=== PATIENT | male | born 1950 | race African-American/Black ===

== ENCOUNTER 2019-07-17 06:42 | Outpatient (CLI) | payer MEDICARE, SELFPAY ==
[2019-07-17 07:48] LABS: Basophils Percent Auto 0.4 % (0.2-1.2); Eosinophils Absolute Auto 0.2 K/mm3 (0-0.3); Eosinophils Percent Auto 3.1 % (0-4.4); Hematocrit 42.3 % (42.0-52.0); Lymphocytes Absolute Auto 1.85 K/mm3 (0.9-3.2); Lymphocytes Percent Auto 35.4 % (18.3-44.2); Mean Corpuscular HGB Conc 33.1 g/dl (32-36); Mean Corpuscular Hemoglobin 30.1 pg (26-34); Mean Platelet Volume 10.6 fl (7.4-10.4); Monocytes Absolute Auto 0.4 K/mm3 (0.1-0.6); Monocytes Percent Auto 6.7 % (2.6-8.5); Neutrophils Absolute Auto 2.8 K/mm3 (1.3-6.7); Neutrophils Percent Auto 54.4 % (45.5-73.1); Platelet Count Result 160 k/mm3 (150-375); Red Blood Count 4.65 M/mm3 (4.6-6.20); Red Cell Distribution Width 13.2 % (11.5-14.5); White Blood Count 5.2 K/mm3 (4.5-10.0)
[2019-07-17 08:01] LABS: Alanine Aminotransferase 22 U/L (4-50); Albumin Level 3.9 g/dL (3.5-5.1); Alkaline Phosphatase 79 U/L (38-126); Aspartate Amino Transferase 27 U/L (17-59); Bilirubin,Total 0.6 mg/dL (0.2-1.3); Blood Urea Nitrogen 16 mg/dL (9-20); Calcium 8.7 mg/dL (8.4-10.2); Carbon Dioxide 26 mmol/L (22-30); Chloride 104 mmol/L (98-107); Cholesterol 141 mg/dL (0-200); Estimated Glomerular Filt Rate > 60; Glucose 132 mg/dL (75-110); HDL Direct 36 mg/dL; Potassium 3.8 mmol/L (3.4-5.0); Sodium 137 mmol/L (137-145); Triglycerides 157 mg/dL (<150)
[2019-07-17 08:12] LABS: LDL Cholesterol Direct 74 mg/dL
[2019-07-17 08:16] LABS: Hemoglobin A1C 6.2 % (<5.7)
== END 2019-07-17 06:43 | disposition home or self-care (01) ==
PROVIDERS: PCP Internal Medicine; Visit Provider Internal Medicine
DX: I10 Essential (primary) hypertension (principal); R73.03 Prediabetes; E78.2 Mixed hyperlipidemia; Z79.899 Other long term (current) drug therapy
CPT/HCPCS: 36415; 80053; 80061; 83036; 84443; 85025

== ENCOUNTER 2019-07-18 07:02 | Outpatient (CLI) | payer MEDICARE, SELFPAY ==
[2019-07-18 09:25] LABS: Free T4 Free Thyroxine 0.95 ng/mL (0.78-2.19)
== END 2019-07-18 07:03 | disposition home or self-care (01) ==
PROVIDERS: PCP Internal Medicine; Visit Provider Internal Medicine
DX: Z79.899 Other long term (current) drug therapy (principal)
CPT/HCPCS: 36415; 84439

== ENCOUNTER 2019-09-01 20:29 | Outpatient (CLI) | payer MEDICARE, SELFPAY ==
--- NOTE | ~2019-09-01 | MR_ITS ---
EXAMINATION: MR knee RT wo con DATE: 09/01/2019 21:09 INDICATION: Right knee pain and swelling. TECHNIQUE: Magnetic resonance imaging (MRI) of the right knee was performed without intravenous contr ast. Sequences included coronal PD-weighted FSE, coronal PD-weighted FS FSE, sagittal T2-weighted FS E, sagittal PD-weighted FS FSE and axial PD weighted fat saturated FSE. COMPARISON: None. FINDINGS: Medial compartment: Complex tear at the body of the medial meniscus with longitudinal oblique tear plane contacting intra -articular surface in the posterior horn. Small region of shallow chondral ulceration/fissuring along the lateral side of the central weightbearing medial femoral condyle. Partial thickness cartilage lo ss along the medial tibial plateau with smooth chondral surface. Lateral compartment: Lateral meniscus is normal. Articular cartilage is normal. Patellofemoral compartment: Partial-thickness cartilage loss with scattered deep chondral fissuring at the patellar apical ridge and lateral patellar facet. Small focus of underlying subarticular edema at the lateral side of the l ateral patellar facet. There is juxtaposed trochlear chondral ulceration and deep fissuring centered along the trochlear groove and along the inferior aspect of the medial trochlea without degenerative subchondral changes. Ligaments and tendons: Anterior and posterior cruciate ligaments are normal. The medial collateral ligament and fibular elroy ateral ligament complex are normal. Mild patellar and distal quadriceps tendinopathy without discrete tear. The visualized medial and lateral hamstring tendons as well as the iliotibial band are normal. Fluid: Small glenohumeral joint effusion. No loose osteochondral bodies identified. Is an additional small l oculated fluid collection which partially surrounds the distal semimembranosus tendon and extends dis tally along the anterior branch of the tendon deep to the pes anserinus. Osseous/other: Bone alignment is normal. No fracture or pathologic marrow replacing process. IMPRESSION: 1. Complex medial meniscal tear. 2. Mild osteoarthritis with moderate grade chondromalacia in the medial compartment and with moderate to high-grade chondromalacia in the patellar compartment. 3. Likely reactive small knee joint effusion. 4. Loculated fluid collection at the posterior medial aspect of the knee which could represent either a Raymundo's cyst, semimembranosus tenosynovitis or pes anserinus bursitis. 5. Patellar and distal quadriceps tendinopathy. Reviewed, dictated and finalized at location A. IMPRESSION: 1. Complex medial meniscal tear. 2. Mild osteoarthritis with moderate grade chondromalacia in the medial compart ment and with moderate to high-grade chondromalacia in the patellar compartment . 3. Likely reactive small knee joint effusion. 4. Loculated fluid collection at the posterior medial aspect of the knee which could represent either a Raymundo's cyst, semimembranosus tenosynovitis or pes ans erinus bursitis. 5. Patellar and distal quadriceps tendinopathy.
== END 2019-09-01 20:30 | disposition home or self-care (01) ==
LOC: ANHIMG 20:30
PROVIDERS: PCP Internal Medicine; Visit Provider Internal Medicine
DX: M23.203 Derangement of unspecified medial meniscus due to old tear or injury, right knee (principal); M17.11 Unilateral primary osteoarthritis, right knee
CPT/HCPCS: 73721

== ENCOUNTER 2019-10-04 10:09 | Outpatient (CLI) | payer MEDICARE, SELFPAY ==
[2019-10-04 11:16] LABS: CRP < 0.5 mg/dL (<1.0); Erythrocyte Sedimentation Rate 16 mm/hr (0-20); Uric Acid 6.6 mg/dL (3.5-8.5)
== END 2019-10-04 10:10 | disposition home or self-care (01) ==
PROVIDERS: PCP Internal Medicine; Visit Provider Internal Medicine
DX: M10.9 Gout, unspecified (principal)
CPT/HCPCS: 36415; 84550; 85652; 86140

== ENCOUNTER 2019-11-08 07:03 | Outpatient (CLI) | payer MEDICARE, SELFPAY ==
[2019-11-08 07:28] LABS: Uric Acid 5.1 mg/dL (3.5-8.5)
== END 2019-11-08 07:04 | disposition home or self-care (01) ==
PROVIDERS: PCP Internal Medicine; Visit Provider Internal Medicine
DX: M10.9 Gout, unspecified (principal)
CPT/HCPCS: 36415; 84550

== ENCOUNTER 2020-02-13 11:29 | Outpatient (CLI) | payer MEDICARE, SELFPAY ==
[2020-02-13 12:04] LABS: Uric Acid 4.8 mg/dL (3.5-8.5)
[2020-02-13 13:56] LABS: Erythrocyte Sedimentation Rate 17 mm/hr (0-20)
== END 2020-02-13 11:30 | disposition home or self-care (01) ==
PROVIDERS: PCP Internal Medicine; Visit Provider Internal Medicine
DX: M10.9 Gout, unspecified (principal)
CPT/HCPCS: 36415; 84550; 85652

== ENCOUNTER → 2020-08-06 01:42 | Outpatient (CLI) | payer MEDICARE, SELFPAY ==
[2020-08-06 18:55] LABS: SARS-CoV-2 RNA PCR Negative
== END ==
PROVIDERS: PCP Internal Medicine; Visit Provider Internal Medicine Gastroenterology
DX: Z01.812 Encounter for preprocedural laboratory examination (principal); Z20.822 Contact with and (suspected) exposure to COVID-19
CPT/HCPCS: C9803; U0003; U0005

== ENCOUNTER 2020-08-06 09:12 | Outpatient (CLI) | payer MEDICARE, SELFPAY ==
[2020-08-06 09:52] LABS: Basophils Percent Auto 0.5 % (0.2-1.2); Eosinophils Absolute Auto 0.2 K/mm3 (0-0.3); Eosinophils Percent Auto 4.7 % (0-4.4); Hematocrit 42.5 % (42.0-52.0); Hemoglobin 14.6 g/dL (14.0-18.0); Immature Granulocyte Absolute 0.01 K/mm3 (0.00-0.031); Immature Granulocyte Percent A 0.2 % (0-0.5); Lymphocytes Absolute Auto 1.68 K/mm3 (0.9-3.2); Lymphocytes Percent Auto 39.4 % (18.3-44.2); Mean Corpuscular HGB Conc 34.4 g/dl (32-36); Mean Corpuscular Hemoglobin 30.1 pg (26-34); Mean Corpuscular Volume 87.6 fl (80-100); Mean Platelet Volume 9.7 fl (7.4-10.4); Monocytes Absolute Auto 0.4 K/mm3 (0.1-0.6); Monocytes Percent Auto 9.6 % (2.6-8.5); Neutrophils Absolute Auto 1.9 K/mm3 (1.3-6.7); Neutrophils Percent Auto 45.6 % (45.5-73.1); Platelet Count Result 190 k/mm3 (150-375); Red Blood Count 4.85 M/mm3 (4.6-6.20); Red Cell Distribution Width 14.1 % (11.5-14.5); White Blood Count 4.3 K/mm3 (4.5-10.0)
[2020-08-06 10:05] LABS: Anion Gap 6 mmol/L (8-16); Blood Urea Nitrogen 17 mg/dL (9-20); Calcium 9.3 mg/dL (8.4-10.2); Carbon Dioxide 28 mmol/L (22-30); Chloride 104 mmol/L (98-107); Cholesterol 131 mg/dL (0-200); Estimated Glomerular Filt Rate > 60; Glucose 110 mg/dL (75-110); HDL Direct 40 mg/dL; Hemoglobin A1C 5.8 % (<5.7); Potassium 3.5 mmol/L (3.4-5.0); Sodium 138 mmol/L (137-145); Triglycerides 165 mg/dL (<150)
[2020-08-06 10:16] LABS: LDL Cholesterol Direct 68 mg/dL
[2020-08-06 10:32] LABS: Prostate Specific Antigen 0.8 ng/mL (< OR = 4.0)
[2020-08-06 11:52] LABS: Add Urine Microscopic? YES; Appearance Urine Clear (Clear); Bilirubin Urine Negative (Negative); Blood Urine Negative (Negative); Color Urine Yellow (Yellow); Glucose Urine UA Negative (Negative); Ketones Urine Negative (Negative); Leukocyte Esterase Ur Negative LEU/UL (NEGATIVE); Nitrate Urine Negative (Negative); Protein Urine Negative (Negative); RBC Urine 0-2 /hpf (0-2); Specific Grav Ur 1.019 (1.001-1.035); WBC Urine 0-3 /hpf (0-3)
[2020-08-08 19:43] LABS: Homocysteine 11.4 umol/L (<11.4)
[2020-08-09 16:08] LABS: Vitamin D 1,25 (OH)2 Total 29 pg/mL (18-72); Vitamin D2 1,25 (OH)2 <8 pg/mL; Vitamin D3 1,25 (OH)2 29 pg/mL
== END 2020-08-06 09:13 | disposition home or self-care (01) ==
PROVIDERS: PCP Internal Medicine; Visit Provider Internal Medicine
DX: Z12.5 Encounter for screening for malignant neoplasm of prostate (principal); E55.9 Vitamin D deficiency, unspecified; R79.89 Other specified abnormal findings of blood chemistry; E78.2 Mixed hyperlipidemia; I10 Essential (primary) hypertension; Z51.81 Encounter for therapeutic drug level monitoring; Z79.899 Other long term (current) drug therapy
CPT/HCPCS: 36415; 80048; 80061; 81001; 82652; 83036; 83090; 84153; 85025; C9803; G0103; U0003; U0005

== ENCOUNTER → 2020-11-01 01:01 | Outpatient (CLI) | payer MEDICARE, SELFPAY ==
[2020-11-02 02:30] LABS: SARS-CoV-2 RNA PCR Negative
== END ==
PROVIDERS: PCP Internal Medicine; Visit Provider Internal Medicine
DX: R68.89 Other general symptoms and signs (principal); Z20.822 Contact with and (suspected) exposure to COVID-19
CPT/HCPCS: C9803; U0003; U0005

== ENCOUNTER → 2021-03-18 02:04 | Outpatient (CLI) | payer MEDICARE, SELFPAY ==
[2021-03-19 02:05] LABS: SARS-CoV-2 RNA PCR Negative
== END ==
PROVIDERS: PCP Internal Medicine; Visit Provider Internal Medicine
DX: R05.9 Cough, unspecified (principal); Z20.822 Contact with and (suspected) exposure to COVID-19
CPT/HCPCS: C9803; U0003; U0005

== ENCOUNTER 2021-04-16 08:10 | Outpatient (CLI) | payer MEDICARE, SELFPAY ==
[2021-04-16 08:41] LABS: Eosinophils Absolute Auto 0.2 K/mm3 (0-0.3); Eosinophils Percent Auto 3.6 % (0-4.4); Hematocrit 44.5 % (42.0-52.0); Hemoglobin 14.9 g/dL (14.0-18.0); Immature Granulocyte Absolute 0.01 K/mm3 (0.00-0.031); Immature Granulocyte Percent A 0.2 % (0-0.5); Lymphocytes Absolute Auto 1.87 K/mm3 (0.9-3.2); Lymphocytes Percent Auto 45.5 % (18.3-44.2); Mean Corpuscular HGB Conc 33.5 g/dl (32-36); Mean Corpuscular Hemoglobin 30.9 pg (26-34); Mean Corpuscular Volume 92.3 fl (80-100); Mean Platelet Volume 9.4 fl (7.4-10.4); Monocytes Absolute Auto 0.4 K/mm3 (0.1-0.6); Monocytes Percent Auto 10.5 % (2.6-8.5); Neutrophils Absolute Auto 1.6 K/mm3 (1.3-6.7); Neutrophils Percent Auto 39.2 % (45.5-73.1); Platelet Count Result 149 k/mm3 (150-375); Red Blood Count 4.82 M/mm3 (4.6-6.20); Red Cell Distribution Width 13.7 % (11.5-14.5); White Blood Count 4.1 K/mm3 (4.5-10.0)
[2021-04-16 08:56] LABS: Hemoglobin A1C 5.9 % (<5.7)
[2021-04-16 08:57] LABS: Alanine Aminotransferase 38 U/L (4-50); Alkaline Phosphatase 59 U/L (38-126); Anion Gap 6 mmol/L (8-16); Aspartate Amino Transferase 40 U/L (17-59); Blood Urea Nitrogen 17 mg/dL (9-20); Calcium 9.1 mg/dL (8.4-10.2); Carbon Dioxide 31 mmol/L (22-30); Chloride 100 mmol/L (98-107); Estimated Glomerular Filt Rate > 60; Glucose 123 mg/dL (65-110); Potassium 3.7 mmol/L (3.4-5.0); Sodium 137 mmol/L (137-145); Uric Acid 4.9 mg/dL (3.5-8.5)
[2021-04-16 09:23] LABS: Cholesterol 161 mg/dL (0-200); HDL Direct 58 mg/dL; Triglycerides 118 mg/dL (<150)
[2021-04-16 09:29] LABS: Free T4 Free Thyroxine 0.96 ng/mL (0.78-2.19); Vitamin D 25 Hydroxy 43.5 ng/mL
[2021-04-16 09:31] LABS: LDL Cholesterol Direct 76 mg/dL
[2021-04-19 05:24] LABS: Insulin Level Total 8.5 uIU/mL (<=19.6)
[2021-04-19 05:51] LABS: C-Peptide 1.47 ng/mL (0.80-3.85)
== END 2021-04-16 08:11 | disposition home or self-care (01) ==
PROVIDERS: PCP Internal Medicine; Visit Provider Internal Medicine
DX: E16.2 Hypoglycemia, unspecified (principal); R73.03 Prediabetes; M10.9 Gout, unspecified; E55.9 Vitamin D deficiency, unspecified; R94.6 Abnormal results of thyroid function studies; I10 Essential (primary) hypertension
CPT/HCPCS: 36415; 80053; 80061; 82306; 83036; 83525; 84439; 84443; 84550; 84681; 85025

== ENCOUNTER 2021-04-17 06:36 | Outpatient (CLI) | payer MEDICARE, SELFPAY ==
[2021-04-17 07:32] LABS: Glucose Fasting 120 mg/dL
[2021-04-17 09:11] LABS: Glucose 1 Hour 226 mg/dL
[2021-04-17 10:20] LABS: Glucose 2 Hour 155 mg/dL
[2021-04-17 11:25] LABS: Glucose 3 Hour 84 mg/dL
[2021-04-17 12:07] LABS: Glucose 4 Hour 92 mg/dL
[2021-04-17 13:16] LABS: Glucose 5 Hour 93 mg/dL
== END 2021-04-17 06:37 | disposition home or self-care (01) ==
PROVIDERS: PCP Internal Medicine; Visit Provider Internal Medicine
DX: R73.03 Prediabetes (principal)
CPT/HCPCS: 36415; 82951; 82952

== ENCOUNTER 2021-05-09 02:11 | Day surgery (SDC) | payer MEDICARE, SELFPAY ==
[2021-05-08 15:02] VITALS: BMI 29.2
[2021-05-09] VITALS (14 sets, daily range): BP systolic 113–151; BP diastolic 71–94; PULSE 67–94; RESP 10–20; TEMP 36.3–36.4; O2SAT 96–100; BMI 29.0
--- NOTE | ~2021-05-09 | XR_ITS ---
EXAMINATION: XR chest 1V portable DATE: 05/09/2021 10:58 INDICATION: Pacemaker insertion TECHNIQUE: frontal view of the chest was obtained. COMPARISON: None FINDINGS: The lungs are clear with no focal airspace opacities, pulmonary edema, pleural effusion or pneumothor ax. The cardiomediastinal silhouette is normal. Dual lead pacemaker seen with leads projecting over t he expected locations of the right atrium and right ventricle. IMPRESSION: 1. Dual-lead cardiac pacemaker in expected position. No acute cardiopulmonary disease. Reviewed, dictated and finalized at location A. DULING SPECIALIST IMPRESSION: 1. Dual-lead cardiac pacemaker in expected position. No acute cardiopulmonary d isease.
--- NOTE | 2021-05-09 07:00 | ECG_ITS ---
Measurements Intervals [place] Rate: 94 P: 57 NE: 164 QRS: 42 QRSD: 86 T: 67 QT: 298 QTc: 374 Interpretive Statements SINUS RHYTHM MINIMAL Q WAVES- INFERIOR LEADS NONSPECIFIC T-WAVE ABNORMALITY- HIGH LATERAL LEADS BORDERLINE ECG Electronically Signed On 05-09-2021 7:40:39 INDUSTRIAL SEWER by Sai Zamora D.O.
[2021-05-09] MEDS: SODIUM CHLORIDE 0.9% IV 500 ML 100 ML IV CONT (07:53)
[2021-05-09 07:54] LABS: Basophils Percent Auto 0.4 % (0.2-1.2); Eosinophils Absolute Auto 0.1 K/mm3 (0-0.3); Eosinophils Percent Auto 2.6 % (0-4.4); Hematocrit 41.9 % (42.0-52.0); Hemoglobin 14.3 g/dL (14.0-18.0); Immature Granulocyte Absolute 0.01 K/mm3 (0.00-0.031); Immature Granulocyte Percent A 0.2 % (0-0.5); Lymphocytes Absolute Auto 1.77 K/mm3 (0.9-3.2); Lymphocytes Percent Auto 38.1 % (18.3-44.2); Mean Corpuscular HGB Conc 34.1 g/dl (32-36); Mean Corpuscular Hemoglobin 31.2 pg (26-34); Mean Corpuscular Volume 91.3 fl (80-100); Mean Platelet Volume 10.1 fl (7.4-10.4); Monocytes Absolute Auto 0.4 K/mm3 (0.1-0.6); Monocytes Percent Auto 9.3 % (2.6-8.5); Neutrophils Absolute Auto 2.3 K/mm3 (1.3-6.7); Neutrophils Percent Auto 49.4 % (45.5-73.1); Platelet Count Result 153 k/mm3 (150-375); Red Blood Count 4.59 M/mm3 (4.6-6.20); Red Cell Distribution Width 13.8 % (11.5-14.5); White Blood Count 4.6 K/mm3 (4.5-10.0)
[2021-05-09 07:57] LABS: Anion Gap 5 mmol/L (8-16); Blood Urea Nitrogen 16 mg/dL (9-20); Calcium 9.2 mg/dL (8.4-10.2); Carbon Dioxide 26 mmol/L (22-30); Chloride 106 mmol/L (98-107); Estimated CRCL calculation 83 ml/min; Estimated Glomerular Filt Rate > 60; Glucose 132 mg/dL (65-110); Potassium 3.4 mmol/L (3.4-5.0); Sodium 137 mmol/L (137-145)
[2021-05-09 08:02] LABS: Prothrombin Time 12.6 Seconds (11.1-14.7)
--- NOTE | 2021-05-09 08:05 | SUR.PREOP ---
dr cueto in to see patient. questions encouraged and answered. v/u.
--- NOTE | 2021-05-09 08:26 | WPDHPUPDATE1 ---
History and Physical Update Update Date/Time: 05/09/21 08:26 Patient with a history syncope, with no prodrome, found to have high-degree AV block with 2-1 heart block and briefly complete heart block on a recent monitor. He is here for permanent dual-chamber Biotronik pacemaker. He has a history of elevated calcium score but no symptomatic coronary disease, hypertension, hyperlipidemia, and diabetes. He is feeling well today. History and Physical has been reviewed, including an updated exam of the patient. There are NO changes in the patient's condition. Risks, benefits, and alternatives have been discussed and questions answered. Patient agrees to proceed with procedure.
--- NOTE | 2021-05-09 08:27 | WPDMODSED ---
Moderate Sedation Note-Pt Data Patient Data Diagnosis: Syncope, with intermittent high-degree AV block and brief complete heart block. Present Complaint: Mr. Cosme Bah is a 70-year-old male who has had intermittent syncope for the last 4 years. Monitor showed intermittent high-degree AV block with 2-1 block and brief complete heart block. He is here for implantation of a permanent dual-chamber pacemaker. Patient has a history of hypertension, diabetes, hyperlipidemia, and he has a severely elevated coronary calcium score. Stress test in 2019 showed no ischemia and he has had no anginal pain. Procedure to be performed/Plan: Conscious sedation venogram Implantation of a permanent dual-chamber pacemaker Allergies Allergy/AdvReac Type Severity Reaction Status Date / Time No Known Allergies Allergy Verified 05/08/21 16:58 Home Medications Medication Instructions Recorded Confirmed Type aspirin 81 mg tablet,delayed 81 mg PO DAILY 04/17/19 05/08/21 History release indomethacin 50 mg capsule 50 mg PO TID PRN #20 cap 01/09/20 05/08/21 Rx ascorbic acid (vitamin C) 2,000 mg PO BID 08/01/20 05/08/21 History [Chewable Vitamin C] ezetimibe 10 mg PO DAILY 08/01/20 05/08/21 History metformin 500 mg PO BID 08/01/20 05/08/21 History valsartan-hydrochlorothiazide 0.5 tablet PO DAILY 08/01/20 05/08/21 History tamsulosin 0.4 mg capsule See Rx Instructions .ROUTE 11/25/20 05/08/21 Rx .COMPLEX #90 cap cholecalciferol (vitamin D3) 50 50 mcg PO DAILY 11/26/20 05/08/21 History mcg (2,000 unit) capsule allopurinol 300 mg tablet See Rx Instructions .ROUTE 04/02/21 05/08/21 Rx .COMPLEX #90 tablet atorvastatin 80 mg tablet See Rx Instructions .ROUTE 04/21/21 05/08/21 Rx .COMPLEX #90 tablet Current Medications: Active Medications Cefazolin Sodium (Ancef 1 Gm/D5w 50 Ml Pm) 1 gm in 50 mls @ 100 mls/hr IVPB ONCE ONE Stop: 05/09/21 08:29 Sodium Chloride (Normal Saline Iv) 500 mls @ 100 mls/hr IV CONT .Q5H ONE Stop: 05/09/21 12:50 Last Admin: 05/09/21 07:53 Dose: 100 mls/hr Documented by: Sedation/Anesthesia: No previous sedation/anesthesia problems (including family history). [facility] Past Medical History Medical History (Updated 05/09/21 @ 08:30 by Eden Hilliard MD) Abnormal finding of blood chemistry Benign essential hypertension BMI 28.0-28.9,adult BMI 29.0-29.9,adult Borderline abnormal TFTs BPH (benign prostatic hyperplasia) Chronic pain of right knee Colon cancer screening Cough Encounter for Medicare annual wellness exam Encounter for routine adult health examination with abnormal findings Encounter for routine adult health examination without abnormal findings Encounter for special screening examination for neoplasm of prostate Encounter for special screening examination for neoplasm of prostate Follow up Golfers elbow of left upper extremity Gout Hearing loss Hyperlipidemia 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 which has been evaluated by [facility], 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, benign On alf drug therapy Pre-diabetes Prostate cancer screening Syncopal episodes Vitamin D deficiency Family History Family History Sibling Family history of diabetes mellitus in first degree relative Mother Family history of malignant neoplasm Other Family history of cardiovascular disease Social History Social History Smoking packs per day: 1 Smoking cigarettes per day: 20.0 Smoking status: Former smoker Tobacco type: cigarettes Second hand tobacco smoke exposure: No Smoking end date: 05/14/95 Alcohol intake: current Alcohol use details: DRINKS AFTER GOLF 3X WEEK Substance use: never Substance use type: does not use Living arrangements: with family Spiritual care concerns: No Mod Sed Physical Exam Physical Exam Pre Proc
--- NOTE | 2021-05-09 10:26 | ECG_ITS ---
Measurements Intervals [place] Rate: 72 P: 62 [place]: 178 QRS: 39 QRSD: 95 T: 59 QT: 410 QTc: 450 Interpretive Statements SINUS RHYTHM WITH MARKED SINUS ARRHYTHMIA MINIMAL Q WAVES- INFERIOR LEADS NONSPECIFIC ST ELEVATION IN ANTEROLAT/INF LEADS BORDERLINE ECG Electronically Signed On 05-09-2021 10:45:07 RADIOLOGIST DIAGNOSTIC by Sai Zamora D.O.
--- NOTE | 2021-05-09 10:29 | PM.OP ---
Procedure Note - Brief Procedure Note - Brief Date of procedure: 05/09/21 Pre-op diagnosis: heart block Syncope, high-degree heart block Post-op diagnosis: same Procedure performed: venogram Conscious sedation Implantation of a permanent dual-chamber Biotronik pacemaker Description of procedure: uneventful pacemaker implant Anesthesia: local ( with local anesthesia) Surgeon: Eden Hilliard MD Complications: No immediate complications Condition: stable Disposition: observation
--- NOTE | 2021-05-09 10:30 | W.PM.PROC2 ---
Procedure Note - Detailed Date of Procedure 05/09/21 Pre-op Diagnosis heart block Post-op Diagnosis same Procedure Performed conscious sedation Venogram Implantation of a permanent Biotronik dual-chamber pacemaker Surgeon Eden Hilliard MD Description of Procedure HISTORY: Mr. Viveros is a 70-year-old male who has had intermittent syncope for the last 4 years. Monitoring showed intermittent high-degree AV block with 2-1 block and brief complete heart block. He is here for implantation of a permanent dual-chamber pacemaker. Patient has a history of hypertension, diabetes, hyperlipidemia, and he has a severely elevated coronary calcium score. Stress test in 2019 showed no ischemia and he has had no anginal pain. PROCEDURE PERFORMED: Conscious sedation Venogram Placement of a permanent dual-chamber pacemaker SITE: Left prepectoral area MEDICATIONS GIVEN IN ACTIVITY DIRECTOR: Ancef 1 gram IV piggyback CONSCIOUS SEDATION: Assessment: The patient has no history of anesthesia problems. The patient's oropharynx is clear. The patient was deemed to be a good candidate for conscious sedation. The patient had continuous hemodynamic monitoring during the procedure. Start time: 8:53 a.m. Completion time: 10:19 a.m. Total conscious sedation time: 86 minutes Medications: Versed 6 mg, fentanyl 150 mcg IV push Trained observer: Devendra Franco RN, Sheryl Person RN Outcome: The patient tolerated the procedure well with no complications. PROCEDURE: After informed consent , the patient was brought to the home performance laborer and the left prepectoral area was prepped and draped in usual fashion . The patient received preop antibiotic and conscious sedation . The left prepectoral area was anesthetized with lidocaine . A venogram was performed showing the course of the left subclavian vein,which was patent thoug tortuous. Next a skin incision was made and carried down to the prepectoral fascia. Hemostasis was obtained using electrocautery . The patient has a lot of lipoma-like tumors around his neck, supraclavicular area and a little in the infraclavicular area. One was involved in the incision site and was more vascular than a lipoma normally is. The pacer pocket was formed. The left subclavian vein was easily accessed with the micropuncture technique, and a J-tipped guide wire was passed into the inferior vena cava under fluoroscopic guidance. The needle was withdrawn. A 2nd wire was introduced in an identical fashion. A 6 [place] safety sheath was passed over the lateral wire, the wire withdrawn, and the right ventricular lead was passed into the inferior vena cava under fluoroscopic guidance . The lead was then prolapsed through the tricuspid valve and advanced into the right ventricular apex. When suitable sensing and pacing thresholds were obtained, it was screwed into place. No extra cardiac stimulation was obtained using 10 volts. The sheath was withdrawn. Next, another 6 [place] safety sheath was passed over the more medial wire, the wire withdrawn, and the right atrial lead was passed into the inferior vena cava under fluoroscopic guidance. Right atrial lead was then pulled back to the level of the right atrium and manipulated into the right atrial appendage . When suitable sensing and pacing thresholds were obtained , it was screwed into place . No extra cardiac stimulation was obtained using 10 volts. The sheath was withdrawn. Both leads were secured to the prepectoral fascia using 2-0 silk over their respective sleeves. The pocket was cleansed with antibiotic containing solution . The pulse generator was introduced into the operative field, and both leads were secured into the generator . Topical thrombin was applied due to some ongoing oozing. A gentle tug showed the leads were securely fastened. The device was introduced into the pocket. The subcutaneous tissues were closed in a double layer fashion with interrupted sutures,
[2021-05-09] MEDS: HYDROcodone/acetaminophen (*CRX) 5-325 MG TABLET 1 TAB PO ×2 (14:30→16:48)
[2021-05-09] MEDS: ceFAZolin 2 GM/D5W 50 ML 2 GM/50 ML BAG IVPB (14:30)
== END 2021-05-09 17:30 | disposition home or self-care (01) ==
PROVIDERS: PCP Internal Medicine; Visit Provider Internal Medicine Cardiovascular Disease
PROC: 0JH606Z Insertion of Pacemaker, Dual Chamber into Chest Subcutaneous Tissue and Fascia, Open Approach (ICD-10-PCS; CPT 33208; principal; 2021-05-09 08:00)
DX: I44.1 Atrioventricular block, second degree (principal); I45.9 Conduction disorder, unspecified; R42 Dizziness and giddiness; E78.5 Hyperlipidemia, unspecified; I10 Essential (primary) hypertension; Z87.891 Personal history of nicotine dependence; M10.9 Gout, unspecified; Z79.82 Long term (current) use of aspirin; Z79.84 Long term (current) use of oral hypoglycemic drugs; E11.9 Type 2 diabetes mellitus without complications; E78.2 Mixed hyperlipidemia; Z82.49 Family history of ischemic heart disease and other diseases of the circulatory system; R93.1 Abnormal findings on diagnostic imaging of heart and coronary circulation; Z79.899 Other long term (current) drug therapy; N40.0 Benign prostatic hyperplasia without lower urinary tract symptoms; E55.9 Vitamin D deficiency, unspecified
CPT/HCPCS: 33208; 36415; 71045; 80048; 85025; 85610; 93005; A9270; C1779; C1785; J0690; J2250; J3010; J7030; J7040

== ENCOUNTER 2021-07-03 01:35 | Day surgery (SDC) | payer MEDICARE, SELFPAY ==
[2021-06-23 13:11] VITALS: BMI 29.5
[2021-07-03 07:35] VITALS: BP 120/67; PULSE 91; RESP 16; TEMP 37.1; O2SAT 98; BMI 29.0
[2021-07-03 07:55] LABS: Glucose Point of Care 128 mg/dl (65-105)
[2021-07-03] MEDS: LACTATED RINGERS 1,000 ML 150 ML IV CONT (08:05)
--- NOTE | 2021-07-03 08:18 | WPDGICN ---
Assessment and Plan Assessment and plan (1) Colon cancer screening: Code(s): Z12.11 - Encounter for screening for malignant neoplasm of colon Status: Acute Assessment and Plan: Patient presents for screening colonoscopy. Appears to be at average risk for colon polyps. Further recommendations will be given after endoscopy. GI Consult Note Consult date/time: 07/03/21 08:18 HPI: Gokul Viveros is a 70 year old male Presents for screening colonoscopy. Patient's current weight appetite and bowel movements are normal. He denies abdominal pain. He has had no bleeding. Last colonoscopy more than 10 years ago was unremarkable. Family history is significant his grandmother had colon cancer. Patient does report prior history of cardiac pacemaker. He presents today for neoplasia screening. Review of Systems Review of Systems: All systems reviewed & are unremarkable except as noted in HPI and below PMFSH Past Medical History Medical History (Updated 05/09/21 @ 08:30 by Eden Hilliard MD) Abnormal finding of blood chemistry Benign essential hypertension BMI 28.0-28.9,adult BMI 29.0-29.9,adult Borderline abnormal TFTs BPH (benign prostatic hyperplasia) Chronic pain of right knee Colon cancer screening Cough Encounter for Medicare annual wellness exam Encounter for routine adult health examination with abnormal findings Encounter for routine adult health examination without abnormal findings Encounter for special screening examination for neoplasm of prostate Encounter for special screening examination for neoplasm of prostate Follow up Golfers elbow of left upper extremity Gout Hearing loss Hyperlipidemia 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 which has been evaluated by [facility], 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, benign On filler leaf cutter long drug therapy Pre-diabetes Prostate cancer screening Syncopal episodes Vitamin D deficiency Surgical History Surgical History (Updated 05/09/21 @ 11:13 by Eden Hilliard MD) S/P cardiac pacemaker procedure 05/09/2021 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 Family History Family History Sibling Family history of diabetes mellitus in first degree relative Mother Family history of malignant neoplasm Other Family history of cardiovascular disease Social History Social History Smoking packs per day: 1 Smoking cigarettes per day: 20.0 Smoking status: Never smoker Tobacco type: cigarettes Second hand tobacco smoke exposure: No Smoking end date: 05/14/95 Alcohol intake: current Drinks per week: 4 Alcohol use details: DRINKS AFTER GOLF 3X WEEK Substance use: former Substance use type: marijuana Living arrangements: with family Spiritual care concerns: No Meds Home Medications and Allergies Home Medications Medication Instructions Recorded Confirmed Type aspirin 81 mg tablet,delayed 81 mg PO DAILY 04/17/19 07/03/21 History release indomethacin 50 mg capsule 50 mg PO TID PRN #20 cap 01/09/20 07/03/21 Rx ascorbic acid (vitamin C) 2,000 mg PO DAILY 08/01/20 07/03/21 History ezetimibe 10 mg PO DAILY 08/01/20 07/03/21 History tamsulosin 0.4 mg capsule See Rx Instructions .ROUTE 11/25/20 07/03/21 Rx .COMPLEX #90 cap cholecalciferol (vitamin D3) 50 50 mcg PO DAILY 11/26/20 07/03/21 History mcg (2,000 unit) capsule allopurinol 300 mg tablet See Rx Instructions .ROUTE 04/02/21 07/03/21 Rx .COMPLEX #90 tablet atorvastatin 80 mg tablet See Rx Instructions .ROUTE 04/21/21 07/03/21 Rx .COMPLEX #90 tablet metformin 500 mg tablet See Rx Instructions .ROUTE 06/26/21 07/03/21 Rx .COMPLEX #180 tablet valsartan 320 See Rx Instructions .ROUTE 06/26/21 07/03/21 Rx mg-hydrochlorothiazide 25 mg tablet .COMPLEX #90 tablet Allergies Allergy/AdvReac Ty
--- NOTE | 2021-07-03 08:23 | WPDANESEPPF ---
Anes - Initial Pre Proc Eval Procedure: Operation Date: 07/03/21 08:30 Proposed Procedures p Screening Colonoscopy - Prieto Parson MD Date/Time: 07/03/21 08:23 Surgeon: Prieto Parson MD Pre Op Diagnosis: neoplasm screening Patient Data Age: 70 Gender: M Height: 1.93 m Weight: 108.3 kg Last Vital Signs Temp 98.7 F 07/03/21 07:35 Pulse 91 07/03/21 07:35 Resp 16 07/03/21 07:35 BP 120/67 07/03/21 07:35 Pulse Ox 98 07/03/21 07:35 Allergies Allergy/AdvReac Type Severity Reaction Status Date / Time No Known Allergies Allergy Verified 07/03/21 07:44 Home Medications Medication Instructions Recorded Confirmed Type aspirin 81 mg tablet,delayed 81 mg PO DAILY 04/17/19 07/03/21 History release indomethacin 50 mg capsule 50 mg PO TID PRN #20 cap 01/09/20 07/03/21 Rx ascorbic acid (vitamin C) 2,000 mg PO DAILY 08/01/20 07/03/21 History ezetimibe 10 mg PO DAILY 08/01/20 07/03/21 History tamsulosin 0.4 mg capsule See Rx Instructions .ROUTE 11/25/20 07/03/21 Rx .COMPLEX #90 cap cholecalciferol (vitamin D3) 50 50 mcg PO DAILY 11/26/20 07/03/21 History mcg (2,000 unit) capsule allopurinol 300 mg tablet See Rx Instructions .ROUTE 04/02/21 07/03/21 Rx .COMPLEX #90 tablet atorvastatin 80 mg tablet See Rx Instructions .ROUTE 04/21/21 07/03/21 Rx .COMPLEX #90 tablet metformin 500 mg tablet See Rx Instructions .ROUTE 06/26/21 07/03/21 Rx .COMPLEX #180 tablet valsartan 320 See Rx Instructions .ROUTE 06/26/21 07/03/21 Rx mg-hydrochlorothiazide 25 mg tablet .COMPLEX #90 tablet Laboratory Tests 07/03/21 07:50 POC Capillary Glucose 128 mg/dl H mg/dl (65-105) Patient hx anesthesia problems: none Family hx anesthesia problems: none Results Review: All pre-operative results and documents have been reviewed as part of the pre-operative evaluation. [facility] Past Medical History Medical History (Updated 05/09/21 @ 08:30 by Eden Hilliard MD) Abnormal finding of blood chemistry Benign essential hypertension BMI 28.0-28.9,adult BMI 29.0-29.9,adult Borderline abnormal TFTs BPH (benign prostatic hyperplasia) Chronic pain of right knee Colon cancer screening Cough Encounter for Medicare annual wellness exam Encounter for routine adult health examination with abnormal findings Encounter for routine adult health examination without abnormal findings Encounter for special screening examination for neoplasm of prostate Encounter for special screening examination for neoplasm of prostate Follow up Golfers elbow of left upper extremity Gout Hearing loss Hyperlipidemia 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 which has been evaluated by [facility], 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, benign On termite inspector drug therapy Pre-diabetes Prostate cancer screening Syncopal episodes Vitamin D deficiency Surgical History Surgical History (Updated 05/09/21 @ 11:13 by Eden Hilliard MD) S/P cardiac pacemaker procedure 05/09/2021 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 Family History Family History Sibling Family history of diabetes mellitus in first degree relative Mother Family history of malignant neoplasm Other Family history of cardiovascular disease Social History Social History Smoking packs per day: 1 Smoking cigarettes per day: 20.0 Smoking status: Never smoker Tobacco type: cigarettes Second hand tobacco smoke exposure: No Smoking end date: 05/14/95 Alcohol intake: current Drinks per week: 4 Alcohol use details: DRINKS AFTER GOLF 3X WEEK Substance use: former Substance use type: marijuana Living arrangements: with family Spiritual care concerns: No Anes - Eval Final PreProcedure Day of Procedure 07/03/21 08:23 Patient weight: overweight Heart: regular rat
[2021-07-03 08:46] VITALS: BP 106/62; PULSE 88; RESP 24; O2SAT 97
[2021-07-03 08:56] VITALS: BP 109/61; PULSE 76; RESP 22; O2SAT 98
[2021-07-03 09:06] VITALS: BP 123/77; PULSE 78; RESP 18; O2SAT 100
== END 2021-07-03 09:15 | disposition home or self-care (01) ==
PROVIDERS: PCP Internal Medicine; Visit Provider Internal Medicine Gastroenterology
PROC: 0DJD8ZZ Inspection of Lower Intestinal Tract, Via Natural or Artificial Opening Endoscopic (ICD-10-PCS; CPT 45378; principal; 2021-07-03 08:30)
DX: Z12.11 Encounter for screening for malignant neoplasm of colon (principal); K64.8 Other hemorrhoids; Z79.82 Long term (current) use of aspirin; Z79.84 Long term (current) use of oral hypoglycemic drugs; I10 Essential (primary) hypertension; N40.0 Benign prostatic hyperplasia without lower urinary tract symptoms; E78.5 Hyperlipidemia, unspecified; R73.03 Prediabetes; E55.9 Vitamin D deficiency, unspecified; F12.90 Cannabis use, unspecified, uncomplicated; Z87.891 Personal history of nicotine dependence; Z95.0 Presence of cardiac pacemaker
CPT/HCPCS: G0121; 82948; J2704; J7120

== ENCOUNTER 2021-09-01 08:57 | Outpatient (CLI) | payer MEDICARE, SELFPAY ==
[2021-09-01 09:35] LABS: Hemoglobin A1C 5.8 % (<5.7)
[2021-09-01 09:39] LABS: Alanine Aminotransferase 23 U/L (6-50); Albumin Level 4.1 g/dL (3.5-5.1); Alkaline Phosphatase 62 U/L (38-126); Anion Gap 6 mmol/L (8-16); Aspartate Amino Transferase 24 U/L (17-59); Bilirubin,Total 0.8 mg/dL (0.2-1.3); Blood Urea Nitrogen 19 mg/dL (9-20); Calcium 8.9 mg/dL (8.4-10.2); Carbon Dioxide 28 mmol/L (22-30); Chloride 103 mmol/L (98-107); Cholesterol 133 mg/dL (0-200); Estimated Glomerular Filt Rate > 60; Glucose 120 mg/dL (65-110); HDL Direct 45 mg/dL; Potassium 3.6 mmol/L (3.4-5.0); Sodium 137 mmol/L (137-145); Triglycerides 129 mg/dL (<150)
[2021-09-01 09:50] LABS: LDL Cholesterol Direct 61 mg/dL
[2021-09-01 10:08] LABS: Prostate Specific Antigen 1.2 ng/mL (< OR = 4.0)
== END 2021-09-01 08:58 | disposition home or self-care (01) ==
PROVIDERS: PCP Internal Medicine; Visit Provider Internal Medicine
DX: I10 Essential (primary) hypertension (principal); R73.03 Prediabetes; Z79.899 Other long term (current) drug therapy; Z12.5 Encounter for screening for malignant neoplasm of prostate; E78.2 Mixed hyperlipidemia
CPT/HCPCS: 36415; 80053; 80061; 83036; 84153; G0103

== ENCOUNTER 2021-11-24 07:01 | Outpatient (CLI) | payer MEDICARE, SELFPAY ==
[2021-11-24 07:17] LABS: Basophils Percent Auto 0.3 % (0.2-1.2); Eosinophils Absolute Auto 0.2 K/mm3 (0-0.3); Eosinophils Percent Auto 2.8 % (0-4.4); Hematocrit 44.2 % (42.0-52.0); Hemoglobin 15.1 g/dL (14.0-18.0); Immature Granulocyte Absolute 0.02 K/mm3 (0.00-0.031); Immature Granulocyte Percent A 0.3 % (0-0.5); Lymphocytes Absolute Auto 2.04 K/mm3 (0.9-3.2); Lymphocytes Percent Auto 34.1 % (18.3-44.2); Mean Corpuscular HGB Conc 34.2 g/dl (32-36); Mean Corpuscular Hemoglobin 30.9 pg (26-34); Mean Corpuscular Volume 90.6 fl (80-100); Mean Platelet Volume 9.4 fl (7.4-10.4); Monocytes Absolute Auto 0.7 K/mm3 (0.1-0.6); Neutrophils Absolute Auto 3.1 K/mm3 (1.3-6.7); Neutrophils Percent Auto 51.5 % (45.5-73.1); Platelet Count Result 164 k/mm3 (150-375); Red Blood Count 4.88 M/mm3 (4.6-6.20); Red Cell Distribution Width 13.6 % (11.5-14.5)
[2021-11-24 07:29] LABS: Alanine Aminotransferase 22 U/L (6-50); Albumin Level 4.4 g/dL (3.5-5.1); Alkaline Phosphatase 59 U/L (38-126); Anion Gap 12 mmol/L (8-16); Aspartate Amino Transferase 30 U/L (17-59); Bilirubin,Total 1.2 mg/dL (0.2-1.3); Blood Urea Nitrogen 27 mg/dL (9-20); Calcium 9.9 mg/dL (8.4-10.2); Carbon Dioxide 28 mmol/L (22-30); Chloride 97 mmol/L (98-107); Cholesterol 143 mg/dL (0-200); Estimated Glomerular Filt Rate > 60; Glucose 106 mg/dL (65-110); HDL Direct 44 mg/dL; Potassium 3.4 mmol/L (3.4-5.0); Sodium 137 mmol/L (137-145); Triglycerides 154 mg/dL (<150)
[2021-11-24 07:30] LABS: Hemoglobin A1C 5.8 % (<5.7)
[2021-11-24 07:41] LABS: LDL Cholesterol Direct 63 mg/dL
[2021-11-24 08:26] LABS: Free T4 Free Thyroxine 1.17 ng/mL (0.78-2.19); Vitamin D 25 Hydroxy 41.1 ng/mL
== END 2021-11-24 07:02 | disposition home or self-care (01) ==
PROVIDERS: PCP Internal Medicine; Visit Provider Internal Medicine
DX: E55.9 Vitamin D deficiency, unspecified (principal); Z13.29 Encounter for screening for other suspected endocrine disorder; E78.2 Mixed hyperlipidemia; R73.03 Prediabetes; I10 Essential (primary) hypertension; Z79.899 Other long term (current) drug therapy
CPT/HCPCS: 36415; 80053; 80061; 82306; 83036; 84439; 84443; 85025

== ENCOUNTER 2022-08-13 07:06 | Outpatient (CLI) | payer MEDICARE, SELFPAY ==
[2022-08-13 08:07] LABS: Alanine Aminotransferase 27 U/L (6-50); Alkaline Phosphatase 56 U/L (38-126); Anion Gap 7 mmol/L (8-16); Aspartate Amino Transferase 38 U/L (17-59); Bilirubin,Total 0.8 mg/dL (0.2-1.3); Blood Urea Nitrogen 14 mg/dL (9-20); Calcium 8.7 mg/dL (8.4-10.2); Carbon Dioxide 28 mmol/L (22-30); Chloride 101 mmol/L (98-107); Cholesterol 142 mg/dL (0-200); Estimated Glomerular Filt Rate > 60; Glucose 131 mg/dL (65-110); HDL Direct 51 mg/dL; Sodium 136 mmol/L (137-145); Triglycerides 142 mg/dL (<150); Uric Acid 9.1 mg/dL (3.5-8.5)
[2022-08-13 08:10] LABS: Hemoglobin A1C 5.9 % (<5.7)
[2022-08-13 08:18] LABS: LDL Cholesterol Direct 63 mg/dL
== END 2022-08-13 07:07 | disposition home or self-care (01) ==
PROVIDERS: PCP Internal Medicine; Visit Provider Internal Medicine
DX: E55.9 Vitamin D deficiency, unspecified (principal); M10.9 Gout, unspecified; I10 Essential (primary) hypertension; E78.2 Mixed hyperlipidemia; R73.03 Prediabetes
CPT/HCPCS: 36415; 80053; 80061; 82306; 83036; 84550

== ENCOUNTER 2022-12-29 08:05 | Outpatient (CLI) | payer MEDICARE, SELFPAY ==
[2022-12-29 08:48] LABS: Cholesterol 138 mg/dL (0-200); HDL Direct 64 mg/dL; Triglycerides 119 mg/dL (<150); Uric Acid 4.5 mg/dL (3.5-8.5)
[2022-12-29 09:00] LABS: LDL Cholesterol Direct 60 mg/dL
[2022-12-29 16:20] LABS: Prostate Specific Antigen 1.2 ng/mL (< OR = 4.0)
== END 2022-12-29 08:06 | disposition home or self-care (01) ==
PROVIDERS: PCP Internal Medicine; Visit Provider Internal Medicine
DX: Z12.5 Encounter for screening for malignant neoplasm of prostate (principal); E78.2 Mixed hyperlipidemia; M10.9 Gout, unspecified
CPT/HCPCS: 36415; 80061; 84153; 84550; G0103

== ENCOUNTER 2023-01-14 15:46 | Outpatient (CLI) | payer MEDICARE, SELFPAY ==
--- NOTE | ~2023-01-14 | XR_ITS ---
EXAMINATION: XR chest 2V 01/14/2023 16:14 INDICATION: Chest pain PROCEDURE: 2 view chest COMPARISON: 05/09/2021 FINDINGS: The lungs are clear. The cardiomediastinal silhouette is within normal limits. There are no pleural effusions. There is no pneumothorax suspected. Pacemaker leads in expected position. IMPRESSION: 1: NO ACUTE CARDIOPULMONARY DISEASE. Reviewed, dictated and finalized at location A.
--- NOTE | ~2023-01-14 | XR_ITS ---
XR thoracic spine 3V DATE: 01/14/2023 16:14 INDICATION: Right shoulder pain TECHNIQUE: AP, lateral, swimmer views COMPARISON: None FINDINGS: There is prominent degenerative disc disease in the lower cervical spine. There is mild levoscoliosis of the thoracic spine. No fracture or dislocation or bone destruction of the thoracic spine. The thoracic pedicles are intact. There are prominent degenerative spurring is no lesa on the right at T11-12, moderately prominent spurring on the right at T12-L1. No paraspinal soft tissue thickening. Dual-lead pacemaker, leads overlying right atrium and right ventricle. IMPRESSION: Mild levoscoliosis Degenerative spurring, primarily at the lower aspect of the thoracic spine Prominent degenerative disc disease of the cervical spine Reviewed, dictated and finalized at location L.
== END 2023-01-14 15:47 | disposition home or self-care (01) ==
PROVIDERS: PCP Internal Medicine; Visit Provider Internal Medicine
DX: M25.511 Pain in right shoulder (principal); M54.9 Dorsalgia, unspecified; M89.8X1 Other specified disorders of bone, shoulder; R07.9 Chest pain, unspecified; M41.84 Other forms of scoliosis, thoracic region; M50.30 Other cervical disc degeneration, unspecified cervical region
CPT/HCPCS: 71046; 72072

== ENCOUNTER 2023-02-08 07:58 | Outpatient (CLI) | payer MEDICARE, SELFPAY ==
--- NOTE | ~2023-02-08 | CT_ITS ---
Noncontrast CT scan of the right shoulder CLINICAL HISTORY: Pain TECHNIQUE: Axial noncontrast imaging of the right shoulder was performed. Sagittal and coronal reform atted images were constructed. Dose reduction technique was used on this scan by utilizing automated exposure control and iterative reconstruction technique. The dose-length product (DLP) was 470.74 mGy -cm. Findings: No acute fracture or dislocation seen. There is moderate AC joint degenerative change. Ther e is minimal glenohumeral joint degenerative change. There are probable screw tracks in the humeral h ead, presumably related to prior rotator cuff repair surgery. No gross soft tissue abnormality seen. No definite muscle atrophy. No soft tissue mass or fluid colle ction seen. No joint effusion evident. IMPRESSION: Degenerative changes, as above. Screw tracks in the humeral head, presumably due to prior rotator cuff repair surgery. Reviewed, dictated and finalized at [facility]. E NURSE IMPRESSION: Degenerative changes, as above. Screw tracks in the humeral head, presumably due to prior rotator cuff repair s urgery.
== END 2023-02-08 07:59 | disposition home or self-care (01) ==
PROVIDERS: PCP Internal Medicine; Visit Provider Internal Medicine
DX: M25.511 Pain in right shoulder (principal); Z98.890 Other specified postprocedural states
CPT/HCPCS: 73200

== ENCOUNTER 2023-03-23 12:48 | Outpatient (CLI) | payer MEDICARE, SELFPAY ==
--- NOTE | ~2023-03-23 | CT_ITS ---
EXAMINATION: CT cervical spine wo con DATE: 03/23/2023 13:14 INDICATION: Radiculopathy, cervical region. TECHNIQUE: Computed tomography (CT) of the cervical spine was performed without intravenous contrast. Automated exposure control and iterative reconstruction technique were employed. The dose-length pro duct was 547.60 mGy-cm. COMPARISON: None FINDINGS: There is 2 mm retrolisthesis of C5 on C6 and C6 on C7. Vertebral body heights are normal. T here is moderately decreased disc height at C3-C4, mildly decreased disc height at C4-C5, and severel y decreased disc height from C5-C6 through C7-T1. The following disc levels are specifically discusse d: C2-C3: There is mild bilateral uncovertebral joint osteoarthritis. There is mild right and severe lef t facet joint osteoarthritis. There is mild left neural foraminal stenosis. There is no central canal stenosis. C3-C4: There is severe right and moderate left uncovertebral joint osteoarthritis. There is moderate bilateral facet joint osteoarthritis. There is mild bilateral neural foraminal stenosis. There is mil d central canal stenosis. C4-C5: There is mild bilateral uncovertebral joint osteoarthritis. There is mild bilateral facet join t osteoarthritis. There is mild left neural foraminal stenosis. There is no central canal stenosis. C5-C6: There is severe bilateral uncovertebral joint osteoarthritis. There is moderate bilateral face t joint osteoarthritis. There is moderate right and mild left neural foraminal stenosis. There is mil d central canal stenosis. C6-C7: There is severe bilateral uncovertebral joint osteoarthritis. There is severe right and modera te left facet joint osteoarthritis. There is mild bilateral neural foraminal stenosis. There is mild central canal stenosis. C7-T1: There is severe bilateral uncovertebral joint osteoarthritis. There is severe bilateral facet joint osteoarthritis. There is mild right and moderate left neural foraminal stenosis. There is mild central canal stenosis. IMPRESSION: 1. Severe cervical spondylosis. Reviewed, dictated and finalized at location E. ICAL CARE MANAGER
== END 2023-03-23 12:49 | disposition home or self-care (01) ==
LOC: ANHIMG 12:49
PROVIDERS: PCP Internal Medicine; Visit Provider Orthopaedic Surgery
DX: M47.22 Other spondylosis with radiculopathy, cervical region (principal)
CPT/HCPCS: 72125

== ENCOUNTER 2023-04-21 10:00 | Outpatient (CLI) | payer MEDICARE, SELFPAY ==
--- NOTE | 2023-04-21 10:45 | NEURO_ITS ---
Impression: # Complains of pain in upper extremities. # Bilateral, sensory more than motor, Carpal Tunnel Syndrome. # No ulnar neuropathy. # Needle/EMG exam abnormal with chronic changes suggestive of cervical involvement. # Clinical correlation recommended. Nerve Conduction Studies Anti Sensory Summary Table Stim Site NR Peak (ms) P-T Amp (?V) Site1 Site2 Delta-P (ms) Dist (cm) [place] (m/s) Left Median Anti Sensory (2-3nd Digit) Wrist 4.4 4.6 Wrist 2-3nd Digit 4.4 14.0 32 Wrist 4.6 5.7 Wrist 2-3nd Digit 4.4 14.0 32 Right Median Anti Sensory (2-3nd Digit) Wrist 4.0 16.7 Wrist 2-3nd Digit 4.0 14.0 35 Wrist 3.8 9.7 Wrist 2-3nd Digit 4.0 14.0 35 Left Radial Anti Sensory (Base 1st Digit) Wrist 2.6 34.7 Wrist Base 1st Digit 2.6 0.0 Right Radial Anti Sensory (Base 1st Digit) Wrist 3.1 5.8 Wrist Base 1st Digit 3.1 0.0 Left Ulnar Anti Sensory (5th Digit) Wrist 2.9 30.5 Wrist 5th Digit 2.9 14.0 48 Right Ulnar Anti Sensory (5th Digit) Wrist 3.0 28.3 Wrist 5th Digit 3.0 14.0 47 Motor Summary Table Stim Site NR Onset (ms) O-P Amp (mV) Site1 Site2 Delta-0 (ms) Dist (cm) [place] (m/s) Left Median Motor (Abd Poll Brev) Wrist 4.0 3.8 Elbow Wrist 7.1 36.0 51 Elbow 11.1 1.7 Right Median Motor (Abd Poll Brev) Wrist 3.8 4.5 Elbow Wrist 6.5 34.0 52 Elbow 10.3 1.6 Left Ulnar Motor (Abd Dig Minimi) Wrist 2.7 5.2 A Elbow Wrist 6.5 36.0 55 A Elbow 9.2 4.5 Right Ulnar Motor (Abd Dig Minimi) Wrist 2.5 5.6 A Elbow Wrist 6.5 35.0 54 A Elbow 9.0 4.1 F Wave Studies NR F-Lat (ms) L-R F-Lat (ms) Left Median (Mrkrs) (Abd Poll Brev) 32.32 1.05 Right Median (Mrkrs) (Abd Poll Brev) 33.37 1.05 Left Ulnar (Mrkrs) (Abd Dig Min) 34.08 0.33 Right Ulnar (Mrkrs) (Abd Dig Min) 33.74 0.33 EMG Side Muscle Nerve Root Ins Act Fibs Amp Dur Recrt Comment Right 1stDorInt Ulnar C8-T1 Nml Nml Nml >12ms Reduced Right Ext Indicis Radial (Post Int) C7-8 Nml Nml Nml Nml Nml Right Ext Digitorum Radial (Post Int) C7-8 Nml Nml Nml Nml Nml Right BrachioRad Radial C5-6 Nml Nml Nml Nml Nml Right PronatorTeres Median C6-7 Nml Nml Nml Nml Reduced Right Abd Poll Brev Median C8-T1 Nml Nml Nml >12ms Reduced Left 1stDorInt Ulnar C8-T1 Nml Nml Nml >12ms Reduced Left Ext Indicis Radial (Post Int) C7-8 Nml Nml Nml Nml Nml Left Ext Digitorum Radial (Post Int) C7-8 Nml Nml Nml Nml Nml Left BrachioRad Radial C5-6 Nml Nml Nml Nml Nml Left PronatorTeres Median C6-7 Nml Nml Nml Nml Reduced Left Abd Poll Brev Median C8-T1 Nml Nml Nml >12ms Reduced Right ABD Dig Min Ulnar C8-T1 Nml Nml Nml Nml Nml Right Biceps Musculocut C5-6 Nml Nml Nml Nml Nml Right Triceps Radial C6-7-8 Nml Nml Nml Nml Reduced Right Deltoid Axillary C5-6 Nml Nml Nml Nml Nml Left ABD Dig Min Ulnar C8-T1 Nml Nml Nml Nml Nml Left Biceps Musculocut C5-6 Nml Nml Nml Nml Nml Left Triceps Radial C6-7-8 Nml Nml Nml Nml Reduced Left Deltoid Axillary C5-6 Nml Nml Nml Nml Nml MTDD
== END 2023-04-21 10:01 | disposition home or self-care (01) ==
LOC: ANHNEURO 10:01
PROVIDERS: PCP Internal Medicine; Visit Provider Orthopaedic Surgery
DX: G56.03 Carpal tunnel syndrome, bilateral upper limbs (principal)
CPT/HCPCS: 95886; 95911

== ENCOUNTER 2023-05-19 15:59 | Outpatient (CLI) | payer MEDICARE, SELFPAY ==
[2023-05-19 17:23] LABS: Anion Gap 6 mmol/L (8-16); Blood Urea Nitrogen 18 mg/dL (9-20); Calcium 9.2 mg/dL (8.4-10.2); Carbon Dioxide 26 mmol/L (22-30); Chloride 105 mmol/L (98-107); Cholesterol 149 mg/dL (0-200); Estimated Glomerular Filt Rate > 60; Glucose 122 mg/dL (65-110); HDL Direct 57 mg/dL; Potassium 3.1 mmol/L (3.4-5.0); Sodium 137 mmol/L (137-145); Triglycerides 221 mg/dL (<150)
[2023-05-19 17:26] LABS: Hemoglobin A1C 6.2 % (<5.7)
[2023-05-19 17:34] LABS: LDL Cholesterol Direct 75 mg/dL
== END 2023-05-19 16:00 | disposition home or self-care (01) ==
LOC: ANHLAB 16:01
PROVIDERS: PCP Internal Medicine; Visit Provider Internal Medicine
DX: E78.2 Mixed hyperlipidemia (principal); R73.03 Prediabetes; I10 Essential (primary) hypertension
CPT/HCPCS: 36415; 80048; 80061; 83036

== ENCOUNTER 2023-06-04 07:27 | Outpatient (CLI) | payer MEDICARE, SELFPAY ==
[2023-06-04 08:00] LABS: Anion Gap 5 mmol/L (8-16); Blood Urea Nitrogen 13 mg/dL (9-20); Calcium 9.1 mg/dL (8.4-10.2); Carbon Dioxide 27 mmol/L (22-30); Chloride 105 mmol/L (98-107); Estimated Glomerular Filt Rate > 60; Glucose 103 mg/dL (65-110); Sodium 137 mmol/L (137-145)
== END 2023-06-04 07:28 | disposition home or self-care (01) ==
LOC: ANHLAB 07:29
PROVIDERS: PCP Internal Medicine; Visit Provider Internal Medicine
DX: E87.6 Hypokalemia (principal)
CPT/HCPCS: 36415; 80048

== ENCOUNTER 2023-10-01 06:56 | Outpatient (CLI) | payer MEDICARE, SELFPAY ==
[2023-10-01 07:51] LABS: Alanine Aminotransferase 63 U/L (6-50); Albumin Level 4.1 g/dL (3.5-5.1); Alkaline Phosphatase 75 U/L (38-126); Anion Gap 6 mmol/L (4-12); Aspartate Amino Transferase 42 U/L (17-59); Bilirubin,Total 0.8 mg/dL (0.2-1.3); Blood Urea Nitrogen 18 mg/dL (9-20); Calcium 9.5 mg/dL (8.4-10.2); Carbon Dioxide 26 mmol/L (22-30); Chloride 106 mmol/L (98-107); Cholesterol 140 mg/dL (0-200); Estimated Glomerular Filt Rate > 60; Glucose 91 mg/dL (65-110); HDL Direct 62 mg/dL; Potassium 3.6 mmol/L (3.4-5.0); Sodium 138 mmol/L (137-145); Triglycerides 135 mg/dL (<150)
[2023-10-01 08:02] LABS: LDL Cholesterol Direct 72 mg/dL
[2023-10-01 08:04] LABS: Basophils Percent Auto 0.3 % (0.2-1.2); Eosinophils Absolute Auto 0.2 K/mm3 (0-0.3); Eosinophils Percent Auto 3.3 % (0-4.4); Hematocrit 38.6 % (42.0-52.0); Hemoglobin 12.9 g/dL (14.0-18.0); Immature Granulocyte Absolute 0.02 K/mm3 (0.00-0.031); Immature Granulocyte Percent A 0.3 % (0-0.5); Lymphocytes Absolute Auto 1.89 K/mm3 (0.9-3.2); Lymphocytes Percent Auto 32.9 % (18.3-44.2); Mean Corpuscular HGB Conc 33.4 g/dl (32-36); Mean Corpuscular Hemoglobin 31.1 pg (26-34); Mean Platelet Volume 9.8 fl (7.4-10.4); Monocytes Absolute Auto 0.5 K/mm3 (0.1-0.6); Monocytes Percent Auto 8.9 % (2.6-8.5); Neutrophils Absolute Auto 3.1 K/mm3 (1.3-6.7); Neutrophils Percent Auto 54.3 % (45.5-73.1); Platelet Count Result 193 k/mm3 (150-375); Red Blood Count 4.15 M/mm3 (4.6-6.20); Red Cell Distribution Width 13.8 % (11.5-14.5); White Blood Count 5.8 K/mm3 (4.5-10.0)
[2023-10-01 08:31] LABS: Free T4 Free Thyroxine 1.26 ng/mL (0.78-2.19)
[2023-10-01 08:43] LABS: Hemoglobin A1C 5.8 % (<5.7)
[2023-10-01 10:32] LABS: Iron 67 ug/dL (49-181)
[2023-10-01 10:43] LABS: Percent Iron Saturation 22 % (20-50)
== END 2023-10-01 06:57 | disposition home or self-care (01) ==
LOC: ANHLAB 07:02
PROVIDERS: PCP Internal Medicine; Visit Provider Internal Medicine
DX: E78.2 Mixed hyperlipidemia (principal); R94.6 Abnormal results of thyroid function studies; I10 Essential (primary) hypertension; R73.03 Prediabetes; D64.9 Anemia, unspecified; Z79.899 Other long term (current) drug therapy
CPT/HCPCS: 36415; 80053; 80061; 82728; 83036; 83540; 83550; 84439; 84443; 85025

== ENCOUNTER 2023-12-07 07:47 | Day surgery (SDC) | payer MEDICARE, SELFPAY ==
[2023-11-22 08:57] VITALS: BMI 28.0
--- NOTE | ~2023-12-07 | XR_ITS ---
EXAMINATION: XR fluoroscopy no charge DATE: 12/07/2023 9:15 CDT INDICATION: RIGHTWARD C6-7 INTERLAMINAR EPI STEROID INJ . TECHNIQUE: 6 fluoroscopic images and one cine clip of the cervical spine were obtained during right C 6-7 interlaminar epidural steroid injection, performed by Valentín Gee MD. I was not present duri ng the procedure. Fluoroscopy exposure time was 15.0 seconds. Air Kerma 3.34 mGy. COMPARISON: None FINDINGS/IMPRESSION: Fluoroscopic documentation of right C6-7 interlaminar epidural steroid injection. Please refer to the operative note for complete procedural details . Reviewed, dictated and finalized at location K.
--- NOTE | 2023-12-07 06:30 | WPDHPUPDATE1 ---
History and Physical Update Update Date/Time: 12/07/23 06:30 History and Physical has been reviewed, including an updated exam of the patient. There are NO changes in the patient's condition. Risks, benefits, and alternatives have been discussed and questions answered. Patient agrees to proceed with procedure.
--- NOTE | 2023-12-07 06:31 | W.PM.PROC2 ---
Procedure Note - Detailed Date of Procedure 12/07/23 Pre-op Diagnosis cervical stenosis with radiculopathy, cervical intervertebral disc disorder Post-op Diagnosis Same Procedure Performed Rightward Cervical Interlaminar Epidural Steroid Injection at C6-7 under Fluoroscopic Guidance and with Contrast Control. Surgeon Valentín Gee MD Anesthesia Local Description of Procedure INFORMED CONSENT: Risks, benefits and alternatives to the procedure were discussed in detail with the patient who expressed explicit understanding and consent to proceed. Patient was informed verbally and in written form regarding the risks associated with the procedure including the low risk of serious infection, bleeding/bruising, allergic reaction, nerve or organ injury, paralysis, procedural site pain or discomfort, worsening pain and/or mobility, failure to treat and/or disfigurement. The patient expressed explicit understanding and consent to proceed. All materials required for the procedure were available prior to procedure start. Site and side was marked prior to procedure and confirmed in the presence of the patient. PROCEDURE IN DETAIL: The patient was brought to the procedural suite and placed in the prone position. Patient's head was positioned and stabilized with a ProneView pillow or equivalent. Patient was made comfortable with use of pillows under the chest, hips and ankles. Skin overlying the injection site was prepared broadly with ChloraPrep applicator and draped in a sterile manner. Aseptic technique was employed throughout. The endplates of the vertebral body at the site of interest were aligned in the AP view. Slight caudad tilt and ipsilateral oblique angulation was utilized to optimize visualization of the targeted posterior intervertebral foramen at C6-7. Local anesthesia was established by infiltration with approximately 5 mL of 2% lidocaine via a 1-1/2 inch 27-gauge needle. A 20-gauge 4-inch Tuohy epidural needle was advanced intermittently until appropriate loss of resistance to air was identified via plastic loss of resistance syringe. Lateral view was used to confirm the appropriate positioning of the needle tip within the posterior epidural space. [In the AP view, 2.0 mL of Omnipaque 300 contrast medium was injected after negative aspiration for CSF, blood or other bodily fluid, showing appropriate epidural spread of contrast without evidence of intravascular or intrathecal placement.] After negative repeat aspiration for CSF, blood or other bodily fluid, A 4 mL solution containing 6 mg of betamethasone in sterile PF Normal Saline was injected after negative repeat aspiration. Appropriate spread of the injectate was confirmed with washout of previously injected contrast. No parasthesias were elicited. Needle was removed completely intact without difficulty. Images were saved and documented in the patient chart. Patient's skin was cleansed and sterile bandage applied. The patient tolerated the procedure well. The patient was transported to the recovery area in stable condition where they were observed for an appropriate amount of time prior to discharge, without evidence of complication. The patient was instructed to avoid excessive activity for the next 48 hours, including overhead work, reaching or extended device/computer usage. Showers only for 48 hours. They were instructed not to drive or operate heavy machinery for 24 hours. They are to monitor for severe headaches, fevers, chills, night sweats, erythema/swelling at the site or any other signs of infection, bleeding/bruising, bowel or bladder changes as well as new pain, weakness or numbness in the upper or lower extremity. Should they notice these changes, they are instructed to call our office immediately or report directly to the nearest Emergency Department if no answer or if after posted office hours. CONTRAST WASTED: 28mL Omnipaque 300. Complications None Condition Stable Disposition Same
[2023-12-07 08:49] VITALS: BP 141/67; PULSE 91; RESP 16; TEMP 36.8; O2SAT 100
[2023-12-07 09:20] VITALS: BP 115/56; PULSE 95; RESP 18; O2SAT 97
[2023-12-07] MEDS: LIDOCAINE HCL 1% PF INJ 5 ML VIAL 2 ML INFILTRATE (09:22)
[2023-12-07 09:26] VITALS: BP 119/68; PULSE 94; RESP 16; O2SAT 97
[2023-12-07] MEDS: BETAMETHASONE SODIUM PHOSPHATE PF INJ 6 MG/ML VIAL INFILTRATE (09:26)
[2023-12-07 09:30] VITALS: BP 138/75; PULSE 88; RESP 20; O2SAT 100
== END 2023-12-07 09:44 | disposition home or self-care (01) ==
PROVIDERS: PCP Internal Medicine; Visit Provider Anesthesiology Pain Medicine
PROC: (CPT 62321; principal; 2023-12-07 09:30)
DX: M48.02 Spinal stenosis, cervical region (principal); M54.12 Radiculopathy, cervical region
CPT/HCPCS: 62321; 99199

== ENCOUNTER 2024-01-25 00:18 | Day surgery (SDC) | payer MEDICARE, SELFPAY ==
[2024-01-13 09:09] VITALS: BMI 27.4
[2024-01-25 07:43] VITALS: BP 137/78; PULSE 76; RESP 18; TEMP 36.4; O2SAT 99
[2024-01-25 08:04] LABS: Glucose Point of Care 112 mg/dl (65-105)
[2024-01-25] MEDS: LACTATED RINGERS 1,000 ML 150 ML IV CONT (08:09)
--- NOTE | 2024-01-25 08:31 | WPDANESEPPF ---
Anes - Initial Pre Proc Eval Procedure: Operation Date: 01/25/24 09:00 Proposed Procedures p Esophagogastroduodenoscopy & Colonoscopy - Agusto Steinberg MD Date/Time: 01/25/24 08:31 Surgeon: Agusto Steinberg MD Pre Op Diagnosis: dysphagia, esophagitis Patient Data Age: 73 Gender: M Height: 1.93 m Weight: 100.8 kg Last Vital Signs Temp 36.4 C L 01/25/24 07:43 Pulse 76 01/25/24 07:43 Resp 18 01/25/24 07:43 BP 137/78 01/25/24 07:43 Pulse Ox 99 01/25/24 07:43 O2 Del Method Room Air 01/25/24 07:43 Allergies Allergy/AdvReac Type Severity Reaction Status Date / Time No Known Allergies Allergy Verified 01/25/24 07:41 Home Medications Medication Instructions Recorded Confirmed Type aspirin 81 mg tablet,delayed 81 mg PO DAILY 04/17/19 01/25/24 History release (Adult Low Dose Aspirin) valsartan 320 1 tablet PO DAILY 11/16/23 01/25/24 History mg-hydrochlorothiazide 12.5 mg tablet allopurinol 300 mg tablet 300 mg PO DAILY 11/22/23 01/25/24 History atorvastatin 80 mg tablet 80 mg PO DAILY 11/22/23 01/25/24 History ezetimibe 10 mg tablet 10 mg PO DAILY 11/22/23 01/25/24 History indomethacin 50 mg capsule 50 mg PO TID PRN gout 11/22/23 01/25/24 History tamsulosin 0.4 mg capsule 0.4 mg PO DAILY 11/22/23 01/25/24 History metformin 500 mg tablet 500 mg PO BID 12/27/23 01/25/24 History Laboratory Tests 01/25/24 08:02 POC Capillary Glucose 112 H mg/dl (65-105) Patient hx anesthesia problems: none Family hx anesthesia problems: none Results Review: All pre-operative results and documents have been reviewed as part of the pre-operative evaluation. [facility] Past Medical History Medical History Abnormal finding of blood chemistry Acute medial meniscus tear of right knee Benign essential hypertension BMI 27.0-27.9,adult BMI 28.0-28.9,adult BMI 29.0-29.9,adult BPH (benign prostatic hyperplasia) Chronic pain of right knee Colon cancer screening Cough CTS (carpal tunnel syndrome) DJD (degenerative joint disease) SALAS (dyspnea on exertion) Encounter for Medicare annual wellness exam Encounter for routine adult health examination with abnormal findings Encounter for routine adult health examination without abnormal findings Encounter for special screening examination for neoplasm of prostate Follow up Golfers elbow of left upper extremity Gout Hearing loss Hyperlipidemia Hypersomnia Hypotension Memory impairment 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 which has been evaluated by [facility], 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, benign Numbness and tingling of right upper extremity On long term care pharmacist drug therapy Other chronic pain Pre-diabetes Prostate cancer screening Right shoulder pain Syncopal episodes URI (upper respiratory infection) Vision changes Vitamin D deficiency Surgical History Surgical History S/P cardiac pacemaker procedure 05/09/2021 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 Family History Family History Sibling Family history of diabetes mellitus in first degree relative Mother Family history of malignant neoplasm Lung cancer Other Family history of cardiovascular disease Social History Social History Smoking packs per day: 1 Smoking cigarettes per day: 20.0 Smoking status: Former smoker Tobacco type: cigarettes Second hand tobacco smoke exposure: Yes Smoking end date: 05/14/95 Alcohol intake: current Drinks per week: 6 Alcohol use details: DRINKS AFTER GOLF 3X WEEK Substance use: former Substance use type: does not use Do You Feel Safe in your Home?: Yes Lack of Transportation: No Lack of Food: Never True Current Housing: I Have Housing Concerned About Future Housing: No Difficulty Paying Gas/Electric Bills: No Difficulty Paying for Meds: No Currently Unemployed: No Education: Associate Degree Difficulty w/ Childcare or Family Care: No Living arrangements: with family Gender identity (if verbalized by the patient): Male Spiritual care concerns: No Anes - Eval Final PreProcedure Day of Procedure 01/25/24 08:31 Patient weight: overweight Heart: regular rate and rhythm Lungs: clear to auscultation Airway: Mallampati scale class II Neurological: alert and oriented Last oral intake: >/= 8 hours ASA classification: III Emergent: no Anesthetic plan: proceed Anesthesia type and monitoring: general GIVS Results Review: All pre-operative results and documents have been reviewed as part of the pre-operative evaluation. Informed Consent: The patient's anesthetic plan and its attendant risks and benefits were discussed with the patient/family/POA. Questions were solicited and answers provided to the satisfaction of the patient/family/POA.
--- NOTE | 2024-01-25 08:34 | P.HP_ITS ---
History of Present Illness History of Present Illness Consent: Risks, benefits, and alternatives have been discussed and questions answered. Patient agrees to proceed with procedure. Chief complaint: anemia Narrative: Gokul Viveros is a 73 year old male here for mild anemia, hgb 12 and had + fobt, denies overt gib and no major gi symptoms. Colonoscopy 2001 Review of Systems Review of Systems: All systems reviewed & are unremarkable except as noted in HPI and below PMFSH Past Medical History Medical History Abnormal finding of blood chemistry Acute medial meniscus tear of right knee Benign essential hypertension BMI 27.0-27.9,adult BMI 28.0-28.9,adult BMI 29.0-29.9,adult BPH (benign prostatic hyperplasia) Chronic pain of right knee Colon cancer screening Cough CTS (carpal tunnel syndrome) DJD (degenerative joint disease) SALAS (dyspnea on exertion) Encounter for Medicare annual wellness exam Encounter for routine adult health examination with abnormal findings Encounter for routine adult health examination without abnormal findings Encounter for special screening examination for neoplasm of prostate Follow up Golfers elbow of left upper extremity Gout Hearing loss Hyperlipidemia Hypersomnia Hypotension Memory impairment 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 which has been evaluated by [facility], 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, benign Numbness and tingling of right upper extremity On halfway drug therapy Other chronic pain Pre-diabetes Prostate cancer screening Right shoulder pain Syncopal episodes URI (upper respiratory infection) Vision changes Vitamin D deficiency Surgical History Surgical History S/P cardiac pacemaker procedure 05/09/2021 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 Family History Family History Sibling Family history of diabetes mellitus in first degree relative Mother Family history of malignant neoplasm Lung cancer Other Family history of cardiovascular disease Social History Social History Smoking packs per day: 1 Smoking cigarettes per day: 20.0 Smoking status: Former smoker Tobacco type: cigarettes Second hand tobacco smoke exposure: Yes Smoking end date: 05/14/95 Alcohol intake: current Drinks per week: 6 Alcohol use details: DRINKS AFTER GOLF 3X WEEK Substance use: former Substance use type: does not use Do You Feel Safe in your Home?: Yes Lack of Transportation: No Lack of Food: Never True Current Housing: I Have Housing Concerned About Future Housing: No Difficulty Paying Gas/Electric Bills: No Difficulty Paying for Meds: No Currently Unemployed: No Education: Associate Degree Difficulty w/ Childcare or Family Care: No Living arrangements: with family Gender identity (if verbalized by the patient): Male Spiritual care concerns: No Meds Home Medications and Allergies Home Medications Medication Instructions Recorded Confirmed Type aspirin 81 mg tablet,delayed 81 mg PO DAILY 04/17/19 01/25/24 History release (Adult Low Dose Aspirin) valsartan 320 1 tablet PO DAILY 11/16/23 01/25/24 History mg-hydrochlorothiazide 12.5 mg tablet allopurinol 300 mg tablet 300 mg PO DAILY 11/22/23 01/25/24 History atorvastatin 80 mg tablet 80 mg PO DAILY 11/22/23 01/25/24 History ezetimibe 10 mg tablet 10 mg PO DAILY 11/22/23 01/25/24 History indomethacin 50 mg capsule 50 mg PO TID PRN gout 11/22/23 01/25/24 History tamsulosin 0.4 mg capsule 0.4 mg PO DAILY 11/22/23 01/25/24 History metformin 500 mg tablet 500 mg PO BID 12/27/23 01/25/24 History Allergies Allergy/AdvReac Type Severity Reaction Status Date / Time No Known Allergies Allergy Verified 01/25/24 07:41 Vital Signs Vital Signs - 24 hr 01/25/24 07:43 Temperature 97.5 F L Pulse Rate 76 Respiratory Rate 18 Blood Pressure 137/78 Pulse Oximetry 99 Oxygen Delivery Room Air Exam Const: General: comfortable and no acute distress HENMT: Face/Nose/Sinus: Normal nares present Eyes: General: appearance normal, both eyes and all related structures Neck: Neck: no JVD Resp: Auscultation: clear to auscultation bilaterally Cardio: Rate: regular rate Rhythm: regular rhythm GI: Inspection: non-distended GI Palp: Yes Soft to palpation Skin: General skin exam: normal color Neuro: General: gait normal Speech: normal speech Extrem: General: normal to inspection Psych: Mental Status: mental status grossly normal Assessment and Plan Assessment and plan (1) Normocytic anemia: Code(s): D64.9 - Anemia, unspecified Status: Acute Assessment and Plan: egd and colonoscopy to check if gi source (2) Positive fecal occult blood test: Code(s): R19.5 - Other fecal abnormalities Status: Acute
--- NOTE | 2024-01-25 08:46 | SUR.OPER ---
EGD: end 840, Colon: start 844
[2024-01-25 08:55] VITALS: BP 100/60; PULSE 70; RESP 16; O2SAT 100
[2024-01-25 09:05] VITALS: BP 110/70; PULSE 76; RESP 19; O2SAT 100
[2024-01-25 09:15] VITALS: BP 143/85; PULSE 66; RESP 17; O2SAT 100
== END 2024-01-25 09:29 | disposition home or self-care (01) ==
PROVIDERS: PCP Internal Medicine; Referring Provider Nurse Practitioner; Visit Provider Internal Medicine Gastroenterology
PROC: 0DJ08ZZ Inspection of Upper Intestinal Tract, Via Natural or Artificial Opening Endoscopic (ICD-10-PCS; CPT 43235; principal; 2024-01-25 09:00)
DX: D12.2 Benign neoplasm of ascending colon (principal); K64.8 Other hemorrhoids; K57.30 Diverticulosis of large intestine without perforation or abscess without bleeding; K29.50 Unspecified chronic gastritis without bleeding; D64.9 Anemia, unspecified; I10 Essential (primary) hypertension; N40.0 Benign prostatic hyperplasia without lower urinary tract symptoms; E78.5 Hyperlipidemia, unspecified; G47.10 Hypersomnia, unspecified; I95.9 Hypotension, unspecified; R73.03 Prediabetes; E55.9 Vitamin D deficiency, unspecified; G89.29 Other chronic pain; M25.561 Pain in right knee; R41.3 Other amnesia; Z79.899 Other long term (current) drug therapy; Z79.82 Long term (current) use of aspirin; Z79.84 Long term (current) use of oral hypoglycemic drugs; Z98.890 Other specified postprocedural states; Z95.0 Presence of cardiac pacemaker; Z87.891 Personal history of nicotine dependence; Z80.1 Family history of malignant neoplasm of trachea, bronchus and lung; Z82.49 Family history of ischemic heart disease and other diseases of the circulatory system
CPT/HCPCS: 43239; 45380; 82948; 88305; 88342; J7120

== ENCOUNTER 2024-02-02 07:16 | Outpatient (CLI) | payer MEDICARE, SELFPAY ==
[2024-02-02 07:57] LABS: Basophils Percent Auto 0.7 % (0.2-1.2); Eosinophils Absolute Auto 0.1 K/mm3 (0-0.3); Eosinophils Percent Auto 2.3 % (0-4.4); Hematocrit 43.6 % (42.0-52.0); Hemoglobin 14.6 g/dL (14.0-18.0); Immature Granulocyte Absolute 0.05 K/mm3 (0.00-0.031); Immature Granulocyte Percent A 1.1 % (0-0.5); Lymphocytes Absolute Auto 1.59 K/mm3 (0.9-3.2); Lymphocytes Percent Auto 35.9 % (18.3-44.2); Mean Corpuscular HGB Conc 33.5 g/dl (32-36); Mean Corpuscular Hemoglobin 30.9 pg (26-34); Mean Corpuscular Volume 92.4 fl (80-100); Mean Platelet Volume 9.7 fl (7.4-10.4); Monocytes Absolute Auto 0.5 K/mm3 (0.1-0.6); Monocytes Percent Auto 11.5 % (2.6-8.5); Neutrophils Absolute Auto 2.2 K/mm3 (1.3-6.7); Neutrophils Percent Auto 48.5 % (45.5-73.1); Platelet Count Result 209 k/mm3 (150-375); Red Blood Count 4.72 M/mm3 (4.6-6.20); White Blood Count 4.4 K/mm3 (4.5-10.0)
[2024-02-02 08:20] LABS: Alanine Aminotransferase 39 U/L (6-50); Albumin Level 4.1 g/dL (3.5-5.1); Alkaline Phosphatase 70 U/L (38-126); Anion Gap 11 mmol/L (4-12); Aspartate Amino Transferase 39 U/L (17-59); Bilirubin,Total 0.8 mg/dL (0.2-1.3); Blood Urea Nitrogen 12 mg/dL (9-20); Calcium 9.3 mg/dL (8.4-10.2); Carbon Dioxide 26 mmol/L (22-30); Chloride 102 mmol/L (98-107); Cholesterol 147 mg/dL (0-200); Estimated Glomerular Filt Rate > 60; Glucose 99 mg/dL (65-110); HDL Direct 60 mg/dL; Potassium 3.6 mmol/L (3.4-5.0); Sodium 139 mmol/L (137-145); Triglycerides 157 mg/dL (<150)
[2024-02-02 08:31] LABS: LDL Cholesterol Direct 58 mg/dL
[2024-02-02 08:50] LABS: Prostate Specific Antigen 1.3 ng/mL (< OR = 4.0)
[2024-02-02 08:59] LABS: Free T4 Free Thyroxine 1.26 ng/mL (0.78-2.19)
[2024-02-02 09:16] LABS: Add Urine Microscopic? NO; Appearance Urine Clear (Clear); Bilirubin Urine Negative (Negative); Blood Urine Negative (Negative); Color Urine Yellow (Yellow); Glucose Urine UA Negative (Negative); Ketones Urine Negative (Negative); Leukocyte Esterase Ur Negative LEU/UL (Negative); Nitrate Urine Negative (Negative); Protein Urine Negative (Negative); Specific Grav Ur 1.013 (1.001-1.035); pH Urine 7.5 (5.0-9.0)
== END 2024-02-02 07:17 | disposition home or self-care (01) ==
LOC: ANHLAB 07:18
PROVIDERS: PCP Internal Medicine; Visit Provider Internal Medicine
DX: Z12.5 Encounter for screening for malignant neoplasm of prostate (principal); I10 Essential (primary) hypertension; E78.2 Mixed hyperlipidemia; R79.89 Other specified abnormal findings of blood chemistry; R73.03 Prediabetes; Z79.899 Other long term (current) drug therapy
CPT/HCPCS: 36415; 80053; 80061; 81003; 83036; 84153; 84439; 84443; 85025; G0103

== ENCOUNTER 2024-02-16 08:12 | Outpatient (CLI) | payer MEDICARE, SELFPAY ==
[2024-02-16 09:58] LABS: Anion Gap 4 mmol/L (4-12); Blood Urea Nitrogen 12 mg/dL (9-20); Calcium 9.5 mg/dL (8.4-10.2); Carbon Dioxide 34 mmol/L (22-30); Chloride 99 mmol/L (98-107); Estimated Glomerular Filt Rate > 60; Glucose 109 mg/dL (65-110); Magnesium 1.3 mg/dL (1.6-2.3); Potassium 3.8 mmol/L (3.4-5.0); Sodium 137 mmol/L (137-145)
== END 2024-02-16 08:13 | disposition home or self-care (01) ==
PROVIDERS: PCP Internal Medicine; Visit Provider Nurse Practitioner Adult Health
DX: I47.29 Other ventricular tachycardia (principal)
CPT/HCPCS: 36415; 80048; 83735

== ENCOUNTER 2024-04-06 07:33 | Outpatient (CLI) | payer MEDICARE, SELFPAY ==
[2024-04-06 07:48] LABS: Basophils Percent Auto 0.9 % (0.2-1.2); Eosinophils Absolute Auto 0.2 K/mm3 (0-0.3); Eosinophils Percent Auto 5.8 % (0-4.4); Hematocrit 39.7 % (42.0-52.0); Hemoglobin 13.3 g/dL (14.0-18.0); Lymphocytes Absolute Auto 1.25 K/mm3 (0.9-3.2); Lymphocytes Percent Auto 37.9 % (18.3-44.2); Mean Corpuscular HGB Conc 33.5 g/dl (32-36); Mean Corpuscular Hemoglobin 31.1 pg (26-34); Mean Platelet Volume 9.6 fl (7.4-10.4); Monocytes Absolute Auto 0.4 K/mm3 (0.1-0.6); Monocytes Percent Auto 10.9 % (2.6-8.5); Neutrophils Absolute Auto 1.5 K/mm3 (1.3-6.7); Neutrophils Percent Auto 44.5 % (45.5-73.1); Platelet Count Result 146 k/mm3 (150-375); Red Blood Count 4.27 M/mm3 (4.6-6.20); Red Cell Distribution Width 15.1 % (11.5-14.5); White Blood Count 3.3 K/mm3 (4.5-10.0)
[2024-04-06 08:00] LABS: Anion Gap 3 mmol/L (4-12); Blood Urea Nitrogen 19 mg/dL (9-20); Calcium 9.3 mg/dL (8.4-10.2); Carbon Dioxide 31 mmol/L (22-30); Chloride 103 mmol/L (98-107); Estimated Glomerular Filt Rate > 60; Glucose 129 mg/dL (65-110); Potassium 3.9 mmol/L (3.4-5.0); Sodium 137 mmol/L (137-145)
== END 2024-04-06 07:34 | disposition home or self-care (01) ==
PROVIDERS: PCP Internal Medicine; Visit Provider Internal Medicine
DX: D64.9 Anemia, unspecified (principal); R55 Syncope and collapse; I10 Essential (primary) hypertension
CPT/HCPCS: 36415; 80048; 85025

== ENCOUNTER 2024-04-17 10:30 | Outpatient (CLI) | payer MEDICARE, SELFPAY ==
--- NOTE | ~2024-04-17 | XR_ITS ---
EXAMINATION: XR lumbar spine 6V w bending DATE: 04/17/2024 11:01 INDICATION: Spondylosis without myelopathy or radiculopathy. TECHNIQUE: 7 views of lumbar spine including flexion and extension views were obtained. COMPARISON: None. FINDINGS: Alignment is normal. There is no abnormal motion with flexion or extension. There is mild c hronic anterior wedging of L1 vertebral body. There is mildly decreased disc height at L3-L4 and ana rely decreased disc height at L4-L5. There is multilevel mild facet joint osteoarthritis. IMPRESSION: 1. Severe lumbar spondylosis. Reviewed, dictated and finalized at location B. LEAD DEVELOPER
--- NOTE | ~2024-04-17 | XR_ITS ---
AP view of the pelvis and AP and lateral views of the left hip Clinical history: Pain Findings: No acute fracture or dislocation is seen. Osseous alignment is anatomic. There is minimal d egenerative change of both hip joints. Soft tissues are unremarkable. Impression: Minimal degenerative change of both hip joints. Reviewed, dictated and finalized at location . RVISOR KNITTING Impression: Minimal degenerative change of both hip joints.
--- OUTSIDE RECORDS SUMMARY | 2024-04-20 12:48 | XMS_ITS | Referral Summary ---
Author Organization [facility] Address [address] [place] [address] Care Team Providers Care Water Resource Engineering Specialist Name Role Phone Terry Leahy MD Primary Care Provider [phone] Encounters Date Type Department Care Team Description 02/22/2024 8:15 AM [facility] Ancillary Procedure [facility] Cardiology [address] [place] [address] [address] [place] [phone] NSVT (nonsustained ventricular tachycardia) (HCC) 02/15/2024 Telephone [facility] Cardiology [address] [place] [address] [place] [phone] Cooper Adams MD 02/15/2024 12:00 PM [facility] Ancillary Procedure [facility] Cardiology [address] [place] [address] [place] [phone] Pacemaker; Intermittent complete heart block (CMS/HCC) (HCC) 02/15/2024 Orders Only [facility] Cardiology [address] [place] [address] [place] [phone] Cooper Adams MD Pacemaker (Primary Dx); Intermittent complete heart block (CMS/HCC) (HCC) 02/01/2024 10:30 AM [facility] Office Visit [facility] Cardiology [address] [facility] [address] [place] [phone] Laurie Patton NP Elevated coronary artery calcium score; Lipid screening; Intermittent complete heart block (CMS/HCC) (HCC); Pacemaker [Z95.0] 01/25/2024 7:15 AM CDT Ancillary Procedure [facility] Cardiology [address] [facility] [address] [place] [phone] Pacemaker [Z95.0] (Primary Dx); Syncope and collapse; Intermittent complete heart block (CMS/HCC) (HCC) from Last 3 Months Allergies No known active allergies Medications allopurinoL (ZYLOPRIM) 300 mg tablet Take 1 tablet (300 mg total) by mouth daily 0 Active atorvastatin (LIPITOR) 80 mg tablet Take 1 tablet (80 mg total) by mouth daily 0 Active metFORMIN (GLUCOPHAGE) 500 mg tablet Take 1 tablet (500 mg total) by mouth 2 (two) times a day 0 Active tamsulosin (FLOMAX) 0.4 mg extended release capsule Take by mouth daily 0 Active valsartan-hydro chlorothiazide (DIOVAN-HCT) 320-25 mg per tablet Take 0.5 tablets by mouth daily Active aspirin 81 mg enteric coated tablet Take 1 tablet (81 mg total) by mouth daily Active indomethacin (INDOCIN) 50 mg capsule as needed 3 Active potassium chloride ER 20 mEq CR tablet Take 1 tablet (20 mEq total) by mouth daily 3 Active ezetimibe (ZETIA) 10 mg tabletIndicatio ns:Multiple risk factors for coronary artery disease,Elevate d coronary artery calcium score TAKE 1 TABLET BY MOUTH EVERY DAY 90 tablet 4 Active HYDROcodone-daysi taminophen (NORCO) 5-325 mg per tablet Take by mouth as needed 4 Active omeprazole (PriLOSEC) 20 mg capsule Take by mouth daily 4 Active magnesium oxide (MAG-OX) 400 mg (241.3 mg elemental magnesium) tabletIndicatio ns:hypomagnesem ia Take 1 tablet (400 mg total) by mouth daily 400 twice a day for 1 week then take 400 mg once a day thereafter 37 tablet 11 4 02/17/20 25 Active metoprolol tartrate (LOPRESSOR) 25 mg immediate release tablet Take 1 tablet (25 mg total) by mouth 2 (two) times a day 60 tablet 11 4 02/17/20 25 Active Active Problems Problem Noted Date Diagnosed Date PAT (paroxysmal atrial tachycardia) 02/01/2023 Finger numbness 05/28/2022 Palpitations 05/28/2022 Pacemaker 05/12/2021 Overview (05/22/2021): Biotronik Edora Dual Pacemaker. Dx; Interm CHB, Junctional. DOI 05/09/2021- [facility]. [employer] remote home monitoring. Intermittent complete heart block (CMS/HCC) 03/2021 Elevated coronary artery calcium score 0 Family history of early CAD 02/27/2020 Mixed diabetic hyperlipidemi a associated with type 2 diabetes mellitus 02/27/2020 Essential hypertension 08/12/2013 Overview (07/02/2016): Hypertension Resolved Problems Problem Noted Date Diagnosed Date Resolved Date Visit for wound check 05/16/20212022 Syncope and collapse 04/29/2021 023 Hyperlipidemia 08/12/2013 02/27/2020 Overview (07/02/2016): Hyperlipidemia Social History Tobacco Use Types Packs/Day Years Used Date Smoking Tobacco: Former Cigarettes Smokeless Tobacco: Never Tobacco Cessation:Counseling Given: Not Answered Alcohol Use Standard Drinks/Week Comments Yes 0 (1 standard drink = 0.6 oz pur e alcohol) Sex and Gender Information Value Date Recorded Sex Assigned at Not on file Legal Sex Male 1:50 AM [facility] Gender Identity Male 04/14/2021 11:15 AM [facility] Sexual Orientation Straight 04/14/2021 11 :15 AM [facility] Last Filed Vital Signs Vital Sign Reading Time Taken Comments Blood Pressure 123/65 02/22/2024 9:15 AM [facility] Pulse 95 02/01/2024 10:30 AM [facility] Temperature 36.8 ??C (98.2 ??F) 04/08/2020 8:00 AM CS T Respiratory Rate - - Oxygen Saturation 97% 02/01/2024 10:30 AM [facility] Inhaled Oxygen Concentration - - Weight 103 kg (227 lb) 02/01/2024 10:30 AM [facility] Height 193 cm (6' 4 ) 02/01/2024 10:30 AM [facility] Body Mass Index 27.63 02/01/2024 10:30 AM [facility] Plan of Treatment Not on file Medical Devices Implanted Type Area Fine Arts Model Device Identifier Shelf Expiration Date Model / Serial / Lot Biotronik Rv Lead Solia S 60 Lead Heart Biotronik SOLIA S 60 / / Biotronik Ra Lead Solia S53-05/09/2021 Implanted:04/29 (Quantity not on file) Lead Heart Biotronik SOLIA S 53 / / Biotronik Pm Edora 8dr-T- Implanted:04/29 (Quantity not on file) Pacemaker Chest Wall Biotronik EDORA 8 DR-T / / Procedures Procedure Name Priority Date/Time Associated Diagnosis Comments TRANSTHORACIC ECHO (TTE) COMPLETE W DOPPLER/CF WO CONTRAST Routine 02/22/2024 9:16 AM [facility] NSVT (nonsustained ventricular tachycardia) (HCC) DEVICE CHECK - REMOTE Routine 02/15/2024 1:29 PM [facility] Pacemaker Intermittent complete heart block (CMS/HCC) (HCC) POCT LIPID PANEL Routine 02/01/2024 10:3 7 AM [facility] Lipid screening DEVICE CHECK - REMOTE Routine 01/25/2024 1:10 PM CDT Syncope and collapse Intermittent complete heart block (CMS/HCC) (HCC) SERUM HEPATITIS C AB Routine 05/04/2013 9:33 AM [facility] from Last 3 Months or Most Recently Relevant to Health Maintenance Results * TRANSTHORACIC ECHO (TTE) COMPLETE W DOPPLER/CF WO CONTRAST (02/22/2024 9:16 AM [facility]) Anatomical Region Laterality Modality Ultrasound 02/22/2024 8:49 AM [facility] Narrative 02/22/2024 12:42 PM [facility] Cardiology [address], [place] [address] [address], [place] [address] P:[phone] P:[phone] Echocardiographic Report Patient Name: ARACELIS ALVARADO E : 1950 Study Date: 02/22/2024 8:49:19 AM Gender: M Tech: Location: [place] Ref Provider: LAURIE PATTON Height(Cm): 193 BSA: 2.35 Weight(Kg): 103 Heart Rate: 60 BP: 123 / 65 Quality: Good Order Provider: LAURIE PATTON PROCEDURES: Echocardiographic Report: Transthoracic echocardiogram with complete 2D, M-Mode, and color Doppler examination. With Strain Analysis. INDICATIONS: I47.29 Other ventricular tachycardia. Measurements: 2D/M Mode ?Doppler Measurement ?Value ?Normal Range ?Measurement ?Value ?Normal Range LVIDd 2D ? 3.96 ? [ 4.20 - 5.80 ] cm ?FRANC Vmax ? 2.65 ? [ 2.00 - 4.00 ] cm2 LVIDs 2D ? 3.06 ? [ 2.50 - 4.00 ] cm ?AV Mean PG ? 3 ?mmHg LVPWd 2D ? 1.09 ? [ 0.60 - 1.00 ] cm ?AV Peak Chico ?1.13 ? [ 1.00 - 1.70 ] m/s IVSd 2D ?1.10 ? [ 0.60 - 1.00 ] cm ?AV Peak PG ? 5 ?mmHg LA Volume Index ?26 ? [ 16 - 34 ] cc/m2 ? AV VTI ? 27.98 ?cm ___ ?___ ?___ ? LVOT Diam ?2.14 ? [ 1.70 - 2.10 ] cm ___ ?___ ?___ ? LVOT Peak [place] ?0.83 ? [ 0.70 - 1.10 ] m/s ___ ?___ ?___ ? LVOT VTI ? 21.06 ?cm ___ ?___ ?___ ? MV E Peak [place] ?0.84 ? [ 0.60 - 1.30 ] m/s ___ ?___ ?___ ? MV A Peak [place] ?0.53 ? [ 1.00 - 1.20 ] m/s ___ ?___ ?___ ? MV Decel Time ?262 ?[ 104 - 258 ] msec ___ ?___ ?___ ? TR Peak [place]ico ?2.65 ? [ 1.00 - 2.80 ] m/s ___ ?___ ?___ ? TR Peak PG ? 28 ? mmHg ___ ?___ ?___ ? Lateral E` ? 0.08 ? [ 0.10 - 0.15 ] m/s ___ ?___ ?___ ? E` ? 0.08 ? m/s E/E` ? 11 Measurement ?Value ?Normal Range ?Measurement ?Value ?Normal Range 2D/M Mode ?Doppler - FINDINGS: Interpretation Site: Exam was interpreted at [facility]. Left Ventricle: Normal left ventricular systolic function. No focal wall motion abnormalities. Normal left ventricular size. Mild concentric left ventricular hypertrophy. Diastolic dysfunction is present. Ejection fraction is visually estimated at 65-70 %. Ejection fraction is measured at 63 %. Global Longitudinal Strain is -18 %. GLS is normal. Right Ventricle: Normal right ventricular size. Normal right ventricular systolic function. Linear artifact in right ventricle suggestive of catheter(s), pacemaker lead(s), or ICD lead(s). Left Atrium: There is mild enlargement of left atrium. Right Atrium: The right atrium is normal in size. Atrial Septum: Normal atrial septum. Mitral Valve: Mitral valve leaflets appear mildly thickened. Subvalvular calcification noted. Mild mitral annular calcification. Mild mitral valve regurgitation. There is no hemodynamically significant mitral stenosis by Doppler. Aortic Valve: No evidence of hemodynamically significant aortic stenosis by Doppler. Aortic cusps appear mildly calcified. Trileaflet aortic valve. Trace aortic valve regurgitation. Tricuspid Valve: Normal appearance of the tricuspid valve. Normal right ventricular systolic pressure. Estimated peak RVSP is 30-35 mmHg. Mild tricuspid regurgitation. Pulmonic Valve: Normal appearance of the pulmonic valve. No pulmonic stenosis. Trivial regurgitation in the pulmonic valve. Pericardium: Normal pericardium with no significant pericardial effusion. Aorta: Sinus of Valsalva 3.9 cm. Aortic root is mildly dilated. IVC: Normal size and normal respiratory collapse consistent with normal right atrial pressure (<5 mmHg). CONCLUSIONS: Normal left ventricular systolic function. No focal wall motion abnormalities. Normal left ventricular size. Mild concentric left ventricular hypertrophy. Diastolic dysfunction is present. Ejection fraction is visually estimated at 65-70 %. Ejection fraction is measured at 63 %. Global Longitudinal Strain is -18 %. GLS is normal. Normal right ventricular size. Normal right ventricular systolic function. Linear artifact in right ventricle suggestive of catheter(s), pacemaker lead(s), or ICD lead(s). There is mild enlargement of left atrium. Mitral valve leaflets appear mildly thickened. Subvalvular calcification noted. Mild mitral annular calcification. Mild mitral valve regurgitation. Aortic cusps appear mildly calcified. Mild tricuspid regurgitation. Sinus of Valsalva 3.9 cm. Aortic root is mildly dilated. Normal sinus rhythm. Electronically Signed By: Shravan Sanchez MD 2024-02-22 12:41:38 [facility] Procedure Note Shravan Sanchez MD - 02/22/2024 [facility] [address], [place] [address] [address] [facility] [id number], [place] [address] P:[phone] P:[phone] Echocardiographic Report Patient Name: ARACELIS ALVARADO E : 1950 Study Date: 02/22/2024 8:49:19 AM Gender: M Tech: [id number] Location: [facility] Provider: LAURIE PATTON Height(Cm): 193 BSA: 2.35 Weight(Kg): 103 Heart Rate: 60 BP: 123 / 65 Quality: Good Order Provider: LAURIE PATTON PROCEDURES: Echocardiographic Report: Transthoracic echocardiogram with complete 2D, M-Mode, and color Dopplerexamination. With Strain Analysis. INDICATIONS: I47.29 Other ventricular tachycardia. Measurements: 2D/M ModeDoppler Measurement Value Normal Range Measurement ValueNormal Range LVIDd 2D 3.96 [ 4.20 - 5.80 ] cm FRANC Vmax 2.65[ 2.00 - 4.00 ] cm2 LVIDs 2D 3.06 [ 2.50 - 4.00 ] cm AV Mean PG 3mmHg LVPWd 2D 1.09 [ 0.60 - 1.00 ] cm AV Peak Chico 1.13[ 1.00 - 1.70 ] m/s IVSd 2D 1.10 [ 0.60 - 1.00 ] cm AV Peak PG 5mmHg LA Volume Index 26 [ 16 - 34 ] cc/m2 AV VTI 27.98cm ___ ___ ___ LVOT Diam 2.14[ 1.70 - 2.10 ] cm ___ ___ ___ LVOT Peak [place]ico 0.83[ 0.70 - 1.10 ] m/s ___ ___ ___ LVOT VTI 21.06cm ___ ___ ___ MV E Peak Chico 0.84[ 0.60 - 1.30 ] m/s ___ ___ ___ MV A Peak Chico 0.53[ 1.00 - 1.20 ] m/s ___ ___ ___ MV Decel Time 262[ 104 - 258 ] msec ___ ___ ___ TR Peak Chico 2.65[ 1.00 - 2.80 ] m/s ___ ___ ___ TR Peak PG 28mmHg ___ ___ ___ Lateral E` 0.08[ 0.10 - 0.15 ] m/s ___ ___ ___ E` 0.08m/s E/E` 11 Measurement Value Normal Range Measurement ValueNormal Range 2D/M ModeDoppler - FINDINGS: Interpretation Site: Exam was interpreted at [facility]. Left Ventricle: Normal left ventricular systolic function. No focal wall motionabnormalities. Normal left ventricular size. Mild concentric left ventricular hypertrophy.Diastolic dysfunction is present. Ejection fraction is visually estimated at 65-70%. Ejection fraction is measured at 63 %. Global Longitudinal Strain is -18 %. GLS isnormal. Right Ventricle: Normal right ventricular size. Normal right ventricular systolic function.Linear artifact in right ventricle suggestive of catheter(s), pacemaker lead(s),or ICD lead(s). Left Atrium: There is mild enlargement of left atrium. Right Atrium: The right atrium is normal in size. Atrial Septum: Normal atrial septum. Mitral Valve: Mitral valve leaflets appear mildly thickened. Subvalvular calcificationnoted. Mild mitral annular calcification. Mild mitral valve regurgitation. There is no hemodynamically significant mitral stenosis by Doppler. Aortic Valve: No evidence of hemodynamically significant aortic stenosis by Doppler.Aortic cusps appear mildly calcified. Trileaflet aortic valve. Trace aortic valveregurgitation. Tricuspid Valve: Normal appearance of the tricuspid valve. Normal right ventricularsystolic pressure. Estimated peak RVSP is 30-35 mmHg. Mild tricuspid regurgitation. Pulmonic Valve: Normal appearance of the pulmonic valve. No pulmonic stenosis. Trivialregurgitation in the pulmonic valve. Pericardium: Normal pericardium with no significant pericardial effusion. Aorta: Sinus of Valsalva 3.9 cm. Aortic root is mildly dilated. IVC: Normal size and normal respiratory collapse consistent with normal rightatrial pressure (<5 mmHg). CONCLUSIONS: Normal left ventricular systolic function. No focal wall motionabnormalities. Normal left ventricular size. Mild concentric left ventricular hypertrophy.Diastolic dysfunction is present. Ejection fraction is visually estimated at 65-70%. Ejection fraction is measured at 63 %. Global Longitudinal Strain is -18 %. GLS isnormal. Normal right ventricular size. Normal right ventricular systolic function.Linear artifact in right ventricle suggestive of catheter(s), pacemaker lead(s),or ICD lead(s). There is mild enlargement of left atrium. Mitral valve leaflets appear mildly thickened. Subvalvular calcificationnoted. Mild mitral annular calcification. Mild mitral valve regurgitation. Aortic cusps appear mildly calcified. Mild tricuspid regurgitation. Sinus of Valsalva 3.9 cm. Aortic root is mildly dilated. Normal sinus rhythm. Electronically Signed By: Shravan Sanchez MD 2024-02-22 12:41:38 [facility] Laurie Patton NP CV ECHO PROCEDURES Final Result * DEVICE CHECK - REMOTE (02/15/2024 1:29 PM [facility]) Anatomical Region Laterality Modality Other Narrative 02/16/2024 9:23 AM [facility] [employer] Edora Dual Pacemaker. Dx; Interm CHB, Junctional. DOI 05/09/2021-[employer]. [employer]. Unscheduled remote d/t High Vent Rate episode recorded on 02/14/2024 @ 8:58 AM. IEGM suggestive of NSVT, 14 second duration @ 206 bpm. I contacted and spoke with patient. ??He stated I was up and moving around the house yesterday and I did not notice anything different. I did not have any symptoms. Presenting rhythm: ?? VS. Battery function-Ok, with 80% remaining to ER I. AP-5 %, WELT STITCHER-0%. Medications; ASA 81 mg, Diovan-HCT, Potassium chloride, Zetia, Lipitor. [employer] remote schedule 05/02/2024. Krys Bell RN Result [facility] Cooper Adams MD CV CARDIAC SERVICES PROCEDURES F inal Result * POCT lipid panel (02/01/2024 10:37 AM [facility]) Cholesterol, POC 122 mg/dL HDL, POC 50 mg/dL Triglycerides, POC 232 mg/dL LDL Cholesterol POC 26 mg/dL Chol/HDL Ratio, POC 0.5 Non-HDL Cholesterol, POC 72 mg/dL Cholesterol Total, POC 122 mg/dL Capillary blood 02/01/2024 1 0:37 AM [facility] Laurie Patton NP POINT OF CARE TEST ORDERA BLES Final Result * DEVICE CHECK - REMOTE (01/25/2024 1:10 PM CDT) Anatomical Region Laterality Modality Other Narrative 01/27/2024 3:00 PM CDT Biotronik Edora Dual Pacemaker. Dx; Interm CHB, Junctional. DOI 05/09/2021-[facility]. [employer] Home Monitoring. Routine DDD Pacemaker remote. Normal device function. Battery function-Ok, 80% remaining battery life to DASHAWN. Appropriate lead measurements noted. Presenting rhythm: -VS. AP-5%, WELT STITCHER-0%. 1 Atrial high rate episode noted, iegm 1:! Rhythm-ST, 4 second duration. ? No Ventricular high rate episodes noted Medications; ASA, Diovan-HCT, Lipitor. See scanned report. Office pacemaker f/u 05/02/2024. Krys Bell RN Eden Hilliard MD CV CARDIAC SERVICES PROCEDU RES Final Result * Serum Hepatitis C ab (05/04/2013 9:33 AM [facility]) HCV ab Negative NEG HISTORICAL RESULTS Serum 05/04/2013 9:33 AM [facility] Narrative HISTORICAL RESULTS - 05/05/2013 6:30 AM [facility] Interpretive Data If confirmation is required, call Laboratory Customer Service to request sample to be sent to [facility] for Hepatitis C Virus (HCV) RNA Detection and Quantitation by Real-Time Reverse Roll Tester-PCR (RT-PCR). Current interpretive data was last revised on 2011 us Milind Cha MD LAB BLOOD ORDERABLES F inal Result HISTORICAL RESULTS from Last 3 Months or Most Recently Relevant to Health Maintenance Insurance MEDICARE [facility] MEDICARE [facility] Care Teams Water Resource Engineering Specialist Relationship Specialty Start Date End Date Terry Leahy MD [address] [facility] [address] [facility] [address] [place] [address] PCP - General Internal Medicine 02/26/20
--- OUTSIDE RECORDS SUMMARY | 2024-04-20 12:48 | XMS_ITS | Clinical Summary ---
Author Organization [facility] Address [address] [place] [address] Care Team Providers Care Spa Receptionist Name Role Phone Terry Leahy MD Primary Care Provider [phone] Allergies No known active allergies Medications allopurinoL [...] 2 (two) times a day 60 tablet 4 02/17/20 25 Active Active Problems Problem Noted Date Diagnosed Date PAT (paroxysmal atrial tachycardia) 02/01/2023 Finger numbness 05/28/2022 Palpitations 05/28/2022 Pacemaker 05/12/2021 Overview (05/22/2021): Biotronik Edora Dual Pacemaker. Dx; Interm CHB, Junctional. DOI 05/09/2021- [facility]. [employer] remote home monitoring. Intermittent complete heart block (CMS/HCC) 03/2021 Elevated coronary artery calcium score 0 Family history of early CAD 02/27/2020 Mixed diabetic hyperlipidemi a associated with type 2 diabetes mellitus 02/27/2020 Essential hypertension 08/12/2013 Overview (07/02/2016): Hypertension Resolved Problems Problem Noted Date Diagnosed Date Resolved Date Visit for wound check 05/16/20212022 Syncope and collapse 04/29/2021 023 Hyperlipidemia 08/12/2013 02/27/2020 Overview (07/02/2016): Hyperlipidemia Encounters Date Type Department Care Team Description 02/22/2024 8:15 AM BOTTOM TURNER Ancillary Procedure [facility] Cardiology [address] [facility] [address] [place] [phone] NSVT (nonsustained ventricular tachycardia) (HCC) 02/15/2024 12:00 PM BOTTOM TURNER Ancillary Procedure [facility] Cardiology [address] [facility] [address] [place] [phone] Pacemaker; Intermittent complete heart block (CMS/HCC) (HCC) 02/15/2024 Telephone [facility] Cardiology [address] [place] [address] Suite [facility] YAD[place] [address] Cooper Adams MD 02/15/2024 Orders Only [facility] Cardiology [address] [place] [address] [address] [facility] [place] [address] Cooper Adams MD Pacemaker (Primary Dx); Intermittent complete heart block (CMS/HCC) (HCC) 02/01/2024 10:30 AM BOTTOM TURNER Office Visit [facility] Cardiology [address] [place] [address] Laurie Patton NP Elevated coronary artery calcium score; Lipid screening; Intermittent complete heart block (CMS/HCC) (HCC); Pacemaker [Z95.0] 01/25/2024 7:15 AM CDT Ancillary Procedure [facility] Cardiology [address] [place] [address] [address] [facility] [place] [address] Pacemaker [Z95.0] (Primary Dx); Syncope and collapse; Intermittent complete heart block (CMS/HCC) (HCC) from Last 3 Months Surgical History Surgery Date Site/Laterality Comments OTHER SURGICAL HISTORY Osteoarthritis, right knee: arthroscopy LIPECTOMY Lipectomy - (Added by Conv) NECK SURGERY ROTATOR CUFF REPAIR KNEE ARTHROSCOPY W/ LATERAL RELEASE 2013 Medical History Medical History Date Comments Hx Other Medical 2009 Osteoarthritis, right knee Hypertension Hyperlipidemia Gout Pre-diabetes Lipoma The patient appe ars to have some type of tumor which he said was rare Mediterranian dz, 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 Elevated coronary artery calcium score Elevated coronary artery calcium score Diabetes mellitus (HCC) Family History Medical History Relation Name Comments Diabetes Brother 1 Emery Family history of diabetes mellitus - (Added by TW Conv) Peripheral vascular disease Brother 1 Emery Lower extremity amputation Diabetes type II Brother 2 Aquilino Family hist ory of type 2 diabetes mellitus - (Added by TW Conv) CABG Brother 3 Laurent CABG age 53 Heart attack Brother 4 Primo No Known Problems Brother 5 Coronary artery disease Father Matteo Nick nary artery disease; Cause of : Coronary artery disease Heart attack Father Matteo Myocardial Infa rction; Cause of : Myocardial Infarction Cancer Mother Mom Heart attack Sister 1 Lissy Half sister Relation Name Status Comments Brother 1 Emery Alive Brother 2 Aquilino Alive Brother 3 Laurent Alive Brother 4 Primo Brother 5 Father Matteo (Age 69) Mother Mom (Age 86) Sister 1 Lissy (Age 43) Sister 2 Yudy Social History Tobacco Use Types Packs/Day Years Used Date Smoking Tobacco: Former Cigarettes Smokeless Tobacco: Never Tobacco Cessation:Counseling Given: Not Answered Alcohol Use Standard Drinks/Week Comments Yes 0 (1 standard drink = 0.6 oz pur e alcohol) Sex and Gender Information Value Date Recorded Sex Assigned at Not on file Legal Sex Male 1:50 AM BOTTOM TURNER Gender Identity Male 04/14/2021 11:15 AM BOTTOM TURNER Sexual Orientation Straight 04/14/2021 11 :15 AM BOTTOM TURNER Obstetrics History Last Filed Vital Signs Vital Sign Reading Time Taken Comments Blood Pressure 123/65 02/22/2024 9:15 AM BOTTOM TURNER Pulse 95 02/01/2024 10:30 AM BOTTOM TURNER Temperature 36.8 ??C (98.2 ??F) 04/08/2020 8:00 AM CS T Respiratory Rate - - Oxygen Saturation 97% 02/01/2024 10:30 AM BOTTOM TURNER Inhaled Oxygen Concentration - - Weight 103 kg (227 lb) 02/01/2024 10:30 AM BOTTOM TURNER Height 193 cm (6' 4 ) 02/01/2024 10:30 AM BOTTOM TURNER Body Mass Index 27.63 02/01/2024 10:30 AM BOTTOM TURNER Plan of Treatment Health Maintenance Due Date Last Done Comments Albumin Creatinine Ratio, Urine 1950 Colon Cancer Screening-Colonoscopy 1950 Depression Screening 1950 Fall Risk Assessment 1950 Hemoglobin A1C 1950 Prostate Cancer Screening-PSA 1950 eGFR 1950 Dilated Eye Exam 1950 Foot Exam 1950 Hepatitis B Screening 09/23/1969 Abdominal Aortic Aneurysm (A AA) Screen 09/23/2016 Well Visit 65+ 09/23/2016 Pneumococcal vaccine 65+ (2 of 2 - PPSV23 or PCV20) 03/24/2019 01/27/2019 Zoster Vaccine (2 of 2) 04/09/2020 02/13/2020 Influenza Vaccine (#1) 2023 , 01/27/2019, 01/20/2018, Additional history exists Lipid Panel 01/31/2025 02/01/2024, 08/2022, 11/24/2021, Additional history exists DTaP/Tdap/Td Vaccine (2 - Td or Tdap) 09/03/2026 09/03/2016 Hepatitis C Screening Completed 05/04/2013 Medical Devices Implanted Type Area Neuroscientist Device Identifier Shelf Expiration Date Model / [...] DOPPLER/CF WO CONTRAST Routine 02/22/2024 9:16 AM BOTTOM TURNER NSVT (nonsustained ventricular tachycardia) (HCC) DEVICE CHECK - REMOTE Routine 02/15/2024 1:29 PM BOTTOM TURNER Pacemaker Intermittent complete heart block (CMS/HCC) (HCC) POCT LIPID PANEL Routine 02/01/2024 10:3 7 AM BOTTOM TURNER Lipid screening DEVICE CHECK - REMOTE Routine 01/25/2024 1:10 PM CDT Syncope and collapse Intermittent complete heart block (CMS/HCC) (HCC) SERUM HEPATITIS C AB Routine 05/04/2013 9:33 AM BOTTOM TURNER from Last 3 Months or Most Recently Relevant to Health Maintenance Results * TRANSTHORACIC ECHO (TTE) COMPLETE W DOPPLER/CF WO CONTRAST (02/22/2024 9:16 AM BOTTOM TURNER) Anatomical Region Laterality Modality Ultrasound 02/22/2024 8:49 AM BOTTOM TURNER Narrative 02/22/2024 12:42 PM BOTTOM TURNER [facility] Cardiology [address], [place] [address] [address], [place] [address] P:[phone] P:[phone] Echocardiographic Report Patient Name: ARACELIS ALVARADO E : 1950 Study Date: 02/22/2024 8:49:19 AM Gender: M Tech: Location: [facility] Provider: LAURIE PATTON Height(Cm): 193 BSA: 2.35 [...] FINDINGS: Interpretation Site: Exam was interpreted at [facility]. Left Ventricle: Normal left ventricular systolic function. [...] Signed By: Shravan Sanchez MD 2024-02-22 12:41:38 BOTTOM TURNER Procedure Note Shravan Sanchez MD - 02/22/2024 [facility] [address], [place] [address] [address] [facility] [address], [place] [address] P:[phone] P:[phone] Echocardiographic Report Patient Name: ARACELIS ALVARADO E : 1950 Study Date: 02/22/2024 8:49:19 AM Gender: M Tech: Location: [place] Ref Provider: LAURIE PATTON Height(Cm): 193 BSA: [...] FINDINGS: Interpretation Site: Exam was interpreted at [facility]. Left Ventricle: Normal left ventricular systolic function. [...] Signed By: Shravan Sanchez MD 2024-02-22 12:41:38 BOTTOM TURNER Laurie Patton NP CV ECHO PROCEDURES Final Result * DEVICE CHECK - REMOTE (02/15/2024 1:29 PM BOTTOM TURNER) Anatomical Region Laterality Modality Other Narrative 02/16/2024 9:23 AM BOTTOM TURNER [employer] Edora Dual Pacemaker. Dx; Interm CHB, Junctional. DOI 05/09/2021-[employer]. [employer]. Unscheduled remote d/t High Vent Rate episode [...] 80% remaining to ER I. AP-5 %, BOTTLER HELPER-0%. Medications; ASA 81 mg, Diovan-HCT, Potassium chloride, Zetia, Lipitor. Biotronik remote schedule 05/02/2024. Krys Bell, PENELOPE Cooper Adams MD CV CARDIAC SERVICES PROCEDURES F inal Result * POCT lipid panel (02/01/2024 10:37 AM BOTTOM TURNER) Cholesterol, POC 122 mg/dL HDL, POC 50 mg/dL Triglycerides, POC 232 mg/dL LDL Cholesterol POC 26 mg/dL Chol/HDL Ratio, POC 0.5 Non-HDL Cholesterol, POC 72 mg/dL Cholesterol Total, POC 122 mg/dL Capillary blood 02/01/2024 1 0:37 AM BOTTOM TURNER Laurie Patton NP POINT OF CARE TEST ORDERA BLES Final Result * DEVICE CHECK - REMOTE (01/25/2024 1:10 PM CDT) Anatomical Region Laterality Modality Other Narrative 01/27/2024 3:00 PM CDT Biotronik Edora Dual Pacemaker. Dx; Interm CHB, Junctional. DOI 05/09/2021-[employer]. [employer] Home Monitoring. Routine DDD Pacemaker remote. Normal device function. Battery function-Ok, 80% remaining battery life to DASHAWN. Appropriate lead measurements noted. Presenting rhythm: -VS. AP-5%, BOTTLER HELPER-0%. 1 Atrial high rate episode noted, ie 1:! Rhythm-ST, 4 second duration. ? No Ventricular high rate episodes noted Medications; ASA, Diovan-HCT, Lipitor. See scanned report. Office pacemaker f/u 05/02/2024. Krys Bell RN Eden Hilliard MD CV CARDIAC SERVICES PROCEDU RES Final Result * Serum Hepatitis C ab (05/04/2013 9:33 AM BOTTOM TURNER) HCV ab Negative NEG HISTORICAL RESULTS Serum 05/04/2013 9:33 AM BOTTOM TURNER Narrative HISTORICAL RESULTS - 05/05/2013 6:30 AM BOTTOM TURNER Interpretive Data If confirmation is required, call Laboratory Customer Service to request sample to be sent to [facility] for Hepatitis C Virus (HCV) RNA Detection and Quantitation by Real-Time Reverse Business Continuity Manager-PCR (RT-PCR). Current interpretive data was last revised on 2011 Milind Cha MD LAB BLOOD ORDERABLES F inal Result HISTORICAL RESULTS from Last 3 Months or Most Recently Relevant to Health Maintenance Insurance MEDICARE [facility] Member Subscriber Plan / Payer ( fective 2019-) Name:Aracelis Alvarado Relation to Subscriber:Self Name:Aracelis Alvarado Payer ID:[id number] Group ID:[id number] Type:Echograph Address: [facility] [id number] [id number] MEDICARE [facility] [place] [address] [facility] Care Teams Spa Receptionist Relationship Specialty Start Date End Date Terry Leahy MD [address] [place] [address] PCP - General Internal Medicine 02/26/20
--- OUTSIDE RECORDS SUMMARY | 2024-04-20 12:48 | XMS_ITS | Clinical Summary ---
Author Organization [facility] Address [address] [place] [address]. [place], [place] [address] [place] [address] Care Team Providers Care Furnace Installer Helper Name Role Phone Terry Don MD Primary Care Provider [phone] Encounters Date Type Department Care Team Description 01/26/2024 1:05 PM CDT - 01/26/2024 11:59 PM CDT Hospital Encounter [facility] [address] [place] [address] Terry Don MD Discharge Disposition: Home or Self Care (Routine Discharge) 01/26/2024 Travel from Last 3 Months Social History Tobacco Use Types Packs/Day Years Used Date Smoking Tobacco: Never Assessed Sex and Gender Information Value Date Recorded Sex Assigned at Not on file Legal Sex Male 10:46 AM SITE LEADER Gender Identity Not on file Sexual Orientation Not on file Plan of Treatment Health Maintenance Due Date Last Done Comments ASCVD LDL 1950 ASCVD Statin 1950 Colorectal Cancer Screening Colonoscopy (10 Years) 1950 Hepatitis C 09/23/1969 DTaP, Tdap and Td Vaccines ( 1 - Tdap) 09/23/1970 RSV Immunization or 60+ Years (1 - Risk 60-74 years 1-dose series) 2011 Annual Medicare Wellness Visit 09/23/2016 Pneumococcal Vaccine: 65+ Ye ars (2 of 2 - PPSV23 or PCV20) 03/24/2019 01/27/2019 Zoster Vaccines (2 of 2) 04/09/2020 02/13/2020 COVID-19 Vaccine (1 - 2023-2 5 season) 2023 Influenza Adult (#1) 2023 01/18/2018 Meningococcal Vaccine Aged Out No minal marques eligible based on patient's age to complete this topic RSV Immunizations Under 20 Months Aged Out No longer eligible based on patient's age to complete this topic Procedures Procedure Name Priority Date/Time Associated Diagnosis Comments CT HEART DIAG CALCIUM SCORE Routine 01/26/2024 1:25 PM CDT Abnormal finding of blood chemistry, unspecified 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 Ordered By: TERRY DON Interpreted By: Bhavesh Hernandez MD, 01/26/2024 2:49 PM Narrative 01/26/2024 2:51 PM CDT [address] [address] EXAMINATION: Multislice Helical CT Coronary Calcium Scoring REASON FOR EXAM: Screening for heart disease COMPARISON: None TECHNIQUE: ??Multislice helical CT images of the proximal coronary arteries with a computer generated calcification score. A dose lowering technique was used for this procedure, which may include, but is not limited to, dose reduction technique, automated exposure control, iterative reconstruction, ALARA (As Low As Reasonably Achievable), or Image Gently techniques. Results: Left main: 198 ?LAD: 3229 Circumflex: 767 ? Right coronary: 938 ?? Total Score: 5132 ? Comments: There is no mediastinal adenopathy, and there are no pulmonary nodules in the visualized portions of the chest. Calcium score guidelines: Total Score* Calcium Plaque [place] ??*Risk ?*Probability of significant CAD 0 ?No Plaque ?Very Low ? Very unlikely 1-10 ?Minimal Plaque ? Low ?Unlikely 11-100 ?Mild Plaque ?Moderate ? Low likelihood of significant ? stenosis <50% ? 101-400 ? Moderate Plaque ?Moderately High ?Moderate likelihood of ? significant stenosis (>50%) Over 400 ?Extensive Plaque ? High ?High likelihood of ?significant stenosis (>50%) The amount of coronary artery calcification correlates with the severity of coronary atherosclerosis and the probability of future significant event. Calcification is not site specific for stenosis and does not identify non-calcified atherosclerotic plaque, but rather indicates the extent of atherosclerosis in the coronary arteries overall. The score may be used as an indicator for risk factor modification or additional cardiac testing. Significant change in calcium score over time may be indicative of subsequent disease development or useful as a benchmark to assess preventative programs. Procedure Note Bhavesh Hernandez MD - 01/26/2024 [place] [id number] EXAMINATION: Multislice Helical CT Coronary Calcium Scoring REASON FOR EXAM: Screening for heart disease COMPARISON: None TECHNIQUE: Multislice helical CT images of the proximal coronary arterieswith a computer generated calcification score. A dose lowering techniquewas used for this procedure, which may include, but is not limited to,dose reduction technique, automated exposure control, iterativereconstruction, ALARA (As Low As Reasonably Achievable), or Image Gentlytechniques. Results: Left main: 198 LAD: 3229 Circumflex: 767 Right coronary: 938 Total Score: 5132 Comments: There is no mediastinal adenopathy, and there are no pulmonarynodules in the visualized portions of the chest. Calcium score guidelines: Total Score* Calcium Plaque [place] *Risk *Probability ofsignificant CAD 0 No Plaque Very LowVery unlikely 1-10 Minimal Plaque LowUnlikely 11-100 Mild Plaque ModerateLow likelihood of significant stenosis <50% 101-400 Moderate Plaque Moderately HighModerate likelihood of significant stenosis (>50%) Over 400 Extensive Plaque HighHigh likelihood of significant stenosis (>50%) The amount of coronary artery calcification correlates with the severityof coronary atherosclerosis and the probability of future significantevent. Calcification is not site specific for stenosis and does notidentify non-calcified atherosclerotic plaque, but rather indicates theextent of atherosclerosis in the coronary arteries overall. The score may be used as an indicator for risk factor modification oradditional cardiac testing. Significant change in calcium score over timemay be indicative of subsequent disease development or useful as abenchmark to assess preventative programs. =====IMPRESSION:===== Total Score: 5132 Extensive plaque, high risk, high likelihood ofsignificant stenosis (>50%). Ordered By: TERRY DON Interpreted By: Bhavesh Hernandez MD, 01/26/2024 2:49 PM Terry Don MD CT Final Result from Last 3 Months Insurance MEDICARE [facility] Care Teams Furnace Installer Helper Relationship Specialty Start Date End Date Terry Don MD [address] [facility] [address] [place] [address] PCP - General INTERNAL MEDICINE 02/12/20
--- OUTSIDE RECORDS SUMMARY | 2024-04-20 12:48 | XMS_ITS | Patient Health Record ---
Author Organization [facility] Address [address] [place], [place] [address] Care Team Providers Care Food Prep Worker Name Role Phone JOSSELINE PIRES Unavailable [phone] Reason For Referral No Information Immunizations Vaccine Route Administration Date Status Comme nts Pfizer 1st Dose IM Intramuscular 04/26/2020 Administered Pfizer 2nd Dose IM Intramuscular 05/17/2020 Administered Problems Problem Type SNOMED Code ICD Code Onset Dates Problem Status W/U Status Risk Notes Problem Heart failure (39031595) Heart failure, unspecified (I50.9) Active confirmed Problem Abnormal metabolic state due to diabetes mellitus (649146293) Abnormal metabolic state due to diabetes mellitus (E11.9) Active confirmed Plan Of Treatment No Information Insurance Providers Payer Name Payer Address Payer Phone Subscriber Number Group Number Insured Name Patient Relationship to Insured Coverage Start Date Coverage End Date MEDICARE [place] [address] [place] [address] [id number] AdileneGokul Self - patient is the insured [facility] [address] [place], [place] [id number] JackelineDilipGokul Self - patient is the insured
--- OUTSIDE RECORDS SUMMARY | 2024-04-20 12:48 | XMS_ITS | Continuity of Care Document ---
Author Organization [facility] Address [address] [place] [address] Phone Care Team Providers Care Director Cardiac Name Role Phone Carlos Alberto SOSA, Lydia Unavailable Unavailable Advance Directives Directive Yes / No Effective Date File Name No Information Encounters Encounter Description Practice Location Reason(s) For Visit Diagnoses Date Provider Providers Copied on Encounter [facility], [address], [place], [place], [id number], [place] tel:[phone] [facility] No Information Carlos Alberto Freeman. [address] [place] [address], [id number], [place]. tel:[phone] Family History Family Member Type Diagnosis Age At Onset No Information Payers Payer name Insurance type Covered democrat ID Authoriza tion(s) No Information Social History Type Description Quantity Date Captured Comments Sex Male Smoking Status No Information Chief Complaint And Reason For Visit No Information Reason For Referral Reason For Referral No Information History Of Present Illness Encounter Date Complaint History Of Prese nt Illness No Information Functional Status Date Functional Assessmen t No Information Instructions Date Instruction Additional Infor mation No Information Assessments Type Assessment Date No Information Patient Care Teams Name Effective Dates (start - stop) Status Members No Information
== END 2024-04-17 10:31 | disposition home or self-care (01) ==
PROVIDERS: PCP Internal Medicine; Visit Provider Anesthesiology Pain Medicine
DX: M47.816 Spondylosis without myelopathy or radiculopathy, lumbar region (principal); M16.0 Bilateral primary osteoarthritis of hip
CPT/HCPCS: 72114; 73502

== ENCOUNTER 2024-07-06 08:02 | Outpatient (CLI) | payer MEDICARE, SELFPAY ==
--- OUTSIDE RECORDS SUMMARY | 2024-07-06 08:08 | XMS_ITS | Clinical Summary ---
Author Organization [facility] Address [address] [place] [address] Care Team Providers Care Orthopedic Brace Maker Name Role Phone Terry Leahy MD Primary Care Provider [phone] Allergies No known active allergies Medications allopurinoL [...] Active Problems Problem Noted Date Diagnosed Date Nonsustained monomorphic ventricular tachycardia 05/09/2024 PAT (paroxysmal atrial tachycardia) 02/01/2023 Finger numbness 05/28/2022 Palpitations 05/28/2022 Pacemaker 05/12/2021 Overview (05/22/2021): Biotronik Edora Dual Pacemaker. Dx; Interm CHB, Junctional. DOI 05/09/2021- [facility]. Biotronik remote home monitoring. Intermittent complete heart block 04/29/2021 Elevated coronary artery calcium score 0 Family history of early CAD 02/27/2020 Mixed diabetic hyperlipidemi a associated with type 2 diabetes mellitus 02/27/2020 Essential hypertension 08/12/2013 Overview (07/02/2016): Hypertension Resolved Problems Problem Noted Date Diagnosed Date Resolved Date Visit for wound check 05/16/20212022 Syncope and collapse 04/29/2021 023 Hyperlipidemia 08/12/2013 02/27/2020 Overview (07/02/2016): Hyperlipidemia Encounters Date Type Department Care Team Description 05/09/2024 8:45 AM FRONT TENDER Office Visit [facility] Medical Group Cardiology [address] [place] [phone] Cooper Adams MD Elevated coronary artery calcium score (Primary Dx); Nonsustained monomorphic ventricular tachycardia (HCC) 05/02/2024 7:15 AM FRONT TENDER Ancillary Procedure [facility] Medical [facility] Cardiology [address] [facility] [address] [place] [phone] Pacemaker (Primary Dx); Syncope and collapse; Intermittent complete heart block (HCC) from Last 3 Months Surgical History Surgery Date Site/Laterality Comments OTHER SURGICAL HISTORY Osteoarthritis, right knee: arthroscopy LIPECTOMY Lipectomy - (Added by TW Conv) NECK SURGERY ROTATOR CUFF REPAIR KNEE [...] around his neck and throat, evaluated by [facility] in the past. Elevated coronary artery calcium [...] CABG age 54 Heart attack Brother 4 Prmio No Known Problems Brother 5 Coronary artery [...] on file Legal Sex Male 1:50 AM FRONT TENDER Gender Identity Male 04/14/2021 11:15 AM FRONT TENDER Sexual Orientation Straight 04/14/2021 11 :15 AM FRONT TENDER Obstetrics History Last Filed Vital Signs Vital Sign Reading Time Taken Comments Blood Pressure 110/64 05/09/2024 8:46 AM FRONT TENDER Pulse 74 05/09/2024 8:46 AM FRONT TENDER Temperature 36.8 C (98.2 F) 04/08/2020 8:00 AM FRONT TENDER Respiratory Rate - - Oxygen Saturation 98% 05/09/2024 8:46 AM FRONT TENDER Inhaled Oxygen Concentration - - Weight 105.2 kg (232 lb) 05/09/2024 8:46 AM FRONT TENDER Height 193 cm (6' 4 ) 05/09/2024 8:46 AM FRONT TENDER Body Mass Index 28.24 05/09/2024 8:46 AM FRONT TENDER Plan of Treatment Health Maintenance Due Date [...] Pneumococcal vaccine 65+ (2 of 2 - PPSV23) 03/24/2019 01/27/2019 Zoster Vaccine (2 of 2) 04/09/2020 02/13/2020 Covid-19 Vaccine (3 - 2023-2 5 season) 2023 05/17/2020, 04/26/2020 Influenza Vaccine (Season Ended) 2024 12/07/2019, 01/27/2019, 01/20/2018, Additional history exists Lipid Panel 01/31/2025 02/01/2024, 08/2022, 11/24/2021, Additional history exists DTaP/Tdap/Td Vaccine (2 - Td or Tdap) 09/03/2026 09/03/2016 Hepatitis C Screening Completed 05/04/2013 Medical Devices Implanted Type Area Icer Machine Device Identifier Shelf Expiration Date Model / Serial / Lot Biotronik Rv Lead Solia S 60 Lead Heart Biotronik SOLIA S 60 / / Biotronik Ra Lead Solia S53-05/09/2021 Implanted:04/29 (Quantity not on file) Lead Heart Biotronik SOLIA S 53 / / Biotronik Pm Edora 8dr-T-2/11/202 2 Implanted:04/29 (Quantity not on file) Pacemaker Chest Wall Biotronik EDORA 8 DR-T / / Procedures Procedure Name Priority Date/Time Associated Diagnosis Comments DEVICE CHECK - REMOTE Routine 05/02/2024 2:11 PM FRONT TENDER Syncope and collapse Intermittent complete heart block (HCC) POCT LIPID PANEL Routine 02/01/2024 10:3 7 AM FRONT TENDER Lipid screening SERUM HEPATITIS C AB Routine 05/04/2013 9:33 AM FRONT TENDER from Last 3 Months or Most Recently Relevant to Health Maintenance Results * DEVICE CHECK - REMOTE (05/02/2024 2:11 PM FRONT TENDER) Anatomical Region Laterality Modality Other Narrative 05/16/2024 12:17 PM FRONT TENDER Biotronik Edora Dual Pacemaker. Dx; Interm CHB, Junctional. DOI 05/09/2021-[facility]. Biotronik remote home monitoring. Routine DDD Pacemaker Remote. Transmission attached. Battery status: OK, 80% remaining battery life to DASHAWN. Stable lead impedances, pacing and sensing thresholds. Presenting rhythm: A sensed/V sensed AP-6%, DIAGNOSTIC RADIOLOGIC TECHNOLOGIST-0% 5 Mode switch episodes noted, longest episode was 30 seconds in duration, IEGM demonstrates 4 episodes of atrial tachycardia, 1 episode PAF which lasted 30 seconds. AF Collins 0%. 1 Ventricular high rate episodes detected, IEGM demonstrates SVT for 14 seconds. Medications: ASA 81 mg, metoprolol 25 mg, valsartan hydrochlorothiazide See scanned report. Office pacemaker follow up: BetaVersity message sent to patient to call and make appointment for in office device check Biotronik remote f/u 08/01/24. Ad Membreno, PENELOPE us Eden Hilliard MD CV CARDIAC SERVICES PROCEDU RES Final Result * POCT lipid panel (02/01/2024 10:37 AM FRONT TENDER) Cholesterol, POC 122 mg/dL HDL, POC 50 mg/dL Triglycerides, POC 232 mg/dL LDL Cholesterol POC 26 mg/dL Chol/HDL Ratio, POC 0.5 Non-HDL Cholesterol, POC 72 mg/dL Cholesterol Total, POC 122 mg/dL Capillary blood 02/01/2024 1 0:37 AM FRONT TENDER Laurie Abdul NP POINT OF CARE TEST ORDERA BLES Final Result * Serum Hepatitis C ab (05/04/2013 9:33 AM FRONT TENDER) HCV ab Negative NEG HISTORICAL RESULTS Serum 05/04/2013 9:33 AM FRONT TENDER Narrative HISTORICAL RESULTS - 05/05/2013 6:30 AM FRONT TENDER Interpretive Data If confirmation is required, call Laboratory Customer Service to request sample to be sent to [facility] for Hepatitis C Virus (HCV) RNA Detection and Quantitation by Real-Time Reverse Self Defense Instructor-PCR (RT-PCR). Current interpretive data was last revised on 2011 Milind Cha MD LAB BLOOD ORDERABLES F inal Result HISTORICAL RESULTS from Last 3 Months or Most Recently Relevant to Health Maintenance Insurance [facility]ICARE [facility] MEDICARE [facility] MEDICARE [facility] Care Teams Orthopedic Brace Maker Relationship Specialty Start Date End Date Terry Leahy MD [address] [facility] [address] [place] [address] PCP - General Internal Medicine 02/26/20
--- OUTSIDE RECORDS SUMMARY | 2024-07-06 08:08 | XMS_ITS | Referral Summary ---
Author Organization [facility] Address [address] [place] [address] Care Team Providers Care Pickling Grader Name Role Phone Terry Leahy MD Primary Care Provider [phone] Encounters Date Type Department Care Team Description 05/09/2024 8:45 AM SERVICE CONSULTANT Office Visit [facility] Medical Group Cardiology [address] [place] [phone] Cooper Adams MD Elevated coronary artery calcium score (Primary Dx); Nonsustained monomorphic ventricular tachycardia (HCC) 05/02/2024 7:15 AM SERVICE CONSULTANT Ancillary Procedure [facility] Medical [facility] Cardiology [address] [facility] [address] [place] [phone] Pacemaker (Primary Dx); Syncope and collapse; Intermittent complete heart block (HCC) from Last 3 Months Allergies No [...] Pacemaker. Dx; Interm CHB, Junctional. DOI 05/09/2021- [facility]. Biotronik remote home monitoring. Intermittent [...] on file Legal Sex Male 1:50 AM SERVICE CONSULTANT Gender Identity Male 04/14/2021 11:15 AM SERVICE CONSULTANT Sexual Orientation Straight 04/14/2021 11 :15 AM SERVICE CONSULTANT Last Filed Vital Signs Vital Sign Reading Time Taken Comments Blood Pressure 110/64 05/09/2024 8:46 AM SERVICE CONSULTANT Pulse 74 05/09/2024 8:46 AM SERVICE CONSULTANT Temperature 36.8 C (98.2 F) 04/08/2020 8:00 AM SERVICE CONSULTANT Respiratory Rate - - Oxygen Saturation 98% 05/09/2024 8:46 AM SERVICE CONSULTANT Inhaled Oxygen Concentration - - Weight 105.2 kg (232 lb) 05/09/2024 8:46 AM SERVICE CONSULTANT Height 193 cm (6' 4 ) 05/09/2024 8:46 AM SERVICE CONSULTANT Body Mass Index 28.24 05/09/2024 8:46 AM SERVICE CONSULTANT Plan of Treatment Not on file Medical Devices Implanted Type Area Facilities Project Manager Device Identifier Shelf Expiration Date Model / [...] CHECK - REMOTE Routine 05/02/2024 2:11 PM SERVICE CONSULTANT Syncope and collapse Intermittent complete heart block (HCC) POCT LIPID PANEL Routine 02/01/2024 10:3 7 AM SERVICE CONSULTANT Lipid screening SERUM HEPATITIS C AB Routine 05/04/2013 9:33 AM SERVICE CONSULTANT from Last 3 Months or Most Recently Relevant to Health Maintenance Results * DEVICE CHECK - REMOTE (05/02/2024 2:11 PM SERVICE CONSULTANT) Anatomical Region Laterality Modality Other Narrative 05/16/2024 12:17 PM SERVICE CONSULTANT Biotronik Edora Dual Pacemaker. Dx; Interm CHB, Junctional. DOI 05/09/2021-[facility]. Biotronik remote home monitoring. Routine DDD Pacemaker Remote. Transmission attached. Battery status: OK, 80% remaining battery life to DASHAWN. Stable lead impedances, pacing and sensing thresholds. Presenting rhythm: A sensed/V sensed AP-6%, STRUCTURAL DRAFTSMAN-0% 5 Mode switch episodes noted, longest episode was 30 seconds in duration, IEGM demonstrates 4 episodes of atrial tachycardia, 1 episode PAF which lasted 30 seconds. AF Corder 0%. 1 Ventricular high rate episodes detected, IEGM demonstrates SVT for 14 seconds. Medications: ASA 81 mg, metoprolol 25 mg, valsartan hydrochlorothiazide See scanned report. Office pacemaker follow up: Endoclear message sent to patient to call and make appointment for in office device check Biotronik remote f/u 08/01/24. dA Membreno, PENELOPE Eden Hilliard MD CV CARDIAC SERVICES PROCEDU RES Final Result * POCT lipid panel (02/01/2024 10:37 AM SERVICE CONSULTANT) Cholesterol, POC 122 mg/dL HDL, POC 50 mg/dL Triglycerides, POC 232 mg/dL LDL Cholesterol POC 26 mg/dL Chol/HDL Ratio, POC 0.5 Non-HDL Cholesterol, POC 72 mg/dL Cholesterol Total, POC 122 mg/dL Capillary blood 02/01/2024 1 0:37 AM SERVICE CONSULTANT Laurie Abdul NP POINT OF CARE TEST ORDERA BLES Final Result * Serum Hepatitis C ab (05/04/2013 9:33 AM SERVICE CONSULTANT) HCV ab Negative NEG HISTORICAL RESULTS Serum 05/04/2013 9:33 AM SERVICE CONSULTANT Narrative HISTORICAL RESULTS - 05/05/2013 6:30 AM SERVICE CONSULTANT Interpretive Data If confirmation is required, call Laboratory Customer Service to request sample to be sent to [facility] for Hepatitis C Virus (HCV) RNA Detection and Quantitation by Real-Time Reverse Float Phlebotomist-PCR (RT-PCR). Current interpretive data was last revised on 2011 us Milind Cha MD LAB BLOOD ORDERABLES F inal Result HISTORICAL RESULTS from Last 3 Months or Most Recently Relevant to Health Maintenance [place] [address] [facility] MEDICARE [facility] MEDICARE [facility] Care Teams Pickling Grader Relationship Specialty Start Date End Date Terry Leahy MD [address] [facility] [address] [place] [address] PCP - General Internal Medicine 02/26/20
--- OUTSIDE RECORDS SUMMARY | 2024-07-06 08:08 | XMS_ITS | Continuity of Care Document ---
Author Organization [facility] Address [address] [place] [address] Phone Care Team Providers Care Interstate Planner Name Role Phone Carlos Alberto SOSA, Lydia Unavailable Unavailable Advance Directives Directive Yes / No Effective Date File Name No Information Encounters Encounter Description Practice Location Reason(s) For Visit Diagnoses Date Provider Providers Copied on Encounter [facility], [address], [place], [place], [id number], [place] tel:[phone] [facility] No Information Carlos Alberto Freeman. [address] [place] [address], [id number], [place]. tel:[phone] Family History Family Member Type Diagnosis Age At Onset No Information Payers Payer name Insurance type Covered constitution party ID Authoriza tion(s) No Information Social History [...]
--- OUTSIDE RECORDS SUMMARY | 2024-07-06 08:08 | XMS_ITS | Clinical Summary ---
Author Organization [facility] Address [address] [place] [address] Care Team Providers Care Advertising Operations Coordinator Name Role Phone Terry Leahy MD Primary Care Provider Social History Tobacco Use Types Packs/Day Years Used Date Smoking Tobacco: Never Assessed Sex and Gender Information Value Date Recorded Sex Assigned at Not on file Legal Sex Male 10:46 AM OFFSET PROOF PRESS OPERATOR Gender Identity Not on file Sexual Orientation [...] Vaccine (1 - 2023-2 5 season) 2023 Meningococcal B Vaccine Aged Out No l onger eligible based on patient's age to complete this topic Meningococcal Vaccine Aged Out No minal marques eligible based on patient's age to complete this topic RSV Immunizations Under 20 Months Aged Out No longer eligible based on patient's age to complete this topic Insurance MEDICARE [facility] Care Teams Advertising Operations Coordinator Relationship Specialty Start Date End Date Terry Leahy MD [address] [place] [address] PCP - General INTERNAL MEDICINE 02/12/20
[2024-07-06 08:38] LABS: Basophils Percent Auto 0.4 % (0.2-1.2); Eosinophils Absolute Auto 0.1 K/mm3 (0-0.3); Hematocrit 44.9 % (42.0-52.0); Hemoglobin 14.6 g/dL (14.0-18.0); Immature Granulocyte Absolute 0.01 K/mm3 (0.00-0.031); Immature Granulocyte Percent A 0.2 % (0-0.5); Lymphocytes Absolute Auto 1.57 K/mm3 (0.9-3.2); Lymphocytes Percent Auto 30.7 % (18.3-44.2); Mean Corpuscular HGB Conc 32.5 g/dl (32-36); Mean Corpuscular Hemoglobin 30.2 pg (26-34); Mean Platelet Volume 9.7 fl (7.4-10.4); Monocytes Absolute Auto 0.6 K/mm3 (0.1-0.6); Monocytes Percent Auto 12.1 % (2.6-8.5); Neutrophils Absolute Auto 2.8 K/mm3 (1.3-6.7); Neutrophils Percent Auto 54.6 % (45.5-73.1); Platelet Count Result 179 k/mm3 (150-375); Red Blood Count 4.83 M/mm3 (4.6-6.20); Red Cell Distribution Width 13.9 % (11.5-14.5); White Blood Count 5.1 K/mm3 (4.5-10.0)
[2024-07-06 09:01] LABS: Estimated Glomerular Filt Rate > 60
[2024-07-06 09:12] LABS: LDL Cholesterol Direct 46 mg/dL
[2024-07-06 11:16] LABS: Alanine Aminotransferase 29 U/L (6-50); Albumin Level 4.2 g/dL (3.5-5.1); Alkaline Phosphatase 83 U/L (38-126); Anion Gap 11 mmol/L (4-12); Aspartate Amino Transferase 39 U/L (17-59); Bilirubin,Total 1.1 mg/dL (0.2-1.3); Blood Urea Nitrogen 19 mg/dL (9-20); Calcium 9.1 mg/dL (8.4-10.2); Carbon Dioxide 26 mmol/L (22-30); Chloride 102 mmol/L (98-107); Cholesterol 133 mg/dL (0-200); Glucose 95 mg/dL (65-110); HDL Direct 65 mg/dL; Sodium 139 mmol/L (137-145); Triglycerides 99 mg/dL (<150); Uric Acid 4.3 mg/dL (3.5-8.5)
[2024-07-06 17:51] LABS: Hemoglobin A1C 5.6 % (<5.7)
== END 2024-07-06 08:03 | disposition home or self-care (01) ==
PROVIDERS: PCP Internal Medicine; Visit Provider Internal Medicine
DX: M10.9 Gout, unspecified (principal); I10 Essential (primary) hypertension; R73.03 Prediabetes; E78.2 Mixed hyperlipidemia; R79.89 Other specified abnormal findings of blood chemistry; E78.5 Hyperlipidemia, unspecified; Z79.899 Other long term (current) drug therapy
CPT/HCPCS: 36415; 80053; 80061; 83036; 84439; 84443; 84550; 85025

== ENCOUNTER 2024-09-04 06:59 | Day surgery (SDC) | payer MEDICARE, SELFPAY ==
--- NOTE | ~2024-09-04 | XR_ITS ---
EXAMINATION: XR fluoroscopy no charge DATE: 09/04/2024 8:25 CDT INDICATION: DIAG/PROG MARILEE L3,L4,L5 MEDIAL BRANCH/DORSAL RAMUS BLK . TECHNIQUE: 11 fluoroscopic images of the lumbar spine were obtained during diagnostic/prognostic bila teral L3, L4, and L5 medial branch/dorsal ramus blocks, performed by Valentín Gee MD. I was not p resent during the procedure. Fluoroscopy exposure time was 61.8 seconds. Air Kerma 22.82 mGy. COMPARISON: None FINDINGS/IMPRESSION: Fluoroscopic documentation of diagnostic/prognostic bilateral L3, L4, and L5 medial branch/dorsal ra mus blocks . Please refer to the operative note for complete procedural details . Reviewed, dictated and finalized at location K.
--- OUTSIDE RECORDS SUMMARY | 2024-09-04 07:11 | XMS_ITS | Clinical Summary ---
Author Organization [facility] Address [address] [place] [address] Care Team Providers Care Control Clerk Head Name Role Phone Terry Leahy MD Primary Care Provider [phone] Allergies No known active allergies Medications allopurinoL [...] Pacemaker. Dx; Interm CHB, Junctional. DOI 05/09/2021- [facility]. Biotronik remote home monitoring. Intermittent complete heart [...] Encounters Date Type Department Care Team Description 08/01/2024 8:15 AM CDT Ancillary Procedure [facility] Medical Group Cardiology [address] [facility] [address] [place] [phone] Pacemaker; Intermittent complete heart block (HCC) from Last [...] around his neck and throat, evaluated by [facility] in the past. Elevated coronary artery calcium [...] on file Legal Sex Male 1:50 AM GALLERY MANAGER Gender Identity Male 04/14/2021 11:15 AM GALLERY MANAGER Sexual Orientation Straight 04/14/2021 11 :15 AM GALLERY MANAGER Obstetrics History Last Filed Vital Signs Vital Sign Reading Time Taken Comments Blood Pressure 110/64 05/09/2024 8:46 AM GALLERY MANAGER Pulse 74 05/09/2024 8:46 AM GALLERY MANAGER Temperature 36.8 C (98.2 F) 04/08/2020 8:00 AM GALLERY MANAGER Respiratory Rate - - Oxygen Saturation 98% 05/09/2024 8:46 AM GALLERY MANAGER Inhaled Oxygen Concentration - - Weight 105.2 kg (232 lb) 05/09/2024 8:46 AM GALLERY MANAGER Height 193 cm (6' 4) 05/09/2024 8:46 AM GALLERY MANAGER Body Mass Index 28.24 05/09/2024 8:46 AM GALLERY MANAGER Plan of Treatment Health Maintenance Due Date [...] Completed 05/04/2013 Medical Devices Implanted Type Area Credit Negotiator Device Identifier Shelf Expiration Date Model / [...] Diagnosis Comments DEVICE CHECK - REMOTE Routine 08/02/2024 9:53 AM CDT Pacemaker Intermittent complete heart block (HCC) POCT LIPID PANEL Routine 02/01/2024 10:3 7 AM GALLERY MANAGER Lipid screening SERUM HEPATITIS C AB Routine 05/04/2013 9:33 AM GALLERY MANAGER from Last 3 Months or Most Recently Relevant to Health Maintenance Results * DEVICE CHECK - REMOTE (08/02/2024 9:53 AM CDT) Anatomical Region Laterality Modality Other Narrative 08/07/2024 4:52 PM CDT Biotronik Edora Dual Pacemaker. Dx; Interm CHB, Junctional. DOI 05/09/2021-[facility]. Biotronik Home Monitoring. Routine DDD Pacemaker remote. Normal device function. Battery function-Ok, 75% remaining battery life to DASHAWN. Appropriate lead measurements noted. Presenting rhythm: -VS. AP-8%, SECURITIES COUNSELOR-0%. No Atrial high rate episodes noted. No Ventricular high rate episodes noted Medications; ASA, Diovan-HCT, Lopressor. See scanned report. Office pacemaker f/u due in near future. Biotronik remote follow-up 10/31/2024. Krys Bell, PENELOPE Cooper Adams MD CV CARDIAC SERVICES PROCEDURES F inal Result * POCT lipid panel (02/01/2024 10:37 AM GALLERY MANAGER) Cholesterol, POC 122 mg/dL HDL, POC 50 mg/dL Triglycerides, POC 232 mg/dL LDL Cholesterol POC 26 mg/dL Chol/HDL Ratio, POC 0.5 Non-HDL Cholesterol, POC 72 mg/dL Cholesterol Total, POC 122 mg/dL Capillary blood 02/01/2024 1 0:37 AM GALLERY MANAGER Laurie Abdul NP POINT OF CARE TEST ORDERA BLES Final Result * Serum Hepatitis C ab (05/04/2013 9:33 AM GALLERY MANAGER) HCV ab Negative NEG HISTORICAL RESULTS Serum 05/04/2013 9:33 AM GALLERY MANAGER Narrative HISTORICAL RESULTS - 05/05/2013 6:30 AM GALLERY MANAGER Interpretive Data If confirmation is required, call Laboratory Customer Service to request sample to be sent to [facility] for Hepatitis C Virus (HCV) RNA Detection and Quantitation by Real-Time Reverse Scrap Yard Worker-PCR (RT-PCR). Current interpretive data was last revised on 2011 us Milind Cha MD LAB BLOOD ORDERABLES F inal Result HISTORICAL RESULTS from Last 3 Months or Most Recently Relevant to Health Maintenance Insurance [facility]ICARE [facility] Address: [address] [address] [facility] MEDICARE AAR MEDICARE [facility] Care Teams Control Clerk Head Relationship Specialty Start Date End Date Terry Leahy MD [address] [facility] [address] [place] [address] PCP - General Internal Medicine 02/26/20
--- OUTSIDE RECORDS SUMMARY | 2024-09-04 07:11 | XMS_ITS | Continuity of Care Document ---
Author Organization [facility] Address [address] [place] [address] Phone Care Team Providers Care Invertebrate Paleontologist Name Role Phone Carlos Alberto SOSA, Lydia Unavailable Unavailable Advance Directives Directive Yes / No Effective Date File Name No Information Encounters Encounter Description Practice Location Reason(s) For Visit Diagnoses Date Provider Providers Copied on Encounter [facility], [address], [place], [place], [id number], [place] tel:[phone] [facility] No Information Carlos Alberto Freeman. [address] [place] [address], [id number], [place]. tel:[phone] Family History Family Member Type Diagnosis Age [...]
--- OUTSIDE RECORDS SUMMARY | 2024-09-04 07:12 | XMS_ITS | Referral Summary ---
Author Organization [facility] Address [address] [place] [address] Care Team Providers Care Siebel Crm Developer Name Role Phone Terry Leahy MD Primary Care Provider Encounters Date Type Department Care Team Description 08/01/2024 8:15 AM CDT Ancillary Procedure [facility] Medical Group Cardiology [address] [place] [phone] Pacemaker; Intermittent complete heart block (HCC) [...] Pacemaker. Dx; Interm CHB, Junctional. DOI 05/09/2021- [facility]. Biotronik remote home monitoring. Intermittent complete [...] on file Legal Sex Male 1:50 AM PAPERHANGER APPRENTICE Gender Identity Male 04/14/2021 11:15 AM PAPERHANGER APPRENTICE Sexual Orientation Straight 04/14/2021 11 :15 AM PAPERHANGER APPRENTICE Last Filed Vital Signs Vital Sign Reading Time Taken Comments Blood Pressure 110/64 05/09/2024 8:46 AM PAPERHANGER APPRENTICE Pulse 74 05/09/2024 8:46 AM PAPERHANGER APPRENTICE Temperature 36.8 C (98.2 F) 04/08/2020 8:00 AM PAPERHANGER APPRENTICE Respiratory Rate - - Oxygen Saturation 98% 05/09/2024 8:46 AM PAPERHANGER APPRENTICE Inhaled Oxygen Concentration - - Weight 105.2 kg (232 lb) 05/09/2024 8:46 AM PAPERHANGER APPRENTICE Height 193 cm (6' 4) 05/09/2024 8:46 AM PAPERHANGER APPRENTICE Body Mass Index 28.24 05/09/2024 8:46 AM PAPERHANGER APPRENTICE Plan of Treatment Not on file Medical Devices Implanted Type Area Twx Operator Device Identifier Shelf Expiration Date Model / [...] LIPID PANEL Routine 02/01/2024 10:3 7 AM PAPERHANGER APPRENTICE Lipid screening SERUM HEPATITIS C AB Routine 05/04/2013 9:33 AM PAPERHANGER APPRENTICE from Last 3 Months or Most Recently Relevant to Health Maintenance Results * DEVICE CHECK - REMOTE (08/02/2024 9:53 AM CDT) Anatomical Region Laterality Modality Other Narrative 08/07/2024 4:52 PM CDT Biotronik Edora Dual Pacemaker. Dx; Interm CHB, Junctional. DOI 05/09/2021-[facility]. Biotronik Home Monitoring. Routine DDD Pacemaker remote. Normal device function. Battery function-Ok, 75% remaining battery life to DASHAWN. Appropriate lead measurements noted. Presenting rhythm: -VS. AP-8%, SALES AND MARKETING ENGINEER-0%. No Atrial high rate episodes noted. No Ventricular high rate episodes noted Medications; ASA, Diovan-HCT, Lopressor. See scanned report. Office pacemaker f/u due in near future. Biotronik remote follow-up 10/31/2024. Krys Bell, PENELOPE Cooper Adams MD CV CARDIAC SERVICES PROCEDURES F inal Result * POCT lipid panel (02/01/2024 10:37 AM PAPERHANGER APPRENTICE) Cholesterol, POC 122 mg/dL HDL, POC 50 mg/dL Triglycerides, POC 232 mg/dL LDL Cholesterol POC 26 mg/dL Chol/HDL Ratio, POC 0.5 Non-HDL Cholesterol, POC 72 mg/dL Cholesterol Total, POC 122 mg/dL Capillary blood 02/01/2024 1 0:37 AM PAPERHANGER APPRENTICE Laurie Abdul NP POINT OF CARE TEST ORDERA BLES Final Result * Serum Hepatitis C ab (05/04/2013 9:33 AM PAPERHANGER APPRENTICE) HCV ab Negative NEG HISTORICAL RESULTS Serum 05/04/2013 9:33 AM PAPERHANGER APPRENTICE Narrative HISTORICAL RESULTS - 05/05/2013 6:30 AM PAPERHANGER APPRENTICE Interpretive Data If confirmation is required, call Laboratory Customer Service to request sample to be sent to [facility] for Hepatitis C Virus (HCV) RNA Detection and Quantitation by Real-Time Reverse Humidifier Attendant-PCR (RT-PCR). Current interpretive data was last revised on 2011 Milind Cha MD LAB BLOOD ORDERABLES F inal Result HISTORICAL RESULTS from Last 3 Months or Most Recently Relevant to Health Maintenance Insurance [facility] MEDICARE [facility] MEDICARE [facility] Care Teams Siebel Crm Developer Relationship Specialty Start Date End Date Terry Leahy MD [address] [facility] [address] MED[address] [place], [place] [id number] PCP - General Internal Medicine 02/26/20
--- OUTSIDE RECORDS SUMMARY | 2024-09-04 07:12 | XMS_ITS | Patient Health Record ---
Author Organization [facility] Address [address] [facility] [address] [place], [place] [id number] Care Team Providers Care Sap Bi Architect Name Role Phone JOSSELINE PIRES Unavailable [phone] Reason For Referral No Information Immunizations Vaccine Route Administration Date Status Comme nts Pfizer 1st Dose IM Intramuscular 04/26/2020 Administered Pfizer 2nd Dose IM Intramuscular 05/17/2020 Administered Problems Problem Type SNOMED Code ICD Code Onset Dates Problem Status W/U Status Risk Notes Problem Heart failure (98875821) Heart failure, unspecified (I50.9) Active confirmed Problem Abnormal metabolic state due to diabetes mellitus (802127669) 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
[2024-09-04 07:35] VITALS: BP 135/86; PULSE 83; RESP 18; TEMP 37.1; O2SAT 99; BMI 28.6
--- NOTE | 2024-09-04 07:58 | WPDHPUPDATE1 ---
History and Physical Update Update Date/Time: 09/04/24 07:58 History and Physical has been reviewed, including an updated exam of the patient. There are NO changes in the patient's condition. Risks, benefits, and alternatives have been discussed and questions answered. Patient agrees to proceed with procedure.
--- NOTE | 2024-09-04 07:59 | P.OP_ITS ---
Procedure Note - Detailed Date of Procedure 09/04/24 Pre-op Diagnosis Spondylosis w/o Myelopathy or Radiculopathy, Post-op Diagnosis Same Procedure Performed Diagnostic bilateral Lumbar Medial Branch/Dorsal Ramus Blocks at L3, L4, L5 Tonio ating the bilateral L4-5, L5-S1 Facet Joints Under Fluoroscopic Guidance and with Contrast Control. (4 levels blocked). Surgeon Valentín Gee MD Upholstery Auto Trimmer None. Anesthesia Local Description of Procedure INFORMED CONSENT: Risks, benefits and alternatives to the procedure were discussed in detail with the patient who expressed explicit understanding and consent to proceed. Patient was informed verbally and in written form regarding the risks associated with the procedure including the low risk of serious infection, bleeding/bruising, allergic reaction, nerve or organ injury, paralysis, procedural site pain or discomfort, worsening pain and/or mobility, failure to treat and/or disfigurement. The patient expressed explicit understanding and consent to proceed. All materials required for the procedure were available prior to procedure start. Site and side were marked prior to procedure and confirmed in the presence of the patient. PROCEDURE IN DETAIL: The patient was brought to the procedural suite and placed in the prone position. Patient was made comfortable with use of pillows under the head/chest, hips and ankles. Skin overlying the injection site on the affected side(s) was prepared broadly with ChloraPrep applicator and draped in a sterile manner. Aseptic technique was used throughout. The endplates of the vertebral bodies at the site(s) of interest were aligned in the AP view. Ipsilat eral oblique angulation was utilized to optimize visualization of the intersection between the superior articulating process and transverse process at each target site. Local anesthesia was established by infiltration with approximately 5 mL of 1% lidocaine via a 1-1/2 inch 27-gauge needle. A 25-gauge 3.5 inch Quincke spinal needle was advanced until the needle tip contacted periosteum at the target site, right L3. Lateral view was utilized to confirm the appropriate placement of the needle tip just anterior to the facet line and superior to the pedicle. In the Lateral view, 0.25 mL of Omnipaque 300 contrast medium was injected after negative aspiration for CSF, blood or other bodily fluid, showing appropriate extra-articular spread of contrast without evidence of intravascular, foraminal or intrathecal placement. A 0.5 mL solution of 0.5% PF bupivacaine was injected after negative repeat aspiration. Appropriate spread of the injectate was confirmed with washout of previously injected contrast. No parasthesias were elicited. Needle was removed completely intact without difficulty. The same exact procedure was repeated for all remaining levels on the ipsilateral side, right L4, L5 medial branches/dorsal ramus, modified as necessary to accommodate for the new target location with identical findings and results and no evidence of complication. The same exact procedure was repeated for all remaining levels on the contralateral side, left L3, L4, L5 medial branches/dorsal ramus, modified as necessary to accommodate for the new target location with identical findings and results and no evidence of complication. Images were saved and documented in the patient chart. Patient's skin was cleaned and sterile bandage applied. The patient tolerated the procedure well. The patient was transported to the recovery area in stable condition where they were observed for an appropriate amount of time prior to discharge, without evidence of complication. Patient was instructed on the appropriate completion of a pain diary over the next 12-24 hours. The patient was instructed to avoid excessive activity for the next 48 hours, including climbing and frequent use of stairs. Showers only for 48 hours. They were instructed not to drive or operate heavy machinery for 24 hours. They are to monitor for severe headaches, fevers, chills, night sweats, erythema/swelling at the site or any other signs of infection, bleeding/bruising, bowel or bladder changes as well as new pain, weakness or numbness in the upper or lower extremity. Should they notice these changes, they are instructed to call our office immediately or report directly to the nearest Emergency Department if no answer or if after posted office hours. COMPLICATIONS: None COMMENTS: None CONTRAST WASTED: 28.5mL Omnipaque 300. Complications No immediate complications Condition Stable Disposition Same day [facility] Billing Surgery - Charge Forward: Surgery Billing
[2024-09-04 08:30] VITALS: BP 188/100; PULSE 88; RESP 15; O2SAT 96
[2024-09-04 08:32] VITALS: BP 181/92; PULSE 73; RESP 15; O2SAT 95
[2024-09-04 08:40] VITALS: BP 187/102; PULSE 88; RESP 13; O2SAT 96
[2024-09-04] MEDS: LIDOCAINE 1% PF INJ 5 ML VIAL 10 ML INFILTRATE (08:41)
[2024-09-04] MEDS: BUPivacaine HCL 0.5% 10 ML AMP INFILTRATE (08:41)
[2024-09-04 08:47] VITALS: BP 160/91; PULSE 78; RESP 16; O2SAT 99
== END 2024-09-04 08:57 | disposition home or self-care (01) ==
PROVIDERS: PCP Internal Medicine; Visit Provider Anesthesiology Pain Medicine
PROC: (CPT 64493; principal; 2024-09-04 08:30)
DX: M47.816 Spondylosis without myelopathy or radiculopathy, lumbar region (principal)
CPT/HCPCS: 64493 ×2; 64494 ×2; 64495 ×2; 99199

== ENCOUNTER 2024-09-18 08:00 | Day surgery (SDC) | payer MEDICARE, SELFPAY ==
--- NOTE | ~2024-09-18 | XR_ITS ---
INTRAOPERATIVE FLUOROSCOPY: CLINICAL HISTORY: 73 years old Male; DIAG PROG BILATERAL L2 L3 L4 L5 MEDIAL BRANCH DORSAL RAMUS PROCEDURE COMMENTS: Limited intraoperative fluoroscopy of the lumbar spine was performed. CUMULATIVE DOSE: 19 mGy FLUOROSCOPY TIME: 52 seconds FINDINGS/IMPRESSION: Please refer to operative note for further details. Reviewed, dictated and finalized at location A.
[2024-09-18 08:37] VITALS: BP 123/64; PULSE 95; RESP 18; TEMP 36.6; O2SAT 100; BMI 27.5
--- NOTE | 2024-09-18 08:38 | WPDHPUPDATE1 ---
History and Physical Update Update Date/Time: 09/18/24 08:38 History and Physical has been reviewed, including an updated exam of the patient. There are NO changes in the patient's condition. Risks, benefits, and alternatives have been discussed and questions answered. Patient agrees to proceed with procedure.
--- NOTE | 2024-09-18 08:39 | P.OP_ITS ---
Procedure Note - Detailed Date of Procedure 09/18/24 Pre-op Diagnosis M47.817 Spondylosis w/o Myelopathy or Radiculopathy Post-op Diagnosis Same Procedure Performed Diagnostic bilateral Lumbar Medial Branch/Dorsal Ramus Blocks at L2, L3, L4, L5 Treating the bilateral L3-4, L4-5, L5-S1 Facet Joints Under Fluoroscopic Guidance and with Contrast Control. (6 levels blocked). Surgeon Valentín Gee MD Collection Development Librarian None. Anesthesia Local Description of Procedure INFORMED CONSENT: Risks, benefits and alternatives to the procedure were discussed in detail with the patient who expressed explicit understanding and consent to proceed. Patient was informed verbally and in written form regarding the risks associated with the procedure including the low risk of serious infection, bleeding/bruising, allergic reaction, nerve or organ injury, paralysis, procedural site pain or discomfort, worsening pain and/or mobility, failure to treat and/or disfigurement. The patient expressed explicit understanding and consent to proceed. All materials required for the procedure were available prior to procedure start. Site and side were marked prior to procedure and confirmed in the presence of the patient. PROCEDURE IN DETAIL: The patient was brought to the procedural suite and placed in the prone position. Patient was made comfortable with use of pillows under the head/chest, hips and ankles. Skin overlying the injection site on the affected side(s) was prepared broadly with ChloraPrep applicator and draped in a sterile manner. Aseptic technique was used throughout. The endplates of the vertebral bodies at the site(s) of interest were aligned in the AP view. Ipsilateral oblique angulation was utilized to optimize visualization of the intersection between the superior articulating process and transverse process at each target site. Local anesthesia was established by infiltration with approximately 5 mL of 1% lidocaine via a 1-1/2 inch 27-gauge needle. A 25-gauge 5.0 inch Quincke spinal needle was advanced until the needle tip contacted perio steum at the target site, right L2. Lateral view was utilized to confirm the appropriate placement of the needle tip just anterior to the facet line and superior to the pedicle. In the Lateral view, 0.25 mL of Omnipaque 300 contrast medium was injected after negative aspiration for CSF, blood or other bodily fluid, showing appropriate extra-articular spread of contrast without evidence of intravascular, foraminal or intrathecal placement. A 0.5 mL solution of 2.0% PF lidocaine was injected after negative repeat aspiration. Appropriate spread of the injectate was confirmed with washout of previously injected contrast. No parasthesias were elicited. Needle was removed completely intact without difficulty. The same exact procedure was repeated for all remaining levels on the ipsilateral side, right L3, L4, L5 medial branches/dorsal ramus, modified as necessary to accommodate for the new target location with identical findings and results and no evidence of complication. The same exact procedure was repeated for all remaining levels on the contralateral side, left L2, L3, L4, L5 medial branches/dorsal ramus, modified as necessary to accommodate for the new target location with identical findings and results and no evidence of complication. Images were saved and documented in the patient chart. Patient's skin was cleaned and sterile bandage applied. The patient tolerated the procedure well. The patient was transported to the recovery area in stable condition where they were observed for an appropriate amount of time prior to discharge, without evidence of complication. Patient was instructed on the appropriate completion of a pain diary over the next 12-24 hours. The patient was instructed to avoid excessive activity for the next 48 hours, including climbing and frequent use of stairs. Showers only for 48 hours. They were instructed not to drive or operate heavy machinery for 24 hours. They are to monitor for severe headaches, fevers, chills, night sweats, erythema/swelling at the site or any other signs of infection, bleeding/bruising, bowel or bladder changes as well as new pain, weakness or numbness in the upper or lower extremity. Should they notice these changes, they are instructed to call our office immediately or report directly to the nearest Emergency Department if no answer or if after posted office hours. COMPLICATIONS: None COMMENTS: None CONTRAST WASTED: 28.00 mL Omnipaque 300. Complications No immediate complications Condition Stable Disposition Same day [facility] Billing Surgery - Charge Forward: Surgery Billing
[2024-09-18 09:12] VITALS: BP 136/66; PULSE 92; RESP 14; O2SAT 95
[2024-09-18 09:17] VITALS: BP 119/57; PULSE 91; RESP 11; O2SAT 96
[2024-09-18 09:22] VITALS: BP 113/58; PULSE 92; RESP 10; O2SAT 95
[2024-09-18] MEDS: LIDOCAINE 2% PF LOCAL INJ 5 ML VIAL INFILTRATE (09:26)
[2024-09-18] MEDS: LIDOCAINE 1% PF INJ 5 ML VIAL INFILTRATE (09:26)
[2024-09-18 09:30] VITALS: BP 124/70; PULSE 93; RESP 18; O2SAT 100
== END 2024-09-18 09:40 | disposition home or self-care (01) ==
PROVIDERS: PCP Internal Medicine; Visit Provider Anesthesiology Pain Medicine
PROC: (CPT 64493; principal; 2024-09-18 08:50)
DX: M47.817 Spondylosis without myelopathy or radiculopathy, lumbosacral region (principal)
CPT/HCPCS: 64493 ×2; 64494 ×2; 64495 ×2; 99199

== ENCOUNTER 2024-10-30 10:23 | Outpatient (CLI) | payer MEDICARE, SELFPAY ==
--- NOTE | ~2024-10-30 | CT_ITS ---
EXAMINATION: CT abdomen pelvis wo/w con DATE: 10/30/2024 11:26 INDICATION: Hematuria TECHNIQUE: Computed tomography (CT) of the abdomen and pelvis was performed without intravenous contr ast. CT of the abdomen and pelvis was then performed with a total of 130 mL Omnipaque-350 intravenous contrast using a double-bolus technique for simultaneous opacification of the renal parenchyma and r enal collecting system. Automated exposure control and iterative reconstruction technique were employ ed. The dose-length product was 1378.56 mGy-cm. COMPARISON: None FINDINGS: Lung bases are clear. Mild cardiomegaly. Atherosclerotic coronary artery calcification. Aortic valve calcification. Cardiac pacemaker lead tips at the right atrium and near the apex of the right ventric le. No pericardial effusion. Liver, gallbladder, spleen, pancreas and bilateral adrenal glands are normal. Bowels including the ap pendix are normal. No free intraperitoneal gas or fluid. No pathologically enlarged abdominal or pelv ic lymphadenopathy. Moderate to severe lumbar and mild to moderate lower thoracic spondylosis. 1.1 cm low-attenuation cyst at the lower pole of the right kidney. Kidneys and ureters are otherwise normal with symmetric renal parenchymal enhancement, no urolithiasis, hydroureteronephrosis or perine phric/ureteral stranding. The bilateral ureters are opacified in their entirety with no urothelial ir regularities at the bilateral renal collecting systems or ureters. Contrast is also seen within the b ladder which demonstrates irregular mucosal surface inferiorly along side the mildly enlarged prostat e which measures 4.3 x 3.8 cm. IMPRESSION: 1. Small right renal cyst. Otherwise normal kidneys and ureters with no urolithiasis. 2. Mild mucosal irregularity along the inferior bladder along side the mildly enlarged prostate. Give n the otherwise unexplained hematuria would consider cystoscopy for further evaluation. Reviewed, dictated and finalized at location A. IMPRESSION: 1. Small right renal cyst. Otherwise normal kidneys and ureters with no urolith iasis. 2. Mild mucosal irregularity along the inferior bladder along side the mildly e nlarged prostate. Given the otherwise unexplained hematuria would consider cyst oscopy for further evaluation.
--- OUTSIDE RECORDS SUMMARY | 2024-10-30 10:52 | XMS_ITS | Referral Summary ---
Author Organization [facility] Address [address] [place] [address] Care Team Providers Care Solid Waste Disposal Manager Name Role Phone Terry Leahy MD Primary Care Provider [phone] Encounters Date Type Department Care Team Description 10/02/2024 Telephone [facility] Cardiology [address] [place] [phone] Cooper Adams MD 08/01/2024 8:15 AM CDT Ancillary Procedure [facility] Cardiology [address] [facility] [address] [place] [phone] Pacemaker; Intermittent complete heart block (HCC) [...] Pacemaker. Dx; Interm CHB, Junctional. DOI 05/09/2021- [employer]. [employer]ronik remote home monitoring. Intermittent complete heart [...] on file Legal Sex Male 1:50 AM PORTER USED CAR LOT Gender Identity Male 04/14/2021 11:15 AM PORTER USED CAR LOT Sexual Orientation Straight 04/14/2021 11 :15 AM PORTER USED CAR LOT Last Filed Vital Signs Vital Sign Reading Time Taken Comments Blood Pressure 110/64 05/09/2024 8:46 AM PORTER USED CAR LOT Pulse 74 05/09/2024 8:46 AM PORTER USED CAR LOT Temperature 36.8 C (98.2 F) 04/08/2020 8:00 AM PORTER USED CAR LOT Respiratory Rate - - Oxygen Saturation 98% 05/09/2024 8:46 AM PORTER USED CAR LOT Inhaled Oxygen Concentration - - Weight 105.2 kg (232 lb) 05/09/2024 8:46 AM PORTER USED CAR LOT Height 193 cm (6' 4) 05/09/2024 8:46 AM PORTER USED CAR LOT Body Mass Index 28.24 05/09/2024 8:46 AM PORTER USED CAR LOT Plan of Treatment Not on file Medical Devices Implanted Type Area Game Breeding Farm Manager Device Identifier Shelf Expiration Date Model [...] LIPID PANEL Routine 02/01/2024 10:3 7 AM PORTER USED CAR LOT Lipid screening SERUM HEPATITIS C AB Routine 05/04/2013 9:33 AM PORTER USED CAR LOT from Last 3 Months or Most Recently Relevant to Health Maintenance Results * DEVICE CHECK - REMOTE (08/02/2024 9:53 AM CDT) Anatomical Region Laterality Modality Other Narrative 08/07/2024 4:52 PM CDT Biotronik Edora Dual Pacemaker. Dx; Interm CHB, Junctional. DOI 05/09/2021-[employer]. [employer]ronik Home Monitoring. Routine DDD Pacemaker remote. Normal device function. Battery function-Ok, 75% remaining battery life to DASHAWN. Appropriate lead measurements noted. Presenting rhythm: -VS. AP-8%, CHILD SUPPORT OFFICER-0%. No Atrial high rate episodes noted. No Ventricular high rate episodes noted Medications; ASA, Diovan-HCT, Lopressor. See scanned report. Office pacemaker f/u due in near future. Biotronik remote follow-up 10/31/2024. Krys Bell RN Cooper Adams MD CV CARDIAC SERVICES PROCEDURES F inal Result * POCT lipid panel (02/01/2024 10:37 AM PORTER USED CAR LOT) Cholesterol, POC 122 mg/dL HDL, POC 50 mg/dL Triglycerides, POC 232 mg/dL LDL Cholesterol POC 26 mg/dL Chol/HDL Ratio, POC 0.5 Non-HDL Cholesterol, POC 72 mg/dL Cholesterol Total, POC 122 mg/dL Capillary blood 02/01/2024 1 0:37 AM PORTER USED [employer] LOT Laurie Abdul NP POINT OF CARE TEST ORDERA BLES Final Result * Serum Hepatitis C ab (05/04/2013 9:33 AM PORTER USED CAR LOT) HCV ab Negative NEG HISTORICAL RESULTS Serum 05/04/2013 9:33 AM PORTER USED CAR LOT Narrative HISTORICAL RESULTS - 05/05/2013 6:30 AM PORTER USED CAR LOT Interpretive Data If confirmation is required, call Laboratory Customer Service to request sample to be sent to [facility] for Hepatitis C Virus (HCV) RNA Detection and Quantitation by Real-Time Reverse Environmental Services Specialist-PCR (RT-PCR). Current interpretive data was last revised on 2011 Milind Cha MD LAB BLOOD ORDERABLES F inal Result HISTORICAL RESULTS from Last 3 Months or Most Recently Relevant to Health Maintenance Insurance MEDICARE [facility] MEDICARE [facility] Care Teams Solid Waste Disposal Manager Relationship Specialty Start Date End Date Terry Leahy MD [address] [place] [address] PCP - General Internal Medicine 02/26/20
--- OUTSIDE RECORDS SUMMARY | 2024-10-30 10:52 | XMS_ITS | Clinical Summary ---
Author Organization [facility] Address [address] [place] [address] Care Team Providers Care Vending Route Servicer Name Role Phone Terry Leahy MD Primary Care Provider [phone] Allergies No known active allergies Medications allopurinoL [...] Pacemaker. Dx; Interm CHB, Junctional. DOI 05/09/2021- [facility]. Biotronik remote home monitoring. [...] Type Department Care Team Description 10/02/2024 Telephone [facility] Cardiology [address] [place] [phone] Cooper Adams MD 08/01/2024 8:15 AM CDT Ancillary Procedure [facility] Cardiology [address] [facility] [address] [phone] Pacemaker; Intermittent complete heart block (HCC) [...] around his neck and throat, evaluated by [facility] in the past. Elevated coronary artery calcium [...] on file Legal Sex Male 1:50 AM MANAGING SUPERVISOR Gender Identity Male 04/14/2021 11:15 AM MANAGING SUPERVISOR Sexual Orientation Straight 04/14/2021 11 :15 AM MANAGING SUPERVISOR Obstetrics History Last Filed Vital Signs Vital Sign Reading Time Taken Comments Blood Pressure 110/64 05/09/2024 8:46 AM MANAGING SUPERVISOR Pulse 74 05/09/2024 8:46 AM MANAGING SUPERVISOR Temperature 36.8 C (98.2 F) 04/08/2020 8:00 AM MANAGING SUPERVISOR Respiratory Rate - - Oxygen Saturation 98% 05/09/2024 8:46 AM MANAGING SUPERVISOR Inhaled Oxygen Concentration - - Weight 105.2 kg (232 lb) 05/09/2024 8:46 AM MANAGING SUPERVISOR Height 193 cm (6' 4) 05/09/2024 8:46 AM MANAGING SUPERVISOR Body Mass Index 28.24 05/09/2024 8:46 AM MANAGING SUPERVISOR Plan of Treatment Health Maintenance Due Date [...] 5 season) 2023 05/17/2020, 04/26/2020 Influenza Vaccine (#1) 2024 , 01/27/2019, 01/20/2018, Additional history exists Lipid Panel 01/31/2025 02/01/2024, 08/2022, 11/24/2021, Additional history exists DTaP/Tdap/Td Vaccine (2 - Td or Tdap) 09/03/2026 09/03/2016 Hepatitis C Screening Completed 05/04/2013 Medical Devices Implanted Type Area Football Pad Repairer Device Identifier Shelf Expiration Date Model / [...] LIPID PANEL Routine 02/01/2024 10:3 7 AM MANAGING SUPERVISOR Lipid screening SERUM HEPATITIS C AB Routine 05/04/2013 9:33 AM MANAGING SUPERVISOR from Last 3 Months or Most Recently Relevant to Health Maintenance Results * DEVICE CHECK - REMOTE (08/02/2024 9:53 AM CDT) Anatomical Region Laterality Modality Other Narrative 08/07/2024 4:52 PM CDT Biotronik Edora Dual Pacemaker. Dx; Interm CHB, Junctional. DOI 05/09/2021-[facility]. Biotronik Home Monitoring. Routine DDD Pacemaker remote. Normal device function. Battery function-Ok, 75% remaining battery life to DASHAWN. Appropriate lead measurements noted. Presenting rhythm: -VS. AP-8%, COMMUNICATIONS INSTRUCTOR-0%. No Atrial high rate episodes noted. No Ventricular high rate episodes noted Medications; ASA, Diovan-HCT, Lopressor. See scanned report. Office pacemaker f/u due in near future. Biotronik remote follow-up 10/31/2024. Krys Bell, RN Cooper Adams MD CV CARDIAC SERVICES PROCEDURES F inal Result * POCT lipid panel (02/01/2024 10:37 AM MANAGING SUPERVISOR) Cholesterol, POC 122 mg/dL HDL, POC 50 mg/dL Triglycerides, POC 232 mg/dL LDL Cholesterol POC 26 mg/dL Chol/HDL Ratio, POC 0.5 Non-HDL Cholesterol, POC 72 mg/dL Cholesterol Total, POC 122 mg/dL Capillary blood 02/01/2024 1 0:37 AM MANAGING SUPERVISOR Laurie Abdul NP POINT OF CARE TEST ORDERA BLES Final Result * Serum Hepatitis C ab (05/04/2013 9:33 AM MANAGING SUPERVISOR) HCV ab Negative NEG HISTORICAL RESULTS Serum 05/04/2013 9:33 AM MANAGING SUPERVISOR Narrative HISTORICAL RESULTS - 05/05/2013 6:30 AM MANAGING SUPERVISOR Interpretive Data If confirmation is required, call Laboratory Customer Service to request sample to be sent to [facility] for Hepatitis C Virus (HCV) RNA Detection and Quantitation by Real-Time Reverse Barrow Worker Helper-PCR (RT-PCR). Current interpretive data was last revised on 2011 us Milind Cha MD LAB BLOOD ORDERABLES F inal Result HISTORICAL RESULTS from Last 3 Months or Most Recently Relevant to Health Maintenance Insurance MEDICARE [facility] MEDICARE [facility] MEDICARE [facility] Care Teams Vending Route Servicer Relationship Specialty Start Date End Date Terry Leahy MD [address] [place] [address] PCP - General Internal Medicine 02/26/20
--- OUTSIDE RECORDS SUMMARY | 2024-10-30 10:52 | XMS_ITS | Clinical Summary ---
Author Organization [facility] Address [address] [place] [address] Care Team Providers Care Commercial Roofing Estimator Name Role Phone Terry Leahy MD Primary Care Provider [phone] Encounters Date Type Department Care Team Description 10/24/2024 Travel from Last 3 Months Social History Tobacco Use Types Packs/Day Years Used Date Smoking Tobacco: Never Assessed Sex and Gender Information Value Date Recorded Sex Assigned at Male 10/20/2024 8:53 AM CDT Legal Sex Male 10:46 AM AIRPLANE COVER MAKER Gender Identity Not on file Sexual Orientation [...] Annual Medicare Wellness Visit 09/23/2016 Pneumococcal Vaccine: 50+ Years (2 of 2 - PPSV23) 03/24/2019 01/27/2019 Zoster Vaccines (2 of 2) 04/09/2020 02/13/2020 COVID-19 Vaccine (3 - 2023-2 5 season) 2023 05/17/2020, 04/26/2020 Meningococcal B Vaccine Aged Out No l onger eligible based on patient's age to complete this topic Meningococcal Vaccine Aged Out No minal marques eligible based on patient's age to complete this topic RSV Immunizations Under 20 Months Aged Out No longer eligible b ased on patient's age to complete this topic Insurance MEDICARE [facility] Care Teams Commercial Roofing Estimator Relationship Specialty Start Date End Date Terry Leahy MD [address] - [facility] [address] [place] [address] PCP - General INTERNAL MEDICINE 02/12/20
--- OUTSIDE RECORDS SUMMARY | 2024-10-30 10:52 | XMS_ITS | Patient Health Record ---
Author Organization [facility] Address [address] [facility] [address] [place], [place] [id number] Care Team Providers Care Class A Regional Truck Driver Name Role Phone JOSSELINE PIRES Unavailable [phone] Reason For Referral No Information Immunizations Vaccine Route Administration Date Status Comme nts Pfizer 1st Dose IM Intramuscular 04/26/2020 Administered Pfizer 2nd Dose IM Intramuscular 05/17/2020 Administered Problems Problem Type SNOMED Code ICD Code Onset Dates Problem Status W/U Status Risk Notes Problem Heart failure (72403911) Heart failure, unspecified (I50.9) Active confirmed Problem Abnormal metabolic state due to diabetes mellitus (499260906) Abnormal metabolic state due to diabetes mellitus (E11.9) Active confirmed Plan Of Treatment No Information Insurance Providers Payer Name Payer Address Payer Phone Subscriber Number Group Number Insured Name Patient Relationship to Insured Coverage Start Date Coverage End Date MEDICARE [place] [address] [place] [address] [id number] Gokul Viveros Self - patient is the insured [facility] [address] [place], [place] [id number] JackelineGokul Self - patient is the insured
[2024-10-30 11:09] LABS: Estimated Glomerular Filt Rate 59
== END 2024-10-30 10:24 | disposition home or self-care (01) ==
PROVIDERS: PCP Internal Medicine; Visit Provider Internal Medicine
DX: R31.9 Hematuria, unspecified (principal); N28.1 Cyst of kidney, acquired; N32.89 Other specified disorders of bladder; N40.0 Benign prostatic hyperplasia without lower urinary tract symptoms
CPT/HCPCS: 74178; Q9967

== ENCOUNTER 2024-11-30 06:50 | Outpatient (CLI) | payer MEDICARE, SELFPAY ==
--- OUTSIDE RECORDS SUMMARY | 2024-11-30 06:53 | XMS_ITS | Clinical Summary ---
Author Organization [facility] Address [address] [place] [address] Care Team Providers Care Pole Shaver Helper Name Role Phone Terry Leahy MD Primary Care Provider Allergies No known active allergies Medications allopurinoL [...] capsule Take by mouth daily 0 Active aspirin 81 mg enteric coated tablet Take 1 tablet (81 mg total) by mouth daily Active indomethacin (INDOCIN) 50 mg capsule as needed 3 Active potassium chloride ER 20 mEq CR tablet Take 1 tablet (20 mEq total) by mouth daily 3 Active ezetimibe (ZETIA) 10 mg tabletIndicati ons:Multiple risk factors for coronary artery disease,Elevat ed coronary artery calcium score TAKE 1 TABLET BY MOUTH EVERY DAY 90 tablet 4 Active HYDROcodone-ac etaminophen (NORCO) 5-325 mg per tablet Take by mouth as needed 4 Active omeprazole (PriLOSEC) 20 mg capsule Take by mouth daily 4 Active magnesium oxide (MAG-OX) 400 mg (241.3 mg elemental magnesium) tabletIndicati ons:hypomagnes emia Take 1 tablet (400 mg total) by mouth daily 400 twice a day for 1 week then take 400 mg once a day thereafter 37 tablet 11 4 02/17/20 25 Active metoprolol tartrate (LOPRESSOR) 25 mg immediate release tablet Take 1 tablet (25 mg total) by mouth 2 (two) times a day 60 tablet 11 4 02/17/20 25 Active valsartan (DIOVAN) 160 mg tablet Take 1 tablet (160 mg total) by mouth daily 5 Active valsartan-hydr ochlorothiazid e (DIOVAN-HCT) 320-25 mg per tablet Take 0.5 tablets by mouth daily 11/15/19 25 Discontinu ed(Patient Reported) Active Problems Problem Noted Date Diagnosed Date Nonsustained monomorphic ventricular tachycardia 05/09/2024 PAT (paroxysmal atrial tachycardia) 02/01/2023 Finger numbness 05/28/2022 Palpitations 05/28/2022 Pacemaker 05/12/2021 Overview (05/22/2021): Biotronik Edora Dual Pacemaker. Dx; Interm CHB, Junctional. DOI 05/09/2021- [employer]. Biotronik remote home monitoring. Intermittent complete heart [...] Encounters Date Type Department Care Team Description 11/22/2024 Results Follow-Up [facility] Cardiology [address] [place] [address] Mehdi, Jeannie N., RN Transthoracic Echo (TTE) Complete W Doppler/CF 11/22/2024 Telephone [facility] Cardiology [address] [facility] [address] [place] [address] Chanel Adams MD 11/21/2024 9:15 AM CDT Ancillary Procedure [facility]iology [address] [place] [address] [address] [place] [address] Mixed diabetic hyperlipidemia associated with type 2 diabetes mellitus (HCC); Coronary artery disease involving [place] coronary artery of [place] heart without angina pectoris 11/14/2024 8:00 AM CDT Office Visit [facility] Cardiology [address] [place] [address] [address] [place] [phone] Chanel Adams MD Mixed diabetic hyperlipidemia associated with type 2 diabetes mellitus (HCC) (Primary Dx); Elevated coronary artery calcium score; Coronary artery disease involving [place] coronary artery of [place] heart without angina pectoris 10/31/2024 8:15 AM CDT Ancillary Procedure [facility] Cardiology [address] [facility] [address] [place] [phone] Pacemaker; Intermittent complete heart block (HCC) 10/02/2024 Telephone [facility] Cardiology [address] [place] [address] [address] [place] [phone] Chanel Adams MD from Last 3 Months Surgical History Surgery [...] around his neck and throat, evaluated by [facility] in the past. Elevated coronary artery [...] type 2 diabetes mellitus - (Added by Conv) CABG Brother 3 Laurent CABG age [...] on file Legal Sex Male 1:50 AM TRAUMA DIRECTOR Gender Identity Male 04/14/2021 11:15 AM TRAUMA DIRECTOR Sexual Orientation Straight 04/14/2021 11 :15 AM TRAUMA DIRECTOR Obstetrics History Last Filed Vital Signs Vital Sign Reading Time Taken Comments Blood Pressure 124/72 11/14/2024 7:57 AM CDT Pulse 75 11/14/2024 7:57 AM CDT Temperature 36.8 C (98.2 F) 04/08/2020 8:00 AM TRAUMA DIRECTOR Respiratory Rate 18 11/14/2024 7:57 AM CDT Oxygen Saturation 95% 11/14/2024 7:57 AM CDT Inhaled Oxygen Concentration - - Weight 106.6 kg (235 lb) 11/14/2024 7:57 AM CDT Height 193 cm (6' 4) 11/14/2024 7:57 AM CDT Body Mass Index 28.61 11/14/2024 7:57 AM CDT Plan of Treatment Health Maintenance Due Date Last Done Comments Albumin Creatinine Ratio, Urine 1950 Colon Cancer Screening-Colonoscopy 1950 Depression Screening 1950 Fall Risk Assessment 1950 Hemoglobin A1C 1950 Prostate Cancer Screening-PSA 1950 eGFR 1950 Dilated Eye Exam 1950 Foot Exam 1950 Hepatitis B Screening 09/23/1969 Abdominal Aortic Aneurysm (A AA) Screen 09/23/2016 Well Visit 65+ 09/23/2016 Zoster Vaccine (2 of 2) 05/28/2020 04/02/2020, 02/12 Covid-19 Vaccine (7 2024-2 6 season) 2024 12/06/2023, 12/18/2022, 04/15/2022, Additional history exists Influenza Vaccine (#1) 2024 , 12/18/2022, 12/07/2019, Additional history exists Lipid Panel 11/14/2025 11/14/2024, 07/2023, 02/01/2023, Additional history exists DTaP/Tdap/Td Vaccine (2 - Td or Tdap) 09/03/2026 09/03/2016 Hepatitis C Screening Completed 05/04/2013 Pneumococcal vaccine 65+ Completed 02/27/2020, 03/2018 Medical Devices Implanted Type Area Field Radio Operator Device Identifier Shelf Expiration Date Model [...] (TTE) COMPLETE W DOPPLER/CF WO CONTRAST Routine 11/21/2024 10:25 AM CDT Mixed diabetic hyperlipidemia associated with type 2 diabetes mellitus (HCC) Coronary artery disease involving [place] coronary artery of [place] heart without angina pectoris POCT LIPID PANEL Routine 11/14/2024 7:59 AM CDT Mixed diabetic hyperlipidemia associated with type 2 diabetes mellitus (HCC) DEVICE CHECK - REMOTE Routine 10/31/2024 7:46 AM CDT Pacemaker Intermittent complete heart block (HCC) SERUM HEPATITIS C AB Routine 05/04/2013 9:33 AM TRAUMA DIRECTOR from Last 3 Months or Most Recently Relevant to Health Maintenance Results * TRANSTHORACIC ECHO (TTE) COMPLETE W DOPPLER/CF WO CONTRAST (11/21/2024 10:25 AM CDT) Estimated EF 70-75 % CONS SCIMAGE EF Mod BP 74 % CONS SCIMAGE Anatomical Region Laterality Modality Ultrasound 11/21/2024 9:36 AM CDT Narrative 11/21/2024 4:50 PM CDT [facility] Cardiology [address] [facility] [address], [place] [address] [address] [facility] [address], [place] [address] P:[phone] P:[phone] Echocardiographic Report Patient Name: ARACELIS ALVARADO E : 1950 Study Date: 11/21/2024 9:36:21 AM Sex: M Childcare Administrator: Juana Sanz)(CT), [facility] Location: [place] Ref Provider: CHANEL ADAMS Height(Cm): 193 BSA: 2.39 Weight(Kg): 106.6 Heart Rate: 69 BP: 124 / 72 Quality: Good Order Provider: CHANEL ADAMS PROCEDURES: Echocardiographic Report: Transthoracic echocardiogram with complete 2D, M-Mode, and color Doppler examination. With Strain Analysis. INDICATIONS: E11.69 Type 2 diabetes mellitus with other specified complication, E78.2 Mixed hyperlipidemia, and I25.10 Atherosclerotic heart disease of [place] coronary artery without angina pectoris. MEASUREMENTS: 2D/MM Value Range Doppler Value Range EF Mod BP 74 % [ 52 - 72 ] FRANC Vmax 2.75 cm2 [ 2.00 - 4.00 ] Estimated EF 70-75 % AV Mean PG 5 mmHg LV GLS -16.41 % AV Peak [place] 1.41 m/s [ 1.00 - 1.70 ] LVIDd 2D 4.44 cm [ 4.20 - 5.80 ] AV Peak PG 8 mmHg LVIDs 2D 2.51 cm [ 2.50 - 4.00 ] AV VTI 27.97 cm LVPWd 2D 1.12 cm [ 0.60 - 1.00 ] LVOT Diam 2.22 cm [ 1.70 - 2.10 ] IVSd 2D 1.18 cm [ 0.60 - 1.00 ] LVOT Peak [place] 1.00 m/s [ 0.70 - 1.10 ] AoR Diam 2D 4.13 cm [ 3.10 - 3.70 ] LVOT VTI 19.70 cm LA Volume 27.72 ml [ 18.00 - 58.00 ] MV E Peak [place] 0.74 m/s [ 0.60 - 1.30 ] LA Volume Index 12 cc/m2 [ 16 - 28 ] MV A Peak [place] 0.68 m/s [ 1.00 - 1.20 ] RA Volume 28.74 ml MV Decel Time 262 msec [ 104 - 258 ] PV Peak [place] 0.79 m/s [ 0.40 - 0.80 ] TR Peak [place] 2.75 m/s [ 1.00 - 2.80 ] TR Peak PG 30 mmHg RV S` 13.65 mmHg Lateral E` 0.10 m/s [ 0.10 - 0.15 ] Septal E` 0.09 m/s [ 0.08 - 0.15 ] E` 0.09 m/s E/E` 8 Tapse 2.32 cm [ 1.71 - 5.00 ] 2D/MM Value Range Doppler Value Range - FINDINGS: Interpretation Site: Exam was interpreted at [facility]. Left Ventricle: Normal left ventricular systolic function. No focal wall motion abnormalities. Normal left ventricular size. Mild concentric left ventricular hypertrophy. Impaired diastolic relaxation Grade I. Ejection fraction is measured at 74 %. Ejection Fraction is visually estimated to be 70-75 %. Global Longitudinal Strain is -16 %. GLS is borderline. Right Ventricle: Normal right ventricular size. Normal right ventricular systolic function. Linear artifact in right ventricle suggestive of catheter(s), pacemaker lead(s), or ICD lead(s). Left Atrium: There is mild enlargement of left atrium. Right Atrium: The right atrium is normal in size. Linear artifact in right atrium suggestive of catheter(s), pacemaker lead(s), or ICD lead(s). Atrial Septum: Normal atrial septum. Mitral Valve: Mild mitral annular calcification. Calcification of the anterior mitral leaflet. Mild mitral valve regurgitation. There is no hemodynamically significant mitral stenosis by Doppler. Aortic Valve: No evidence of hemodynamically significant aortic stenosis by Doppler. Aortic cusps appear mildly sclerotic. Trileaflet aortic valve. Trace aortic valve regurgitation. Tricuspid Valve: Normal appearance of the tricuspid valve. Normal right ventricular systolic pressure. Estimated peak RVSP is 30-35 mmHg. Mild tricuspid regurgitation. Pulmonic Valve: Normal appearance of the pulmonic valve. No pulmonic stenosis. Mild pulmonic regurgitation. Pericardium: Normal pericardium with no significant pericardial effusion. Aorta: Sinus of Valsalva is mildly dilated. Sinus of Valsalva 4.1 cm. IVC: Normal size and normal respiratory collapse consistent with normal right atrial pressure (<5 mmHg). CONCLUSIONS: Normal left ventricular systolic function. No focal wall motion abnormalities. Normal left ventricular size. Mild concentric left ventricular hypertrophy. Impaired diastolic relaxation Grade I. Ejection fraction is measured at 74 %. Ejection Fraction is visually estimated to be 70-75 %. Global Longitudinal Strain is -16 %. GLS is borderline. There is mild enlargement of left atrium. Mild mitral annular calcification. Calcification of the anterior mitral leaflet. Mild mitral valve regurgitation. Mild tricuspid regurgitation. Sinus of Valsalva is mildly dilated. Sinus of Valsalva 4.1 cm. Normal sinus rhythm. Electronically Signed By: Shravan Sanchez MD 11/21/2024 4:49:42 PM CDT Procedure Note Shravan Sanchez MD - 11/21/2024 [facility] Cardiology [address] [facility] [address], [place] [address] [address] [facility] [address], [place] [address] P:[phone] P:[phone] Echocardiographic Report Patient Name: ARACELIS ALVARADO E : 1950 Study Date: 11/21/2024 9:36:21 AM Sex: M Childcare Administrator: Juana Sanz)(CT), [facility] Location: [facility] Provider: CHANEL ADAMS Height(Cm): 193 BSA: 2.39 Weight(Kg): 106.6 Heart Rate: 69 BP: 124 / 72 Quality: Good Order Provider: CHANEL ADAMS PROCEDURES: Echocardiographic Report: Transthoracic echocardiogram with complete 2D, M-Mode, and color Dopplerexamination. With Strain Analysis. INDICATIONS: E11.69 Type 2 diabetes mellitus with other specified complication, E78.2Mixed hyperlipidemia, and I25.10 Atherosclerotic heart disease of nativecoronary artery without angina pectoris. MEASUREMENTS: 2D/MM Value Range Doppler ValueRange EF Mod BP 74 % [ 52 - 72 ] FRANC Vmax 2.75cm2 [ 2.00 - 4.00 ] Estimated EF 70-75 % AV Mean PG 5mmHg LV GLS -16.41 % AV Peak [place] 1.41m/s [ 1.00 - 1.70 ] LVIDd 2D 4.44 cm [ 4.20 - 5.80 ] AV Peak PG 8mmHg LVIDs 2D 2.51 cm [ 2.50 - 4.00 ] AV VTI 27.97cm LVPWd 2D 1.12 cm [ 0.60 - 1.00 ] LVOT Diam 2.22cm [ 1.70 - 2.10 ] IVSd 2D 1.18 cm [ 0.60 - 1.00 ] LVOT Peak [place] 1.00m/s [ 0.70 - 1.10 ] AoR Diam 2D 4.13 cm [ 3.10 - 3.70 ] LVOT VTI 19.70cm LA Volume 27.72 ml [ 18.00 - 58.00 ] MV E Peak [place] 0.74m/s [ 0.60 - 1.30 ] LA Volume Index 12 cc/m2 [ 16 - 28 ] MV A Peak [place] 0.68m/s [ 1.00 - 1.20 ] RA Volume 28.74 ml MV Decel Time 262msec [ 104 - 258 ] PV Peak [place] 0.79 m/s [ 0.40 - 0.80 ] TR Peak [place] 2.75 m/s [ 1.00 - 2.80 ] TR Peak PG 30 mmHg RV S` 13.65 mmHg Lateral E` 0.10 m/s [ 0.10 - 0.15 ] Septal E` 0.09 m/s [ 0.08 - 0.15 ] E` 0.09 m/s E/E` 8 Tapse 2.32 cm [ 1.71 - 5.00 ] 2D/MM Value Range Doppler ValueRange - FINDINGS: Interpretation Site: Exam was interpreted at [facility]. Left Ventricle: Normal left ventricular systolic function. No focal wall motionabnormalities. Normal left ventricular size. Mild concentric left ventricular hypertrophy.Impaired diastolic relaxation Grade I. Ejection fraction is measured at 74 %. EjectionFraction is visually estimated to be 70-75 %. Global Longitudinal Strain is -16 %. GLS isborderline. Right Ventricle: Normal right ventricular size. Normal right ventricular systolic function.Linear artifact in right ventricle suggestive of catheter(s), pacemaker lead(s),or ICD lead(s). Left Atrium: There is mild enlargement of left atrium. Right Atrium: The right atrium is normal in size. Linear artifact in right atriumsuggestive of catheter(s), pacemaker lead(s), or ICD lead(s). Atrial Septum: Normal atrial septum. Mitral Valve: Mild mitral annular calcification. Calcification of the anterior mitralleaflet. Mild mitral valve regurgitation. There is no hemodynamically significant mitralstenosis by Doppler. Aortic Valve: No evidence of hemodynamically significant aortic stenosis by Doppler.Aortic cusps appear mildly sclerotic. Trileaflet aortic valve. Trace aortic valveregurgitation. Tricuspid Valve: Normal appearance of the tricuspid valve. Normal right ventricularsystolic pressure. Estimated peak RVSP is 30-35 mmHg. Mild tricuspid regurgitation. Pulmonic Valve: Normal appearance of the pulmonic valve. No pulmonic stenosis. Mildpulmonic regurgitation. Pericardium: Normal pericardium with no significant pericardial effusion. Aorta: Sinus of Valsalva is mildly dilated. Sinus of Valsalva 4.1 cm. IVC: Normal size and normal respiratory collapse consistent with normal rightatrial pressure (<5 mmHg). CONCLUSIONS: Normal left ventricular systolic function. No focal wall motionabnormalities. Normal left ventricular size. Mild concentric left ventricular hypertrophy.Impaired diastolic relaxation Grade I. Ejection fraction is measured at 74 %. EjectionFraction is visually estimated to be 70-75 %. Global Longitudinal Strain is -16 %. GLS isborderline. There is mild enlargement of left atrium. Mild mitral annular calcification. Calcification of the anterior mitralleaflet. Mild mitral valve regurgitation. Mild tricuspid regurgitation. Sinus of Valsalva is mildly dilated. Sinus of Valsalva 4.1 cm. Normal sinus rhythm. Electronically Signed By: Shravan Sanchez MD 11/21/2024 4:49:42 PM CDT us Chanel Adams MD CV ECHO PROCEDURES Final Result * (ABNORMAL) POCT lipid panel (11/14/2024 7:59 AM CDT) Pathologist [facility] Cholesterol, POC 125 <200 MG/DL HDL, POC 46 >=40 mg/dL Triglycerides, POC 200(A) <=149 mg/dL LDL Cholesterol POC 39 <=129 mg/dL Chol/HDL Ratio, POC 0.8 NONE Non-HDL Cholesterol, POC 79 NONE mg/dL Cholesterol Total, POC 125 30 - 199 mg/dL Capillary blood 11/14/2024 7 :59 AM CDT Chanel Adams MD POINT OF CARE TEST ORDERABLES Fi nal Result * DEVICE CHECK - REMOTE (10/31/2024 7:46 AM CDT) Anatomical Region Laterality Modality Other Narrative 11/01/2024 8:48 AM CDT Biotronik Edora Dual Pacemaker. Dx; Interm CHB, Junctional. DOI 05/09/2021-[facility]. [employer]ronik Home Monitoring. Routine DDD Pacemaker remote. Normal device function. Battery function-Ok, 75% remaining battery life to DASHAWN. Appropriate lead measurements noted. Presenting rhythm: -VS. AP-8%, LITIGATION DOCKET MANAGER-0%. No Atrial high rate episodes noted. No Ventricular high rate episodes noted Medications; ASA, Diovan-HCT, Lopressor. See scanned report. Office pacemaker f/u due in near future. MyChart letter sent. [employer] remote follow-up 02/06/2025. Krys Bell, RN us Chanel Adams MD CV CARDIAC SERVICES PROCEDURES F inal Result * Serum Hepatitis C ab (05/04/2013 9:33 AM TRAUMA DIRECTOR) HCV ab Negative NEG HISTORICAL RESULTS Serum 05/04/2013 9:33 AM TRAUMA DIRECTOR Narrative HISTORICAL RESULTS - 05/05/2013 6:30 AM TRAUMA DIRECTOR Interpretive Data If confirmation is required, call Laboratory Customer Service to request sample to be sent to [facility] for Hepatitis C Virus (HCV) RNA Detection and Quantitation by Real-Time Reverse Roll Forger-PCR (RT-PCR). Current interpretive data was last revised on 2011 us Milind Cha MD LAB BLOOD ORDERABLES F inal Result HISTORICAL RESULTS from Last 3 Months or Most Recently Relevant to Health Maintenance Insurance MEDICARE [facility] MEDICARE [facility] Care Teams Pole Shaver Helper Relationship Specialty Start Date End Date Terry Leahy MD [address] [facility] [address] [facility] [address] [place] [address] PCP - General Internal Medicine 02/26/20
--- OUTSIDE RECORDS SUMMARY | 2024-11-30 06:53 | XMS_ITS | Encounter Summary ---
Author Organization [facility] Healthcare Address [address] [place] [address] Care Team Providers Care Taffy Candy Maker Name Role Phone Terry Leahy MD Primary Care Provider [phone] Encounter Details Date Type Department Care Team (Late st Contact Info) Description 11/22/2024 Results Follow-Up [facility] Medical [facility] Cardiology [address] [facility] [address] [place] [address] Jeannie Harding RN Transthoracic Echo (TTE) Complete W Doppler/CF Social History Tobacco Use Types Packs/Day Years Used Date Smoking Tobacco: Former Cigarettes Smokeless Tobacco: Never Alcohol Use Standard Drinks/Week Comments Yes 0 (1 standard drink = 0.6 oz pur e alcohol) Sex and Gender Information Value Date Recorded Sex Assigned at Not on file Legal Sex Male 1:50 AM SOAPING DEPARTMENT SUPERVISOR Gender Identity Male 04/14/2021 11:15 AM SOAPING DEPARTMENT SUPERVISOR Sexual Orientation Straight 04/14/2021 11 :15 AM SOAPING DEPARTMENT SUPERVISOR documented as of this encounter Plan of Treatment Not on file documented as of this encounter Visit Diagnoses Not on filedocumented in this encounter Care Teams Taffy Candy Maker Relationship Specialty Start Date End Date Terry Leahy MD [address] [facility] MEDICINE [place], [place] [id number] PCP - General Internal Medicine 02/26/20 documented as of this encounter
--- OUTSIDE RECORDS SUMMARY | 2024-11-30 06:53 | XMS_ITS | Clinical Summary ---
Author Organization [facility] Address [address] [place] [address] Care Team Providers Care Petrophysical Engineer Name Role Phone Terry Leahy MD Primary Care Provider [phone] Encounters Date Type Department Care Team Description 10/24/2024 Travel from Last 3 Months Social History Tobacco Use Types Packs/Day Years Used Date Smoking Tobacco: Never Assessed Sex and Gender Information Value Date Recorded Sex Assigned at Male 10/20/2024 8:53 AM CDT Legal Sex Male 10:46 AM AUTOMOTIVE SERVICE TECHNICIAN Gender Identity Not on file Sexual Orientation Not on file Plan of Treatment Upcoming Encounters Date Type Department Care Team (Late st Contact Info) Description 01/09/2025 11:[address] [facility] MRI [address] [place] [address] Valentín Gee MD [address] [place] [address] Health Maintenance Due Date Last Done Comments [...] (2 of 2) 04/09/2020 02/13/2020 COVID-19 Vaccine (2024- 6 season) 2024 05/17/2020, 04/26/2020 Meningococcal B Vaccine Aged Out No l onger eligible based on patient's age to complete this topic Meningococcal Vaccine Aged Out No minal marques eligible based on patient's age to complete this topic RSV Immunizations Under 20 Months Aged Out No longer eligible b ased on patient's age to complete this topic Medical Devices Implanted Type Area Radio Recorder Device Identifier Shelf Expiration Date Model / Serial / Lot Rv Lead Implant- 022 Implanted:Qty: 1 on 05/09/2021 Lead Implant Right: Ventricle BIOTRONIK NASIMA S 60 [id number] / / Ra Lead Implant- 022 Implanted:Qty: 1 on 05/09/2021 Lead Implant Right: Atrium BIOTRONIK SOLIA S 53 [id number] / / Pacemaker-05/09 Implanted:Qty: 1 on 05/09/2021 Pacemaker Chest [employer]IK EDМАРИЯ 8 GIRISH [id number] / [id number] / Description:MR CONDITIONAL A T 1.5 T OR 3 T, MAX SPATIAL GRADIENT FIELD OF 3000 GAUSS/CM OR LESS, MAX SLEW RATE 200 T/M/S, MAX WHOLE BODY GEMINI OF 2 W/KG OR LESS, HEAD GEMINI 3.2 W/KG OR LESS Insurance MEDICARE [facility] Care Teams Petrophysical Engineer Relationship Specialty Start Date End Date Terry Leahy MD [address] [place] [address] PCP - General INTERNAL MEDICINE 02/12/20
[2024-11-30 08:46] LABS: Alanine Aminotransferase 41 U/L (6-50); Albumin Level 3.9 g/dL (3.5-5.1); Alkaline Phosphatase 87 U/L (38-126); Anion Gap 8 mmol/L (4-12); Aspartate Amino Transferase 55 U/L (17-59); Bilirubin,Total 1.7 mg/dL (0.2-1.3); Blood Urea Nitrogen 12 mg/dL (9-20); Calcium 8.9 mg/dL (8.4-10.2); Carbon Dioxide 24 mmol/L (22-30); Chloride 101 mmol/L (98-107); Cholesterol 131 mg/dL (0-200); Estimated Glomerular Filt Rate > 60; Glucose 135 mg/dL (65-110); HDL Direct 59 mg/dL; Sodium 133 mmol/L (137-145); Total Protein 7.0 g/dL (6.3-8.2); Triglycerides 177 mg/dL (<150)
[2024-11-30 08:54] LABS: Potassium 3.2 mmol/L (3.4-5.0)
[2024-11-30 09:21] LABS: Thyroid Stimulating Hormone 7.250 uIU/mL (0.465-4.680)
[2024-11-30 10:05] LABS: Free T4 Free Thyroxine 1.24 ng/dL (0.78-2.19)
[2024-11-30 10:48] LABS: Hemoglobin A1C 5.9 % (<5.7)
== END 2024-11-30 06:51 | disposition home or self-care (01) ==
PROVIDERS: PCP Internal Medicine; Visit Provider Internal Medicine
DX: R79.89 Other specified abnormal findings of blood chemistry (principal); R73.03 Prediabetes; E78.2 Mixed hyperlipidemia; I10 Essential (primary) hypertension
CPT/HCPCS: 36415; 80053; 80061; 83036; 84439; 84443

== ENCOUNTER 2024-12-02 07:06 | Outpatient (CLI) | payer MEDICARE, SELFPAY ==
[2024-12-02 08:08] LABS: Potassium 3.8 mmol/L (3.4-5.0)
== END 2024-12-02 07:07 | disposition home or self-care (01) ==
PROVIDERS: PCP Internal Medicine; Visit Provider Internal Medicine
DX: E87.6 Hypokalemia (principal)
CPT/HCPCS: 36415; 84132

== ENCOUNTER 2024-12-07 07:35 | Outpatient (CLI) | payer MEDICARE, SELFPAY ==
--- OUTSIDE RECORDS SUMMARY | 2024-12-07 07:52 | XMS_ITS | Encounter Summary ---
Author Organization [facility] Healthcare Address [address] [place] [address] Care Team Providers Care Atomic Spectroscopist Name Role Phone eTrry Leahy MD Primary Care Provider [phone] Encounter Details Date Type Department Care Team (Late st Contact Info) Description 11/22/2024 Results Follow-Up [facility] Medical Group Cardiology [address] [facility] [address] [place] [address] Jeannie Harding RN Transthoracic Echo (TTE) Complete W Doppler/CF Social History Tobacco Use Types Packs/Day Years Used Date Smoking Tobacco: Former Cigarettes Smokeless Tobacco: Never Alcohol Use Standard Drinks/Week Comments Yes 0 (1 standard drink = 0.6 oz pur e alcohol) Sex and Gender Information Value Date Recorded Sex Assigned at Not on file Legal Sex Male 1:50 AM MS SQL SERVER DEVELOPER Gender Identity Male 04/14/2021 11:15 AM MS SQL SERVER DEVELOPER Sexual Orientation Straight 04/14/2021 11 :15 AM MS SQL SERVER DEVELOPER documented as of this encounter Plan of Treatment Not on file documented as of this encounter Visit Diagnoses Not on filedocumented in this encounter Care Teams Atomic Spectroscopist Relationship Specialty Start Date End Date Terry Leahy MD [address] INTERNAL MEDICINE [place], [place] [id number] PCP - General Internal Medicine 02/26/20 documented as of this encounter
--- OUTSIDE RECORDS SUMMARY | 2024-12-07 07:52 | XMS_ITS | Clinical Summary ---
Author Organization [facility] Address [address] [place] [address] Care Team Providers Care Mutual Fund Sales Agent Name Role Phone Terry Leahy MD Primary Care Provider [phone] Allergies No known active allergies Medications allopurinoL [...] Department Care Team Description 11/22/2024 Results Follow-Up [facility] Medical Group Cardiology [address] [place] [address] Mehdi, Jeannie N., RN Transthoracic Echo (TTE) Complete W Doppler/CF 11/22/2024 Telephone [facility] Cardiology [address] [facility] [address] [place] [address] Chanel Adams MD 11/21/2024 9:15 AM CDT Ancillary Procedure [facility] Cardiology [address] [place] [address] [address] [place] [address] Mixed diabetic hyperlipidemia associated with type 2 diabetes mellitus (HCC); Coronary artery disease involving levelock coronary artery of levelock heart without angina pectoris 11/14/2024 8:00 AM CDT Office Visit [facility] Cardiology [address] [place] [address] [address] [place] [phone] Chanel Adasm MD Mixed diabetic hyperlipidemia associated with type 2 diabetes mellitus (HCC) (Primary Dx); Elevated coronary artery calcium score; Coronary artery disease involving levelock coronary artery of levelock heart without angina pectoris 10/31/2024 8:15 AM CDT Ancillary Procedure [facility] Cardiology [address] [facility] [address] [place] [phone] Pacemaker; Intermittent complete heart block (HCC) 10/02/2024 Telephone [facility] Cardiology [address] [place] [address] [address] [place] [phone] Chanel Adams MD from Last 3 Months [...] around his neck and throat, evaluated by [facility] in the past. Elevated coronary artery [...] on file Legal Sex Male 1:50 AM AIR TRAFFIC CONTROL SPECIALIST Gender Identity Male 04/14/2021 11:15 AM AIR TRAFFIC CONTROL SPECIALIST Sexual Orientation Straight 04/14/2021 11 :15 AM AIR TRAFFIC CONTROL SPECIALIST Obstetrics History Last Filed Vital Signs Vital Sign Reading Time Taken Comments Blood Pressure 124/72 11/14/2024 7:57 AM CDT Pulse 75 11/14/2024 7:57 AM CDT Temperature 36.8 C (98.2 F) 04/08/2020 8:00 AM AIR TRAFFIC CONTROL SPECIALIST Respiratory Rate 18 11/14/2024 7:57 AM CDT [...] 02/27/2020, 03/2018 Medical Devices Implanted Type Area Gore Maker Device Identifier Shelf Expiration Date Model / [...] diabetes mellitus (HCC) Coronary artery disease involving levelock coronary artery of levelock heart without angina pectoris POCT LIPID PANEL Routine 11/14/2024 7:59 AM CDT Mixed diabetic hyperlipidemia associated with type 2 diabetes mellitus (HCC) DEVICE CHECK - REMOTE Routine 10/31/2024 7:46 AM CDT Pacemaker Intermittent complete heart block (HCC) SERUM HEPATITIS C AB Routine 05/04/2013 9:33 AM AIR TRAFFIC CONTROL SPECIALIST from Last 3 Months or Most Recently Relevant to Health Maintenance Results * TRANSTHORACIC ECHO (TTE) COMPLETE W DOPPLER/CF WO CONTRAST (11/21/2024 10:25 AM CDT) Estimated EF 70-75 % CONS SCIMAGE EF Mod BP 74 % CONS SCIMAGE Anatomical Region Laterality Modality Ultrasound 11/21/2024 9:36 AM CDT Narrative 11/21/2024 4:50 PM CDT [facility] Medical Group Cardiology [address] [facility] [address], [place] [address] [address] [facility] [address], [place] [address] P:[phone] P:[phone] Echocardiographic Report Patient Name: ARACELIS ALVARADO E : 1950 Study Date: 11/21/2024 9:36:21 AM Sex: M Access Control Officer: Juana Sanz)(CT), [facility] Location: [place] Ref Provider: CHANEL ADAMS Height(Cm): 193 BSA: 2.39 Weight(Kg): 106.6 Heart Rate: 69 BP: 124 / 72 Quality: Good Order Provider: CHANEL ADAMS PROCEDURES: Echocardiographic Report: Transthoracic echocardiogram with complete 2D, M-Mode, and color Doppler examination. With Strain Analysis. INDICATIONS: E11.69 Type 2 diabetes mellitus with other specified complication, E78.2 Mixed hyperlipidemia, and I25.10 Atherosclerotic heart disease of levelock coronary artery without angina pectoris. MEASUREMENTS: 2D/MM [...] FINDINGS: Interpretation Site: Exam was interpreted at [facility]. Left Ventricle: Normal left ventricular systolic function. [...] Procedure Note Shravan Sanchez MD - 11/21/2024 [facility] Medical Group Cardiology [address] [facility] [address], [place] [address] [address] [facility] [address], [place] [address] P:[phone] P:[phone] Echocardiographic Report Patient Name: ARACELIS ALVARADO E : 1950 Study Date: 11/21/2024 9:36:21 AM Sex: M Access Control Officer: Juana Sanz)(CT), [facility] Location: [facility] Provider: CHANEL ADAMS Height(Cm): 193 BSA: 2.39 [...] FINDINGS: Interpretation Site: Exam was interpreted at [facility]. Left Ventricle: Normal left ventricular systolic function. [...] lipid panel (11/14/2024 7:59 AM CDT) Pathologist [facility] Cholesterol, POC 125 <200 MG/DL HDL, POC [...] Dual Pacemaker. Dx; Interm CHB, Junctional. DOI 05/09/2021-[facility]. [employer] Home Monitoring. Routine DDD Pacemaker remote. Normal device function. Battery function-Ok, 75% remaining battery life to DASHAWN. Appropriate lead measurements noted. Presenting rhythm: -VS. AP-8%, SUPERVISOR ELECTRIC-0%. No Atrial high rate episodes noted. No Ventricular high rate episodes noted Medications; ASA, Diovan-HCT, Lopressor. See scanned report. Office pacemaker f/u due in near future. MyChart letter sent. IVFXPERT remote follow-up 02/06/2025. Krys Bell, RN us Chanel Adams MD CV CARDIAC SERVICES PROCEDURES F inal Result * Serum Hepatitis C ab (05/04/2013 9:33 AM AIR TRAFFIC CONTROL SPECIALIST) HCV ab Negative NEG HISTORICAL RESULTS Serum 05/04/2013 9:33 AM AIR TRAFFIC CONTROL SPECIALIST Narrative HISTORICAL RESULTS - 05/05/2013 6:30 AM AIR TRAFFIC CONTROL SPECIALIST Interpretive Data If confirmation is required, call Laboratory Customer Service to request sample to be sent to [facility] for Hepatitis C Virus (HCV) RNA Detection and Quantitation by Real-Time Reverse Warper Fixer-PCR (RT-PCR). Current interpretive data was last revised on 2011 us Milind Cha MD LAB BLOOD ORDERABLES F inal Result HISTORICAL RESULTS from Last 3 Months or Most Recently Relevant to Health Maintenance Insurance [facility]IC[facility] MEDICARE [facility] Care Teams Mutual Fund Sales Agent Relationship Specialty Start Date End Date Terry Leahy MD [address] [facility] [address] [facility] [address] [place] [address] PCP - General Internal Medicine 02/26/20
--- NOTE | 2024-12-11 12:06 | WPDNEUROLOGY ---
Neurology EEG Report General Information Date of Study: 12/07/24 TEST electroencephalogram DIAGNOSIS syncopal episodes CONDITION OF RECORDING neurodiagnostic lab EEG NUMBER [id number] CLINICAL HISTORY 74-year-old with history of syncopal episodes. They may occur up to 2 times a month. EEG DESCRIPTION During wakefulness the background activity consists of posterior dominant rhythm in alpha range at 9-10 hertz with amplitude of 15-35 microvolts which appears moderately formed. Anteriorly low amplitude mixed frequency activity was seen. There is a mild anteroposterior gradient. Hyperventilation was not performed. Photic stimulation was performed during which no significant abnormal background changes were seen. No appreciable driving response was noted. During drowsiness diffuse theta activity was noted however patient did not progress to stage 2 sleep. IMPRESSION This is a normal EEG obtained during awake and drowsy states.
== END 2024-12-07 07:36 | disposition home or self-care (01) ==
PROVIDERS: PCP Internal Medicine; Visit Provider Internal Medicine
DX: R55 Syncope and collapse (principal); R29.6 Repeated falls
CPT/HCPCS: 95816

== ENCOUNTER 2025-01-02 10:08 | Outpatient (CLI) | payer MEDICARE, SELFPAY ==
--- NOTE | ~2025-01-02 | CT_ITS ---
EXAMINATION: CT brain wo/w con, 01/02/2025 10:10 CDT HISTORY: Repeated falls, syncope COMPARISON: No comparisons available. Technique: Axial images obtained of the brain without and with intravenous contrast. One or more of the following dose reduction techniques were used: automated exposure control, adjustment of the mA and/or kV according to patient size, use of iterative reconstruction technique. Findings: No acute infarct or parenchymal hemorrhage. No abnormal enhancement identified No abnormal mass or mass effect. No midline shift. No extra-axial fluid collections. No hydrocephalus. Mastoid air cells unremarkable. Sinuses and orbits unremarkable. No acute fracture. No significant facial or scalp soft tissue swelling evident. No radiopaque foreign body is seen. Impression: 1.No acute intracranial abnormality. Reviewed, dictated and finalized at location P. Impression: 1.No acute intracranial abnormality.
[2025-01-02 10:30] LABS: Estimated Glomerular Filt Rate > 60
== END 2025-01-02 10:09 | disposition home or self-care (01) ==
LOC: MICIMG 10:09
PROVIDERS: PCP Internal Medicine; Visit Provider Internal Medicine
DX: R29.6 Repeated falls (principal); R55 Syncope and collapse
CPT/HCPCS: 70470; Q9967

== ENCOUNTER 2025-03-12 11:26 | Outpatient (CLI) | payer MEDICARE, SELFPAY ==
[2025-03-12 11:44] LABS: Hematocrit 45.6 % (42.0-52.0); Hemoglobin 15.1 g/dL (14.0-18.0); Immature Granulocyte Percent A 0.5 % (0-0.5); Lymphocytes Absolute Auto 1.94 K/mm3 (0.9-3.2); Mean Corpuscular HGB Conc 33.1 g/dl (32-36); Mean Corpuscular Hemoglobin 31.1 pg (26-34); Mean Corpuscular Volume 93.8 fl (80-100); Nucleated Red Blood Cells Absolute Auto 0.000 K/mm3 (0.0-0.012); Nucleated Red Blood Cells Perc 0.0 % (0.0-0.2); Platelet Count Result 156 k/mm3 (150-375); Red Blood Count 4.86 M/mm3 (4.6-6.20); White Blood Count 3.8 K/mm3 (4.5-10.0)
[2025-03-12 11:58] LABS: Hemoglobin A1C 5.8 % (<5.7)
[2025-03-12 12:07] LABS: Alanine Aminotransferase 43 U/L (6-50); Albumin Level 4.2 g/dL (3.5-5.1); Alkaline Phosphatase 53 U/L (38-126); Anion Gap 6 mmol/L (4-12); Aspartate Amino Transferase 58 U/L (17-59); Bilirubin,Total 1.5 mg/dL (0.2-1.3); Blood Urea Nitrogen 14 mg/dL (9-20); Calcium 9.0 mg/dL (8.4-10.2); Carbon Dioxide 31 mmol/L (22-30); Chloride 103 mmol/L (98-107); Cholesterol 145 mg/dL (0-200); Estimated Glomerular Filt Rate > 60; Glucose 90 mg/dL (65-110); HDL Direct 61 mg/dL; Potassium 3.7 mmol/L (3.4-5.0); Sodium 140 mmol/L (137-145); Total Protein 7.3 g/dL (6.3-8.2); Triglycerides 166 mg/dL (<150)
[2025-03-12 12:24] LABS: Free T4 Free Thyroxine 1.10 ng/dL (0.78-2.19)
[2025-03-12 12:39] LABS: Thyroid Stimulating Hormone 2.450 uIU/mL (0.465-4.680)
[2025-03-12 16:42] LABS: Vitamin B12 236.0 pg/mL (239-931)
== END 2025-03-12 11:27 | disposition home or self-care (01) ==
PROVIDERS: PCP Internal Medicine; Visit Provider Internal Medicine
DX: I10 Essential (primary) hypertension (principal); R73.03 Prediabetes; E78.2 Mixed hyperlipidemia; D72.819 Decreased white blood cell count, unspecified; Z79.899 Other long term (current) drug therapy; Z13.29 Encounter for screening for other suspected endocrine disorder
CPT/HCPCS: 36415; 80053; 80061; 82607; 82746; 83036; 84439; 84443; 85025

== ENCOUNTER 2025-03-18 14:34 | Inpatient (IN) | payer MEDICARE, SELFPAY ==
[2025-03-18] VITALS (8 sets, daily range): BP systolic 100–140; BP diastolic 37–69; PULSE 95–112; RESP 16–20; TEMP 35.1–37; O2SAT 96–100; BMI 28.5
--- NOTE | ~2025-03-18 | US_ITS ---
US right upper quadrant INDICATION: Acute cholecystitis PROCEDURE: Realtime right upper abdominal ultrasound. COMPARISON: No prior studies for comparison. FINDINGS: The pancreas is normal without focal mass or pancreatic ductal dilation. Liver echotexture is increased, consistent with fatty infiltration. There is normal directional flow in the portal vein. The gallbladder is normal without stones, gallbladder wall thickening or pericholecystic fluid. Common bile duct measures 7 mm. No sonographic Riggins's sign. IMPRESSION: 1: Fatty infiltration of the liver. Reviewed, dictated and finalized at location O. E DESIGNER
--- NOTE | ~2025-03-18 | XR_ITS ---
EXAMINATION: XR chest 1V portable DATE: 03/18/2025 15:54 INDICATION: Cough. TECHNIQUE: A single frontal view of the chest was obtained. COMPARISON: Chest x-ray dated 01/14/2023. FINDINGS: Mild cardiomegaly. Atherosclerotic aorta. Pacemaker device in place. Lungs are free of acute processes. IMPRESSION: 1. No acute pulmonary findings. Reviewed, dictated and finalized at location T. ABUSE PROGRAM COORDINATOR
--- NOTE | ~2025-03-18 | CT_ITS ---
EXAMINATION: CT chest, abdomen and pelvis without contrast: DATE: 03/18/2025 at 5:00 PM INDICATION: Hypotension. TECHNIQUE: CT was performed through chest abdomen and pelvis without IV contrast and reviewed in multiple projections. COMPARISON: Chest x-ray dated 03/18/2025. FINDINGS: No focal lesions of acute nature involving lungs. Pacemaker device is noted in place. Significant multivessel coronary artery calcifications. No pleural or pericardial effusion. Below the diaphragm, fatty liver. The gallbladder is contracted in size. Pancreas and kidneys do not show acute findings. Severe atherosclerotic aorta. Calcific changes at the origin of celiac axis and superior mesenteric artery. IMPRESSION: 1. No acute pulmonary findings. Emphysematous lungs. 2. Cardiomegaly with thickened multivessel coronary artery calcifications. 3. Fatty liver. Severe atherosclerotic changes of abdominal aorta including proximal celiac axis and superior mesenteric artery. Reviewed, dictated and finalized at location T. ICAL COUNSELOR IMPRESSION: 1. No acute pulmonary findings. Emphysematous lungs. 2. Cardiomegaly with thickened multivessel coronary artery calcifications. 3. Fatty liver. Severe atherosclerotic changes of abdominal aorta including pro ximal celiac axis and superior mesenteric artery.
--- NOTE | 2025-03-18 14:37 | ECG_ITS ---
Test Date: 2025-03-18 14:49:15 Measurements Intervals [place] Rate: 95 P: 43 NE: 159 QRS: 18 QRSD: 95 T: 2 QT: 385 QTc: 486 Interpretive Statements SINUS RHYTHM WITH OCCASIONAL VENTRICULAR PREMATURE COMPLEXES CONSIDER INFERIOR INFARCT, AGE INDETERMINATE BORDERLINE ST-T WAVE ABNORMALITY- ANT/HIGH LAT LEADS BASELINE ARTIFACT- I, III, AVR, AVL, AVF, V1, V4 ABNORMAL ECG No previous ECG available for comparison Electronically Signed On 03-18-2025 17:10:29 DIRECTOR PRIVATE by Sai Zamora D.O.
--- OUTSIDE RECORDS SUMMARY | 2025-03-18 15:18 | XMS_ITS | Clinical Summary ---
Author Organization [facility] Address [address] [place] [address] Care Team Providers Care Web Applications Programmer Name Role Phone Terry Leahy MD Primary Care Provider [phone] Allergies No known active allergies Medications allopurinoL (ZYLOPRIM) 300 mg tablet Take 1 tablet (300 mg total) by mouth daily 12/30/19 20 Active atorvastatin (LIPITOR) 80 mg tablet Take 1 tablet (80 mg total) by mouth daily 02/10/20 20 Active metFORMIN (GLUCOPHAGE) 500 mg tablet Take 1 tablet (500 mg total) by mouth 2 (two) times a day 12/29/19 20 Active tamsulosin (FLOMAX) 0.4 mg extended release capsule Take by mouth daily 11/29/19 20 Active aspirin 81 mg enteric coated tablet Take 1 tablet (81 mg total) by mouth daily Active indomethacin (INDOCIN) 50 mg capsule as needed 05/26/19 23 Active potassium chloride ER 20 mEq CR tablet Take 1 tablet (20 mEq total) by mouth daily 11/05/19 23 Active ezetimibe (ZETIA) 10 mg tabletIndicati ons:Multiple risk factors for coronary artery disease,Elevat ed coronary artery calcium score TAKE 1 TABLET BY MOUTH EVERY DAY 90 tablet 06/03/19 24 Active HYDROcodone-ac etaminophen (NORCO) 5-325 mg per tablet Take by mouth as needed 11/10/19 24 Active omeprazole (PriLOSEC) 20 mg capsule Take by mouth daily 01/28/20 24 Active valsartan (DIOVAN) 160 mg tablet Take 1 tablet (160 mg total) by mouth daily 09/15/19 25 Active metoprolol tartrate (LOPRESSOR) 25 mg immediate release tablet TAKE 1 TABLET BY MOUTH TWICE A DAY 180 tablet 3 12/09/19 25 Active magnesium oxide (MAG-OX) 400 mg (241.3 mg elemental magnesium) tabletIndicati ons:hypomagnes emia Take 1 tablet (400 mg total) by mouth daily 90 tablet 03/09/20 25 026 Active magnesium oxide (MAG-OX) 400 mg (241.3 mg elemental magnesium) tabletIndicati ons:hypomagnes emia Take 1 tablet (400 mg total) by mouth daily 400 twice a day for 1 week then take 400 mg once a day thereafter 37 tablet 11 02/17/20 24 025 Discontinued Active Problems Problem Noted Date Diagnosed Date Nonsustained monomorphic ventricular tachycardia 05/09/2024 PAT (paroxysmal atrial tachycardia) 02/01/2023 Finger numbness 05/28/2022 Palpitations 05/28/2022 Pacemaker 05/12/2021 Overview (05/22/2021): Biotronik Edora Dual Pacemaker. Dx; Interm CHB, Junctional. DOI 05/09/2021- [facility]. [employer] remote home monitoring. Intermittent complete heart block [...] Encounters Date Type Department Care Team Description 02/06/2025 8:00 AM DRY WALL FINISHER Ancillary Procedure [facility] Medical Group Cardiology [address] [place] [phone] Pacemaker; Intermittent complete heart block (HCC) [...] around his neck and throat, evaluated by [facility] in the past. Elevated coronary artery calcium score Elevated coronary artery calcium score Diabetes mellitus Family History Medical History Relation Name Comments [...] on file Legal Sex Male 1:50 AM DRY WALL FINISHER Gender Identity Male 04/14/2021 11:15 AM DRY WALL FINISHER Sexual Orientation Straight 04/14/2021 11 :15 AM DRY WALL FINISHER Last Filed Vital Signs Vital Sign Reading Time Taken Comments Blood Pressure 124/72 11/14/2024 7:57 AM CDT Pulse 75 11/14/2024 7:57 AM CDT Temperature 36.8 C (98.2 F) 04/08/2020 8:00 AM DRY WALL FINISHER Respiratory Rate 18 11/14/2024 7:57 AM CDT [...] Vaccine (2 of 2) 05/28/2020 04/02/2020, 02/12 Influenza Vaccine (#1) 2024 , 12/18/2022, 12/07/2019, Additional history exists Lipid Panel 11/14/2025 11/14/2024, 07/2023, 02/01/2023, Additional history exists DTaP/Tdap/Td Vaccine (2 - Td or Tdap) 09/03/2026 09/03/2016 Hepatitis C Screening Completed 05/04/2013 Pneumococcal vaccine 65+ Completed 02/27/2020, 03/2018 Covid-19 Vaccine Discontinued 12/06/2023, , 04/15/2022, Additional history exists Medical Devices Implanted Type Area Army Manager Device Identifier Shelf Expiration Date Model [...] Diagnosis Comments DEVICE CHECK - REMOTE Routine 02/08/2025 7:00 AM DRY WALL FINISHER Pacemaker Intermittent complete heart block (HCC) POCT LIPID PANEL Routine 11/14/2024 7:59 AM CDT Mixed diabetic hyperlipidemia associated with type 2 diabetes mellitus (HCC) SERUM HEPATITIS C AB Routine 05/04/2013 9:33 AM DRY WALL FINISHER from Last 3 Months or Most Recently Relevant to Health Maintenance Results * DEVICE CHECK - REMOTE (02/08/2025 7:00 AM DRY WALL FINISHER) Anatomical Region Laterality Modality Other Narrative 02/08/2025 1:22 PM DRY WALL FINISHER [employer]u Edora Dual Pacemaker. Dx; Interm CHB, Junctional. DOI 05/09/2021-[facility]. [employer] remote home monitoring. Routine DDD Pacemaker Remote. Transmission attached. Battery status: OK , 75% remaining battery life to DASHAWN. Stable lead impedances, pacing and sensing thresholds. Presenting rhythm: AP/VS AP-5%, ACCOUNTS RECEIVABLE COORDINATOR-0% 1 Mode switch episode noted, longest episode was 6 seconds in duration, IEGM demonstrates AT. AF [place] 0%. No Ventricular high rate episodes detected. Medications: ASA 81 mg, metoprolol 25 mg, valsartan 160 mg See scanned report. Office pacemaker follow up: Patient overdue for an office device check. Letter sent to patient [employer] remote f/u 05/15/25. Ad Membreno RN us Cooper Adams MD CV CARDIAC SERVICES PROCEDURES F inal Result * (ABNORMAL) POCT lipid panel (11/14/2024 7:59 AM CDT) Cholesterol, POC 125 <200 MG/DL HDL, POC 46 >=40 mg/dL Triglycerides, POC 200(A) <=149 mg/dL LDL Cholesterol POC 39 <=129 mg/dL Chol/HDL Ratio, POC 0.8 NONE Non-HDL Cholesterol, POC 79 NONE mg/dL Cholesterol Total, POC 125 30 - 199 mg/dL Capillary blood 11/14/2024 7 :59 AM CDT us Cooper Adams MD POINT OF CARE TEST ORDERABLES Fi nal Result * Serum Hepatitis C ab (05/04/2013 9:33 AM DRY WALL FINISHER) HCV ab Negative NEG HISTORICAL RESULTS Serum 05/04/2013 9:33 AM DRY WALL FINISHER Narrative HISTORICAL RESULTS - 05/05/2013 6:30 AM DRY WALL FINISHER Interpretive Data If confirmation is required, call Laboratory Customer Service to request sample to be sent to [facility] for Hepatitis C Virus (HCV) RNA Detection and Quantitation by Real-Time Reverse Watch Guard Gate-PCR (RT-PCR). Current interpretive data was last revised on 2011 us Milind Cha MD LAB BLOOD ORDERABLES F inal Result HISTORICAL RESULTS from Last 3 Months or Most Recently Relevant to Health Maintenance Insurance MEDICARE [facility] MEDICARE [facility] MEDICARE [facility] Care Teams Web Applications Programmer Relationship Specialty Start Date End Date Terry Leahy MD PCP - General Internal Medicine 02/26/20
--- NOTE | 2025-03-18 15:27 | ED.WEAKNESS ---
HPI - Weakness General Chief complaint: Weakness Stated complaint: n/v, abd pain, weakness Time Seen by Provider: 03/18/25 14:51 Source: patient, family and EMS Mode of arrival: EMS Limitations: no limitations History of Present Illness HPI Narrative: This is a 74-year-old male with history of hypertension, hyperlipidemia, CAD who presents the ED via EMS for weakness. Patient states the since last night, he has been having some mild nausea. This morning he woke up was feeling extremely weak so EMS was notified. On arrival, patient was hypotensive to the 70s/30s bimanual so he was given 600 cc normal saline. Related Data Home Medications ?Medication ?Instructions ?Recorded ?Confirmed ?Last Taken ?Type aspirin 81 mg tablet,delayed 81 mg PO DAILY 04/17/19 01/04/25 09/18/24 History release (Adult Low Dose Aspirin) magnesium oxide 400 mg PO DAILY 02/22/24 01/04/25 09/18/24 History metoprolol tartrate 25 mg tablet 25 mg PO BID 02/22/24 01/04/25 09/18/24 History folic acid 1 mg tablet 1 mg PO DAILY 03/13/25 Unknown History Allergies Allergy/AdvReac Type Severity Reaction Status Date / Time No Known Allergies Allergy Verified 03/18/25 14:56 [facility] Past Medical History Medical History (Reviewed 01/04/25 @ 08:29 by Rosie Jimenez, [facility]) Abnormal finding of blood chemistry Acute medial meniscus tear of right knee Benign essential hypertension BMI 27.0-27.9,adult BMI 28.0-28.9,adult BMI 29.0-29.9,adult BPH (benign prostatic hyperplasia) Chronic pain of right knee Colon cancer screening Cough CTS (carpal tunnel syndrome) Diastolic dysfunction DJD (degenerative joint disease) SALAS (dyspnea on exertion) Encounter for Medicare annual wellness exam Encounter for routine adult health examination with abnormal findings Encounter for routine adult health examination without abnormal findings Encounter for special screening examination for neoplasm of prostate Follow up Golfers elbow of left upper extremity Gout Hearing loss Hyperlipidemia Hypersomnia Hypotension Memory impairment 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 which has been evaluated by [facility], 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) Sibling Family history of diabetes mellitus in first degree relative Mother Family history of malignant neoplasm Lung cancer Other Family history of cardiovascular disease Social History Social History (Reviewed 01/04/25 @ 08:29 by Rosie Jimenez [facility]) Smoking packs per day: 1 Smoking cigarettes per day: 20.0 Smoking status: Former smoker Tobacco type: cigarettes Second hand tobacco smoke exposure: Yes Smoking end date: 05/14/95 Alcohol intake: current Drinks per week: 5 Substance use: never Substance use type: does not use Lack of Transportation: No Lack of Food: Never True Current Housing: I Have Housing Concerned About Future Housing: No Difficulty Paying Gas/Electric Bills: No Difficulty Paying for Meds: No Currently Unemployed: No Education: Associate Degree Difficulty w/ Childcare or Family Care: No Living arrangements: with family Gender identity (if verbalized by the patient): Male Spiritual care concerns: No Course Vital Signs Vital signs: Vital Signs Temperature 95.1 F L 03/18/25 14:41 Pulse Rate 95 03/18/25 14:41 Respiratory Rate 19 03/18/25 14:41 Blood Pressure 100/46 L 03/18/25 14:41 Pulse Oximetry 100 03/18/25 14:41 Oxygen Delivery Room Air 03/18/25 14:41 Temperature 98.5 F 03/18/25 19:15 Pulse Rate 109 H 03/18/25 19:15 Respiratory Rate 16 03/18/25 19:15 Blood Pressure 107/54 L 03/18/25 19:15 Pulse Oximetry 98 03/18/25 19:15 Oxygen Delivery Room Air 03/18/25 14:41 MDM MDM Narrative Medical decision making narrative: 74-year-old male Presenting for weakness. On initial evaluation patient was who is ill-appearing, hypotensive to the 80s/40s, hypothermic to 95.1. He was placed on Sawyer Hugger. Differentials include but are not limited to: Cardiogenic shock, AAA, aortic dissection, ACS, septic shock, rhabdomyolysis, renal failure Notable exam findings: Strong distal pulses, heart and lungs clear, abdomen soft and nontender, no skin changes I personally reviewed the patient's lab result. Notable lab findings: Mild thrombocytopenia at 1:09 a.m., neutrophil predominance at 83% but no leukocytosis. Metabolic acidosis with lactic acid at 19.2. Creatinine elevated at 3.6 for from his baseline less than 1. Transaminases slightly elevated with AST 131 and ALT 83. CK slightly elevated at 202. Initial troponin elevated at 0.107. Repeat elevated at 0.297 UA showed no evidence of a UTI. COVID/flu/RSV negative. I personally reviewed the patient's images and interpret as follows: CT chest/abdomen/pelvis showed no acute process. I personally reviewed the patient's EKGs: Normal sinus rhythm rate of 95 with occasional PVCs, normal axis, QTC 46, no acute ST or T-wave changes Patient was given 30 cc/kg of normal saline. His blood pressure did improve with maps in the 70s to 80s. He remained tachycardic to the low 100s. His temperature did improve to 97.5 so he was taken off the Sawyer Hugger. He was given vanc and Zosyn for possible septic shock due to unknown origin. This possible that his rigors are causing his severe lactic acidosis but this seems unlikely, seems more likely due to a septic process but that is unclear at this point. Case was discussed with hospitalist who will admit the patient. Differential Diagnosis Differential Diagnosis: Cardiogenic shock, AAA, aortic dissection, ACS, septic shock, rhabdomyolysis, renal failure Lab Data 03/18/25 15:26 03/18/25 15:26 Labs: Lab Results 03/18/25 03/18/25 03/18/25 Range/Units 15:26 15:27 16:32 WBC 9.6 (4.5-10.0) K/mm3 RBC 3.90 L (4.6-6.20) M/mm3 Hgb 12.2 L (14.0-18.0) g/dL Hct 38.8 L (42.0-52.0) % MCV 99.5 D (80-100) fl MCH 31.3 (26-34) pg MCHC 31.4 L (32-36) g/dl RDW 14.9 H (11.5-14.5) % Plt Count 109 L (150-375) k/mm3 MPV 9.8 (7.4-10.4) fl Immature Gran % (Auto) 1.1 H (0-0.5) % Neut % (Auto) 83.1 H (45.5-73.1) % Lymph % (Auto) 9.4 L (18.3-44.2) % [place] % (Auto) 6.1 (2.6-8.5) % Eos % (Auto) 0.1 (0-4.4) % Baso % (Auto) 0.2 (0.2-1.2) % Lymph # (Auto) 0.90 (0.9-3.2) K/mm3 [place] # (Auto) 0.6 (0.1-0.6) K/mm3 Eos # (Auto) 0.0 (0-0.3) K/mm3 Baso # (Auto) 0.0 (0.0-0.1) K/mm3 Abs Immat Gran (auto) 0.11 H (0.00-0.031) K/mm3 Absolute Neuts (auto) 8.0 H (1.3-6.7) K/mm3 Absolute Nucleated RBC 0.020 H (0.0-0.012) K/mm3 Nucleated RBC % 0.2 (0.0-0.2) % PT 13.9 (11.1-14.7) Seconds INR 1.1 APTT 24.1 (22.3-36.8) Seconds Sodium 137 (137-145) mmol/L Potassium 5.0 (3.4-5.0) mmol/L Chloride 96 L (98-107) mmol/L Carbon Dioxide < 5 L (22-30) mmol/L Anion Gap (4-12) mmol/L BUN 32 H D (9-20) mg/dL Creatinine 3.64 H (0.7-1.3) mg/dL Estim Creat Clear Calc 23 ml/min Estimated GFR 16 L (59 - ) Glucose 70 (65-110) mg/dL Lactic Acid 19.2 H* (0.7-2.0) mmol/L Calcium 8.7 (8.4-10.2) mg/dL Total Bilirubin 1.1 (0.2-1.3) mg/dL AST 131 H (17-59) U/L ALT 83 H (6-50) U/L Alkaline Phosphatase 55 (38-126) U/L Total Creatine Kinase 202 H (55-170) U/L Troponin I 0.107 H* (0.000-0.034) ng/mL C-Reactive Protein < 0.5 (<1.0) mg/dL Total Protein 6.6 (6.3-8.2) g/dL Albumin 4.0 (3.5-5.1) g/dL Procalcitonin 0.5 ng/mL Urine Color (Yellow) Urine Appearance (Clear) Urine pH (5.0-9.0) Ur Specific [place] (1.001-1.035) Urine Protein (Negative) mg/dL Urine Glucose (UA) (Negative) mg/dL Urine Ketones (Negative) mg/dL Ur Blood (Man) (Negative) Urine Nitrate (Negative) Urine Bilirubin (Negative) Urine Urobilinogen (<2.0) mg/dL Add Ur Microanalysis Leukocyte Esterase Rfl (Negative) TAWANDA/UL Urine RBC (0-2) /hpf Urine WBC (0-3) /hpf Ur Squamous Epith Cells (Few) /hpf Urine Bacteria /hpf Urine Casts Nasal MRSA (PCR) (NOT DETECTE) Influenza A (RT-PCR) Negative (Negative) Influenza B (RT-PCR) Negative (Negative) RSV (RT-PCR) Negative (Negative) SARS-CoV-2 RNA (RT-PCR) Negative (Negative) 03/18/25 03/18/25 Range/Units 17:13 17:34 WBC (4.5-10.0) K/mm3 RBC (4.6-6.20) M/mm3 Hgb (14.0-18.0) g/dL Hct (42.0-52.0) % MCV (80-100) fl MCH (26-34) pg MCHC (32-36) g/dl RDW (11.5-14.5) % Plt Count (150-375) k/mm3 MPV (7.4-10.4) fl Immature Gran % (Auto) (0-0.5) % Neut % (Auto) (45.5-73.1) % Lymph % (Auto) (18.3-44.2) % [place] % (Auto) (2.6-8.5) % Eos % (Auto) (0-4.4) % Baso % (Auto) (0.2-1.2) % Lymph # (Auto) (0.9-3.2) K/mm3 [place] # (Auto) (0.1-0.6) K/mm3 Eos # (Auto) (0-0.3) K/mm3 Baso # (Auto) (0.0-0.1) K/mm3 Abs Immat Gran (auto) (0.00-0.031) K/mm3 Absolute Neuts (auto) (1.3-6.7) K/mm3 Absolute Nucleated RBC (0.0-0.012) K/mm3 Nucleated RBC % (0.0-0.2) % PT (11.1-14.7) Seconds INR APTT (22.3-36.8) Seconds Sodium (137-145) mmol/L Potassium (3.4-5.0) mmol/L Chloride (98-107) mmol/L Carbon Dioxide (22-30) mmol/L Anion Gap (4-12) mmol/L BUN (9-20) mg/dL Creatinine (0.7-1.3) mg/dL Estim Creat Clear Calc ml/min Estimated GFR (59 - ) Glucose (65-110) mg/dL Lactic Acid (0.7-2.0) mmol/L Calcium (8.4-10.2) mg/dL Total Bilirubin (0.2-1.3) mg/dL AST (17-59) U/L ALT (6-50) U/L Alkaline Phosphatase (38-126) U/L Total Creatine Kinase (55-170) U/L Troponin I (0.000-0.034) ng/mL C-Reactive Protein (<1.0) mg/dL Total Protein (6.3-8.2) g/dL Albumin (3.5-5.1) g/dL Procalcitonin ng/mL Urine Color Dark yellow (Yellow) Urine Appearance Cloudy H (Clear) Urine pH 5.0 (5.0-9.0) Ur Specific [place] 1.014 (1.001-1.035) Urine Protein 1+ H (Negative) mg/dL Urine Glucose (UA) Negative (Negative) mg/dL Urine Ketones Trace H (Negative) mg/dL Ur Blood (Man) 1+ H (Negative) Urine Nitrate Negative (Negative) Urine Bilirubin Negative (Negative) Urine Urobilinogen 1.0 (<2.0) mg/dL Add Ur Microanalysis Reviewed Leukocyte Esterase Rfl Trace H (Negative) TAWANDA/UL Urine RBC 0-2 (0-2) /hpf Urine WBC 0-5 (0-3) /hpf Ur Squamous Epith Cells Occasional (Few) /hpf Urine Bacteria None seen /hpf Urine Casts >20 Nasal MRSA (PCR) Not detected (NOT DETECTE) Influenza A (RT-PCR) (Negative) Influenza B (RT-PCR) (Negative) RSV (RT-PCR) (Negative) SARS-CoV-2 RNA (RT-PCR) (Negative) Imaging Data Radiologist's impression: ITS Impressions Chest X-Ray 03/18/25 15:56 IMPRESSION: 1. No acute pulmonary findings. Chest/Abdomen/Pelvis CT 03/18/25 17:05 IMPRESSION: 1. No acute pulmonary findings. Emphysematous lungs. 2. Cardiomegaly with thickened multivessel coronary artery calcifications. 3. Fatty liver. Severe atherosclerotic changes of abdominal aorta including proximal celiac axis and superior mesenteric artery. Critical Care Time Critical Care Time Critical Care Time: Yes Indication: Undifferentiated shock Time Type: Intermittent Initial evaluation, discuss w/ involved parties, attempting to gather old records: 15 minutes Documenting medical record: 10 minutes Review of results (EKG's, labs, imaging): 5 minutes Serial repeat bedside evaluation: 15 minutes Discussing case with multiple memebers of the care team and consultants: 5 minutes Total Critical Care Time: 50 Discharge Plan Discharge Clinical Impression: Acidosis, lactic Sepsis Qualifiers: Sepsis type: sepsis due to unspecified organism Sepsis acute organ dysfunction status: with acute organ dysfunction Severe sepsis acute organ dysfunction type: acute renal failure Acute renal failure type: unspecified Severe sepsis shock status: without septic shock Qualified Code(s): A41.9 - Sepsis, unspecified organism Acute renal failure Qualifiers: Acute renal failure type: unspecified Qualified Code(s): N17.9 - Acute kidney failure, unspecified Patient Disposition: Still a Patient Condition: Serious
[2025-03-18 15:37] LABS: Hematocrit 38.8 % (42.0-52.0); Hemoglobin 12.2 g/dL (14.0-18.0); Immature Granulocyte Percent A 1.1 % (0-0.5); Lymphocytes Absolute Auto 0.90 K/mm3 (0.9-3.2); Mean Corpuscular HGB Conc 31.4 g/dl (32-36); Mean Corpuscular Hemoglobin 31.3 pg (26-34); Mean Corpuscular Volume 99.5 fl (80-100); Nucleated Red Blood Cells Absolute Auto 0.020 K/mm3 (0.0-0.012); Nucleated Red Blood Cells Perc 0.2 % (0.0-0.2); Platelet Count Result 109 k/mm3 (150-375); Red Blood Count 3.90 M/mm3 (4.6-6.20); White Blood Count 9.6 K/mm3 (4.5-10.0)
[2025-03-18] MEDS: SODIUM CHLORIDE 0.9% IV 1,000 ML 999 ML IV CONT ×2 (15:37)
[2025-03-18 15:48] LABS: INR 1.1; Partial Thromboplastin Time 24.1 Seconds (22.3-36.8); Prothrombin Time 13.9 Seconds (11.1-14.7)
[2025-03-18 15:51] LABS: Alanine Aminotransferase 83 U/L (6-50); Albumin Level 4.0 g/dL (3.5-5.1); Alkaline Phosphatase 55 U/L (38-126); Aspartate Amino Transferase 131 U/L (17-59); Bilirubin,Total 1.1 mg/dL (0.2-1.3); Blood Urea Nitrogen 32 mg/dL (9-20); CRP < 0.5 mg/dL (<1.0); Calcium 8.7 mg/dL (8.4-10.2); Carbon Dioxide < 5 mmol/L (22-30); Chloride 96 mmol/L (98-107); Estimated CRCL calculation 23 ml/min; Estimated Glomerular Filt Rate 16; Glucose 70 mg/dL (65-110); Potassium 5.0 mmol/L (3.4-5.0); Sodium 137 mmol/L (137-145); Total Protein 6.6 g/dL (6.3-8.2)
[2025-03-18 16:40] LABS: Creatine Kinase 202 U/L (55-170)
[2025-03-18] MEDS: PIPERACILLIN/TAZOBACTAM SOD 4.5 GM in SODIUM CHLORIDE 0.9% IV 100 ML 200 ML IVPB (17:26)
[2025-03-18 17:38] LABS: Troponin I 0.107 ng/mL (0.000-0.034)
[2025-03-18 17:48] LABS: Influenza A QL RT-PCR Negative (Negative); Influenza B QL RT-PCR Negative (Negative); RSV RNA, RT-PCR Negative (Negative); SARS-CoV-2 RNA PCR Negative (Negative)
[2025-03-18 17:57] LABS: Add Urine Microscopic? YES; Appearance Urine Cloudy (Clear); Glucose Urine UA Negative (Negative); Leukocyte Esterase Ur Trace LEU/UL (Negative); Need Manual Microscopic Reviewed; Nitrate Urine Negative (Negative); Non Pathogenic Casts >20; Specific Grav Ur 1.014 (1.001-1.035)
[2025-03-18] MEDS: VANCOMYCIN 1,750 MG/NS 500 ML 1,750 MG/500 ML BAG 250 MG IVPB (18:03)
[2025-03-18 18:28] LABS: MRSA (PCR) NOT DETECTED (NOT DETECTE)
--- NOTE | 2025-03-18 18:31 | ECG_ITS ---
Test Date: 2025-03-18 18:41:19 Measurements Intervals [place] Rate: 111 P: 67 VA: 155 QRS: 27 QRSD: 72 T: 64 QT: 340 QTc: 463 Interpretive Statements SINUS TACHYCARDIA CONSIDER INFERIOR INFARCT, AGE INDETERMINATE BORDERLINE T WAVE ABNORMALITY- HIGH LATERAL LEADS BASELINE ARTIFACT- I, II, III, AVR, AVL, AVF, V1, V4 ABNORMAL ECG Compared to ECG 03/18/2025 14:49:15 HEART RATE HAS INCREASED Electronically Signed On 03-19-2025 06:57:37 CLAIMS SERVICE REPRESENTATIVE by Sai Zamora D.O.
[2025-03-18] MEDS: ACETAMINOPHEN 500 MG TABLET 1000 MG PO (18:33)
[2025-03-18 19:20] LABS: Troponin I 0.297 ng/mL (0.000-0.034)
[2025-03-18 19:45] LABS: Procalcitonin 0.5 ng/mL
[2025-03-18] MEDS: MORPHINE SULFATE (*CRX) 4 MG/ML INJ IV PUSH (19:47)
[2025-03-18] MEDS: SODIUM CHLORIDE 0.9% IV 1,000 ML 150 ML IV CONT (19:48)
--- NOTE | 2025-03-18 20:00 | WPCEDHO ---
ED Hand Off Checklist All vitals saved:yes IV Site documented:yes All med administrations documented:yes Triage Note Triage Note Patient to the ED via EMS for 03/18/25 14:34 complaints of flu like symptoms, hypotension, abdominal pain, and generalized weakness that began yesterday. Per EMS patients BP was 70/30 taken manually. Patient has been given 4mg zofran and 550mL of NS. Allergies No Known Allergies Allergy (Verified 03/18/25 14:56) Family History (Last Reviewed 01/04/25 @ 08:29 by Rosie Jimenez [facility]) Sibling Family history of diabetes mellitus in first degree relative Mother Family history of malignant neoplasm Lung cancer Other Family history of cardiovascular disease Active Medications including assessments/comments Sodium Chloride (Normal Saline Iv) 1,000 mls @ 150 mls/hr IV CONT .Q6H40M STA Stop: 03/19/25 00:25 Last Admin: 03/18/25 19:48 Dose: 150 mls/hr Documented By: DINESH Infusion/Titration Document 03/18/25 19:48 EZG (Rec: 03/18/25 19:48 EZG [id number]) Intake IV Site Peripheral Access Right Forearm Container Volume 1,000 Waste Amount 0 Dosing Infusion Rate 150 Cumulative Dose Not Applicable Increase/Decrease Started Elapsed Time Elapsed Time ( 0m minutes) Administered/Completed Medications Discontinued Medications Acetaminophen (Acetaminophen 500 Mg Tablet) 1,000 mg PO ONCE STA Stop: 03/18/25 17:46 Last Admin: 03/18/25 18:33 Dose: 1,000 mg Documented By: SEBASTIEN Sodium Chloride (Normal Saline Iv) 1,000 mls @ 999 mls/hr IV CONT .Q1H1M STA Stop: 03/18/25 15:55 Last Infusion: 03/18/25 16:32 Dose: Infused Documented By: Admin: 03/18/25 15:37 Dose: 999 mls/hr Documented By: SEBASTIEN Sodium Chloride (Normal Saline Iv) 1,000 mls @ 999 mls/hr IV CONT .Q1H1M STA Stop: 03/18/25 15:55 Last Infusion: 03/18/25 17:21 Dose: Infused Documented By: Admin: 03/18/25 15:37 Dose: 999 mls/hr Documented By: SEBASTIEN Piperacillin Sod/Tazobactam (Sod 4.5 gm/ Sodium Chloride) 100 mls @ 200 mls/hr IVPB ONCE STA Stop: 03/18/25 17:20 Last Infusion: 03/18/25 18:01 Dose: Infused Documented By: Admin: 03/18/25 17:26 Dose: 200 mls/hr Documented By: SEBASTIEN Vancomycin HCl (Vancomycin 1,750 Mg/Ns 500 Ml) 1,750 mg in 500 mls @ 250 mls/hr IVPB ONCE ONE Stop: 03/18/25 19:59 Last Admin: 03/18/25 18:03 Dose: 250 mls/hr Documented By: SEBASTIEN Morphine Sulfate (Morphine Sulfate (*Crx) 4 Mg/Ml Inj) 4 mg IV PUSH ONCE STA Stop: 03/18/25 19:21 Last Admin: 03/18/25 19:47 Dose: 4 mg Documented By: DINESH Interventions/Assessments IV / Saline Lock, Insert Start: 03/18/25 14:34 Freq: Status: Active Protocol: Document 03/18/25 16:25 AZG (Rec: 03/18/25 16:25 AZG [id number]) IV Assessment Peripheral Access Right Forearm IV Catheter Access Initiated IV Insertion Date 03/18/25 IV Insertion Time 16:25 Catheter Gauge 18 IV Site Assessment WNL IV Care and WNL Maintenance PA: Cardiovascular Assessment Start: 03/18/25 14:34 Freq: Status: Active Protocol: Document 03/18/25 14:55 AZG (Rec: 03/18/25 14:55 AZG [id number]) Cardiovascular Assessment Cardiovascular Dizziness Symptoms Skin Description Normal Color Heart Sounds Normal Jugular Vein None Distention Chest Pain Assessment Description and Dizziness,Lightheadedness Symptoms Precipitating None Factors Jugular Vein None Distention PA: Neurological Assessment Start: 03/18/25 14:34 Freq: Status: Active Protocol: Document 03/18/25 14:55 AZG (Rec: 03/18/25 14:55 AZG [id number]) Neurological Assessment Level of Alert,Awake Consciousness Arousable to Verbal Orientation Oriented to Person,Oriented to Place,Oriented to Time Hallucination Type None Unable to Redirect No Behavior Behavior Appropriate,Cooperative Patient Able to Comprehend Comprehension Memory Description Intact Ability to Maintain Normal Balance Facial Symmetry Symmetrical Speech Pattern Clear Ability to Swallow Normal Neurological Reflexes Corneal Reflex Present Bilateral Response Blink Reflex Present Response Cough/Gag Reflex Present [place] Coma Scale Eyes Open Verbal Oriented and Alert Motor Follows Commands [place] Coma Total 15 Score Last Vital Signs Temperature 98.5 F 03/18/25 19:15 Pulse Rate 109 H 03/18/25 19:15 Respiratory Rate 16 03/18/25 19:15 Pulse Oximetry 98 03/18/25 19:15 Blood Pressure 107/54 L 03/18/25 19:15 Blood Pressure Mean 71 03/18/25 19:15 Blood Pressure Position Sitting 03/18/25 19:15 Oxygen Delivery Room Air 03/18/25 14:41 Weight 114 kg 03/18/25 14:41 Last Result - Abnormals Only RBC 3.90 M/mm3 (4.6-6.20) L 03/18/25 15:26 Hgb 12.2 g/dL (14.0-18.0) L 03/18/25 15:26 Hct 38.8 % (42.0-52.0) L 03/18/25 15:26 MCHC 31.4 g/dl (32-36) L 03/18/25 15:26 RDW 14.9 % (11.5-14.5) H 03/18/25 15:26 Plt Count 109 k/mm3 (150-375) L 03/18/25 15:26 Immature Gran % (Auto) 1.1 % (0-0.5) H 03/18/25 15:26 Neut % (Auto) 83.1 % (45.5-73.1) H 03/18/25 15:26 Lymph % (Auto) 9.4 % (18.3-44.2) L 03/18/25 15:26 Abs Immat Gran (auto) 0.11 K/mm3 (0.00-0.031) H 03/18/25 15:26 Absolute Neuts (auto) 8.0 K/mm3 (1.3-6.7) H 03/18/25 15:26 Absolute Nucleated RBC 0.020 K/mm3 (0.0-0.012) H 03/18/25 15:26 Chloride 96 mmol/L (98-107) L 03/18/25 15:26 Carbon Dioxide < 5 mmol/L (22-30) L 03/18/25 15:26 BUN 32 mg/dL (9-20) H D 03/18/25 15:26 Creatinine 3.64 mg/dL (0.7-1.3) H 03/18/25 15:26 Estimated GFR 16 (59-) L 03/18/25 15:26 Lactic Acid 11.8 mmol/L (0.7-2.0) H* 03/18/25 18:43 AST 131 U/L (17-59) H 03/18/25 15:26 ALT 83 U/L (6-50) H 03/18/25 15:26 Total Creatine Kinase 202 U/L (55-170) H 03/18/25 15:26 Troponin I 0.297 ng/mL (0.000-0.034) H* D 03/18/25 18:43 Urine Appearance Cloudy (Clear) H 03/18/25 17:34 Urine Protein 1+ mg/dL (Negative) H 03/18/25 17:34 Urine Ketones Trace mg/dL (Negative) H 03/18/25 17:34 Ur Blood (Man) 1+ (Negative) H 03/18/25 17:34 Leukocyte Esterase Rfl Trace TAWANDA/UL (Negative) H 03/18/25 17:34 Most Recent Suicide Severity Rating Suicide Severity Rating NO RISK INDICATED 03/18/25 14:34
--- NOTE | 2025-03-18 20:30 | PCRCNOTE ---
VBG stat ordered; patient has been boarded and is presently in transition to IMU-207; RN reports they are not drawing blood in the ED for this patient; RT in charge of IMU notified
[2025-03-18] MEDS: SODIUM BICARBONATE 8.4% 150 MEQ in DEXTROSE 5% 1,000 ML 950 ML IV CONT (20:50)
[2025-03-18 21:00] LABS: Creatine Kinase 312 U/L (55-170); Magnesium 1.4 mg/dL (1.6-2.3)
[2025-03-18 21:32] LABS: Hepatitis B Surface Antigen Negative (Negative)
[2025-03-18 21:34] LABS: Fractional Inspired Oxygen 21 %; HCO3 VBG 19.4 mEq/l (24.0-30.0); PCO2 VBG 31.0 mmHg (42.0-48.0); PO2 VBG 47.4 mmHg (35.0-45.0)
[2025-03-18 21:37] LABS: Hepatitis B Core IgM Result Negative (Negative)
--- NOTE | 2025-03-18 21:38 | ADMGEN ---
This patient, Gokul Viveros, was admitted to IMU Room 207-01 at 2039. Patient/family oriented to hospital policies and general routines including ID bracelet, bed and alarms, visiting hours, pain management, procedures, bathroom and other care routines, personal items, smoking policy, room service/diet, and visiting hours. Information on how to activate the Rapid Response Team has been discussed. Patient/Family are encouraged to report perceived risks to care and to ask questions if they do not understand what they are told or what they should do.
[2025-03-18 21:40] LABS: pH VBG 7.414 (7.300-7.400)
[2025-03-18 21:45] LABS: Acetaminophen < 10 ug/mL (10-30); Salicylate < 1.0 mg/dL (2-20)
--- NOTE | 2025-03-18 21:51 | PM.IMHP2 ---
H&P: HPI History of Present Illness Date/Time: 03/18/25 21:51 Chief Complaint: Flu like symptoms Narrative: 74-year-old male with a past medical history ventral hernia repair and left inguinal hernia repair, BPH, essential hypertension, diastolic dysfunction, gout, mild cognitive impairment and BPH who presented to the ER from home via EMS due to flu-like symptoms. Patient began having abdominal pain generalized weakness that started on the . The patient although alert oriented x4 is not the best historian. He reported that he had actually been feeling ill for about 4 days. He stated that is abdomen was not feeling good he was having intermittent crampy pain. He denied having any fevers. He had not been having any cough or congestion or respiratory symptoms. He did have a decreased appetite. He thought that his symptoms were due to having a low blood sugar because he admits he has not been eating very well. He states he has been staying with his over at [facility] since she broke her leg. So he thought that his symptoms for just due to not taking care of himself. He has been having normal bowel movements without hematochezia or melena. Then today he suddenly developed nausea vomiting and had 3 episodes of large volume emesis accompanied by diaphoresis and chills. EMS reported that on arrival to the patient's residence patient was hypotensive with blood pressures of 70/30. He received 500 mL of normal saline in the field and doses Zofran. Despite fluids administered in the field patient was reportedly still hypotensive on arrival to the ER with systolics in the 70s although is were not documented. The patient completed is 1 L bolus from EMS and received an additional 2 L in bolus in the ER with normalization of his blood pressures. He underwent evaluation for possible infectious causes with a white count but severe lactic acidosis with a lactic acid level of 19 with repeat level only improving to 11 despite 3 L of fluids. Patient only had minimal tachycardia resolved after IV fluid administration. Labs did also demonstrate acute kidney injury with creatinine jumping from 0.76 up to 3.64 in a 7 interval. He also had correlating serum bicarb that was less than 5 and acute transaminitis. As well as a mildly elevated CK and elevated troponin Being normal and chest x-ray unremarkable. CT of the chest abdomen pelvis also did not demonstrate any significant source of infection. COVID flu and RSV PCR were and negative. The patient had received an empiric dose of Zosyn and vancomycin but in no definitive infectious source identified. But at the time of my evaluation the patient did admit that his abdomen has been more bloated than usual. He denies any dysuria or hematuria. He has chronic urinary frequency with chronic sensation of incomplete bladder emptying. He still reported that his abdominal pain is generalized and moderate in nature. But when I went to perform eye exam the patient had excruciating right upper quadrant abdominal pain with palpation. Patient's cardiac enzymes were elevated in the ER but he denies any chest pain, palpitations or shortness of breath. He denies any known history of coronary artery disease but imaging did demonstrate significant atherosclerotic disease of the mesentery The patient is quite concerned about the fact that he can not be with his at acute rehab to take care for and is quite concerned about home long his hospital stay will last. Review of Systems Review of Systems: 12 systems were reviewed with pertinent positives and negatives per HPI. Except as documented in the HPI, all other systems were reviewed and are negative. [facility] Past Medical History Medical History (Updated 03/19/25 @ 01:51 by Nallely Kaye DO) Hypertriglyceridemia B12 deficiency B12 was low all 03/12/2025 Mixed hyperlipidemia PAT (paroxysmal atrial tachycardia) Madelung's disease Multiple lipomas High degree atrioventricular block Follows with Dr. 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 Seasonal allergies Diastolic dysfunction Echocardiogram 03/2021: Grade 1 diastolic dysfunction EF 75%, mild concentric left ventricular hypertrophy Orthostatic hypotension CTS (carpal tunnel syndrome) Vision changes DJD (degenerative joint disease) Memory impairment Hypersomnia Syncopal episodes Vitamin D deficiency Hearing loss Gout BPH (benign prostatic hyperplasia) Benign essential hypertension Pre-diabetes (~2017) Hemoglobin A1c 5.8% 03/12/2025 Surgical History Surgical History (Updated 03/18/25 @ 22:33 by Nallely Kaye DO) History of esophagogastroduodenoscopy (EGD) (12/2023) Gastritis History of colonoscopy (06/2021) Multiple medium-sized uncomplicated hemorrhoids in the rectum. Repeat screening colonoscopy recommended in 10 years S/P cardiac pacemaker procedure 05/09/2021 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 Family History Family History Sibling Family history of diabetes mellitus in first degree relative Mother Family history of malignant neoplasm Lung cancer Other Family history of cardiovascular disease Social History Social History (Updated 03/19/25 @ 01:13 by Nallely Kaye DO) Social History: He lives at home with his . They got in 1999. He raised 3 sons. He is retired from the [employer]. He used to smoke 1 pack of cigarettes per day for about 25-30 years but quit in the . He drinks about a 12 pack of beer over the course of 2 weeks. He uses marijuana. He stated that he experimented with other illicit drugs when he was quite young. Code status: Full code Surrogate decision maker: Kota () Smoking packs per day: 1 Smoking cigarettes per day: 20.0 Years smoked: 25 Smoking pack-years: 25.00 Smoking status: Former smoker Tobacco type: cigarettes Smokeless tobacco user: other Second hand tobacco smoke exposure: No Smoking end date: 05/14/95 Alcohol intake: current Drinks per week: 5 Substance use: current Substance use type: marijuana Last use: 03/11/2025 Lack of Transportation: No Lack of Food: Never True Current Housing: I Have Housing Concerned About Future Housing: No Difficulty Paying Gas/Electric Bills: No Difficulty Paying for Meds: No Currently Unemployed: No Education: High School Diploma/GED Difficulty w/ Childcare or Family Care: No Living arrangements: with family Gender identity (if verbalized by the patient): Male Spiritual care concerns: No Meds Home Medications and Allergies Home Medications ?Medication ?Instructions ?Recorded ?Confirmed ?Type aspirin 81 mg tablet,delayed 81 mg PO DAILY 04/17/19 03/18/25 History release (Adult Low Dose Aspirin) magnesium oxide 400 mg PO DAILY 02/22/24 03/18/25 History metoprolol tartrate 25 mg tablet 25 mg PO BID 02/22/24 03/18/25 History metformin 500 mg tablet See Rx Instructions .Route 09/13/24 03/18/25 Rx .COMPLEX #180 tabs atorvastatin 80 mg tablet See Rx Instructions .Route 10/20/24 03/18/25 Rx .COMPLEX #90 tabs omeprazole 20 mg capsule,delayed See Rx Instructions .Route 12/08/24 03/18/25 Rx release .COMPLEX #90 caps allopurinol 300 mg tablet See Rx Instructions .Route 12/13/24 03/18/25 Rx .COMPLEX #90 tabs ezetimibe 10 mg tablet See Rx Instructions .Route 12/13/24 03/18/25 Rx .COMPLEX #90 tabs indomethacin 50 mg capsule 50 mg PO TID PRN gout #20 caps 03/06/25 03/18/25 Rx tamsulosin 0.4 mg capsule See Rx Instructions .Route 03/12/25 03/18/25 Rx .COMPLEX #90 caps cyanocobalamin (vitamin B-12) 100 mcg (0.1 mL) subcut MONTHLY 03/13/25 03/18/25 Rx 1,000 mcg/mL injection solution #10 mL folic acid 1 mg tablet 1 mg PO DAILY 03/13/25 03/18/25 History valsartan 160 mg capsule 160 mg PO DAILY 03/18/25 03/18/25 History Allergies Allergy/AdvReac Type Severity Reaction Status Date / Time No Known Allergies Allergy Verified 03/18/25 21:37 Vital Signs Vital Signs - 24 hr 03/18/25 14:41 03/18/25 15:42 03/18/25 17:32 Temperature 95.1 F L 97.4 F L 97.5 F L Pulse Rate 95 107 H 112 H Respiratory Rate 19 20 18 Blood Pressure 100/46 L 104/37 L 140/58 L Pulse Oximetry 100 98 99 Oxygen Delivery Room Air 03/18/25 19:15 03/18/25 21:18 03/18/25 21:49 Temperature 98.5 F 98.2 F Pulse Rate 109 H 104 H 102 H Respiratory Rate 16 18 Blood Pressure 107/54 L 133/69 Pulse Oximetry 98 96 Oxygen Delivery Exam Narrative: Weight 106.6 kg BMI 28.6 Const: Other: Well-developed, well-nourished, quite tall, appears stated age HENMT: Other: Mucous membranes are tacky, no oral pharyngeal erythema, crowded posterior oropharynx Eyes: Other: No scleral icterus, no conjunctival pallor Neck: Other: No JVD, irregular nontender soft tissue mass anterior neck in the region of the thyroid which the patient relates is due to his her ready Dieudonne disorder pain Resp: Other: Clear to auscultation bilaterally, no increased work of breathing Cardio: Other: Regular rate, regular rhythm, 2+ bilateral radial pedal pulses GI: Other: Distended, soft, positive bowel sounds, no organomegaly, positive Riggins sign the right upper quadrant with only mild to moderate pressure, no tympany Skin: Other: No jaundice, no pallor Neuro: Other: Alert oriented times 4, speech is clear but slow, no facial asymmetry, slow but stable gait, no localizing neurologic deficits noted during the course of conversation Extrem: Other: No clubbing, cyanosis or edema Psych: Other: Anxious but otherwise pleasant and cooperative, intact judgment and insight Results Labs Labs: Laboratory Tests 03/18/25 15:26 03/18/25 15:26 03/18/25 03/18/25 03/18/25 15: 15:27 16:32 WBC 9.6 RBC 3.90 L Hgb 12.2 L Hct 38.8 L MCV 99.5 D MCH 31.3 MCHC 31.4 L RDW 14.9 H Plt Count 109 L MPV 9.8 Immature Gran % (Auto) 1.1 H Neut % (Auto) 83.1 H Lymph % (Auto) 9.4 L [place] % (Auto) 6.1 Eos % (Auto) 0.1 Baso % (Auto) 0.2 Lymph # (Auto) 0.90 [place] # (Auto) 0.6 Eos # (Auto) 0.0 Baso # (Auto) 0.0 Abs Immat Gran (auto) 0.11 H Absolute Neuts (auto) 8.0 H Absolute Nucleated RBC 0.020 H Nucleated RBC % 0.2 ESR PT 13.9 INR 1.1 APTT 24.1 VBG pH VBG pCO2 VBG pO2 VBG HCO3 O2 Delivery Device O2 Liters/Min FiO2 Sodium 137 Potassium 5.0 Chloride 96 L Carbon Dioxide < 5 L Anion Gap BUN 32 H D Creatinine 3.64 H Estim Creat Clear Calc 23 Estimated GFR 16 L Glucose 70 POC Capillary Glucose Serum Osmolality Lactic Acid 19.2 H* Calcium 8.7 Phosphorus Magnesium Total Bilirubin 1.1 AST 131 H ALT 83 H Alkaline Phosphatase 55 Total Creatine Kinase 202 H Troponin I 0.107 H* C-Reactive Protein < 0.5 Total Protein 6.6 Albumin 4.0 Procalcitonin 0.5 Urine Color Urine Appearance Urine pH Ur Specific [place] Urine Protein Urine Glucose (UA) Urine Ketones Ur Blood (Man) Urine Nitrate Urine Bilirubin Urine Urobilinogen Add Ur Microanalysis Leukocyte Esterase Rfl Urine RBC Urine WBC Ur Squamous Epith Cells Urine Bacteria Urine Casts Urine Eosinophils Urine Osmolality Ur Random Creatinine U Random Total Protein Ur Random Sodium Ur Random Potassium Urine Creatinine Protein/Creatinin Ratio Protein/Creat Ratio 2 Urine Total Protein Urine Albumin (PEP) Urine Albumin U Wbuge-3-Qaiyosxg U Jxgng-7-Wrxnbvbd U Beta Globulin U Gamma Globulin U Random M-Marvin (%) U Abnormal Prot Band 1 U Abnormal Prot Band 2 U Abnormal Prot Band 3 Urine PEP Interpret Nasal MRSA (PCR) Salicylates Acetaminophen IgG IgA IgM YURIDIA Interpretation Urine Immunofixation Hep Bs Antigen Negative Hep Bs Antibody Positive Hep B Core IgM Ab Negative Hepatitis C Ab Screen Negative Influenza A (RT-PCR) Negative Influenza B (RT-PCR) Negative RSV (RT-PCR) Negative SARS-CoV-2 RNA (RT-PCR) Negative 03/18/25 03/18/25 03/18/25 17:13 17:34 18:43 WBC RBC Hgb Hct MCV MCH MCHC RDW Plt Count MPV Immature Gran % (Auto) Neut % (Auto) Lymph % (Auto) [place] % (Auto) Eos % (Auto) Baso % (Auto) Lymph # (Auto) [place] # (Auto) Eos # (Auto) Baso # (Auto) Abs Immat Gran (auto) Absolute Neuts (auto) Absolute Nucleated RBC Nucleated RBC % ESR PT INR APTT VBG pH VBG pCO2 VBG pO2 VBG HCO3 O2 Delivery Device O2 Liters/Min FiO2 Sodium Potassium Chloride Carbon Dioxide Anion Gap BUN Creatinine Estim Creat Clear Calc Estimated GFR Glucose POC Capillary Glucose Serum Osmolality Lactic Acid 11.8 H* Calcium Phosphorus 9.4 H Magnesium 1.4 L Total Bilirubin AST ALT Alkaline Phosphatase Total Creatine Kinase 312 H Troponin I 0.297 H* D C-Reactive Protein Total Protein Albumin Procalcitonin Urine Color Dark yellow Urine Appearance Cloudy H Urine pH 5.0 Ur Specific [place] 1.014 Urine Protein 1+ H Urine Glucose (UA) Negative Urine Ketones Trace H Ur Blood (Man) 1+ H Urine Nitrate Negative Urine Bilirubin Negative Urine Urobilinogen 1.0 Add Ur Microanalysis Reviewed Leukocyte Esterase Rfl Trace H Urine RBC 0-2 Urine WBC 0-5 Ur Squamous Epith Cells Occasional Urine Bacteria None seen Urine Casts >20 Urine Eosinophils Urine Osmolality Ur Random Creatinine U Random Total Protein Ur Random Sodium Ur Random Potassium Urine Creatinine Protein/Creatinin Ratio Protein/Creat Ratio 2 Urine Total Protein Urine Albumin (PEP) Urine Albumin U Gurly-2-Meeclewa U Oimav-9-Mmkvqjlu U Beta Globulin U Gamma Globulin U Random M-Marvin (%) U Abnormal Prot Band 1 U Abnormal Prot Band 2 U Abnormal Prot Band 3 Urine PEP Interpret Nasal MRSA (PCR) Not detected Salicylates Acetaminophen IgG IgA IgM YURIDIA Interpretation Urine Immunofixation Hep Bs Antigen Hep Bs Antibody Hep B Core IgM Ab Hepatitis C Ab Screen Influenza A (RT-PCR) Influenza B (RT-PCR) RSV (RT-PCR) SARS-CoV-2 RNA (RT-PCR) 03/18/25 03/18/25 03/18/25 21:22 21:27 21:29 WBC RBC Hgb Hct MCV MCH MCHC RDW Plt Count MPV Immature Gran % (Auto) Neut % (Auto) Lymph % (Auto) [place] % (Auto) Eos % (Auto) Baso % (Auto) Lymph # (Auto) [place] # (Auto) Eos # (Auto) Baso # (Auto) Abs Immat Gran (auto) Absolute Neuts (auto) Absolute Nucleated RBC Nucleated RBC % ESR 14 PT INR APTT VBG pH 7.414 H* VBG pCO2 31.0 L VBG pO2 47.4 H VBG HCO3 19.4 L O2 Delivery Device Room air O2 Liters/Min Not Reportable FiO2 21 Sodium Potassium Chloride Carbon Dioxide Anion Gap BUN Creatinine Estim Creat Clear Calc Estimated GFR Glucose POC Capillary Glucose Serum Osmolality Pending Cancelled Lactic Acid Calcium Phosphorus Magnesium Total Bilirubin AST ALT Alkaline Phosphatase Total Creatine Kinase Troponin I C-Reactive Protein Total Protein Albumin Procalcitonin Urine Color Urine Appearance Urine pH Ur Specific [place] Urine Protein Urine Glucose (UA) Urine Ketones Ur Blood (Man) Urine Nitrate Urine Bilirubin Urine Urobilinogen Add Ur Microanalysis Leukocyte Esterase Rfl Urine RBC Urine WBC Ur Squamous Epith Cells Urine Bacteria Urine Casts Urine Eosinophils Urine Osmolality Ur Random Creatinine U Random Total Protein Ur Random Sodium Ur Random Potassium Urine Creatinine Protein/Creatinin Ratio Protein/Creat Ratio 2 Urine Total Protein Urine Albumin (PEP) Urine Albumin U Zvnvs-4-Ysaewkyl U Mqltt-5-Pahhoyvu U Beta Globulin U Gamma Globulin U Random M-Marvin (%) U Abnormal Prot Band 1 U Abnormal Prot Band 2 U Abnormal Prot Band 3 Urine PEP Interpret Nasal MRSA (PCR) Salicylates < 1.0 L Acetaminophen < 10 L IgG Pending IgA Pending IgM Pending YURIDIA Interpretation Pending Urine Immunofixation Hep Bs Antigen Hep Bs Antibody Hep B Core IgM Ab Hepatitis C Ab Screen Influenza A (RT-PCR) Influenza B (RT-PCR) RSV (RT-PCR) SARS-CoV-2 RNA (RT-PCR) 03/18/25 03/18/25 03/18/25 21:38 21:52 21:52 WBC RBC Hgb Hct MCV MCH MCHC RDW Plt Count MPV Immature Gran % (Auto) Neut % (Auto) Lymph % (Auto) [place] % (Auto) Eos % (Auto) Baso % (Auto) Lymph # (Auto) [place] # (Auto) Eos # (Auto) Baso # (Auto) Abs Immat Gran (auto) Absolute Neuts (auto) Absolute Nucleated RBC Nucleated RBC % ESR PT INR APTT VBG pH VBG pCO2 VBG pO2 VBG HCO3 O2 Delivery Device O2 Liters/Min FiO2 Sodium Potassium Chloride Carbon Dioxide Anion Gap BUN Creatinine Estim Creat Clear Calc Estimated GFR Glucose POC Capillary Glucose 141 H Serum Osmolality Lactic Acid Calcium Phosphorus Magnesium Total Bilirubin AST ALT Alkaline Phosphatase Total Creatine Kinase Troponin I C-Reactive Protein Total Protein Albumin Procalcitonin Urine Color Urine Appearance Urine pH Ur Specific [place] Urine Protein Urine Glucose (UA) Urine Ketones Ur Blood (Man) Urine Nitrate Urine Bilirubin Urine Urobilinogen Add Ur Microanalysis Leukocyte Esterase Rfl Urine RBC Urine WBC Ur Squamous Epith Cells Urine Bacteria Urine Casts Urine Eosinophils None seen Urine Osmolality Ur Random Creatinine Cancelled U Random Total Protein 79 Cancelled Ur Random Sodium 65 Ur Random Potassium 23.5 Urine Creatinine 85.0 Protein/Creatinin Ratio Protein/Creat Ratio 2 Urine Total Protein Urine Albumin (PEP) Urine Albumin U Hneat-0-Edsezdae U Ixpnw-8-Rptspulf U Beta Globulin U Gamma Globulin U Random M-Marvin (%) U Abnormal Prot Band 1 U Abnormal Prot Band 2 U Abnormal Prot Band 3 Urine PEP Interpret Nasal MRSA (PCR) Salicylates Acetaminophen IgG IgA IgM YURIDIA Interpretation Urine Immunofixation Hep Bs Antigen Hep Bs Antibody Hep B Core IgM Ab Hepatitis C Ab Screen Influenza A (RT-PCR) Influenza B (RT-PCR) RSV (RT-PCR) SARS-CoV-2 RNA (RT-PCR) 03/18/25 03/18/25 03/18/25 21:52 21:52 21:52 WBC RBC Hgb Hct MCV MCH MCHC RDW Plt Count MPV Immature Gran % (Auto) Neut % (Auto) Lymph % (Auto) [place] % (Auto) Eos % (Auto) Baso % (Auto) Lymph # (Auto) [place] # (Auto) Eos # (Auto) Baso # (Auto) Abs Immat Gran (auto) Absolute Neuts (auto) Absolute Nucleated RBC Nucleated RBC % ESR PT INR APTT VBG pH VBG pCO2 VBG pO2 VBG HCO3 O2 Delivery Device O2 Liters/Min FiO2 Sodium Potassium Chloride Carbon Dioxide Anion Gap BUN Creatinine Estim Creat Clear Calc Estimated GFR Glucose POC Capillary Glucose Serum Osmolality Lactic Acid Calcium Phosphorus Magnesium Total Bilirubin AST ALT Alkaline Phosphatase Total Creatine Kinase Troponin I C-Reactive Protein Total Protein Albumin Procalcitonin Urine Color Urine Appearance Urine pH Ur Specific [place] Urine Protein Urine Glucose (UA) Urine Ketones Ur Blood (Man) Urine Nitrate Urine Bilirubin Urine Urobilinogen Add Ur Microanalysis Leukocyte Esterase Rfl Urine RBC Urine WBC Ur Squamous Epith Cells Urine Bacteria Urine Casts Urine Eosinophils Urine Osmolality Ur Random Creatinine U Random Total Protein Ur Random Sodium Ur Random Potassium Urine Creatinine 86.8 Protein/Creatinin Ratio Cancelled Protein/Creat Ratio 2 0.93 H Urine Total Protein Pending Urine Albumin (PEP) Pending Urine Albumin Cancelled U Syjar-5-Aiyavzht Cancelled Pending U Mfiwe-7-Pclfltbo Cancelled Pending U Beta Globulin Cancelled U Gamma Globulin U Random M-Marvin (%) U Abnormal Prot Band 1 U Abnormal Prot Band 2 U Abnormal Prot Band 3 Urine PEP Interpret Nasal MRSA (PCR) Salicylates Acetaminophen IgG IgA IgM YURIDIA Interpretation Urine Immunofixation Hep Bs Antigen Hep Bs Antibody Hep B Core IgM Ab Hepatitis C Ab Screen Influenza A (RT-PCR) Influenza B (RT-PCR) RSV (RT-PCR) SARS-CoV-2 RNA (RT-PCR) 03/18/25 03/18/25 03/18/25 21:52 21:52 21:54 WBC RBC Hgb Hct MCV MCH MCHC RDW Plt Count MPV Immature Gran % (Auto) Neut % (Auto) Lymph % (Auto) [place] % (Auto) Eos % (Auto) Baso % (Auto) Lymph # (Auto) [place] # (Auto) Eos # (Auto) Baso # (Auto) Abs Immat Gran (auto) Absolute Neuts (auto) Absolute Nucleated RBC Nucleated RBC % ESR PT INR APTT VBG pH VBG pCO2 VBG pO2 VBG HCO3 O2 Delivery Device O2 Liters/Min FiO2 Sodium Potassium Chloride Carbon Dioxide Anion Gap BUN Creatinine Estim Creat Clear Calc Estimated GFR Glucose POC Capillary Glucose Serum Osmolality Lactic Acid Calcium Phosphorus Magnesium Total Bilirubin AST ALT Alkaline Phosphatase Total Creatine Kinase Troponin I C-Reactive Protein Total Protein Albumin Procalcitonin Urine Color Urine Appearance Urine pH Ur Specific [place] Urine Protein Urine Glucose (UA) Urine Ketones Ur Blood (Man) Urine Nitrate Urine Bilirubin Urine Urobilinogen Add Ur Microanalysis Leukocyte Esterase Rfl Urine RBC Urine WBC Ur Squamous Epith Cells Urine Bacteria Urine Casts Urine Eosinophils Urine Osmolality Pending Ur Random Creatinine U Random Total Protein Ur Random Sodium Ur Random Potassium Urine Creatinine Protein/Creatinin Ratio Protein/Creat Ratio 2 Urine Total Protein Urine Albumin (PEP) Urine Albumin U Jgres-9-Yngwklkw U Eolog-4-Rvxylphb U Beta Globulin Pending U Gamma Globulin Cancelled Pending U Random M-Marvin (%) Pending U Abnormal Prot Band 1 Cancelled U Abnormal Prot Band 2 Cancelled U Abnormal Prot Band 3 Cancelled Urine PEP Interpret Cancelled Nasal MRSA (PCR) Salicylates Acetaminophen IgG IgA IgM YURIDIA Interpretation Urine Immunofixation Pending Hep Bs Antigen Hep Bs Antibody Hep B Core IgM Ab Hepatitis C Ab Screen Influenza A (RT-PCR) Influenza B (RT-PCR) RSV (RT-PCR) SARS-CoV-2 RNA (RT-PCR) Impressions Chest X-Ray 03/18/25 15:56 IMPRESSION: 1. No acute pulmonary findings. Chest/Abdomen/Pelvis CT 03/18/25 17:05 IMPRESSION: 1. No acute pulmonary findings. Emphysematous lungs. 2. Cardiomegaly with thickened multivessel coronary artery calcifications. 3. Fatty liver. Severe atherosclerotic changes of abdominal aorta including proximal celiac axis and superior mesenteric artery. EKG:Test Date: 2025-03-18 14:49:15 Measurements Intervals [place] Rate: 95 P: 43 HI: 159 QRS: 18 QRSD: 95 T: 2 QT: 385 QTc: 486 Interpretive Statements SINUS RHYTHM WITH OCCASIONAL VENTRICULAR PREMATURE COMPLEXES CONSIDER INFERIOR INFARCT, AGE INDETERMINATE BORDERLINE ST-T WAVE ABNORMALITY- ANT/HIGH LAT LEADS BASELINE ARTIFACT- I, III, AVR, AVL, AVF, V1, V4 ABNORMAL ECG No previous ECG available for comparison Repeat EKG demonstrated sinus tachycardia rate 111 with resolution of ventricular premature complexes and resolution of ST and T-wave abnormality in high lateral leads Quality VTE Prophylaxis VTE prophylaxis: pharmacologic ordered (Heparin 5000 units q.12 hours.) Assessment and Plan Assessment and plan (1) Septic shock: Qualifiers: Sepsis type: sepsis due to unspecified organism Qualified Code(s): A41.9 - Sepsis, unspecified organism; R65.21 - Severe sepsis with septic shock Code(s): A41.9 - Sepsis, unspecified organism; R65.21 - Severe sepsis with septic shock Status: Acute (2) Right upper quadrant abdominal pain with positive Riggins's Sign: Code(s): R10.11 - Right upper quadrant pain; R19.8 - Other specified symptoms and signs involving the digestive system and abdomen Status: Acute (3) Acute renal failure: Qualifiers: Acute renal failure type: unspecified Qualified Code(s): N17.9 - Acute kidney failure, unspecified Code(s): N17.9 - Acute kidney failure, unspecified Status: Acute (4) Metabolic acidosis with respiratory alkalosis: Code(s): E87.20 - Acidosis, unspecified; E87.3 - Alkalosis Status: Acute (5) Hypomagnesemia: Code(s): E83.42 - Hypomagnesemia Status: Acute (6) BPH (benign prostatic hyperplasia): Qualifiers: Lower urinary tract symptom presence: unspecified whether lower urinary tract symptoms present Qualified Code(s): N40.0 - Benign prostatic hyperplasia without lower urinary tract symptoms Code(s): N40.0 - Benign prostatic hyperplasia without lower urinary tract symptoms Status: Acute (7) Transaminitis: Code(s): R74.01 - Elevation of levels of liver transaminase levels Status: Acute (8) Type 2 myocardial infarction due to shock: Code(s): R57.9 - Shock, unspecified; I21.A1 - Myocardial infarction type 2 Status: Acute Plan Patient had abdominal pain with severe lactic acidosis and initially had no identifiable source of infection and had CT evidence of atherosclerotic disease of mesenteric vasculature so Differential did include ischemic bowel. But given the patient's right upper quadrant pain on exam most likely cause of septic shock is likely acute cholecystitis. Patient meets sepsis shock criteria with sofa criteria of 7 and persistent lactic acid of greater than 11 despite normalization of blood pressure after 30 mL/kilos bolus. The patient received empiric antibiotic therapy with Zosyn and vancomycin in the ER. Will continue Zosyn but stop vancomycin. Blood cultures have been obtained and are pending. Will repeat CBC with differential in a.m.. Will order right upper quadrant ultrasound to confirm gallbladder pathology. Will consult General surgery in a.m.. Will change patient's diet to NPO. The patient does have acute kidney injury in setting of septic shock with markedly low serum bicarb in persistent lactic acidosis. Prior to my exam is concerned patient may have had a secondary renal pathology for his symptoms and ordered evaluation with protein and urine electrophoresis immunofixation and other urine studies. Given physical exam and reasons acute renal failure is most likely due to ATN from septic shock. Nephrology was consulted from the ER. I did give the patient an amp of sodium bicarb push and started the patient on bicarb drip due to his profound low serum bicarb. He does have a convinced carin metabolic alkalosis on ABG. Will monitor strict I&O's. Postvoid residual did demonstrate 150 mL. Retention is not likely to be contributing to the patient's acute kidney injury. Patient does have nocturia and is on Flomax at home which will be continued once need for attached acute surgical procedures resolved. Patient also has transaminitis due to shock. Will repeat CMP in a.m. to re-evaluate electrolyte and liver enzymes. Patient does have mild hypo magnesemia will give magnesium sulfate supplementation. Patient did have elevated troponins likely due to demand ischemia resulting and type 2 infarct given nonspecific EKG changes. Repeat EKG demonstrated resolution of nonspecific findings. Troponin is still trending upward slightly with patient is not having associated chest pain. Will repeat troponin in a.m. will continue to monitor on telemetry in the IMU. MEDICAL DECISION MAKING NARRATIVE -Spoke with the ED provider in detail regarding patient's evaluation, workup and management -Patient seen and examined at bedside -Collaborated with patient's nurse at the bedside in detail and addressed all concerns -Labs, electrolytes, radiology, investigations and test results personally reviewed and interpreted unless otherwise specified -ED/Consult/Nursing/Ancilliary notes on the chart reviewed and appreciated -applicable past medical records and labs were reviewed and unless stated otherwise. -Spoke with patient at bedside and diagnosis, plan of care was discussed and questions answered. Time Spent with Patient Time with patient: 75 minutes or greater Hospitalist MIPS Advance Care Plan I have confirmed that the patient's Advanced Care Plan is present, code status is documented, or surrogate decision maker is listed in patient medical record.: Yes Medication Reconciliation I have utilized all available resources to obtain, update and review the patients current medications (includes all prescriptions, OTC, herbals, cannabis, and nutritional supplements).: Yes
[2025-03-18 21:52] LABS: Hepatitis B Surface Anti Res Positive
[2025-03-18] MEDS: SODIUM BICARBONATE 8.4% 50 MEQ/50 ML SYRINGE IV PUSH (21:59)
[2025-03-18 22:21] LABS: Total Protein Urine Random 79 mg/dL; Ur Ttl Prot Creatinine Ratio 0.93 mg/mg (0-0.20)
[2025-03-18 22:31] LABS: Urine Eos QC 2nd Tech Confirmed
[2025-03-19] VITALS (14 sets, daily range): BP systolic 131–196; BP diastolic 69–82; PULSE 83–106; RESP 1–18; TEMP 36.5–36.9; O2SAT 96–99
--- NOTE | 2025-03-19 | ECHO_ITS ---
Patient Info Name: Gokul Viveros Age: 74 years : 1950 Gender: Male Ht: 76 in Wt: 235 lbs BSA: 2.41 m2 HR: 95 bpm BP: 160 / 75 mmHg Heart Rhythm: Sinus Rhythm Technical Quality: Good Exam Date: 03/19/2025 12:53 PM Patient Status: I Admit Date: 03/18/2025 Exam Type: CA echo doppler color flow Complete two-dimensional, color flow and Doppler transthoracic echocardiogram is performed. Staff Referring Physician: Nallely Kaye DO Cosmetology Teacher: Gladis Ayala Attending Provider: Day Villasenor MD Summary 1. Complete two-dimensional, color flow and Doppler transthoracic echocardiogram is performed. 2. There is normal biventricular size and systolic function. 3. Linear artifact in right ventricle suggestive of catheter(s), pacemaker lead(s), or ICD lead(s). 4. There are no significant valvular abnormalities in this study. Left Ventricle The left ventricle is normal in size and systolic function. The left ventricular ejection fraction is visually estimated to be 65-70%. There are no regional wall motion abnormalities. Right Ventricle The right ventricle is normal in size and systolic function. Linear artifact in right ventricle suggestive of catheter(s), pacemaker lead(s), or ICD lead(s). Left Atria The left atrium is normal size. Right Atria The right atrium is normal size. Atrial Septum The atrial septum is not well visualized. Aortic Valve There is no aortic stenosis. There is no aortic regurgitation. Pulmonic Valve The pulmonic valve is not well visualized. Mitral Valve The mitral valve is normal. There is no mitral regurgitation. Tricuspid Valve The tricuspid valve is normal. There is no tricuspid regurgitation. Pericardium/Pleural Pericardium is normal in appearance with no evidence for significant pericardial effusion. Inferior Vena Cava Normal inferior vena cava with >50% collapse upon inspiration consistent with normal right atrial pressure, 3 mmHg. Aorta The aortic root is not well visualized. Left Ventricular Outflow Tract Name Value Normal LVOT 2D LVOT Diameter 2.0 cm LVOT Doppler LVOT Peak Velocity 115 cm/s LVOT Peak Gradient 5 mmHg LVOT Mean Gradient 3 mmHg LVOT VTI 21 cm LVOT VTI/AV VTI Ratio 0.8 LVOT Stroke Volume 69 ml LVOT CO 5.9 l/min LVOT CI 2.5 l/min/m2 Pulmonic Valve Name Value Normal RVOT Doppler RVOT Peak Velocity 71 cm/s RVOT Peak Gradient 2 mmHg PV Doppler PV Peak Velocity 102 cm/s PV Peak Gradient 4 mmHg Mitral Valve Name Value Normal MV Diastolic Function MV E Peak Velocity 80 cm/s MV A Peak Velocity 55 cm/s MV E/A 1.4 MV Decel Time (PW) 187 ms MV Annular TDI MV E/e' (Septal) 12.8 MV E/e' (Lateral) 10.5 MV E/e' (Average) 11.6 Tricuspid Valve Name Value Normal Estimated PAP/RSVP RA Pressure 3 mmHg <=5 TV Annular TDI TV Lateral Paty s' Velocity 17.8 cm/s >=9.5 Aortic Valve Name Value Normal AV Doppler AV Peak Velocity 148 cm/s AV Peak Gradient 9 mmHg AV Mean Gradient 5 mmHg AV VTI 26 cm AV Area (Cont Eq VTI) 2.6 cm2 >=3.0 AV Area (Cont Eq [place]) 2.5 cm2 AV DI ([place]) 0.78 AV Regurgitation 2D LVOT Area 3.3 cm2 Ventricles Name Value Normal LV Dimensions 2D/MM IVS Diastolic Thickness (2D) 0.8 cm 0.6-1.0 LVID Diastole (2D) 5.3 cm 4.2-5.8 LVIW Diastolic Thickness (2D) 0.9 cm 0.6-1.0 LVID Systole (2D) 3.2 cm 2.5-4.0 LVOT Diameter 2.0 cm LV Mass (2D Cubed) 165.07 g 88.00-224.00 LV Mass Index (2D Cubed) 69 g/m2 49-115 Relative Wall Thickness (2D) 0.35 <=0.42 LV Fractional Shortening/Ejection Fraction 2D/MM LV Fractional Shortening (2D) 40 % 25-43 LV EF (2D Teichholz) 70 % LV Diastolic Volume (4C MOD) 70 ml LV EF (4C MOD) 75 % LV Diastolic Volume (2C MOD) 63 ml LV EF (2C MOD) 65 % LV Diastolic Volume (BP MOD) 69 ml 62-150 LV Diastolic Volume Index (BP MOD) 29 ml/m2 34-74 LV Systolic Volume (BP MOD) 20 ml 21-61 LV Systolic Volume Index (BP MOD) 8 ml/m2 11-31 LV EF (BP MOD) 71 % 52-72 LV Diastolic Length (4C) 8.1 cm LV Systolic Length (4C) 6.7 cm LV Stroke Volume (4C MOD) 53 ml Atria Name Value Normal LA Dimensions LA Volume (4C A-L) 60 ml LA Volume (BP A-L) 69 ml RA Dimensions RA Area (4C) 10.8 cm2 <=18.0 Report Signatures
[2025-03-19] MEDS: PIPERACILLIN/TAZOBACTAM SOD 2.25 GM in SODIUM CHLORIDE 0.9% IV 50 ML 100 ML IVPB ×4 (00:59→16:59)
[2025-03-19] MEDS: MAGNESIUM SULF 4 GM/WATER100ML 4 GM/100 ML BAG IVPB (00:59)
[2025-03-19 04:26] LABS: Hematocrit 39.7 % (42.0-52.0); Hemoglobin 13.4 g/dL (14.0-18.0); Immature Granulocyte Percent A 0.2 % (0-0.5); Lymphocytes Absolute Auto 0.71 K/mm3 (0.9-3.2); Mean Corpuscular HGB Conc 33.8 g/dl (32-36); Mean Corpuscular Hemoglobin 30.8 pg (26-34); Mean Corpuscular Volume 91.3 fl (80-100); Nucleated Red Blood Cells Absolute Auto 0.000 K/mm3 (0.0-0.012); Nucleated Red Blood Cells Perc 0.0 % (0.0-0.2); Platelet Count Result 103 k/mm3 (150-375); Red Blood Count 4.35 M/mm3 (4.6-6.20); White Blood Count 4.1 K/mm3 (4.5-10.0)
[2025-03-19 04:49] LABS: Alanine Aminotransferase 126 U/L (6-50); Albumin Level 3.8 g/dL (3.5-5.1); Alkaline Phosphatase 69 U/L (38-126); Anion Gap 7 mmol/L (4-12); Aspartate Amino Transferase 248 U/L (17-59); Bilirubin,Total 1.2 mg/dL (0.2-1.3); Blood Urea Nitrogen 35 mg/dL (9-20); Calcium 8.0 mg/dL (8.4-10.2); Carbon Dioxide 28 mmol/L (22-30); Chloride 98 mmol/L (98-107); Estimated CRCL calculation 35 ml/min; Estimated Glomerular Filt Rate 31; Glucose 180 mg/dL (65-110); Potassium 3.8 mmol/L (3.4-5.0); Sodium 133 mmol/L (137-145); Total Protein 6.5 g/dL (6.3-8.2)
[2025-03-19] MEDS: SODIUM BICARBONATE 8.4% 150 MEQ in DEXTROSE 5% 1,000 ML 950 ML IV CONT (04:50)
[2025-03-19 04:55] LABS: Troponin I 0.915 ng/mL (0.000-0.034)
--- NOTE | 2025-03-19 06:27 | PC.NURSE ---
B/P taken R arm 157/83 and L arm 165/73 pt c/o pain hospitalist notified orders given
[2025-03-19] MEDS: ACETAMINOPHEN 325 MG TABLET 650 MG PO (06:40)
[2025-03-19 08:23] LABS: Troponin I 0.685 ng/mL (0.000-0.034)
--- NOTE | 2025-03-19 08:49 | P.CONNP_ITS ---
Assessment and Plan Assessment and plan (1) Acute renal failure: Qualifiers: Acute renal failure type: unspecified Qualified Code(s): N17.9 - Acute kidney failure, unspecified Code(s): N17.9 - Acute kidney failure, unspecified Status: Acute Assessment and Plan: the patient Has acute kidney injury. Etiology likely related to his hypotension. The hypotension led to elevated creatinine which led to retention of metformin and lactic acidosis. He received fluids overnight which helped his blood pressure now everything else is better. In addition he had positive troponins. Cardiology is being consulted to evaluate this. Some heart issue may have contributed to the hypotension as well , or vice versa. The patient had a CT scan which showed that his kidneys looked okay without hydro. At this point he is getting much better just with the fluids. Will continue IV fluids . He is getting a bicarb drip which can change to isotonic saline. Metabolic acidosis was severe probably due to the metformin and lactic acidosis. Now the lactic acid is completely metabolized such that bicarbonate and anion gap is back to normal. Metformin is on hold. he has a history of hypotension in the past apparently by his history. Will check a cortisol level and TSH (2) Acidosis, lactic: Code(s): E87.20 - Acidosis, unspecified Status: Acute Assessment and Plan: most likely due to the metformin (3) Acute hypotension: Code(s): I95.9 - Hypotension, unspecified Status: Acute Assessment and Plan: possibly due to his GI process, possibly poor intake and dehydration. This is improved with fluids. (4) Elevated troponin: Code(s): R79.89 - Other specified abnormal findings of blood chemistry Status: Acute Assessment and Plan: Cardiology is being consulted (5) Benign essential hypertension: Code(s): I10 - Essential (primary) hypertension Status: Acute Assessment and Plan: his blood pressure is back up now. May need to fold in his home meds. (6) Pre-diabetes: Onset Date: ~2017 Code(s): R73.03 - Prediabetes Status: Acute Assessment and Plan: Management per hospitalists History of Present Illness Reason for Consult Consult date: 03/19/25 Chief Complaint Chief complaint: Sepsis due to unknown source, Renal failure History of Present Illness Narrative: Mr. Viveros is a very pleasant 74-year-old gentleman who has multiple medical problems including vitamin-D deficiency pre diabetes orthostatic hypotension hyperlipidemia degenerative joint disease diastolic dysfunction pacemaker hypertension. The patient came in the hospital with weakness. He had been having some belly pain as well as some nausea plus vomiting. His stools have been loose as well. This has helped been going on for about 4 days. He was found to have Low blood pressure with a systolic in the 80s. his creatinine was elevated in a he had severe acidosis. He was given IV fluids, IV bicarb, his metformin was held and his blood pressure meds were held. CT of the chest abdomen pelvis showed no pulmonary issues, cardiomegaly, fatty liver, and some atherosclerotic changes of the abdominal aorta celiac and superior mesenteric arteries. kidneys looked okay. His blood pressure, creatinine, and bicarbonate level have all improved with the fluids. He says that he has episodes of hypotension which have occurred in the past. It is unclear what has caused these. Although looking back in the records to 2018 is blood pressure is have not had a low reading recorded before this admission. Although admittedly, his blood pressure was in the 80s according to the ER note but there is no notation in the vital signs. Possibly happened in the field. Review of Systems 2 Constitutional: Constitutional: Reports no additional constitutional complaints Eyes: Eyes: Reports no additional eye complaints ENT: Reports system reviewed and no additional complaints, except as documented Cardiovascular: Cardiovascular: Reports no additional cardiovascular complaints Respiratory: Respiratory: Reports no additional respiratory complaints Gastrointestinal: Gastrointestinal: Reports no additional gastrointestinal complaints Genitourinary: Genitourinary: Reports no additional male genitourinary complaints Musculoskeletal: Musculoskeletal: Reports no additional musculoskeletal complaints Integumentary/Breasts: Skin/Breast: Reports system reviewed and no additional complaints, except as docu Neurologic: Reports system reviewed and no additional complaints, except as documented Psychiatric: Psychiatric: Reports no additional psychiatric complaints Endocrine: Endocrine: Reports no additional endocrine complaints [facility] Past Medical History Medical History Hypertriglyceridemia Mixed hyperlipidemia B12 deficiency B12 was low all 03/12/2025 Spinal stenosis, lumbar region with neurogenic claudication Lumbosacral radiculopathy Lumbosacral spondylosis without myelopathy Seasonal allergies Diastolic dysfunction Echocardiogram 03/2021: Grade 1 diastolic dysfunction EF 75%, mild concentric left ventricular hypertrophy Orthostatic hypotension Ulnar neuropathy at elbow of right upper extremity Cervical stenosis of spine CTS (carpal tunnel syndrome) Vision changes DJD (degenerative joint disease) PAT (paroxysmal atrial tachycardia) Memory impairment Madelung's disease Multiple lipomas Hypersomnia CAD (coronary artery disease) very high coronary calcium score, negative stress test 02/2020, no angina High degree atrioventricular block Follows with Dr. Hilliard Vitamin D deficiency Hearing loss Gout BPH (benign prostatic hyperplasia) Benign essential hypertension Pre-diabetes (~2018) Hemoglobin A1c 5.8% 03/12/2025 Surgical History Surgical History History of repair of rotator cuff History of ventral hernia repair H/O left inguinal hernia repair History of arthroscopy of both knees Multiple History of esophagogastroduodenoscopy (EGD) (12/2023) Gastritis History of colonoscopy (06/2021) Multiple medium-sized uncomplicated hemorrhoids in the rectum. Repeat screening colonoscopy recommended in 10 years S/P cardiac pacemaker procedure 05/09/2021 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 Family History Family History Sibling Family history of diabetes mellitus in first degree relative Mother Family history of malignant neoplasm Lung cancer Other Family history of cardiovascular disease Social History Social History Social History: He lives at home with his . They got in 1999. He raised 3 sons. He is retired from the oil [employer]. He used to smoke 1 pack of cigarettes per day for about 25-30 years but quit in the . He drinks about a 12 pack of beer over the course of 2 weeks. He uses marijuana. He stated that he experimented with other illicit drugs when he was quite young. Code status: Full code Surrogate decision maker: Kota () Smoking packs per day: 1 Smoking cigarettes per day: 20.0 Years smoked: 25 Smoking pack-years: 25.00 Smoking status: Former smoker Tobacco type: cigarettes Smokeless tobacco user: other Second hand tobacco smoke exposure: No Smoking end date: 05/14/95 Alcohol intake: current Drinks per week: 5 Substance use: current Substance use type: marijuana Last use: 03/11/2025 Lack of Transportation: No Lack of Food: Never True Current Housing: I Have Housing Concerned About Future Housing: No Difficulty Paying Gas/Electric Bills: No Difficulty Paying for Meds: No Currently Unemployed: No Education: High School Diploma/GED Difficulty w/ Childcare or Family Care: No Living arrangements: with family Gender identity (if verbalized by the patient): Male Spiritual care concerns: No Meds Home Medications and Allergies Home Medications ?Medication ?Instructions ?Recorded ?Confirmed ?Type aspirin 81 mg tablet,delayed 81 mg PO DAILY 04/17/19 1 05/19/24 History release (Adult Low Dose Aspirin) magnesium oxide 400 mg PO DAILY 02/22/24 History metoprolol tartrate 25 mg tablet 25 mg PO BID 02/22/24 03/18/25 History metformin 500 mg tablet See Rx Instructions .Route 0 09/13/24 03/18/25 Rx .COMPLEX #180 tabs atorvastatin 80 mg tablet See Rx Instructions .Route 0 10/20/24 03/18/25 Rx .COMPLEX #90 tabs omeprazole 20 mg capsule,delayed See Rx Instructions . Route 12/08/24 03/18/25 Rx release .COMPLEX #90 caps allopurinol 300 mg tablet See Rx Instructions .Route 0 12/13/24 03/18/25 Rx .COMPLEX #90 tabs ezetimibe 10 mg tablet See Rx Instructions .Route 0 12/13/24 03/18/25 Rx .COMPLEX #90 tabs indomethacin 50 mg capsule 50 mg PO TID PRN gout #20 c aps 03/06/25 03/18/25 Rx tamsulosin 0.4 mg capsule See Rx Instructions .Route 1 05/13/24 03/18/25 Rx .COMPLEX #90 caps cyanocobalamin (vitamin B-12) 100 mcg (0.1 mL) subcut MONTHLY 03/13/25 03/18/25 Rx 1,000 mcg/mL injection solution #10 mL folic acid 1 mg tablet 1 mg PO DAILY 03/13/2503/18 History valsartan 160 mg capsule 160 mg PO DAILY 03/18/25 History Allergies Allergy/AdvReac Type Severity Reaction Status Date / Time No Known Allergies Allergy Verified 03/18/25 21:37 Vital Signs Vital Signs - 24 hr 03/18/25 14:41 03/18/25 15:42 03/18/25 17:32 Temperature 95.1 F L 97.4 F L 97.5 F L Pulse Rate 95 107 H 112 H Respiratory Rate 19 20 18 Blood Pressure 100/46 L 104/37 L 140/58 L Pulse Oximetry 100 98 99 Oxygen Delivery Room Air 03/18/25 19:15 03/18/25 21:18 03/18/25 21:49 Temperature 98.5 F 98.2 F Pulse Rate 109 H 104 H 102 H Respiratory Rate 16 18 Blood Pressure 107/54 L 133/69 Pulse Oximetry 98 96 Oxygen Delivery 03/18/25 22:00 03/18/25 23:22 03/19/25 00:00 Temperature 98.6 F Pulse Rate 101 H 99 99 Respiratory Rate 18 18 Blood Pressure 129/54 L Pulse Oximetry 98 98 Oxygen Delivery Room Air 03/19/25 00:00 03/19/25 02:00 03/19/25 04:00 Temperature Pulse Rate 99 93 99 Respiratory Rate 18 Blood Pressure Pulse Oximetry 98 Oxygen Delivery Room Air 03/19/25 04:00 03/19/25 04:26 03/19/25 06:00 Temperature 98.3 F Pulse Rate 94 90 90 Respiratory Rate 16 Blood Pressure 196/81 H Pulse Oximetry 98 Oxygen Delivery 03/19/25 08:00 Temperature 98.4 F Pulse Rate 83 Respiratory Rate 18 Blood Pressure 160/75 H Pulse Oximetry 99 Oxygen Delivery Exam 2 Narrative: Exam Narrative: Well developed well-nourished male in no acute distress Skin is warm and dry without rash Head normocephalic atraumatic Eyes normal sclerae and conjunctivae Mouth normal lips teeth and gums Neck no nodes no thyromegaly no carotid bruits Axillae no nodes Back no CVA tenderness Lungs symmetric and clear to auscultation and percussion Heart regular rate and rhythm without rub or gallop Abdomen bowel sounds positive soft nontender, no HSM, masses, or bruits. Extremities no cyanosis, clubbing, or edema Pulses 2+ equal in radial arteries Psychological not anxious or depressed Neuro alert and oriented x3 motor 5/5 cranial nerves 2-12 intact reflexes 2+ and equal in the biceps and patellar tendons cerebellar normal rapid alternating movements Results Lab Results 03/19/25 03:55 03/19/25 03:55 Lab results: Most recent lab results Calcium 8.0 mg/dL (8.4-10.2) L 03/19/25 03:55 Phosphorus 9.4 mg/dL (2.5-4.5) H 03/18/25 18:43 Magnesium 1.4 mg/dL (1.6-2.3) L 03/18/25 18:43 Urine Creatinine 85.0 mg/dL 03/18/25 21:52 Urine Creatinine 86.8 mg/dL 03/18/25 21:52
--- NOTE | 2025-03-19 09:06 | WPDGICN ---
Assessment and Plan Assessment and plan (1) Fatty liver: Code(s): K76.0 - Fatty (change of) liver, not elsewhere classified Status: Acute (2) Transaminitis: Code(s): R74.01 - Elevation of levels of liver transaminase levels Status: Acute (3) RUQ pain: Code(s): R10.11 - Right upper quadrant pain Status: Acute (4) Lower abdominal pain: Code(s): R10.30 - Lower abdominal pain, unspecified Status: Acute Plan 1. Elevated liver transaminase/abdominal pain: Other than hepatic steatosis noted on prior imaging the patient denies any prior history of liver disease or elevated LFTs except a 1 time elevation his bilirubin at 1.5 on March 12. Labs today show total bilirubin 1.2, AST 248, ALT 126, alkaline phosphatase 69, albumin 3.8. Hepatitis panel was negative except positive hepatitis B antibody without signs of active hepatitis B infection. CT on admission showed fatty liver and severe atherosclerotic changes of abdominal aorta including proximal celiac access and superior mesenteric artery, emphysematous lungs and cardiomegaly with thickened multi-vessel coronary artery calcifications. Ultrasound done today showed fatty infiltration of the liver but was otherwise normal. No gallbladder wall thickening, tremayne cholecystic fluid, or stones. Common bile duct measuring 7 mm. I believe that the thought initially for cholecystitis was based on assessment findings as he was previously having right upper quadrant pain with palpation but this has resolved. Patient states that when he 1st presented to the emergency room his blood pressure was 70-80s over 30s but lowest documented blood pressure was 100/46. Labs also showed acute BUN and creatinine elevation with no prior history of kidney disease and elevated troponins, ischemic event?. Other than having looser stools than normal he is currently asymptomatic from a GI standpoint Based on imaging, clinical presentation and hepatocellular picture with LFTs, presentation is more consistent with an ischemic event secondary to hypotension. No indication for endoscopic intervention at this time Continue to trend LFTs monitor BP Thank you very much for allowing me to share in the care of this very nice patient. This report may have been done utilizing a voice recognition system. Attempts have been made to correct errors. However, there may be uncorrected grammatical, spelling, and recognition errors present. GI Consult Note Consult date/time: 03/19/25 09:06 Reason for consult: Elevated LFT's HPI: Gokul Viveros is a 74 year old male with PMSH of HTN, HLD, Ca, BPH, diastolic dysfunction, ventral hernia repair, left inguinal hernia repair, gout, memory impairment, and pacemaker. Patient presented to the emergency room 03/18/2025 with complaints of nausea, vomiting, abdominal pain and weakness. GI has been consulted for elevated LFTs. Patient was accompanied by his uncle Wilber at his bedside throughout the entire visit and his aunt Ellie on the phone. Patient states that prior to admission he was having mid lower abdominal pain between his pelvis and umbilicus that he describes as an intermittent spasming that lasted for a few hours but has not reoccurred. He denies any abdominal pain since admission. Prior to admission he was having nausea and vomiting but denies any since admission. He denies any odynophagia, dysphagia, reflux, regurgitation, early satiety, appetite loss or unexplained weight loss. He states that he typically has daily bowel movements that are formed non urgent but his BMs have been more loose this admission. He denies any diarrhea, constipation, hematochezia, or melena. At home patient was taking aspirin 81 mg daily but denies any other NSAID or anticoagulant use. He is a social drinker, uses marijuana occasionally but denies any tobacco use. Family history negative for GI cancer or IBD. ENDOSCOPY HISTORY: EGD: 01/25/[address] Jay for anemia and heme-positive stools Findings: The esophagus was examined mucosa was normal with a normal Z-line and no ulcers or masses. No esophagitis. The Z-line was located 43 cm from the incisors Mild gastritis was seen in the stomach. The gastritis had erythematous and edematous changes. Multiple biopsies were taken The bulb and 2nd portion of duodenum was normal no ulcers or masses. No AVM Bx results: A. Stomach, biopsies: - Severe chronic gastritis with extensive intestinal metaplasia - Immunoperoxidase stain with positive control for Helicobacter is negative. B. Ascending colon polyp, polypectomy: - Polypoid piece of benign colonic mucosa with mild crypt distortion and Peyer's patch (pseudopolyp) - No evidence of adenomatous change. COLONOSCOPY: 01/25/[address] Jay for anemia and heme-positive stools Findings: A few small diverticula were present the sigmoid colon. The diverticula were not actively bleeding There was a single 2 mm polyp observed in the ascending colon. Cold forceps polypectomy was performed and polyp was completely excised The terminal ileum and the colon was examined was normal otherwise, no colitis, no AVM A few small size internal hemorrhoids were seen in the rectum that were not actively bleeding Five year repeat recommended Bx results: [ ] LABS AND STOOL STUDIES: Labs 03/19/2025: Sodium 133, potassium 3.8, BUN 35, creatinine 2.11, GFR 31, calcium 8.0, lactic acid 11.8 WBC 4, Hgb 13, Hct 40, MCV 91, platelets 103 Total bilirubin 1.2, AST 248, ALT 126, Alkaline Phos 69, albumin 3.8 TSH 7.010, T4 1.05, T3 0.95 Labs 03/18/2025: Sodium 137, potassium 5.0, BUN 32, creatinine 3.64, GFR 16, calcium 8.7, lactic acid 19.2, magnesium 1.4 WBC 10, Hgb 12, Hct 39, MCV 100, platelets 109, INR 1.1 Total bilirubin 1.1, AST 131, ALT 83, Alkaline Phos 55, albumin 4.0, CRP < 0.5, 6 total CK 202 Triglyceride 166, acetaminophen level < 10 hepatitis panel negative except positive hepatitis-B antibody, influenza A and B negative IMAGING: RUQ ultrasound 03/19/2025: FINDINGS: The pancreas is normal without focal mass or pancreatic ductal dilation. Liver echotexture is increased, consistent with fatty infiltration. There is normal directional flow in the portal vein. The gallbladder is normal without stones, gallbladder wall thickening or pericholecystic fluid. Common bile duct measures 7 mm. No sonographic Riggins's sign. IMPRESSION: 1: Fatty infiltration of the liver. CT chest/abd/pelvis w/contrast 03/18/2025: FINDINGS: No focal lesions of acute nature involving lungs. Pacemaker device is noted in place. Significant multivessel coronary artery calcifications. No pleural or pericardial effusion. Below the diaphragm, fatty liver. The gallbladder is contracted in size. Pancreas and kidneys do not show acute findings. Severe atherosclerotic aorta. Calcific changes at the origin of celiac axis and superior mesenteric artery. IMPRESSION: 1. No acute pulmonary findings. Emphysematous lungs. 2. Cardiomegaly with thickened multivessel coronary artery calcifications. 3. Fatty liver. Severe atherosclerotic changes of abdominal aorta including proximal celiac axis and superior mesenteric artery. Chest Xray 03/18/2025: IMPRESSION: 1. No acute pulmonary findings. CT abd/pelvis wo/w contrast 10/30/2024: IMPRESSION: 1. Small right renal cyst. Otherwise normal kidneys and ureters with no urolithiasis. 2. Mild mucosal irregularity along the inferior bladder along side the mildly enlarged prostate. Given the otherwise unexplained hematuria would consider cystoscopy for further evaluation. Review of Systems Constitutional: Constitutional: Reports as per HPI ENT: Reports as per HPI Cardiovascular: Cardiovascular: Reports as per HPI, Denies chest pain and Denies dyspnea Respiratory: Respiratory: Denies cough and Denies dyspnea Gastrointestinal: Gastrointestinal: Reports as per HPI Musculoskeletal: Musculoskeletal: Reports as per HPI Integumentary/Breasts: Skin/Breast: Reports as per HPI Psychiatric: Psychiatric: Reports as per HPI Endocrine: Endocrine: Reports no additional endocrine complaints Hematologic/Lymphatic: Hematologic/Lymphatic: Reports no additional hematologic/lymphatic complaints [facility] Past Medical History Medical History Hypertriglyceridemia B12 deficiency B12 was low all 03/12/2025 Mixed hyperlipidemia PAT (paroxysmal atrial tachycardia) Madelung's disease Multiple lipomas High degree atrioventricular block Follows with Dr. 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 Seasonal allergies Diastolic dysfunction Echocardiogram 03/2021: Grade 1 diastolic dysfunction EF 75%, mild concentric left ventricular hypertrophy Orthostatic hypotension CTS (carpal tunnel syndrome) Vision changes DJD (degenerative joint disease) Memory impairment Hypersomnia Vitamin D deficiency Hearing loss Gout BPH (benign prostatic hyperplasia) Benign essential hypertension Pre-diabetes (~2018) Hemoglobin A1c 5.8% 03/12/2025 Surgical History Surgical History History of repair of rotator cuff History of ventral hernia repair H/O left inguinal hernia repair History of arthroscopy of both knees Multiple History of esophagogastroduodenoscopy (EGD) (12/2023) Gastritis History of colonoscopy (06/2021) Multiple medium-sized uncomplicated hemorrhoids in the rectum. Repeat screening colonoscopy recommended in 10 years S/P cardiac pacemaker procedure 05/09/2021 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 Family History Family History Sibling Family history of diabetes mellitus in first degree relative Mother Family history of malignant neoplasm Lung cancer Other Family history of cardiovascular disease Social History Social History Social History: He lives at home with his . They got in 1999. He raised 3 sons. He is retired from the [employer]. He used to smoke 1 pack of cigarettes per day for about 25-30 years but quit in the . He drinks about a 12 pack of beer over the course of 2 weeks. He uses marijuana. He stated that he experimented with other illicit drugs when he was quite young. Code status: Full code Surrogate decision maker: Kota () Smoking packs per day: 1 Smoking cigarettes per day: 20.0 Years smoked: 25 Smoking pack-years: 25.00 Smoking status: Former smoker Tobacco type: cigarettes Smokeless tobacco user: other Second hand tobacco smoke exposure: No Smoking end date: 05/14/95 Alcohol intake: current Drinks per week: 5 Substance use: current Substance use type: marijuana Last use: 03/11/2025 Lack of Transportation: No Lack of Food: Never True Current Housing: I Have Housing Concerned About Future Housing: No Difficulty Paying Gas/Electric Bills: No Difficulty Paying for Meds: No Currently Unemployed: No Education: High School Diploma/GED Difficulty w/ Childcare or Family Care: No Living arrangements: with family Gender identity (if verbalized by the patient): Male Spiritual care concerns: No Meds Home Medications and Allergies Home Medications ?Medication ?Instructions ?Recorded ?Confirmed ?Type aspirin 81 mg tablet,delayed 81 mg PO DAILY 04/17/19 03/18/25 History release (Adult Low Dose Aspirin) magnesium oxide 400 mg PO DAILY 02/22/24 03/18/25 History metoprolol tartrate 25 mg tablet 25 mg PO BID 02/22/24 03/18/25 History metformin 500 mg tablet See Rx Instructions .Route 09/13/24 03/18/25 Rx .COMPLEX #180 tabs atorvastatin 80 mg tablet See Rx Instructions .Route 10/20/24 03/18/25 Rx .COMPLEX #90 tabs omeprazole 20 mg capsule,delayed See Rx Instructions .Route 12/08/24 03/18/25 Rx release .COMPLEX #90 caps allopurinol 300 mg tablet See Rx Instructions .Route 12/13/24 03/18/25 Rx .COMPLEX #90 tabs ezetimibe 10 mg tablet See Rx Instructions .Route 12/13/24 03/18/25 Rx .COMPLEX #90 tabs indomethacin 50 mg capsule 50 mg PO TID PRN gout #20 caps 03/06/25 03/18/25 Rx tamsulosin 0.4 mg capsule See Rx Instructions .Route 03/12/25 03/18/25 Rx .COMPLEX #90 caps cyanocobalamin (vitamin B-12) 100 mcg (0.1 mL) subcut MONTHLY 03/13/25 03/18/25 Rx 1,000 mcg/mL injection solution #10 mL folic acid 1 mg tablet 1 mg PO DAILY 03/13/25 03/18/25 History valsartan 160 mg capsule 160 mg PO DAILY 03/18/25 03/18/25 History Allergies Allergy/AdvReac Type Severity Reaction Status Date / Time No Known Allergies Allergy Verified 03/18/25 21:37 Vital Signs Vital Signs - 24 hr 03/18/25 14:41 03/18/25 15:42 03/18/25 17:32 Temperature 95.1 F L 97.4 F L 97.5 F L Pulse Rate 95 107 H 112 H Respiratory Rate 19 20 18 Blood Pressure 100/46 L 104/37 L 140/58 L Pulse Oximetry 100 98 99 Oxygen Delivery Room Air 03/18/25 19:15 03/18/25 21:18 03/18/25 21:49 Temperature 98.5 F 98.2 F Pulse Rate 109 H 104 H 102 H Respiratory Rate 16 18 Blood Pressure 107/54 L 133/69 Pulse Oximetry 98 96 Oxygen Delivery 03/18/25 22:00 03/18/25 23:22 03/19/25 00:00 Temperature 98.6 F Pulse Rate 101 H 99 99 Respiratory Rate 18 18 Blood Pressure 129/54 L Pulse Oximetry 98 98 Oxygen Delivery Room Air 03/19/25 00:00 03/19/25 02:00 03/19/25 04:00 Temperature Pulse Rate 99 93 99 Respiratory Rate 18 Blood Pressure Pulse Oximetry 98 Oxygen Delivery Room Air 03/19/25 04:00 03/19/25 04:26 03/19/25 06:00 Temperature 98.3 F Pulse Rate 94 90 90 Respiratory Rate 16 Blood Pressure 196/81 H Pulse Oximetry 98 Oxygen Delivery 03/19/25 08:00 Temperature 98.4 F Pulse Rate 83 Respiratory Rate 18 Blood Pressure 160/75 H Pulse Oximetry 99 Oxygen Delivery Exam Const: General: cooperative, healthy appearing, comfortable, no acute distress and well developed Orientation/consciousness: oriented to person, oriented to place, oriented to time and patient oriented x3 HENMT: Head: normal to inspection, normocephalic and atraumatic Mouth: Yes Normal oral and palatal mucosa present and Yes moist mucous membranes Eyes: General: appearance normal, both eyes and all related structures Conjunctivae: conjunctivae normal Sclera: sclerae normal Pupils: Equal, round and reactive pupils present Neck: Neck: normal visual inspection Chest: Chest palpation & inspection: normal inspection of the chest Resp: Effort & Inspection: normal respiratory effort and able to speak in complete sentences Auscultation: clear to auscultation bilaterally Cardio: Jugular venous distension: no JVD Rate: regular rate Rhythm: regular rhythm Heart sounds: S1 normal heart sound present and S2 normal heart sound present GI: Inspection: normal to inspection GI Palp: Yes Soft to palpation and Yes No hepatosplenomegaly present Auscultation: normal bowel sounds Rectal Exam: deferred Skin: General skin exam: normal color and no rashes or lesions noted Neuro: General: oriented to person, oriented to place, oriented to time and patient oriented x3 Cranial nerves: Yes Equal, round and reactive pupils present Speech: normal speech Extrem: General: normal to inspection and no clubbing, cyanosis or edema Psych: Appearance: grossly normal and well kempt Affect: normal affect Results Labs 03/19/25 03:55 03/19/25 03:55 Labs: Short CBC 03/18/25 03/19/25 Range/Units 15:26 03:55 WBC 9.6 4.1 L (4.5-10.0) K/mm3 Hgb 12.2 L 13.4 L (14.0-18.0) g/dL Hct 38.8 L 39.7 L (42.0-52.0) % Plt Count 109 L 103 L (150-375) k/mm3 BMP 03/18/25 03/19/25 15:26 03:55 Sodium 137 133 L Potassium 5.0 3.8 Chloride 96 L 98 Carbon Dioxide < 5 L 28 BUN 32 H D 35 H Creatinine 3.64 H 2.11 H Glucose 70 180 H Calcium 8.7 8.0 L Cardiac Enzymes 03/18/25 03/18/25 03/19/25 Range/Units 15:26 18:43 03:55 Total Creatine Kinase 202 H 312 H (55-170) U/L Troponin I 0.107 H* 0.297 H* D 0.915 H* (0.000-0.034) ng/mL 03/19/25 Range/Units 07:50 Total Creatine Kinase (55-170) U/L Troponin I 0.685 H* D (0.000-0.034) ng/mL Liver Function 03/18/25 03/19/25 Range/Units 15:26 03:55 Total Bilirubin 1.1 1.2 (0.2-1.3) mg/dL AST 131 H 248 H (17-59) U/L ALT 83 H 126 H (6-50) U/L Alkaline Phosphatase 55 69 (38-126) U/L Albumin 4.0 3.8 (3.5-5.1) g/dL Urine 03/18/25 Range/Units 17:34 Urine Color Dark yellow (Yellow) Urine Appearance Cloudy H (Clear) Urine pH 5.0 (5.0-9.0) Ur Specific Ranger 1.014 (1.001-1.035) Urine Protein 1+ H (Negative) mg/dL Urine Glucose (UA) Negative (Negative) mg/dL
[2025-03-19] MEDS: SODIUM CHLORIDE 0.9% IV 1,000 ML 100 ML IV CONT ×2 (09:38→17:00)
[2025-03-19] MEDS: TAMSULOSIN HCL 0.4 MG CAPSULE PO (09:39)
[2025-03-19] MEDS: MAGNESIUM OXIDE 400 MG TABLET PO (09:39)
[2025-03-19] MEDS: FOLIC ACID 1 MG TABLET PO (09:40)
[2025-03-19] MEDS: PANTOPRAZOLE 40 MG TABLET PO (09:40)
[2025-03-19 10:15] LABS: Thyroid Stimulating Hormone Reflex 7.010 uIU/mL (0.465-4.68)
--- NOTE | 2025-03-19 10:34 | PM.IMHP2 ---
H&P: HPI History of Present Illness Date/Time: 03/19/25 10:34 Chief Complaint: Nausea and vomiting Narrative: 74 years old male with history of multiple medical problems and admitted the emergency room with complaints of having nausea vomiting fever and chills going on the last few days. Patient denies any chest pain or shortness of breath. Or EMS on arrival found patient to be of a hypertensive. Blood pressure ranging in the range of 70s systolic. Patient was given 1 L of IV fluid. And transferred to ER [facility] for further evaluation treatment. In the ER patient was still hypotensive. Workup was done and IV fluids were given. Workup showed patient has acute kidney injury and transaminitis. Along with high troponins. Patient was admitted in the hospital for further evaluation treatment. At present time patient is comfortable and feels much better. Patient nausea and vomiting has improved. Patient denies any abdominal pain. Patient denies any shortness of breath or chest pain. Patient labs are also better this morning. Review of Systems Review of Systems: All systems reviewed & are unremarkable except as noted in HPI and below (the history and physical examination.) [facility] Past Medical History Medical History Hypertriglyceridemia Mixed hyperlipidemia B12 deficiency B12 was low all 03/12/2025 Spinal stenosis, lumbar region with neurogenic claudication Lumbosacral radiculopathy Lumbosacral spondylosis without myelopathy Seasonal allergies Diastolic dysfunction Echocardiogram 03/2021: Grade 1 diastolic dysfunction EF 75%, mild concentric left ventricular hypertrophy Orthostatic hypotension Ulnar neuropathy at elbow of right upper extremity Cervical stenosis of spine CTS (carpal tunnel syndrome) Vision changes DJD (degenerative joint disease) PAT (paroxysmal atrial tachycardia) Memory impairment Madelung's disease Multiple lipomas Hypersomnia CAD (coronary artery disease) very high coronary calcium score, negative stress test 02/2020, no angina High degree atrioventricular block Follows with Dr. Hilliard Vitamin D deficiency Hearing loss Gout BPH (benign prostatic hyperplasia) Benign essential hypertension Pre-diabetes (~2018) Hemoglobin A1c 5.8% 03/12/2025 Surgical History Surgical History History of repair of rotator cuff History of ventral hernia repair H/O left inguinal hernia repair History of arthroscopy of both knees Multiple History of esophagogastroduodenoscopy (EGD) (12/2023) Gastritis History of colonoscopy (06/2021) Multiple medium-sized uncomplicated hemorrhoids in the rectum. Repeat screening colonoscopy recommended in 10 years S/P cardiac pacemaker procedure 05/09/2021 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 Family History Family History Sibling Family history of diabetes mellitus in first degree relative Mother Family history of malignant neoplasm Lung cancer Other Family history of cardiovascular disease Social History Social History Social History: He lives at home with his . They got in 1999. He raised 3 sons. He is retired from the [employer]. He used to smoke 1 pack of cigarettes per day for about 25-30 years but quit in the . He drinks about a 12 pack of beer over the course of 2 weeks. He uses marijuana. He stated that he experimented with other illicit drugs when he was quite young. Code status: Full code Surrogate decision maker: Kota () Smoking packs per day: 1 Smoking cigarettes per day: 20.0 Years smoked: 25 Smoking pack-years: 25.00 Smoking status: Former smoker Tobacco type: cigarettes Smokeless tobacco user: other Second hand tobacco smoke exposure: No Smoking end date: 05/14/95 Alcohol intake: current Drinks per week: 5 Substance use: current Substance use type: marijuana Last use: 03/11/2025 Lack of Transportation: No Lack of Food: Never True Current Housing: I Have Housing Concerned About Future Housing: No Difficulty Paying Gas/Electric Bills: No Difficulty Paying for Meds: No Currently Unemployed: No Education: High School Diploma/GED Difficulty w/ Childcare or Family Care: No Living arrangements: with family Gender identity (if verbalized by the patient): Male Spiritual care concerns: No Meds Home Medications and Allergies Home Medications ?Medication ?Instructions ?Recorded ?Confirmed ?Type aspirin 81 mg tablet,delayed 81 mg PO DAILY 04/17/19 03/18/25 History release (Adult Low Dose Aspirin) magnesium oxide 400 mg PO DAILY 02/22/24 03/18/25 History metoprolol tartrate 25 mg tablet 25 mg PO BID 02/22/24 03/18/25 History metformin 500 mg tablet See Rx Instructions .Route 09/13/24 03/18/25 Rx .COMPLEX #180 tabs atorvastatin 80 mg tablet See Rx Instructions .Route 10/20/24 03/18/25 Rx .COMPLEX #90 tabs omeprazole 20 mg capsule,delayed See Rx Instructions .Route 12/08/24 03/18/25 Rx release .COMPLEX #90 caps allopurinol 300 mg tablet See Rx Instructions .Route 12/13/24 03/18/25 Rx .COMPLEX #90 tabs ezetimibe 10 mg tablet See Rx Instructions .Route 12/13/24 03/18/25 Rx .COMPLEX #90 tabs indomethacin 50 mg capsule 50 mg PO TID PRN gout #20 caps 03/06/25 03/18/25 Rx tamsulosin 0.4 mg capsule See Rx Instructions .Route 03/12/25 03/18/25 Rx .COMPLEX #90 caps cyanocobalamin (vitamin B-12) 100 mcg (0.1 mL) subcut MONTHLY 03/13/25 03/18/25 Rx 1,000 mcg/mL injection solution #10 mL folic acid 1 mg tablet 1 mg PO DAILY 03/13/25 03/18/25 History valsartan 160 mg capsule 160 mg PO DAILY 03/18/25 03/18/25 History Allergies Allergy/AdvReac Type Severity Reaction Status Date / Time No Known Allergies Allergy Verified 03/18/25 21:37 Vital Signs Vital Signs - 24 hr 03/18/25 14:41 03/18/25 15:42 03/18/25 17:32 Temperature 35.1 C L 36.3 C L 36.4 C L Pulse Rate 95 107 H 112 H Respiratory Rate 19 20 18 Blood Pressure 100/46 L 104/37 L 140/58 L Pulse Oximetry 100 98 99 Oxygen Delivery Room Air 03/18/25 19:15 03/18/25 21:18 03/18/25 21:49 Temperature 36.9 C 36.8 C Pulse Rate 109 H 104 H 102 H Respiratory Rate 16 18 Blood Pressure 107/54 L 133/69 Pulse Oximetry 98 96 Oxygen Delivery 03/18/25 22:00 03/18/25 23:22 03/19/25 00:00 Temperature 37.0 C Pulse Rate 101 H 99 99 Respiratory Rate 18 18 Blood Pressure 129/54 L Pulse Oximetry 98 98 Oxygen Delivery Room Air 03/19/25 00:00 03/19/25 02:00 03/19/25 04:00 Temperature Pulse Rate 99 93 99 Respiratory Rate 18 Blood Pressure Pulse Oximetry 98 Oxygen Delivery Room Air 03/19/25 04:00 03/19/25 04:26 03/19/25 06:00 Temperature 36.8 C Pulse Rate 94 90 90 Respiratory Rate 16 Blood Pressure 196/81 H Pulse Oximetry 98 Oxygen Delivery 03/19/25 08:00 Temperature 36.9 C Pulse Rate 83 Respiratory Rate 18 Blood Pressure 160/75 H Pulse Oximetry 99 Oxygen Delivery Exam Narrative: Narrative: Weight 106.6 kg B VT 28.6 Const: Other: Well-deve loped, well-nouris hed, quite tall, a ppears stated age HENMT: Other: Mucous me mbranes are tacky, no oral pharyngea l erythema, crowde d posterior oropha rynx Eyes: Other: No sclera l icterus, no conj unctival pallor Neck: Other: No JVD, i rregular nontender soft tissue mass anterior neck in t he region of the t hyroid which the p atient relates is due to his her maryann dy Dieudonne disorder pain Resp: Other: Clear to auscultation bilat erally, no increas ed work of breathi ng Cardio: Other: Regular r ate, regular rhyth m, 2+ bilateral ra dial pedal pulses GI: Other: Distended , soft, positive b owel sounds, no or ganomegaly, positi ve Riggins sign the right upper quadr ant with only mild to moderate press ure, no tympany Skin: Other: No jaundi ce, no pallor Neuro: Other: Alert liza ented times 4, spe ech is clear but s low, no facial asy mmetry, slow but s table gait, no loc alizing neurologic deficits noted du ring the course of conversation Extrem: Other: No clubbi ng, cyanosis or ed franky Psych: Other: Anxious b ut otherwise pleas ant and cooperativ e, intact judgment and insight Results Labs Labs: Short CBC 03/18/25 03/19/25 Range/Units 15:26 03:55 WBC 9.6 4.1 L (4.5-10.0) K/mm3 Hgb 12.2 L 13.4 L (14.0-18.0) g/dL Hct 38.8 L 39.7 L (42.0-52.0) % Plt Count 109 L 103 L (150-375) k/mm3 BMP 03/18/25 03/19/25 15:26 03:55 Sodium 137 133 L Potassium 5.0 3.8 Chloride 96 L 98 Carbon Dioxide < 5 L 28 BUN 32 H D 35 H Creatinine 3.64 H 2.11 H Glucose 70 180 H Calcium 8.7 8.0 L Cardiac Enzymes 03/18/25 03/18/25 03/19/25 Range/Units 15:26 18:43 03:55 Total Creatine Kinase 202 H 312 H (55-170) U/L Troponin I 0.107 H* 0.297 H* D 0.915 H* (0.000-0.034) ng/mL 03/19/25 Range/Units 07:50 Total Creatine Kinase (55-170) U/L Troponin I 0.685 H* D (0.000-0.034) ng/mL Liver Function 03/18/25 03/19/25 Range/Units 15:26 03:55 Total Bilirubin 1.1 1.2 (0.2-1.3) mg/dL AST 131 H 248 H (17-59) U/L ALT 83 H 126 H (6-50) U/L Alkaline Phosphatase 55 69 (38-126) U/L Albumin 4.0 3.8 (3.5-5.1) g/dL Urine 03/18/25 Range/Units 17:34 Urine Color Dark yellow (Yellow) Urine Appearance Cloudy H (Clear) Urine pH 5.0 (5.0-9.0) Ur Specific [place] 1.014 (1.001-1.035) Urine Protein 1+ H (Negative) mg/dL Urine Glucose (UA) Negative (Negative) mg/dL Assessment and Plan Assessment and plan (1) Acute hypotension: Code(s): I95.9 - Hypotension, unspecified Status: Acute Assessment and Plan: Plan is to continue to monitor patient. Workup in progress. Culture sent. Patient is on IV antibiotics. (2) Type 2 myocardial infarction due to shock: Code(s): R57.9 - Shock, unspecified; I21.A1 - Myocardial infarction type 2 Status: Acute Assessment and Plan: Cardiology consult. Will continue to trend troponin. (3) Hyperlipidemia: Qualifiers: Hyperlipidemia type: mixed hyperlipidemia Qualified Code(s): E78.2 - Mixed hyperlipidemia Code(s): E78.5 - Hyperlipidemia, unspecified Status: Acute Assessment and Plan: Stable on current medications, continue current treatment. (4) Pre-diabetes: Onset Date: ~2017 Code(s): R73.03 - Prediabetes Status: Acute Assessment and Plan: Stable on current medication, continue current treatment. (5) Transaminitis: Code(s): R74.01 - Elevation of levels of liver transaminase levels Status: Acute Assessment and Plan: Possibly secondary to shock. Consult GI for evaluation. (6) Acute renal failure: Qualifiers: Acute renal failure type: unspecified Qualified Code(s): N17.9 - Acute kidney failure, unspecified Code(s): N17.9 - Acute kidney failure, unspecified Status: Acute Assessment and Plan: Will give IV fluids and monitor closely. Plan Plan is to admit patient as a full admission in the hospital. Patient is full code. DVT prophylaxis started
--- NOTE | 2025-03-19 11:49 | PM.CNCAR ---
Assessment and Plan Assessment and plan (1) Elevated troponin: Code(s): R79.89 - Other specified abnormal findings of blood chemistry Status: Acute Assessment and Plan: Troponin 0.107, 0.297, 0.915, 0.685. This likely represents type 2 PR in the setting of acute kidney injury and sepsis, hypotension. He does not have any chest pain and he has no acute ischemic EKG changes. We will check an echocardiogram to assess for any LV dysfunction or wall motion abnormalities. If echocardiogram is unremarkable not anticipate any further ischemic evaluation. Repeat troponin now to ensure that it continues to be downtrending. (2) Sepsis: Qualifiers: Acute renal failure type: unspecified Sepsis acute organ dysfunction status: with acute organ dysfunction Sepsis type: sepsis due to unspecified organism Severe sepsis acute organ dysfunction type: acute renal failure Severe sepsis shock status: without septic shock Qualified Code(s): A41.9 - Sepsis, unspecified organism; R65.20 - Severe sepsis without septic shock; N17.9 - Acute kidney failure, unspecified Code(s): A41.9 - Sepsis, unspecified organism Status: Acute Assessment and Plan: Management per hospitalist. (3) Acute hypotension: Code(s): I95.9 - Hypotension, unspecified Status: Acute Assessment and Plan: Resolved. (4) Pacemaker: Code(s): Z95.0 - Presence of cardiac pacemaker Status: Acute Assessment and Plan: Biotronik dual-chamber pacemaker in place. Appears to be functionally normally. History of Present Illness History of Present Illness Consult date/time: 03/19/25 11:49 Requesting physician: Donovan Eric MD Consult reason: Other (elevated troponin) Reason For Visit: Sepsis due to unknown source, Renal failure Narrative: Gokul Viveros is a 74-year-old male with coronary artery disease, intermittent complete heart block status post dual-chamber Biotronik pacemaker, low burden atrial fibrillation, hypertension, and hyperlipidemia. Cardiology is consulted for elevated troponin levels. This is a patient who presents to the hospital with a chief complaint of weakness. He was also experiencing abdominal pain, nausea, and vomiting. He denies having any chest pain. No chest pain prior to hospitl admission. He reports feeling much better today. Sitting comfortably in the chair at the time of my evaluation. Review of Systems Review of Systems: All systems reviewed & are unremarkable except as noted in HPI and below [facility] Past Medical History Medical History Hypertriglyceridemia B12 deficiency B12 was low all 03/12/2025 Mixed hyperlipidemia PAT (paroxysmal atrial tachycardia) Madelung's disease Multiple lipomas High degree atrioventricular block Follows with Dr. 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 Seasonal allergies Diastolic dysfunction Echocardiogram 03/2021: Grade 1 diastolic dysfunction EF 75%, mild concentric left ventricular hypertrophy Orthostatic hypotension CTS (carpal tunnel syndrome) Vision changes DJD (degenerative joint disease) Memory impairment Hypersomnia Vitamin D deficiency Hearing loss Gout BPH (benign prostatic hyperplasia) Benign essential hypertension Pre-diabetes (~2017) Hemoglobin A1c 5.8% 03/12/2025 Surgical History Surgical History History of repair of rotator cuff History of ventral hernia repair H/O left inguinal hernia repair History of arthroscopy of both knees Multiple History of esophagogastroduodenoscopy (EGD) (12/2023) Gastritis History of colonoscopy (06/2021) Multiple medium-sized uncomplicated hemorrhoids in the rectum. Repeat screening colonoscopy recommended in 10 years S/P cardiac pacemaker procedure 05/09/2021 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 Family History Family History Sibling Family history of diabetes mellitus in first degree relative Mother Family history of malignant neoplasm Lung cancer Other Family history of cardiovascular disease Social History Social History Social History: He lives at home with his . They got in 1999. He raised 3 sons. He is retired from the [employer]. He used to smoke 1 pack of cigarettes per day for about 25-30 years but quit in the . He drinks about a 12 pack of beer over the course of 2 weeks. He uses marijuana. He stated that he experimented with other illicit drugs when he was quite young. Code status: Full code Surrogate decision maker: Kota () Smoking packs per day: 1 Smoking cigarettes per day: 20.0 Years smoked: 25 Smoking pack-years: 25.00 Smoking status: Former smoker Tobacco type: cigarettes Smokeless tobacco user: other Second hand tobacco smoke exposure: No Smoking end date: 05/14/95 Alcohol intake: current Drinks per week: 5 Substance use: current Substance use type: marijuana Last use: 03/11/2025 Lack of Transportation: No Lack of Food: Never True Current Housing: I Have Housing Concerned About Future Housing: No Difficulty Paying Gas/Electric Bills: No Difficulty Paying for Meds: No Currently Unemployed: No Education: High School Diploma/GED Difficulty w/ Childcare or Family Care: No Living arrangements: with family Gender identity (if verbalized by the patient): Male Spiritual care concerns: No Meds Home Medications and Allergies Home Medications ?Medication ?Instructions ?Recorded ?Confirmed ?Type aspirin 81 mg tablet,delayed 81 mg PO DAILY 04/17/19 03/18/25 History release (Adult Low Dose Aspirin) magnesium oxide 400 mg PO DAILY 02/22/24 03/18/25 History metoprolol tartrate 25 mg tablet 25 mg PO BID 02/22/24 03/18/25 History metformin 500 mg tablet See Rx Instructions .Route 09/13/24 03/18/25 Rx .COMPLEX #180 tabs atorvastatin 80 mg tablet See Rx Instructions .Route 10/20/24 03/18/25 Rx .COMPLEX #90 tabs omeprazole 20 mg capsule,delayed See Rx Instructions .Route 12/08/24 03/18/25 Rx release .COMPLEX #90 caps allopurinol 300 mg tablet See Rx Instructions .Route 12/13/24 03/18/25 Rx .COMPLEX #90 tabs ezetimibe 10 mg tablet See Rx Instructions .Route 12/13/24 03/18/25 Rx .COMPLEX #90 tabs indomethacin 50 mg capsule 50 mg PO TID PRN gout #20 caps 03/06/25 03/18/25 Rx tamsulosin 0.4 mg capsule See Rx Instructions .Route 03/12/25 03/18/25 Rx .COMPLEX #90 caps cyanocobalamin (vitamin B-12) 100 mcg (0.1 mL) subcut MONTHLY 03/13/25 03/18/25 Rx 1,000 mcg/mL injection solution #10 mL folic acid 1 mg tablet 1 mg PO DAILY 03/13/25 03/18/25 History valsartan 160 mg capsule 160 mg PO DAILY 03/18/25 03/18/25 History Allergies Allergy/AdvReac Type Severity Reaction Status Date / Time No Known Allergies Allergy Verified 03/18/25 21:37 Vital Signs Vital Signs - 24 hr 03/18/25 14:41 03/18/25 15:42 03/18/25 17:32 Temperature 35.1 C L 36.3 C L 36.4 C L Pulse Rate 95 107 H 112 H Respiratory Rate 19 20 18 Blood Pressure 100/46 L 104/37 L 140/58 L Pulse Oximetry 100 98 99 Oxygen Delivery Room Air 03/18/25 19:15 03/18/25 21:18 03/18/25 21:49 Temperature 36.9 C 36.8 C Pulse Rate 109 H 104 H 102 H Respiratory Rate 16 18 Blood Pressure 107/54 L 133/69 Pulse Oximetry 98 96 Oxygen Delivery 03/18/25 22:00 03/18/25 23:22 03/19/25 00:00 Temperature 37.0 C Pulse Rate 101 H 99 99 Respiratory Rate 18 18 Blood Pressure 129/54 L Pulse Oximetry 98 98 Oxygen Delivery Room Air 03/19/25 00:00 03/19/25 02:00 03/19/25 04:00 Temperature Pulse Rate 99 93 99 Respiratory Rate 18 Blood Pressure Pulse Oximetry 98 Oxygen Delivery Room Air 03/19/25 04:00 03/19/25 04:26 03/19/25 06:00 Temperature 36.8 C Pulse Rate 94 90 90 Respiratory Rate 16 Blood Pressure 196/81 H Pulse Oximetry 98 Oxygen Delivery 03/19/25 08:00 03/19/25 10:00 Temperature 36.9 C Pulse Rate 83 95 Respiratory Rate 18 Blood Pressure 160/75 H Pulse Oximetry 99 Oxygen Delivery Exam Const: General: comfortable, no acute distress, alert and awake Orientation/consciousness: patient oriented x3 HENMT: Head: normal to inspection Eyes: General: appearance normal, both eyes and all related structures Pupils: Equal, round and reactive pupils present Neck: Neck: normal visual inspection, supple and no JVD Carotids: normal carotid upstroke Resp: Effort & Inspection: normal respiratory effort Auscultation: clear to auscultation bilaterally Cardio: Rate: regular rate Rhythm: regular rhythm Heart sounds: S1 normal heart sound present, S2 normal heart sound present and no murmurs GI: Auscultation: normal bowel sounds Skin: General skin exam: normal color Neuro: General: patient oriented x3 Cranial nerves: Yes Equal, round and reactive pupils present Extrem: General: normal to inspection Psych: Appearance: grossly normal Mental Status: mental status grossly normal Results Labs and Meds 03/19/25 03:55 03/19/25 03:55 Lab results: Cardiac Enzymes 03/18/25 03/18/25 03/19/25 Range/Units 15:26 18:43 03:55 AST 131 H 248 H (17-59) U/L Troponin I 0.107 H* 0.297 H* D 0.915 H* (0.000-0.034) ng/mL 03/19/25 Range/Units 07:50 AST (17-59) U/L Troponin I 0.685 H* D (0.000-0.034) ng/mL Coagulation 03/18/25 Range/Units 15:26 PT 13.9 (11.1-14.7) Seconds APTT 24.1 (22.3-36.8) Seconds CBC 03/18/25 03/19/25 Range/Units 15:26 03:55 WBC 9.6 4.1 L (4.5-10.0) K/mm3 RBC 3.90 L 4.35 L (4.6-6.20) M/mm3 Hgb 12.2 L 13.4 L (14.0-18.0) g/dL Hct 38.8 L 39.7 L (42.0-52.0) % Plt Count 109 L 103 L (150-375) k/mm3 Lymph # (Auto) 0.90 0.71 L (0.9-3.2) K/mm3 [place] # (Auto) 0.6 0.4 (0.1-0.6) K/mm3 Eos # (Auto) 0.0 0.0 (0-0.3) K/mm3 Baso # (Auto) 0.0 0.0 (0.0-0.1) K/mm3 Comprehensive Metabolic Panel 03/18/25 03/19/25 Range/Units 15:26 03:55 Sodium 137 133 L (137-145) mmol/L Potassium 5.0 3.8 (3.4-5.0) mmol/L Chloride 96 L 98 (98-107) mmol/L Carbon Dioxide < 5 L 28 (22-30) mmol/L BUN 32 H D 35 H (9-20) mg/dL Creatinine 3.64 H 2.11 H (0.7-1.3) mg/dL Glucose 70 180 H (65-110) mg/dL Calcium 8.7 8.0 L (8.4-10.2) mg/dL AST 131 H 248 H (17-59) U/L ALT 83 H 126 H (6-50) U/L Alkaline Phosphatase 55 69 (38-126) U/L Total Protein 6.6 6.5 (6.3-8.2) g/dL Albumin 4.0 3.8 (3.5-5.1) g/dL Intake and Output 03/18/25 03/19/25 03/19/25 23:59 07:59 15:59 Intake Total 2600 1600 722.5 Output Total 500 1000 Balance 2100 600 722.5 Intake: IV 2600 1300 722.5 Sodium Bicarbonate 8.4% 150 meq 1100 722.5 In Dextrose 5% 1,000 ml 950 ml @ 150 mls/hr IV CONT .Q7H20M [facility] Rx#:[id number] Sodium Chloride 0.9% IV 1,000 2000 ml @ 999 mls/hr IV CONT .Q1H1M [facility] Rx#:[id number] Magnesium Sulf 4 gm/[id number] 100 4 gm In 100 ml @ 25 mls/hr IVPB ONCE ONE Rx#:[id number] Piperacillin/Tazobactam Sod 2. 100 25 gm In Sodium Chloride 0.9% IV 50 ml @ 100 mls/hr IVPB Q6HR [facility] Rx#:[id number] Piperacillin/Tazobactam Sod 4.5 100 gm In Sodium Chloride 0.9% IV 100 ml @ 200 mls/hr IVPB ONCE STA Rx#:[id number] Vancomycin 1,750 mg/Ns 500 ml 1 500 ,750 mg In 500 ml @ 250 mls/hr IVPB ONCE ONE Rx#:[id number] Oral 300 Output: Urine 500 1000 Patient Weight 03/19/25 23:59 Weight 106.6 kg
[2025-03-19 11:52] LABS: Free T4 Free Thyroxine Reflex 1.05 ng/dL (0.78-2.19)
[2025-03-19 12:54] LABS: Total Triiodothyronine (T3) 0.95 NG/ML (0.82-1.58)
[2025-03-19 13:15] LABS: Troponin I 0.441 ng/mL (0.000-0.034)
--- NOTE | 2025-03-19 14:40 | P.CONGS_ITS ---
Assessment and Plan Assessment and plan (1) Right upper quadrant abdominal pain with positive Riggins's Sign: Code(s): R10.11 - Right upper quadrant pain; R19.8 - Other specified symptoms and signs involving the digestive system and abdomen <Mary Ellen GradyDEEPTI - Last Filed: 03/19/25 15:08> Status: Acute <Mary Ellen Grady APRN - Last Filed: 03/19/25 15:08> Assessment and Plan: * Resolved. We were consulted for concerns of cholecystitis as the patient had abdominal pain with RUQ tenderness that started after his admission. His pain has since resolved and he has no abdominal tenderness on exam. CT scan and RUQ US showed a normal gallbladder with no findings of cholecystitis or gallstones. His gallbladder is not the cause for his septic shock. The etiology for his abdominal pain last night is unclear. There were findings on CT of severe atherosclerotic changes of his celiac axis and SMA, and he could have had transient ischemia from his hypotension causing his abdominal pain and possibly contributing to his lactic acidosis. His lactic acid has normalized and his abdominal exam is now benign. No indication for surgical intervention at this time. Would continue medical management for his GEORGE and acute medical issues. Would not recommend any intervention with his gallbladder at this time unless he developed signs of cholecystitis, then this could be reconsidered. <Mary Ellen GradyDEEPTI - Last Filed: 03/19/25 15:08> (2) Transaminitis: Code(s): R74.01 - Elevation of levels of liver transaminase levels <Mary Ellen MarieeDEEPTI parnell - Last Filed: 03/19/25 15:08> Status: Acute <Mary Ellen Grady IRRIGATION INSTALLATION SPECIALIST - Last Filed: 03/19/25 15:08> Assessment and Plan: * GI consulted. AST and ALT elevated. Fatty liver noted on imaging. < Mary Ellen MarieeDEEPTI parnell - Last Filed: 03/19/25 15:08> (3) Acidosis, lactic: Code(s): E87.20 - Acidosis, unspecified <Mary Ellen GradyDEEPTI - Last Filed: 03/19/25 15:08> Status: Acute <Mary Ellen MarieeDEEPTI parnell - Last Filed: 03/19/25 15:08> Assessment and Plan: * Resolved. See plan above. <Mary Ellen Grady IRRIGATION INSTALLATION SPECIALIST - Last Filed: 03/19/25 15:08> (4) Sepsis: Qualifiers: Acute renal failure type: unspecified Sepsis acute organ dysfunction status: with acute organ dysfunction Sepsis type: sepsis due to unspecified organism Severe sepsis acute organ dysfunction type: acute renal failure Severe sepsis shock status: without septic shock Qualified Code(s): A 41.9 - Sepsis, unspecified organism; R65.20 - Severe sepsis without septic shock; N17.9 - Acute kidney failure, unspecified <Mary Ellen Grady IRRIGATION INSTALLATION SPECIALIST - Last Filed: 03/19/25 15:08> Code(s): A41.9 - Sepsis, unspecified organism <Mary Ellen Grady, IRRIGATION INSTALLATION SPECIALIST - Last Filed: 03/19/25 15:08> Status: Acute <Mary Ellen Grady IRRIGATION INSTALLATION SPECIALIST - Last Filed: 03/19/25 15:08> Assessment and Plan: * Etiology unclear. Does not appear to be related to his gallbladder. Continue medical management per primary service. <Mary Ellen Grady IRRIGATION INSTALLATION SPECIALIST - Last Filed: 03/19/25 15:08> (5) Pacemaker: Code(s): Z95.0 - Presence of cardiac pacemaker <Mary Ellen Grady IRRIGATION INSTALLATION SPECIALIST - Last Filed: 03/19/25 15:08> Status: Acute <Mary Ellen Grady IRRIGATION INSTALLATION SPECIALIST - Last Filed: 03/19/25 15:08> (6) Type 2 myocardial infarction due to shock: Code(s): R57.9 - Shock, unspecified; I21.A1 - Myocardial infarction type 2 < Mary Ellen Grady IRRIGATION INSTALLATION SPECIALIST - Last Filed: 03/19/25 15:08> Status: Acute <Mary Ellen Grady IRRIGATION INSTALLATION SPECIALIST - Last Filed: 03/19/25 15:08> Assessment and Plan: * Elevated troponin on admission. Cardiology following and echo ordered. [place] to be related to type 2 NV due to shock. <Mary Ellen Benjamindenisse IRRIGATION INSTALLATION SPECIALIST - Last Filed: 03/19/25 15:08> (7) Fatty liver: Code(s): K76.0 - Fatty (change of) liver, not elsewhere classified <Mary Ellen BenjaminDEEPTI salcedo - Last Filed: 03/19/25 15:08> Status: Acute <Mary Ellen BenjaminDEEPTI salcedo - Last Filed: 03/19/25 15:08> (8) Acute renal failure: Qualifiers: Acute renal failure type: unspecified Qualified Code(s): N 17.9 - Acute kidney failure, unspecified <Mary Ellen BenjaminDEEPTI salcedo - Last Filed: 03/19/25 15:08> Code(s): N17.9 - Acute kidney failure, unspecified <Mary Ellen BenjaminDEEPTI salcedo - Last Filed: 03/19/25 15:08> Status: Acute <Mary Ellen BenjaminDEEPTI salcedo - Last Filed: 03/19/25 15:08> Assessment and Plan: I have discussed the patient's case, recommendations, and treatment plan with Dr. David. <Mary Ellen Grady APRN - Last Filed: 03/19/25 15:08> History of Present Illness Consult details Consult date: 03/19/25 <Mary Ellen Grady APRN - Last Filed: 03/19/25 15:08> 03/19/25 <Namita David MD - Last Filed: 03/19/25 15:26> Reason for consult: other (Acute cholecystitis) <Mary Ellen Humphries SouravDEEPTI salcedo - Last Filed: 03/19/25 15:08> Requesting physician: Nallely Kaye DO <Mary Ellen TrellNicky SouravDEEPTI salcedo - Last Filed: 03/19/25 15:08> Narrative: This is a 74-year-old man with a history of BPH, HTN, pacemaker, gout, and diastolic dysfunction, who we have been consulted for concern for acute cholecystitis. The patient reports generalized weakness 2 days ago. He was not eating well, but denied having any abdominal pain or nausea. He thought his blood sugar was low due to not eating much. He reports an event two days ago where he became shaky and vomited on his niece. EMS was called and he came into the ED for evaluation. He was hypotensive with blood pressures in the 70/30's and had mild tachycardia. He was given 500 mL IV fluids in the field and Zofran. He denies any changes in his bowel habits or having any abdominal pain. Workup in the ED showed labs with WBC count 9,600, hemoglobin 12.2, platelets 109,000, 137, BUN 32, creatinine 3.64, lactic acid 19.2, troponin 0.107. Lactic acid rechecked and down to 11 and normalized this morning. CXR normal. CT chest, abdomen, pelvis showed no acute pulmonary findings, emphysematous changes, cardiomegaly, and fatty liver. Gallbladder appears contracted with no stones seen on CT. He received IV fluids for fluid resuscitation. His blood pressures improved and tachycardia resolved. He was transferred to IMU for monitoring. Creatinine is coming down. His lactic acid was normal this morning. He reports having an onset of generalized central abdominal pain last night after coming into the ER. This was a cramping type of pain he had never felt before. When evaluated by the physician at night, he reports significant tenderness on exam in his RUQ. Our service was consulted for suspicion of cholecystitis and RUQ US was ordered today, which is pending when I examined the patient. <Mary Ellen Grady APRN - Last Filed: 03/19/25 15:08> Review of Systems 2 Review of Systems: All systems reviewed & are unremarkable except as noted in HPI and below <Mary Ellen Grady APRN - Last Filed: 03/19/25 15:08> FOR[facility]LY [facility] Past Medical History Medical History: Medical History Hypertriglyceridemia B12 deficiency B12 was low all 03/12/2025 Mixed hyperlipidemia PAT (paroxysmal atrial tachycardia) Madelung's disease Multiple lipomas High degree atrioventricular block Follows with Dr. 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 Seasonal allergies Diastolic dysfunction Echocardiogram 03/2021: Grade 1 diastolic dysfunction EF 75%, mild concentric left ventricular hypertrophy Orthostatic hypotension CTS (carpal tunnel syndrome) Vision changes DJD (degenerative joint disease) Memory impairment Hypersomnia Vitamin D deficiency Hearing loss Gout BPH (benign prostatic hyperplasia) Benign essential hypertension Pre-diabetes (~2018) Hemoglobin A1c 5.8% 03/12/2025 <Mary Ellen Grady APRN - Last Filed: 03/19/25 15:08> Surgical History Surgical History: Surgical History History of repair of rotator cuff History of ventral hernia repair H/O left inguinal hernia repair History of arthroscopy of both knees Multiple History of esophagogastroduodenoscopy (EGD) (12/2023) Gastritis History of colonoscopy (06/2021) Multiple medium-sized uncomplicated hemorrhoids in the rectum. Repeat screening colonoscopy recommended in 10 years S/P cardiac pacemaker procedure 05/09/2021 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 <Mary Ellen Grady APRN - Last Filed: 03/19/25 15:08> Family History Family History: Family History Sibling Family history of diabetes mellitus in first degree relative Mother Family history of malignant neoplasm Lung cancer Other Family history of cardiovascular disease <Mary Ellen Grady APRN - Last Filed: 03/19/25 15:08> Social History Social History: Social History Social History: He lives at home with his . They got in 1999. He raised 3 sons. He is retired from the [employer]. He used to smoke 1 pack of cigarettes per day for about 25-30 years but quit in the . He drinks about a 12 pack of beer over the course of 2 weeks. He uses marijuana. He stated that he experimented with other illicit drugs when he was quite young. Code status: Full code Surrogate decision maker: Kota () Smoking packs per day: 1 Smoking cigarettes per day: 20.0 Years smoked: 25 Smoking pack-years: 25.00 Smoking status: Former smoker Tobacco type: cigarettes Smokeless tobacco user: other Second hand tobacco smoke exposure: No Smoking end date: 05/14/95 Alcohol intake: current Drinks per week: 5 Substance use: current Substance use type: marijuana Last use: 03/11/2025 Lack of Transportation: No Lack of Food: Never True Current Housing: I Have Housing Concerned About Future Housing: No Difficulty Paying Gas/Electric Bills: No Difficulty Paying for Meds: No Currently Unemployed: No Education: High School Diploma/GED Difficulty w/ Childcare or Family Care: No Living arrangements: with family Gender identity (if verbalized by the patient): Male Spiritual care concerns: No <Mary Ellen Grady, IRRIGATION INSTALLATION SPECIALIST - Last Filed: 03/19/25 15:08> Meds Home Medications and Allergies Home medications: Home Medications ?Medication ?Instructions ?Recorded ?Confirmed ?Type aspirin 81 mg tablet,delayed 81 mg PO DAILY 04/17/19 1 05/19/24 History release (Adult Low Dose Aspirin) magnesium oxide 400 mg PO DAILY 02/22/24 History metoprolol tartrate 25 mg tablet 25 mg PO BID 02/22/24 03/18/25 History metformin 500 mg tablet See Rx Instructions .Route 0 09/13/24 03/18/25 Rx .COMPLEX #180 tabs atorvastatin 80 mg tablet See Rx Instructions .Route 0 10/20/24 03/18/25 Rx .COMPLEX #90 tabs omeprazole 20 mg capsule,delayed See Rx Instructions . Route 12/08/24 03/18/25 Rx release .COMPLEX #90 caps allopurinol 300 mg tablet See Rx Instructions .Route 0 12/13/24 03/18/25 Rx .COMPLEX #90 tabs ezetimibe 10 mg tablet See Rx Instructions .Route 0 12/13/24 03/18/25 Rx .COMPLEX #90 tabs indomethacin 50 mg capsule 50 mg PO TID PRN gout #20 c aps 03/06/25 03/18/25 Rx tamsulosin 0.4 mg capsule See Rx Instructions .Route 1 05/13/24 03/18/25 Rx .COMPLEX #90 caps cyanocobalamin (vitamin B-12) 100 mcg (0.1 mL) subcut MONTHLY 03/13/25 03/18/25 Rx 1,000 mcg/mL injection solution #10 mL folic acid 1 mg tablet 1 mg PO DAILY 03/13/2503/18 History valsartan 160 mg capsule 160 mg PO DAILY 03/18/25 History <Mary Ellen Grady APRN - Last Filed: 03/19/25 15:08> Allergies/Adverse reactions: Allergies Allergy/AdvReac Type Severity Reaction Status Date / Time No Known Allergies Allergy Verified 03/18/25 21:37 <Mary Ellen Grady APRN - Last Filed: 03/19/25 15:08> Vital Signs Vital Signs - 24 hr 03/18/25 14:41 03/18/25 15:42 03/18/25 17:32 Temperature 95.1 F L 97.4 F L 97.5 F L Pulse Rate 95 107 H 112 H Respiratory Rate 19 20 18 Blood Pressure 100/46 L 104/37 L 140/58 L Pulse Oximetry 100 98 99 Oxygen Delivery Room Air 03/18/25 19:15 03/18/25 21:18 03/18/25 21:49 Temperature 98.5 F 98.2 F Pulse Rate 109 H 104 H 102 H Respiratory Rate 16 18 Blood Pressure 107/54 L 133/69 Pulse Oximetry 98 96 Oxygen Delivery 03/18/25 22:00 03/18/25 23:22 03/19/25 00:00 Temperature 98.6 F Pulse Rate 101 H 99 99 Respiratory Rate 18 18 Blood Pressure 129/54 L Pulse Oximetry 98 98 Oxygen Delivery Room Air 03/19/25 00:00 03/19/25 02:00 03/19/25 04:00 Temperature Pulse Rate 99 93 99 Respiratory Rate 18 Blood Pressure Pulse Oximetry 98 Oxygen Delivery Room Air 03/19/25 04:00 03/19/25 04:26 03/19/25 06:00 Temperature 98.3 F Pulse Rate 94 90 90 Respiratory Rate 16 Blood Pressure 196/81 H Pulse Oximetry 98 Oxygen Delivery 03/19/25 08:00 03/19/25 10:00 03/19/25 14:00 Temperature 98.4 F Pulse Rate 83 95 84 Respiratory Rate 18 Blood Pressure 160/75 H Pulse Oximetry 99 Oxygen Delivery <Mary Ellen Grady APRN - Last Filed: 03/19/25 15:08> Exam 2 Const: General: comfortable and no acute distress <Mary Ellen Grady APRN - Last Filed: 03/19/25 15:08> Nutritional Appearance: average body habitus <Mary Ellen Grady APRN - Last Filed: 03/19/25 15:08> Orientation/consciousness: patient oriented x3 <Mary Ellen Grady APRN - Last Filed: 03/19/25 15:08> HENMT: Head: normocephalic and atraumatic <Mary Ellen Grady APRN - Last Filed: 03/19/25 15:08> Ears: hearing grossly normal bilaterally <Mary Ellen Grady APRN - Last Filed: 03/19/25 15:08> Mouth: Yes moist mucous membranes <Mary Ellen Grady IRRIGATION INSTALLATION SPECIALIST - Last Filed: 03/19/25 15:08> Eyes: General: appearance normal, both eyes and all related structures < Mary Ellen Grady IRRIGATION INSTALLATION SPECIALIST - Last Filed: 03/19/25 15:08> Pupils: Equal, round and reactive pupils present <Mary Ellen Grady APRN - Last Filed: 03/19/25 15:08> Neck: Neck: normal visual inspection and full ROM <Mary Ellen Grady APRN - Last Filed: 03/19/25 15:08> Resp: Effort & Inspection: no respiratory distress <Mary Ellen Grady APRN - Last Filed: 03/19/25 15:08> Auscultation: clear to auscultation bilaterally <Mary Ellen Grady APRN Last Filed: 03/19/25 15:08> Cardio: Rate: regular rate <Mary Ellen Grady APRN - Last Filed: 03/19/25 15:08> Rhythm: regular rhythm <Mary Ellen Grady APRN - Last Filed: 03/19/25 15:08> Peripheral pulses: Peripheral pulses 2+ throughout <Mary Ellen Grady APRN - Last Filed: 03/19/25 15:08> GI: Inspection: non-distended and no visible herniation <Mary Ellen Grady APRN - Last Filed: 03/19/25 15:08> GI Palp: Yes Soft to palpation, No Tenderness to palpation present (GI), No Guarding due to palpation present (GI), Yes No hepatosplenomegaly present and No Rebound tenderness present <Mary Ellen Grady APRN - Last Filed: 03/19/25 15:08> Auscultation: normal bowel sounds <Mary Ellen Grady DEEPTI - Last Filed: 03/19/25 15:08> Rectal Exam: deferred <Mary Ellen Grady APRN - Last Filed: 03/19/25 15:08> Skin: General skin exam: normal color <Mary Ellen Grady DEEPTI - Last Filed: 03/19/25 15:08> Neuro: General: moves all extremities and no focal motor deficits <Mary Ellen Grady DEEPTI - Last Filed: 03/19/25 15:08> Speech: normal speech <Mary Ellen Grady DEEPTI - Last Filed: 03/19/25 15:08> Motor exam (neuro): 5/5 motor strength present throughout <Mary Ellen Grady DEEPTI - Last Filed: 03/19/25 15:08> Extrem: General: normal to inspection and no edema <Mary Ellen Grady DEEPTI - Last Filed: 03/19/25 15:08> Psych: Mental Status: mental status grossly normal <Mary Ellen Grady DEEPTI - Last Filed: 03/19/25 15:08> Attitude: cooperative <Mary Ellen Grady DEEPTI - Last Filed: 03/19/25 15:08> Insight: Good insight present (Psych) <Mary Ellen Grady DEEPTI - Last Filed: 03/19/25 15:08> Judgement: Good judgement present (Psych) <Mary Ellen Grady IRRIGATION INSTALLATION SPECIALIST - Last Filed: 03/19/25 15:08> Results Labs Result diagrams: 03/19/25 03:55 03/19/25 03:55 <Mary Ellen Grady IRRIGATION INSTALLATION SPECIALIST - Last Filed: 03/19/25 15:08> Labs: Abnormal lab results 03/18/25 03/18/25 03/18/25 Range/Units 15:26 15:27 17:34 WBC (4.5-10.0) K/mm3 RBC 3.90 L (4.6-6.20) M/mm3 Hgb 12.2 L (14.0-18.0) g/dL Hct 38.8 L (42.0-52.0) % MCHC 31.4 L (32-36) g/dl RDW 14.9 H (11.5-14.5) % Plt Count 109 L (150-375) k/mm3 Immature Gran % (Auto) 1.1 H (0-0.5) % Neut % (Auto) 83.1 H (45.5-73.1) % Lymph % (Auto) 9.4 L (18.3-44.2) % [place] % (Auto) (2.6-8.5) % Lymph # (Auto) (0.9-3.2) K/mm3 Abs Immat Gran (auto) 0.11 H (0.00-0.031) K/mm3 Absolute Neuts (auto) 8.0 H (1.3-6.7) K/mm3 Absolute Nucleated RBC 0.020 H (0.0-0.012) K/mm3 VBG pH (7.300-7.400) VBG pCO2 (42.0-48.0) mmHg VBG pO2 (35.0-45.0) mmHg VBG HCO3 (24.0-30.0) mEq/l Sodium (137-145) mmol/L Chloride 96 L (98-107) mmol/L Carbon Dioxide < 5 L (22-30) mmol/L BUN 32 H D (9-20) mg/dL Creatinine 3.64 H (0.7-1.3) mg/dL Estimated GFR 16 L (59 - ) Glucose (65-110) mg/dL POC Capillary Glucose (65-105) mg/dl Lactic Acid 19.2 H* (0.7-2.0) mmol/L Calcium (8.4-10.2) mg/dL Phosphorus (2.5-4.5) mg/dL Magnesium (1.6-2.3) mg/dL AST 131 H (17-59) U/L ALT 83 H (6-50) U/L Total Creatine Kinase 202 H (55-170) U/L Troponin I 0.107 H* (0.000-0.034) ng/mL TSH (Reflex) (0.465-4.68) uIU/mL Urine Appearance Cloudy H (Clear) Urine Protein 1+ H (Negative) mg/dL Urine Ketones Trace H (Negative) mg/dL Ur Blood (Man) 1+ H (Negative) Leukocyte Esterase Rfl Trace H (Negative) TAWANDA/UL Protein/Creat Ratio 2 (0-0.20) mg/mg Salicylates (2-20) mg/dL Acetaminophen (10-30) ug/mL 03/18/25 03/18/25 03/18/25 Range/Units 18:43 21:27 21:29 WBC (4.5-10.0) K/mm3 RBC (4.6-6.20) M/mm3 Hgb (14.0-18.0) g/dL Hct (42.0-52.0) % MCHC (32-36) g/dl RDW (11.5-14.5) % Plt Count (150-375) k/mm3 Immature Gran % (Auto) (0-0.5) % Neut % (Auto) (45.5-73.1) % Lymph % (Auto) (18.3-44.2) % [place] % (Auto) (2.6-8.5) % Lymph # (Auto) (0.9-3.2) K/mm3 Abs Immat Gran (auto) (0.00-0.031) K/mm3 Absolute Neuts (auto) (1.3-6.7) K/mm3 Absolute Nucleated RBC (0.0-0.012) K/mm3 VBG pH 7.414 H* (7.300-7.400) VBG pCO2 31.0 L (42.0-48.0) mmHg VBG pO2 47.4 H (35.0-45.0) mmHg VBG HCO3 19.4 L (24.0-30.0) mEq/l Sodium (137-145) mmol/L Chloride (98-107) mmol/L Carbon Dioxide (22-30) mmol/L BUN (9-20) mg/dL Creatinine (0.7-1.3) mg/dL Estimated GFR (59 - ) Glucose (65-110) mg/dL POC Capillary Glucose (65-105) mg/dl Lactic Acid 11.8 H* (0.7-2.0) mmol/L Calcium (8.4-10.2) mg/dL Phosphorus 9.4 H (2.5-4.5) mg/dL Magnesium 1.4 L (1.6-2.3) mg/dL AST (17-59) U/L ALT (6-50) U/L Total Creatine Kinase 312 H (55-170) U/L Troponin I 0.297 H* D (0.000-0.034) ng/mL TSH (Reflex) (0.465-4.68) uIU/mL Urine Appearance (Clear) Urine Protein (Negative) mg/dL Urine Ketones (Negative) mg/dL Ur Blood (Man) (Negative) Leukocyte Esterase Rfl (Negative) TAWANDA/UL Protein/Creat Ratio 2 (0-0.20) mg/mg Salicylates < 1.0 L (2-20) mg/dL Acetaminophen < 10 L (10-30) ug/mL 03/18/25 03/18/25 03/19/25 Range/Units 21:38 21:52 03:55 WBC 4.1 L (4.5-10.0) K/mm3 RBC 4.35 L (4.6-6.20) M/mm3 Hgb 13.4 L (14.0-18.0) g/dL Hct 39.7 L (42.0-52.0) % MCHC (32-36) g/dl RDW (11.5-14.5) % Plt Count 103 L (150-375) k/mm3 Immature Gran % (Auto) (0-0.5) % Neut % (Auto) (45.5-73.1) % Lymph % (Auto) 17.1 L (18.3-44.2) % [place] % (Auto) 10.4 H (2.6-8.5) % Lymph # (Auto) 0.71 L (0.9-3.2) K/mm3 Abs Immat Gran (auto) (0.00-0.031) K/mm3 Absolute Neuts (auto) (1.3-6.7) K/mm3 Absolute Nucleated RBC (0.0-0.012) K/mm3 VBG pH (7.300-7.400) VBG pCO2 (42.0-48.0) mmHg VBG pO2 (35.0-45.0) mmHg VBG HCO3 (24.0-30.0) mEq/l Sodium 133 L (137-145) mmol/L Chloride (98-107) mmol/L Carbon Dioxide (22-30) mmol/L BUN 35 H (9-20) mg/dL Creatinine 2.11 H (0.7-1.3) mg/dL Estimated GFR 31 L (59 - ) Glucose 180 H (65-110) mg/dL POC Capillary Glucose 141 H (65-105) mg/dl Lactic Acid (0.7-2.0) mmol/L Calcium 8.0 L (8.4-10.2) mg/dL Phosphorus (2.5-4.5) mg/dL Magnesium (1.6-2.3) mg/dL AST 248 H (17-59) U/L ALT 126 H (6-50) U/L Total Creatine Kinase (55-170) U/L Troponin I 0.915 H* (0.000-0.034) ng/mL TSH (Reflex) (0.465-4.68) uIU/mL Urine Appearance (Clear) Urine Protein (Negative) mg/dL Urine Ketones (Negative) mg/dL Ur Blood (Man) (Negative) Leukocyte Esterase Rfl (Negative) TAWANDA/UL Protein/Creat Ratio 2 0.93 H (0-0.20) mg/mg Salicylates (2-20) mg/dL Acetaminophen (10-30) ug/mL 03/19/25 03/19/25 Range/Units 07:50 12:40 WBC (4.5-10.0) K/mm3 RBC (4.6-6.20) M/mm3 Hgb (14.0-18.0) g/dL Hct (42.0-52.0) % MCHC (32-36) g/dl RDW (11.5-14.5) % Plt Count (150-375) k/mm3 Immature Gran % (Auto) (0-0.5) % Neut % (Auto) (45.5-73.1) % Lymph % (Auto) (18.3-44.2) % [place] % (Auto) (2.6-8.5) % Lymph # (Auto) (0.9-3.2) K/mm3 Abs Immat Gran (auto) (0.00-0.031) K/mm3 Absolute Neuts (auto) (1.3-6.7) K/mm3 Absolute Nucleated RBC (0.0-0.012) K/mm3 VBG pH (7.300-7.400) VBG pCO2 (42.0-48.0) mmHg VBG pO2 (35.0-45.0) mmHg VBG HCO3 (24.0-30.0) mEq/l Sodium (137-145) mmol/L Chloride (98-107) mmol/L Carbon Dioxide (22-30) mmol/L BUN (9-20) mg/dL Creatinine (0.7-1.3) mg/dL Estimated GFR (59 - ) Glucose (65-110) mg/dL POC Capillary Glucose (65-105) mg/dl Lactic Acid (0.7-2.0) mmol/L Calcium (8.4-10.2) mg/dL Phosphorus (2.5-4.5) mg/dL Magnesium (1.6-2.3) mg/dL AST (17-59) U/L ALT (6-50) U/L Total Creatine Kinase (55-170) U/L Troponin I 0.685 H* D 0.441 H* D (0.000-0.034) ng/mL TSH (Reflex) 7.010 H (0.465-4.68) uIU/mL Urine Appearance (Clear) Urine Protein (Negative) mg/dL Urine Ketones (Negative) mg/dL Ur Blood (Man) (Negative) Leukocyte Esterase Rfl (Negative) TAWANDA/UL Protein/Creat Ratio 2 (0-0.20) mg/mg Salicylates (2-20) mg/dL Acetaminophen (10-30) ug/mL Diabetes panel 03/18/25 03/19/25 Range/Units 15:26 03:55 Sodium 137 133 L (137-145) mmol/L Potassium 5.0 3.8 (3.4-5.0) mmol/L Chloride 96 L 98 (98-107) mmol/L Carbon Dioxide < 5 L 28 (22-30) mmol/L BUN 32 H D 35 H (9-20) mg/dL Creatinine 3.64 H 2.11 H (0.7-1.3) mg/dL Glucose 70 180 H (65-110) mg/dL Calcium 8.7 8.0 L (8.4-10.2) mg/dL AST 131 H 248 H (17-59) U/L ALT 83 H 126 H (6-50) U/L Alkaline Phosphatase 55 69 (38-126) U/L Total Protein 6.6 6.5 (6.3-8.2) g/dL Albumin 4.0 3.8 (3.5-5.1) g/dL Calcium panel 03/18/25 03/18/25 03/19/25 Range/Units 15: 18:43 03:55 Calcium 8.7 8.0 L (8.4-10.2) mg/dL Phosphorus 9.4 H (2.5-4.5) mg/dL Albumin 4.0 3.8 (3.5-5.1) g/dL Pituitary panel 03/18/25 03/19/25 03/19/25 Range/Units 15: 03:55 07:50 Sodium 137 133 L (137-145) mmol/L Potassium 5.0 3.8 (3.4-5.0) mmol/L Chloride 96 L 98 (98-107) mmol/L Carbon Dioxide < 5 L 28 (22-30) mmol/L BUN 32 H D 35 H (9-20) mg/dL Creatinine 3.64 H 2.11 H (0.7-1.3) mg/dL Glucose 70 180 H (65-110) mg/dL Calcium 8.7 8.0 L (8.4-10.2) mg/dL Total T3 0.95 (0.82-1.58) NG/ML Adrenal panel 03/18/25 03/19/25 Range/Units 15:26 03:55 Sodium 137 133 L (137-145) mmol/L Potassium 5.0 3.8 (3.4-5.0) mmol/L Chloride 96 L 98 (98-107) mmol/L Carbon Dioxide < 5 L 28 (22-30) mmol/L BUN 32 H D 35 H (9-20) mg/dL Creatinine 3.64 H 2.11 H (0.7-1.3) mg/dL Glucose 70 180 H (65-110) mg/dL Calcium 8.7 8.0 L (8.4-10.2) mg/dL Total Bilirubin 1.1 1.2 (0.2-1.3) mg/dL AST 131 H 248 H (17-59) U/L ALT 83 H 126 H (6-50) U/L Alkaline Phosphatase 55 69 (38-126) U/L Total Protein 6.6 6.5 (6.3-8.2) g/dL Albumin 4.0 3.8 (3.5-5.1) g/dL All other labs normal. <Mary Ellen Grady APRN - Last Filed: 03/19/25 15:08> Imaging Additional studies: ITS Impressions Chest X-Ray 03/18/25 15:56 IMPRESSION: 1. No acute pulmonary findings. Chest/Abdomen/Pelvis CT 03/18/25 17:05 IMPRESSION: 1. No acute pulmonary findings. Emphysematous lungs. 2. Cardiomegaly with thickened multivessel coronary artery calcifications. 3. Fatty liver. Severe atherosclerotic changes of abdominal aorta including proximal celiac axis and superior mesenteric artery. Upper Quadrant Ultrasound 03/19/25 13:06 IMPRESSION: 1: Fatty infiltration of the liver. <Mary Ellen Grady APRN - Last Filed: 03/19/25 15:08> Attestation Supervising Provider Attestation I, Namita David MD, have provided a substantive portion of the care of this patient. I performed the history, exam and/or medical decision making for this encounter. abd - SNTND, labs and imaging reviewed, exam benign at this point and labs normalized, U/S normal, will start diet, cont serial exams at this point Namita David MD 03/19/25;15:16 <Namita David MD - Last Filed: 03/19/25 15:26>
[2025-03-19] MEDS: ASPIRIN 81 MG ENTERIC TABLET PO (17:00)
[2025-03-20] VITALS: BP 141/74; PULSE 76; PULSE 88; RESP 18; TEMP 37; O2SAT 99
[2025-03-20 02:00] VITALS: PULSE 67
[2025-03-20 04:00] VITALS: BP 152/84; PULSE 73; PULSE 91; RESP 16; TEMP 36.9; O2SAT 100
[2025-03-20 04:29] LABS: Hematocrit 41.8 % (42.0-52.0); Hemoglobin 14.0 g/dL (14.0-18.0); Immature Platelet Fraction Pct 4.0 % (0.9-11.2); Mean Corpuscular HGB Conc 33.5 g/dl (32-36); Mean Corpuscular Hemoglobin 31.0 pg (26-34); Mean Corpuscular Volume 92.5 fl (80-100); Red Blood Count 4.52 M/mm3 (4.6-6.20); White Blood Count 3.3 K/mm3 (4.5-10.0)
[2025-03-20 04:30] LABS: Platelet Count Result 96 k/mm3 (150-375)
[2025-03-20 04:48] LABS: Alanine Aminotransferase 128 U/L (6-50); Albumin Level 3.7 g/dL (3.5-5.1); Alkaline Phosphatase 63 U/L (38-126); Anion Gap 6 mmol/L (4-12); Aspartate Amino Transferase 192 U/L (17-59); Bilirubin,Total 1.2 mg/dL (0.2-1.3); Blood Urea Nitrogen 13 mg/dL (9-20); Calcium 8.3 mg/dL (8.4-10.2); Carbon Dioxide 32 mmol/L (22-30); Chloride 99 mmol/L (98-107); Estimated CRCL calculation 78 ml/min; Estimated Glomerular Filt Rate > 60; Glucose 142 mg/dL (65-110); Potassium 3.7 mmol/L (3.4-5.0); Sodium 137 mmol/L (137-145); Total Protein 6.6 g/dL (6.3-8.2)
[2025-03-20] MEDS: LEVOTHYROXINE SODIUM 50 MCG TABLET PO (05:37)
[2025-03-20] MEDS: PIPERACILLIN/TAZOBACTAM SOD 2.25 GM in SODIUM CHLORIDE 0.9% IV 50 ML 100 ML IVPB ×2 (05:38)
[2025-03-20] MEDS: SODIUM CHLORIDE 0.9% IV 1,000 ML 100 ML IV CONT (05:52)
[2025-03-20 06:00] VITALS: PULSE 79
[2025-03-20 07:54] VITALS: BP 160/79; PULSE 94; RESP 12; TEMP 36.7; O2SAT 98
[2025-03-20 08:00] VITALS: PULSE 94
[2025-03-20] MEDS: FOLIC ACID 1 MG TABLET PO (08:07)
[2025-03-20] MEDS: MAGNESIUM OXIDE 400 MG TABLET PO (08:07)
[2025-03-20] MEDS: PANTOPRAZOLE 40 MG TABLET PO (08:07)
[2025-03-20] MEDS: TAMSULOSIN HCL 0.4 MG CAPSULE PO (08:07)
--- NOTE | 2025-03-20 08:22 | P.PNNP_ITS ---
Progress Note: A&P Assessment and Plan (1) Acute renal failure: Qualifiers: Acute renal failure type: unspecified Qualified Code(s): N17.9 - Acute kidney failure, unspecified Code(s): N17.9 - Acute kidney failure, unspecified Status: Acute Assessment and Plan: the patient Has acute kidney injury. Etiology likely related to his hypotension. The hypotension led to elevated creatinine which led to retention of metformin and lactic acidosis. He received fluids overnight which helped his blood pressure now everything else is better. In addition he had positive troponins. Cardiology is on the case The patient had a CT scan which showed that his kidneys looked okay without hydro. At this point he is getting much better just with the fluids. his creatinine is down to normal and his bicarbonate is okay. It is a little bit high because of the bicarb he received plus the metabolism of the lactic acid. Patient is doing well overall. I wonder if there something besides metformin that would help his pre diabetes. Renal will sign off (2) Acidosis, lactic: Code(s): E87.20 - Acidosis, unspecified Status: Acute Assessment and Plan: most likely due to the metformin resolved (3) Acute hypotension: Code(s): I95.9 - Hypotension, unspecified Status: Acute Assessment and Plan: possibly due to his GI process, possibly poor intake and dehydration. This is improved with fluids. (4) Elevated troponin: Code(s): R79.89 - Other specified abnormal findings of blood chemistry Status: Acute Assessment and Plan: Cardiology is on the case (5) Benign essential hypertension: Code(s): I10 - Essential (primary) hypertension Status: Acute Assessment and Plan: his blood pressure is back up now. May need to fold in his home meds. (6) Pre-diabetes: Onset Date: ~2017 Code(s): R73.03 - Prediabetes Status: Acute Assessment and Plan: Management per hospitalists Subjective Date/time seen: 03/20/25 08:22 Interval history: patient is alert. Sitting up in a chair. Feels good. Review of Systems Cardiovascular: Cardiovascular: Reports no additional cardiovascular complaints Respiratory: Respiratory: Reports no additional respiratory complaints Gastrointestinal: Gastrointestinal: Reports no additional gastrointestinal complaints Genitourinary: Genitourinary: Reports no additional male genitourinary complaints Exam Narrative: WDWN in NAD skin no rash head ncat lungs clear cor reg no rub abd BS+ nontender and soft ext no edema. Objective Data Vital Signs Vital Signs: Vital Signs - 24 hr 03/19/25 10:00 03/19/25 12:00 03/19/25 12:00 Temperature 97.7 F Pulse Rate 95 87 91 Respiratory Rate 1 L Blood Pressure 164/78 H Pulse Oximetry 96 Oxygen Delivery 03/19/25 14:00 03/19/25 16:00 03/19/25 16:00 Temperature 98.1 F Pulse Rate 84 99 96 Respiratory Rate 16 Blood Pressure 131/69 Pulse Oximetry 99 Oxygen Delivery 03/19/25 18:00 03/19/25 19:55 03/19/25 20:00 Temperature 97.9 F Pulse Rate 106 H 93 Respiratory Rate 18 Blood Pressure 150/82 H Pulse Oximetry 98 Oxygen Delivery Room Air 03/19/25 20:00 03/19/25 22:00 03/20/25 00:00 Temperature Pulse Rate 96 83 Respiratory Rate Blood Pressure Pulse Oximetry Oxygen Delivery Room Air 03/20/25 00:00 03/20/25 00:00 03/20/25 02:00 Temperature 98.6 F Pulse Rate 76 88 67 Respiratory Rate 18 Blood Pressure 141/74 H Pulse Oximetry 99 Oxygen Delivery 03/20/25 04:00 03/20/25 04:00 03/20/25 04:00 Temperature 98.5 F Pulse Rate 73 91 Respiratory Rate 16 Blood Pressure 152/84 H Pulse Oximetry 100 Oxygen Delivery Room Air 03/20/25 06:00 03/20/25 07:54 Temperature 98.1 F Pulse Rate 79 94 Respiratory Rate 12 Blood Pressure 160/79 H Pulse Oximetry 98 Oxygen Delivery Intake/Output Intake/Output: Intake & Output 03/17/25 03/18/25 03/19/25 03/20/25 23:59 23:59 23:59 23:59 Intake Total 2600 4079.2 2650 Output Total 500 2550 2025 Balance 2100 1529.2 625 Meds/Results Medications: Active Medications Generic Name Dose Route Start Last Admin Trade Name Freq PRN Reason Stop Dose Admin Aspirin 81 mg 03/19/25 09:00 03/20/25 08:07 Aspirin 81 Mg Enteric Tablet PO Not Given DAILY [facility] Folic Acid 1 mg 03/19/25 09:00 03/20/25 08:07 Folic Acid 1 Mg Tablet PO 1 mg DAILY MAYRA Administration Heparin Sodium (Porcine) 5,000 units 03/19/25 09:00 03/20/25 08:07 Heparin Sodium 5,000 Units/Ml Vial SUB-Q Not Given Q12HR MAYRA Piperacillin Sod/Tazobactam 50 mls @ 100 mls/hr 03/19/25 00:40 03/20/25 05:38 Sod 2.25 gm/ Sodium Chloride IVPB 100 mls/hr Q6HR MAYRA Administration Sodium Chloride 1,000 mls @ 100 mls/hr 03/19/25 09:20 03/20/25 05:52 Normal Saline Iv IV CONT 100 mls/hr .Q10H MAYRA Administration Levothyroxine Sodium 50 mcg 03/20/25 06:30 03/20/25 05:37 Levothyroxine Sodium 50 Mcg Tablet PO 50 mcg DAILY@0630 MAYRA Administration Magnesium Oxide 400 mg 03/19/25 09:00 03/20/25 08:07 Magnesium Oxide 400 Mg Tablet PO 400 mg DAILY MAYRA Administration Pantoprazole Sodium 40 mg 03/19/25 09:00 03/20/25 08:07 Pantoprazole 40 Mg Tablet PO 40 mg QAM MAYRA Administration Perflutren Lipid Microsphere 0 ml 03/19/25 12:14 Perflutren Lipid Microspheres 1.5 Ml Vial Diluted To 10 Ml Total Volume IV PUSH 03/22/25 12:14 ONCE PRN adequate visualization Protocol Tamsulosin HCl 0.4 mg 03/19/25 09:00 03/20/25 08:07 Tamsulosin Hcl 0.4 Mg Capsule PO 0.4 mg DAILY MAYRA Administration Radiology Results: ITS Impressions Chest X-Ray 03/18/25 15:56 IMPRESSION: 1. No acute pulmonary findings. Chest/Abdomen/Pelvis CT 03/18/25 17:05 IMPRESSION: 1. No acute pulmonary findings. Emphysematous lungs. 2. Cardiomegaly with thickened multivessel coronary artery calcifications. 3. Fatty liver. Severe atherosclerotic changes of abdominal aorta including proximal celiac axis and superior mesenteric artery. Upper Quadrant Ultrasound 03/19/25 13:06 IMPRESSION: 1: Fatty infiltration of the liver. Labs Labs: Laboratory Results - last 24 hr 03/19/25 03/19/25 03/19/25 07:50 11:31 12:40 WBC RBC Hgb Hct MCV MCH MCHC RDW Plt Count MPV % Immature Plt Fraction Sodium Potassium Chloride Carbon Dioxide Anion Gap BUN Creatinine Estim Creat Clear Calc Estimated GFR Glucose POC Capillary Glucose 148 H Calcium Phosphorus Total Bilirubin AST ALT Alkaline Phosphatase Troponin I 0.685 H* D 0.441 H* D Total Protein Albumin TSH (Reflex) 7.010 H Free T4 1.05 Total T3 0.95 Random Cortisol 10.60 03/19/25 03/19/25 03/20/25 17:01 20:12 04:05 WBC 3.3 L RBC 4.52 L Hgb 14.0 Hct 41.8 L MCV 92.5 MCH 31.0 MCHC 33.5 RDW 15.0 H Plt Count 96 L MPV 10.0 % Immature Plt Fraction 4.0 Sodium 137 Potassium 3.7 Chloride 99 Carbon Dioxide 32 H Anion Gap 6 BUN 13 D Creatinine 0.91 Estim Creat Clear Calc 78 Estimated GFR > 60 Glucose 142 H POC Capillary Glucose 235 H 211 H Calcium 8.3 L Phosphorus 3.2 Total Bilirubin 1.2 AST 192 H ALT 128 H Alkaline Phosphatase 63 Troponin I Total Protein 6.6 Albumin 3.7 TSH (Reflex) Free T4 Total T3 Random Cortisol 03/20/25 07:17 WBC RBC Hgb Hct MCV MCH MCHC RDW Plt Count MPV % Immature Plt Fraction Sodium Potassium Chloride Carbon Dioxide Anion Gap BUN Creatinine Estim Creat Clear Calc Estimated GFR Glucose POC Capillary Glucose 134 H Calcium Phosphorus Total Bilirubin AST ALT Alkaline Phosphatase Troponin I Total Protein Albumin TSH (Reflex) Free T4 Total T3 Random Cortisol
--- NOTE | 2025-03-20 09:50 | PM.DS ---
DS: Admitting Diagnosis Discharge Date 03/20/2025 Admitting Diagnosis Acute hypotension DS: Discharge Diagnosis Discharge Diagnosis (1) Acute hypotension: Code(s): I95.9 - Hypotension, unspecified Status: Acute Assessment and Plan: Plan is to continue to monitor patient. Workup in progress. Culture sent. Patient is on IV antibiotics. (2) Type 2 myocardial infarction due to shock: Code(s): R57.9 - Shock, unspecified; I21.A1 - Myocardial infarction type 2 Status: Acute Assessment and Plan: Cardiology consult. Will continue to trend troponin. (3) Hyperlipidemia: Qualifiers: Hyperlipidemia type: mixed hyperlipidemia Qualified Code(s): E78.2 - Mixed hyperlipidemia Code(s): E78.5 - Hyperlipidemia, unspecified Status: Acute Assessment and Plan: Stable on current medications, continue current treatment. (4) Pre-diabetes: Onset Date: ~2017 Code(s): R73.03 - Prediabetes Status: Acute Assessment and Plan: Stable on current medication, continue current treatment. (5) Transaminitis: Code(s): R74.01 - Elevation of levels of liver transaminase levels Status: Acute Assessment and Plan: Possibly secondary to shock. Consult GI for evaluation. (6) Acute renal failure: Qualifiers: Acute renal failure type: unspecified Qualified Code(s): N17.9 - Acute kidney failure, unspecified Code(s): N17.9 - Acute kidney failure, unspecified Status: Acute Assessment and Plan: Will give IV fluids and monitor closely. Plan Plan is to admit patient as a full admission in the hospital. Patient is full code. DVT prophylaxis started DS: Summary Hospital Course Reason for hospitalization: Acute Hypotension Hospital Course: 73 years old male was admitted complained having low blood pressure. Workup for low blood pressure was negative in the hospital. Cardiology GI and surgery was consulted. Patient completely recovered with IV fluid. Today patient is feeling better and wants go home. Patient was discharged home in stable condition. Patient advised to follow-up with surgery cardiology GI and primary care next week. Patient advised if not feeling better at home please come back to ER. Status at Discharge Cognitive/behavioral status at discharge: Stable Time Spent with Patient Time attestation: Total time spent providing and/or coordinating discharge services: 30 minutes Exam Narrative: Narrative: Weight 106.6 kg B ID 28.6 Const: Other: Well-deve loped, well-nouris hed, quite tall, a ppears stated age HENMT: Other: Mucous me mbranes are tacky, no oral pharyngea l erythema, crowde d posterior oropha rynx Eyes: Other: No sclera l icterus, no conj unctival pallor Neck: Other: No JVD, i rregular nontender soft tissue mass anterior neck in t he region of the t hyroid which the p atient relates is due to his her maryann dy Dieudonne disorder pain Resp: Other: Clear to auscultation bilat erally, no increas ed work of breathi ng Cardio: Other: Regular r ate, regular rhyth m, 2+ bilateral ra dial pedal pulses GI: Other: Distended , soft, positive b owel sounds, no or ganomegaly, positi ve Riggins sign the right upper quadr ant with only mild to moderate press ure, no tympany Skin: Other: No jaundi ce, no pallor Neuro: Other: Alert liza ented times 4, spe ech is clear but s low, no facial asy mmetry, slow but s table gait, no loc alizing neurologic deficits noted du ring the course of conversation Extrem: Other: No clubbi ng, cyanosis or ed franky Psych: Other: Anxious b ut otherwise pleas ant and cooperativ e, intact judgment and insight Const: Other: Well-developed, well-nourished, quite tall, appears stated age HENMT: Other: Mucous membranes are tacky, no oral pharyngeal erythema, crowded posterior oropharynx Eyes: Other: No scleral icterus, no conjunctival pallor Neck: Other: No JVD, irregular nontender soft tissue mass anterior neck in the region of the thyroid which the patient relates is due to his her ready Dieudonne disorder pain Resp: Other: Clear to auscultation bilaterally, no increased work of breathing Cardio: Other: Regular rate, regular rhythm, 2+ bilateral radial pedal pulses GI: Other: Distended, soft, positive bowel sounds, no organomegaly, positive Riggins sign the right upper quadrant with only mild to moderate pressure, no tympany Skin: Other: No jaundice, no pallor Neuro: Other: Alert oriented times 4, speech is clear but slow, no facial asymmetry, slow but stable gait, no localizing neurologic deficits noted during the course of conversation Extrem: Other: No clubbing, cyanosis or edema Psych: Other: Anxious but otherwise pleasant and cooperative, intact judgment and insight DS: Data Data Completed and Pending Labs on day of discharge: Labs from last 24 hours 03/20/25 03/20/25 03/19/25 07:17 04:05 20:12 WBC 3.3 L RBC 4.52 L Hgb 14.0 Hct 41.8 L MCV 92.5 MCH 31.0 MCHC 33.5 RDW 15.0 H Plt Count 96 L MPV 10.0 % Immature Plt Fraction 4.0 Sodium 137 Potassium 3.7 Chloride 99 Carbon Dioxide 32 H Anion Gap 6 BUN 13 D Creatinine 0.91 Estim Creat Clear Calc 78 Estimated GFR > 60 Glucose 142 H POC Capillary Glucose 134 H 211 H Calcium 8.3 L Phosphorus 3.2 Total Bilirubin 1.2 AST 192 H ALT 128 H Alkaline Phosphatase 63 Troponin I Total Protein 6.6 Albumin 3.7 TSH (Reflex) Free T4 Total T3 Random Cortisol 03/19/25 03/19/25 03/19/25 17:01 12:40 11:31 WBC RBC Hgb Hct MCV MCH MCHC RDW Plt Count MPV % Immature Plt Fraction Sodium Potassium Chloride Carbon Dioxide Anion Gap BUN Creatinine Estim Creat Clear Calc Estimated GFR Glucose POC Capillary Glucose 235 H 148 H Calcium Phosphorus Total Bilirubin AST ALT Alkaline Phosphatase Troponin I 0.441 H* D Total Protein Albumin TSH (Reflex) Free T4 Total T3 Random Cortisol 03/19/25 07:50 WBC RBC Hgb Hct MCV MCH MCHC RDW Plt Count MPV % Immature Plt Fraction Sodium Potassium Chloride Carbon Dioxide Anion Gap BUN Creatinine Estim Creat Clear Calc Estimated GFR Glucose POC Capillary Glucose Calcium Phosphorus Total Bilirubin AST ALT Alkaline Phosphatase Troponin I Total Protein Albumin TSH (Reflex) 7.010 H Free T4 1.05 Total T3 0.95 Random Cortisol 10.60 Discharge Plan Discharge Attending physician on discharge: Donovan Eric Consulting providers: Cooper Adams; Jelani Morse; Namita David; Agusto Steinberg Discharging Clinician: Donovan Eric Patient Disposition: Home Activity: as tolerated Diet: as tolerated Patient Instructions: Antibiotic Form, Sepsis (DC) Patient Language: [place]agu[place] Stand Alone Forms: General Discharge Information Follow-up/Referrals: Namita David MD [Physician, General Surgery] Terry Leahy MD [Primary Care Provider, Internal Medicine] Cooper Adams MD [Physician, Interventional Cardiology] Agusto Steinberg MD [Physician, Gastroenterology] Discharge Medications: New levothyroxine [Synthroid] 50 mcg Tablet 50 mcg PO DAILY@0630 Qty: 30 0RF levofloxacin 500 mg tablet 500 mg PO DAILY Qty: 7 0RF Continued aspirin [Adult Low Dose Aspirin] 81 mg tablet,delayed release (DR/EC) 81 mg PO DAILY magnesium oxide 400 mg magnesium tablet 400 mg PO DAILY metoprolol tartrate 25 mg tablet 25 mg PO BID valsartan 160 mg capsule 160 mg PO DAILY metformin 500 mg tablet See Rx Instructions .ROUTE .COMPLEX Qty: 180 3RF Dose Instruction: TAKE 1 TABLET BY MOUTH TWICE A DAY Rx Instructions: TAKE 1 TABLET BY MOUTH TWICE A DAY atorvastatin 80 mg tablet See Rx Instructions .ROUTE .COMPLEX Qty: 90 1RF Dose Instruction: TAKE 1 TABLET BY MOUTH EVERY DAY Rx Instructions: TAKE 1 TABLET BY MOUTH EVERY DAY omeprazole 20 mg capsule,delayed release(DR/EC) See Rx Instructions .ROUTE .COMPLEX Qty: 90 4RF Dose Instruction: TAKE 1 CAPSULE BY MOUTH EVERY DAY Rx Instructions: TAKE 1 CAPSULE BY MOUTH EVERY DAY allopurinol 300 mg tablet See Rx Instructions .ROUTE .COMPLEX Qty: 90 1RF Dose Instruction: TAKE 1 TABLET BY MOUTH EVERY DAY Rx Instructions: TAKE 1 TABLET BY MOUTH EVERY DAY ezetimibe 10 mg tablet See Rx Instructions .ROUTE .COMPLEX Qty: 90 1RF Dose Instruction: TAKE 1 TABLET BY MOUTH EVERY DAY Rx Instructions: TAKE 1 TABLET BY MOUTH EVERY DAY indomethacin 50 mg capsule 50 mg PO TID PRN (Reason: gout) Qty: 20 1RF Rx Instructions: TAKE 1 CAPSULE BY MOUTH 3 TIMES A DAY NEEDED FOR GOUT tamsulosin 0.4 mg capsule See Rx Instructions .ROUTE .COMPLEX Qty: 90 1RF Dose Instruction: TAKE 1 CAPSULE BY MOUTH EVERY DAY Rx Instructions: TAKE 1 CAPSULE BY MOUTH EVERY DAY cyanocobalamin (vitamin B-12) 1,000 mcg/mL solution 100 mcg subcut MONTHLY Qty: 10 0RF Rx Instructions: Twice a month for 2 months; then monthly folic acid 1 mg tablet 1 mg PO DAILY Date of admission: 03/18/25 18:25 Primary Care Provider: Terry Leahy Admitting Provider: Day Villasenor Attending physician on admission: Day Villasenor Condition: Serious Quality VTE Prophylaxis VTE prophylaxis: pharmacologic ordered (Heparin 5000 units q.12 hours.)
--- NOTE | 2025-03-20 13:00 | P.PNGS_ITS ---
Progress Note: A&P Assessment and Plan (1) Right upper quadrant abdominal pain with positive Riggins's Sign: Code(s): R10.11 - Right upper quadrant pain; R19.8 - Other specified symptoms and signs involving the digestive system and abdomen Status: Acute Assessment and Plan: * Resolved. CT scan and RUQ US showed a normal gallbladder with no findings of cholecystitis or gallstones. No abdominal tenderness on exam. * Patient is surgically stable for discharge, as it is not lilkely that his gallbladder is the cause of sepsis. Patient can follow up in general surgery office PRN if symptoms reoccur. (2) Transaminitis: Code(s): R74.01 - Elevation of levels of liver transaminase levels Status: Acute Assessment and Plan: * GI following and planning to manage conservatively. AST and ALT still mildly elevated today. Fatty liver noted on imaging. (3) Acidosis, lactic: Code(s): E87.20 - Acidosis, unspecified Status: Acute Assessment and Plan: * Resolved. See plan above. (4) Sepsis: Qualifiers: Acute renal failure type: unspecified Sepsis acute organ dysfunction status: with acute organ dysfunction Sepsis type: sepsis due to unspecified organism Severe sepsis acute organ dysfunction type: acute renal failure Severe sepsis shock status: without septic shock Qualified Code(s): A41.9 - Sepsis, unspecified organism; R65.20 - Severe sepsis without septic shock; N17.9 - Acute kidney failure, unspecified Code(s): A41.9 - Sepsis, unspecified organism Status: Acute Assessment and Plan: * Resolved. Etiology unclear. Does not appear to be related to his gallbladder. Continue medical management per primary service. (5) Pacemaker: Code(s): Z95.0 - Presence of cardiac pacemaker Status: Acute (6) Type 2 myocardial infarction due to shock: Code(s): R57.9 - Shock, unspecified; I21.A1 - Myocardial infarction type 2 Status: Acute Assessment and Plan: * Elevated troponin on admission. Cardiology following. Echo did not show any significant valvular abnormalities. Likely related to type 2 TX due to shock. (7) Fatty liver: Code(s): K76.0 - Fatty (change of) liver, not elsewhere classified Status: Acute (8) Acute renal failure: Qualifiers: Acute renal failure type: unspecified Qualified Code(s): N17.9 - Acute kidney failure, unspecified Code(s): N17.9 - Acute kidney failure, unspecified Status: Acute Plan I have discussed the patient's case, recommendations, and treatment plan with Dr. David. Subjective Subjective Date/Time Seen: 03/20/25 13:00 Patient reports: no new complaints, feels better, tolerating a regular diet (low fat), bowel movement and afebrile Interval history: Patient doing well today. No acute events overnight. Denies any abdominal pain. Exam Const: General: comfortable and no acute distress GI: Inspection: non-distended GI Palp: Yes Soft to palpation, No Tenderness to palpation present (GI) and No Guarding due to palpation present (GI) Auscultation: normal bowel sounds Objective Data Vital Signs Vital Signs: Vital Signs - 24 hr 03/19/25 14:00 03/19/25 16:00 03/19/25 16:00 Temperature 98.1 F Pulse Rate 84 99 96 Respiratory Rate 16 Blood Pressure 131/69 Pulse Oximetry 99 Oxygen Delivery 03/19/25 18:00 03/19/25 19:55 03/19/25 20:00 Temperature 97.9 F Pulse Rate 106 H 93 Respiratory Rate 18 Blood Pressure 150/82 H Pulse Oximetry 98 Oxygen Delivery Room Air 03/19/25 20:00 03/19/25 22:00 03/20/25 00:00 Temperature Pulse Rate 96 83 Respiratory Rate Blood Pressure Pulse Oximetry Oxygen Delivery Room Air 03/20/25 00:00 03/20/25 00:00 03/20/25 02:00 Temperature 98.6 F Pulse Rate 76 88 67 Respiratory Rate 18 Blood Pressure 141/74 H Pulse Oximetry 99 Oxygen Delivery 03/20/25 04:00 03/20/25 04:00 03/20/25 04:00 Temperature 98.5 F Pulse Rate 73 91 Respiratory Rate 16 Blood Pressure 152/84 H Pulse Oximetry 100 Oxygen Delivery Room Air 03/20/25 06:00 03/20/25 07:54 03/20/25 08:00 Temperature 98.1 F Pulse Rate 79 94 94 Respiratory Rate 12 Blood Pressure 160/79 H Pulse Oximetry 98 Oxygen Delivery Intake/Output Intake/Output: Intake & Output 03/17/25 03/18/25 03/19/25 03/20/25 23:59 23:59 23:59 23:59 Intake Total 2600 4079.2 2650 Output Total 500 2550 2125 Balance 2100 1529.2 525 Meds/Results Radiology Results: ITS Impressions Chest X-Ray 03/18/25 15:56 IMPRESSION: 1. No acute pulmonary findings. Chest/Abdomen/Pelvis CT 03/18/25 17:05 IMPRESSION: 1. No acute pulmonary findings. Emphysematous lungs. 2. Cardiomegaly with thickened multivessel coronary artery calcifications. 3. Fatty liver. Severe atherosclerotic changes of abdominal aorta including proximal celiac axis and superior mesenteric artery. Upper Quadrant Ultrasound 03/19/25 13:06 IMPRESSION: 1: Fatty infiltration of the liver. Labs Labs: Laboratory Results - last 24 hr 03/19/25 03/19/25 03/19/25 11:31 12:40 17:01 WBC RBC Hgb Hct MCV MCH MCHC RDW Plt Count MPV % Immature Plt Fraction Sodium Potassium Chloride Carbon Dioxide Anion Gap BUN Creatinine Estim Creat Clear Calc Estimated GFR Glucose POC Capillary Glucose 148 H 235 H Calcium Phosphorus Total Bilirubin AST ALT Alkaline Phosphatase Troponin I 0.441 H* D Total Protein Albumin 03/19/25 03/20/25 03/20/25 20:12 04:05 07:17 WBC 3.3 L RBC 4.52 L Hgb 14.0 Hct 41.8 L MCV 92.5 MCH 31.0 MCHC 33.5 RDW 15.0 H Plt Count 96 L MPV 10.0 % Immature Plt Fraction 4.0 Sodium 137 Potassium 3.7 Chloride 99 Carbon Dioxide 32 H Anion Gap 6 BUN 13 D Creatinine 0.91 Estim Creat Clear Calc 78 Estimated GFR > 60 Glucose 142 H POC Capillary Glucose 211 H 134 H Calcium 8.3 L Phosphorus 3.2 Total Bilirubin 1.2 AST 192 H ALT 128 H Alkaline Phosphatase 63 Troponin I Total Protein 6.6 Albumin 3.7
[2025-03-21 02:07] LABS: Osmolality, Serum 288 mOsmol/kg (280-301)
[2025-03-21 04:07] LABS: Osmolality, Urine 315 mOsmol/kg (.)
[2025-03-21 13:08] LABS: Albumin, U 17.4 % (.); Alpha-1-Globulin, U 3.4 % (.); Alpha-2-Globulin, U 41.7 % (.); Beta Globulin, U 22.6 % (.); Gamma Globulin, U 14.9 % (.)
[2025-03-21 14:08] LABS: Immunoglobulin A, Qn 348 mg/dL (61-437); Immunoglobulin G, Qn 908 mg/dL (603-1613); Immunoglobulin M, Qn 60 mg/dL (15-143)
== END 2025-03-20 11:00 | disposition home or self-care (01) | DRG 280 ==
LOC: ANHED 15:15 → ANHIMU 20:00
PROVIDERS: Internal Medicine; Internal Medicine Nephrology; Nurse Practitioner; Admitting Provider Family Medicine; Emergency Provider Student in an Organized Health Care Education/Training Program; PCP Internal Medicine; Visit Provider Internal Medicine
DX: I95.9 Hypotension, unspecified (principal); N17.0 Acute kidney failure with tubular necrosis; I21.A1 Myocardial infarction type 2; E87.21 Acute metabolic acidosis; R57.9 Shock, unspecified; T38.3X5A Adverse effect of insulin and oral hypoglycemic [antidiabetic] drugs, initial encounter; N40.0 Benign prostatic hyperplasia without lower urinary tract symptoms; I10 Essential (primary) hypertension; M19.90 Unspecified osteoarthritis, unspecified site; E78.2 Mixed hyperlipidemia; I25.10 Atherosclerotic heart disease of native coronary artery without angina pectoris; R73.03 Prediabetes; E86.0 Dehydration; E55.9 Vitamin D deficiency, unspecified; M10.9 Gout, unspecified; K76.0 Fatty (change of) liver, not elsewhere classified; I48.91 Unspecified atrial fibrillation; Z20.822 Contact with and (suspected) exposure to COVID-19; M47.26 Other spondylosis with radiculopathy, lumbar region; M48.062 Spinal stenosis, lumbar region with neurogenic claudication; M48.02 Spinal stenosis, cervical region; Z95.0 Presence of cardiac pacemaker; Z87.891 Personal history of nicotine dependence
CPT/HCPCS: 36415; 71045; 71250; 74176; 76705; 80053; 80143; 80179; 81001; 82533; 82550; 82570; 82784; 82803; 82948; 83605; 83735; 83930; 83935; 84100; 84133; 84145; 84156; 84166; 84300; 84439; 84443; 84480; 84484; 85025; 85027; 85055; 85610; 85652; 85730; 85999; 86140; 86334; 86335; 86705; 86706; 86803; 87040; 87340; 87637; 87641; 93005; 93306; 96361; 96365; 99285; A9270; J1644; J2270; J2543; J3373; J3475; J7030; J7070